=== PATIENT | male | born 1940 | race African-American/Black ===

== ENCOUNTER 2017-04-02 05:33 | Emergency (ER) | payer MEDICARE, OTHER, MEDICAID ==
[2017-04-02 06:44] LABS: ALT (SGPT) Less than 7 U/L (8-55); AST (SGOT) 14 U/L (5-34); Alkaline Phosphatase 69 U/L (40-150); Anion Gap 10 mmol/L (10-20); BUN (Urea Nitrogen) 18 mg/dL (8.4-25.7); Calc. Creatinine Clearance 0 mL/min (70-130); Calcium 9.2 mg/dL (7.8-10.44); Carbon Dioxide 29 mmol/L (23-31); Chloride 105 mmol/L (98-107); Estimated GFR-MDRD 35; Globulin 3.1 g/dL (2.4-3.5)
[2017-04-02 06:46] LABS: Hematocrit 41.6 % (42.0-52.0); Hypersemented Neutrophil SLIGHT; Mean Platelet Volume 7.3 fL (7.4-10.4); Neutrophil 60 % (42-75); Red Blood Cell (RBC) Count 4.36 mill/uL (4.70-6.10); Target Cells SLIGHT = 2-5 cells (100X) (0-1/hpf); White Blood Cell (WBC) Count 5.3 thou/uL (4.8-10.8)
--- NOTE | 2017-04-02 08:24 | RAD ---
PORTABLE UPRIGHT FRONTAL CHEST RADIOGRAPH 04/02/2017 COMPARISON: 11/30/2016 HISTORY: Altered mental status. FINDINGS: Midline sternotomy wires and mediastinal clips are present. [place] metallic structure overlies the cardiac silhouette suggesting a loop recorder. No pneumothorax, pleural fluid, focal consolidation, or alveolar edema. IMPRESSION: No acute findings. POS: [facility]
[2017-04-02 08:51] LABS: Bilirubin Negative (Negative); Blood, Urine Small (Negative); Glucose, Urine (Dipstick) Negative (Negative); Ketone, Urine Negative (Negative); Nitrite Negative (Negative); Protein, Urine (Dipstick) 100 mg/dL (Neg-Trace)
[2017-04-02 09:07] LABS: Bacteria/HPF None Seen HPF (None Seen); Hyaline Casts/LPF 0-3 HYALINE CAST LPF (0-3 Hyaline); RBC/HPF 0-3 HPF (0-3); Squamous Epithelial 0-3 HPF (0-3); WBC/HPF 0-3 HPF (0-3)
== END 2017-04-02 08:46 | disposition home or self-care (01) ==
LOC: ERS 05:33
DX: E10.649 Type 1 diabetes mellitus with hypoglycemia without coma (principal); F03.90 Unspecified dementia, unspecified severity, without behavioral disturbance, psychotic disturbance, mood disturbance, and anxiety; I10 Essential (primary) hypertension; E78.00 Pure hypercholesterolemia, unspecified; F17.220 Nicotine dependence, chewing tobacco, uncomplicated; Z79.899 Other long term (current) drug therapy
CPT/HCPCS: 36415; 36416; 71010; 80053; 81003; 81015; 85025

== ENCOUNTER 2017-04-11 16:15 | Observation (INO) | payer MEDICARE, OTHER, MEDICAID ==
[2017-04-11 17:39] LABS: #Basophils 0.1 thou/uL (0.0-0.2); #Eosinphils 0.7 thou/uL (0.0-0.7); #Lymphocytes 1.6 thou/uL (1.20-3.40); #Monocytes 0.4 thou/uL (0.11-0.59); #Neutrophils 2.7 thou/uL (1.40-6.50); %Eosinophils 13.6 % (0.0-10.0); %Lymphocytes 29.3 % (21.0-51.0); %Monocytes 7.6 % (0.0-10.0); Hematocrit 40.8 % (42.0-52.0); Mean Platelet Volume 7.5 fL (7.4-10.4); Red Blood Cell (RBC) Count 4.27 mill/uL (4.70-6.10); White Blood Cell (WBC) Count 5.5 thou/uL (4.8-10.8)
[2017-04-11 17:50] LABS: Troponin I 0.023 ng/mL (< 0.028)
[2017-04-11 17:50] LABS: Bilirubin Negative (Negative); Blood, Urine Trace (Negative); Glucose, Urine (Dipstick) >=1000 mg/dL (Negative); Ketone, Urine Negative (Negative); Nitrite Negative (Negative); Protein, Urine (Dipstick) 100 mg/dL (Neg-Trace)
[2017-04-11 17:52] LABS: Bacteria/HPF None Seen HPF (None Seen); Hyaline Casts/LPF 0-3 HYALINE CAST LPF (0-3 Hyaline); RBC/HPF 0-3 HPF (0-3); Squamous Epithelial None Seen HPF (0-3); WBC/HPF None Seen HPF (0-3)
[2017-04-11 17:57] LABS: Anion Gap 11 mmol/L (10-20); BUN (Urea Nitrogen) 23 mg/dL (8.4-25.7); Calc. Creatinine Clearance 0 mL/min (70-130); Calcium 9.6 mg/dL (7.8-10.44); Carbon Dioxide 29 mmol/L (23-31); Chloride 96 mmol/L (98-107); Estimated GFR-MDRD 34; Lipase 35 U/L (8-78)
[2017-04-11] MEDS ORDERED: Bisacodyl 5 MG TAB PO PRN (22:18)
[2017-04-11] MEDS ORDERED: Acetaminophen 325 MG TAB PO PRN (22:18)
[2017-04-11] MEDS ORDERED: Dextrose 50% Abboject 50 ML SYRINGE SLOW IVP PRN (22:18)
[2017-04-11] MEDS ORDERED: Dextrose 5% in Water 1,000 ML IV PRN (22:18)
[2017-04-11] MEDS ORDERED: hydrALAZINE 20 MG/ML VIAL SLOW IVP PRN (22:18)
[2017-04-11] MEDS ORDERED: traMADol HCl 50 MG TAB PO PRN (22:18)
[2017-04-11] MEDS ORDERED: HumaLOG 300 UNITS/3 ML VIAL SC PRN (22:18)
[2017-04-11] MEDS ORDERED: Zolpidem Tartrate 5 MG TAB PO PRN (22:18)
[2017-04-11] MEDS ORDERED: HYDROcodone/Acetaminophen 5/325 mg Tablet PO PRN (22:18)
[2017-04-11] MEDS ORDERED: Metoprolol Tartrate 25 MG TAB PO SCH (22:45)
[2017-04-11] MEDS ORDERED: Insulin NPH/Reg Insulin Hm 300 UNITS/3 ML VIAL SC SCH (22:45)
[2017-04-11] MEDS: Sodium Chloride 0.9% 1,000 ML IV SCH (23:00)
--- NOTE | 2017-04-12 04:15 | HP ---
CHIEF COMPLAINT: Uncontrolled glucose, hyperglycemia. BRIEF HOSPITAL COURSE: This is a 76-year-old pleasant -[place] gentleman who was apparently in his usual state of health, came into the hospital because of high glucose. The patient was sent by his primary care physician. The patient is a very poor historian and most of the history is obt ained right now from the chart. In the ER, the history was provided by the patient's spouse. She s aid that the patient came to the emergency room after receiving a call from the PCP after having giovanna vated blood sugar greater than 400. The patient was experienced some nausea and vomiting the past d ay. He was sent to the hospital a few days ago for low blood sugar in the 30s. At that time, his i nsulin regimen was changed from 20 units b.i.d. to 16 units b.i.d. Right now, he presents with hype rglycemia. The patient at the time of my examination does not have any abdominal pain, nausea, vomi ting, or chest pain. PAST MEDICAL HISTORY: Significant for history of dementia, history of CVA in the past, diabetes typ e 1, hypertension, high cholesterol, chronic back pain. PAST SURGICAL HISTORY: Significant for CABG. PSYCH HISTORY: None. SOCIAL HISTORY: Chews tobacco. Denies alcohol or recreational drug use. FAMILY HISTORY: Negative for diabetes and hypertension. MEDICATIONS: Include amlodipine, lisinopril, Protonix, atorvastatin, Humalog 70/30, he takes 16 uni ts b.i.d. REVIEW OF SYSTEMS: Significant for high blood sugar and some nausea, vomiting, otherwise no fever, no chills, no headache, no appetite, no hearing loss, no latencies. No cough, no chest pain, no dys uria, diarrhea, polyuria. No memory or mood changes. No neck pain. PHYSICAL EXAMINATION: VITAL SIGNS: Blood pressure is 176/86, respirations 18, temperature 98.2. GENERAL: The patient is lying in bed right now and is a very pleasant, in no apparent distress. HEENT: Atraumatic, normocephalic. Pupils equally round, react to light. Extraocular movements int act. Mucous membranes moist. NECK: Supple. No JVD. CHEST: Breath sounds heard. No rales or rhonchi. HEART: S1, S2, no murmurs or gallops. ABDOMEN: Soft, obese. EXTREMITIES: No cyanosis, clubbing, edema. Distal pulses present. NEUROLOGICAL: The patient has no sensorimotor deficits. No cranial nerve deficits noted. SKIN: Normal. LABORATORY DATA: EKG is normal sinus rhythm at 60. WBC count is 4.5, hemoglobin is 13 and potassiu m was 3.8, creatinine is 2.27, BUN is 23, glucose is 341. ASSESSMENT AND PLAN: 1. Hyperglycemia. The patient's glucose will be adjusted this hospital stay. He has got a very br ittle diabetes and just minor decrease in the glucose, long-acting insulin put him in hyperglycemia. We will let the daytime doctor adjust the dose of the insulin. We will put him on 7 units for now because he did not eat much this evening, 7 units of 70/30, we will also put him on insulin sliding scale to cover for any high glucose. 2. Acute renal failure on chronic renal failure probably secondary to uncontrolled diabetes. We wi ll gently hydrate him. 3. Hypertension, uncontrolled. We will continue home medications and p.r.n. medications, history o f diabetes, history of CVA in the past, history of nonsustained ventricular tachycardias in the past . The patient is demented, has some chronic back pain. Hopefully, the patient will have diabetic e ducation and we will be able to optimize glucose control with this hospital stay. Sequential compre ssion devices for deep venous thrombosis prophylaxis. We will monitor the labs and do the need for.
[2017-04-12 05:43] LABS: Hematocrit 39.9 % (42.0-52.0); Mean Platelet Volume 8.1 fL (7.4-10.4); Red Blood Cell (RBC) Count 4.15 mill/uL (4.70-6.10); White Blood Cell (WBC) Count 5.7 thou/uL (4.8-10.8)
[2017-04-12 05:46] LABS: Anion Gap 11 mmol/L (10-20); BUN (Urea Nitrogen) 19 mg/dL (8.4-25.7); Calc. Creatinine Clearance 40 mL/min (70-130); Calcium 8.9 mg/dL (7.8-10.44); Carbon Dioxide 26 mmol/L (23-31); Chloride 105 mmol/L (98-107); Estimated GFR-MDRD 46
[2017-04-12 06:20] LABS: Neutrophil 40 % (42-75)
[2017-04-12] MEDS ORDERED: Insulin NPH/Reg Insulin Hm 300 UNITS/3 ML VIAL SC SCH ×3 (09:00→21:00)
[2017-04-12] MEDS ORDERED: FLU VACC TS2017-18 (>65YR) 0.5 ML SYRINGE IM ONE (09:00)
[2017-04-12] MEDS: Amlodipine 10 MG TAB PO SCH (10:17)
[2017-04-12] MEDS: Aspirin 325 mg Enteric Coated Tablet PO SCH (10:18)
[2017-04-12] MEDS: Famotidine 20 MG TAB PO SCH (10:18)
[2017-04-12] MEDS: Lisinopril 5 MG TAB PO SCH (10:19)
[2017-04-12] MEDS: Metoprolol Tartrate 25 MG TAB PO SCH ×2 (10:20→20:49)
[2017-04-12] MEDS: Sodium Chloride 0.9% 1,000 ML IV SCH (12:33)
--- NOTE | 2017-04-12 17:58 | PDOC.PN ---
- Subjective Encounter Start Date: 04/12/17 Encounter Start Time: 11:20 Pt seen for followup re: hyperglycemia. Denies chest pain, shortness of breath , fevers or chills. - Objective MAR Reviewed: Yes Vital Signs & Weight: Vital Signs (12 hours) Temp Pulse Resp BP BP Pulse Ox 04/12/17 15:05 96.9 F L 74 17 139/77 96 04/12/17 12:00 98.2 F 75 16 165/83 H 98 04/12/17 11:15 98.3 F 75 16 165/83 H 98 04/12/17 10:19 61 157/80 H 04/12/17 10:17 61 157/80 H 04/12/17 08:45 98.3 F 75 16 98 04/12/17 07:14 98.5 F 61 16 157/80 H 98 Weight Weight 178 lb 6.4 oz I&O: 04/11/17 04/12/17 04/13/17 06:59 06:59 06:59 Intake Total 853 Output Total 150 Balance 703 Result Diagrams: 04/12/17 05:12 04/12/17 05:12 Additional Labs: Accuchecks 04/12/17 04/12/17 04/12/17 17:06 10:28 05:33 POC Glucose 79 230 H 138 H 04/12/17 04/11/17 02:04 21:41 POC Glucose 345 H 337 H Phys Exam - Physical Examination Constitutional: NAD HEENT: PERRLA, moist MMs, sclera anicteric, oral pharynx no lesions Neck: no nodes, no JVD, supple, full ROM Respiratory: no wheezing, no rales, no rhonchi, clear to auscultation bilateral Cardiovascular: RRR, no rub Gastrointestinal: soft, non-tender, no distention, positive bowel sounds Musculoskeletal: pulses present Neurological: moves all 4 limbs Lymphatic: no nodes Psychiatric: normal affect Deviation from normal: Oriented to person and place, not to time Skin: no rash, normal turgor, cap refill <2 seconds Dx/Plan (1) Hyperglycemia Code(s): R73.9 - HYPERGLYCEMIA, UNSPECIFIED Status: Acute (2) Dyslipidemia Code(s): E78.5 - HYPERLIPIDEMIA, UNSPECIFIED Status: Acute (3) CAD (coronary artery disease) Code(s): I25.10 - ATHSCL HEART DISEASE OF [place] CORONARY ARTERY W/O ANG PCTRS Status: Chronic Qualifiers: Coronary Disease-Associated Artery/Lesion type: [place] artery [place] vs. transplanted heart: [place] heart Associated angina: without angina Qualified Code(s): I25.10 - Atherosclerotic heart disease of [place] coronary artery without angina pectoris (4) Hypertension Code(s): I10 - ESSENTIAL (PRIMARY) HYPERTENSION Status: Chronic Qualifiers: Hypertension type: essential hypertension Qualified Code(s): I10 - Essential (primary) hypertension - Plan DVT proph w/SCDs * . Monitor accuchecks, pt's 70/30 insulin started at 18 units BID. Continue insulin sliding scale. Check A1c level. CAD stable. Continue statin. Monitor vital signs, titrate antihypertensives as needed. Review of Systems - Review of Systems Constitutional: negative: Fever, Chills, Sweats, Weakness, Malaise Respiratory: negative: Cough, Dry, Shortness of Breath, Hemoptysis, SOB with Excertion, Pleuritic Pain, Sputum, Wheezing Cardiovascular: negative: Chest Pain, Palpitations, Orthopnea, Paroxysmal Noc. Dyspnea, Edema, Light Headedness Gastrointestinal: negative: Nausea, Vomiting, Abdominal Pain, Diarrhea, Constipation, Melena, Hematochezia Genitourinary: negative: Dysuria, Frequency, Incontinence, Hematuria, Retention - Medications/Allergies Allergies/Adverse Reactions: Allergies Allergy/AdvReac Type Severity Reaction Status Date / Time No Known Allergies Allergy Verified 04/11/17 22:02 Medications: Current Medications Acetaminophen (Tylenol) 650 mg PO Q4H PRN PRN Reason: Headache/Fever or Pain Hydrocodone Bitart/Acetaminophen (Cornelius 5/325) 1 tab PO Q4H PRN PRN Reason: Moderate Pain (4-6) Amlodipine Besylate (Norvasc) 10 mg PO DAILY [facility] Last Admin: 04/12/17 10:17 Dose: 10 mg Aspirin (Ecotrin) 325 mg PO DAILY [facility] Last Admin: 04/12/17 10:18 Dose: 325 mg Bisacodyl (Dulcolax) 5 mg PO DAILYPRN PRN PRN Reason: CONSTIPATION Cholecalciferol (Vitamin D3) 1,000 units PO DAILY [facility] Last Admin: 04/12/17 10:18 Dose: 1,000 units Dextrose/Water (Dextrose 50%) 25 gm SLOW IVP PRN PRN PRN Reason: Hypoglycemia Famotidine (Pepcid) 20 mg PO DAILY [facility] Last Admin: 04/12/17 10:18 Dose: 20 mg Glucagon (Glucagon) 1 mg IM PRN PRN PRN Reason: Hypoglycemia Hydralazine HCl (Apresoline) 10 mg SLOW IVP Q4H PRN PRN Reason: Systolic BP > 180 Dextrose/Water (D5w) 1,000 mls @ 0 mls/hr IV .Q0M PRN; As Directed PRN Reason: Hypoglycemia Sodium Chloride (Normal Saline 0.9%) 1,000 mls @ 75 mls/hr IV .[id number] [facility] Stop: 04/13/17 22:31 Last Admin: 04/12/17 12:33 Dose: 1,000 mls Insulin Human Isoph/Insulin Regular (Humulin 70/30) 18 units SC Q12H [facility] Last Admin: 04/12/17 10:24 Dose: 18 unit Insulin Human Lispro (Humalog) 0 units SC .MODERATE SLIDING SC PRN PRN Reason: Moderate Correctional Scale Last Admin: 04/12/17 12:29 Dose: 4 unit Lisinopril (Zestril) 5 mg PO DAILY [facility] Last Admin: 04/12/17 10:19 Dose: 5 mg Metoprolol Tartrate (Lopressor) 50 mg PO BID [facility] Last Admin: 04/12/17 10:20 Dose: 50 mg Pantoprazole Sodium (Protonix) 40 mg PO Q24HR [facility] Last Admin: 04/11/17 23:01 Dose: 40 mg Sodium Chloride (Flush - Normal Saline) 10 ml IVF PRN PRN PRN Reason: Saline Flush Tramadol HCl (Ultram) 50 mg PO Q8H PRN PRN Reason: Moderate Pain (4-6) Zolpidem Tartrate (Ambien) 5 mg PO HSPRN PRN PRN Reason: Insomnia
[2017-04-12 18:46] LABS: Hemoglobin A1c 8.9 % (4.0-6.0)
[2017-04-12] MEDS: Insulin NPH/Reg Insulin Hm 300 UNITS/3 ML VIAL SC SCH (20:54)
[2017-04-12] MEDS ORDERED: Atorvastatin Calcium 40 MG TAB PO SCH (21:00)
[2017-04-13] MEDS: Sodium Chloride 0.9% 1,000 ML IV SCH (02:04)
[2017-04-13 05:58] LABS: Anion Gap 11 mmol/L (10-20); BUN (Urea Nitrogen) 16 mg/dL (8.4-25.7); Calc. Creatinine Clearance 42 mL/min (70-130); Calcium 8.5 mg/dL (7.8-10.44); Carbon Dioxide 26 mmol/L (23-31); Chloride 105 mmol/L (98-107); Estimated GFR-MDRD 47
[2017-04-13 07:54] VITALS: BP 167/90
[2017-04-13] MEDS ORDERED: Potassium Chloride 20 MEQ TAB PO SCH (09:30)
[2017-04-13] MEDS: Famotidine 20 MG TAB PO SCH (09:39)
[2017-04-13] MEDS: Aspirin 325 mg Enteric Coated Tablet PO SCH (09:39)
[2017-04-13] MEDS: Metoprolol Tartrate 25 MG TAB PO SCH (09:39)
[2017-04-13] MEDS: Lisinopril 5 MG TAB PO SCH (09:40)
[2017-04-13] MEDS: Insulin NPH/Reg Insulin Hm 300 UNITS/3 ML VIAL SC SCH (09:42)
[2017-04-13] MEDS: Amlodipine 10 MG TAB PO SCH (09:51)
[2017-04-13 12:12] VITALS: TEMP 99.6
--- NOTE | 2017-04-13 17:12 | DIS ---
DATE OF ADMISSION: 04/11/2017 DATE OF DISCHARGE: 04/13/2017 PRIMARY CARE PHYSICIAN: Dr Len Mccurdy DISCHARGE DIAGNOSES: 1. Hyperglycemia. 2. Brittle diabetes mellitus. CONDITION OF PATIENT AT THE TIME OF DISCHARGE: Stable. I assessed Mr. Castillo on the day of discharge. He denies any chest pain or shortness of breath. He denies any lightheadedness or diaphoresis. He denies any weakness. Vital signs are stable. S1 and S2 are heard, regular. Lungs are clear to auscultation bilaterally. DISCHARGE MEDICATIONS: Aspirin 325 mg daily, Lipitor 40 mg at bedtime, Dulcolax 5 mg daily as needed, vitamin D3 1000 units daily, Humulin 70/30 insulin 16 units 2 times a day, lisinopril 5 mg daily, metoprolol 50 mg 2 times a day, Protonix 40 mg daily, amlodipine 10 mg daily, and tramadol 50 mg 3 times a day as needed. HOSPITAL COURSE: Mr. Castillo is a pleasant 76-year-old gentleman who was admitted to [facility] for hyperglycemia on 04/11/2017. He was recently hospitalized at this facility for hypoglycemia. His home medications included Humulin 70/30 16 units 2 times a day. This dose was increased to 18 units 2 times a day. However, he had hypoglycemic episodes , blood sugars 79 at 1706 hours on 04/12 and blood sugar 66 at 0501 hours on . His insulin dose was changed back to his home medication dose of 16 units 2 times a day. He needs Endocrinology evaluation as outpatient. He has been advised to follow up with his primary care physician and request the same. He has also been advised to maintain record of his Accu-Cheks and shows the readings to his primary care provider as well as to shingle packer. During this hospitalization, he had a hemoglobin A1c level of 8.9. On the day of discharge, he has a sodium of 139, potassium 3.3, which is being replaced, creatinine 1.70, and blood urea nitrogen of 16. On 04/12, he had a white count of 5700, hemoglobin 12.7 and platelet count 146,000. Many thanks for allowing me to participate in your patient's care. Please feel free to contact me with any questions or concerns. DISCHARGE DESTINATION: Home. [facility]
--- NOTE | 2017-05-25 15:41 | EKG ---
Test Reason : Blood Pressure : / mmHG Vent. Rate : 060 BPM Atrial Rate : 060 BPM P-R Int : 180 ms QRS Dur : 100 ms QT Int : 412 ms P-R-T Axes : 048 -07 009 degrees QTc Int : 412 ms Normal sinus rhythm Inferior infarct , age undetermined Abnormal ECG Confirmed by HYACINTH MÁRQUEZ, TERRY ([id number]), assignment desk editor EMEBR PAZ ([id number]) on 05/25/2017 3:41:39 PM Referred By: Confirmed By:TERRY CLAROS MD
== END 2017-04-13 13:16 | disposition home or self-care (01) ==
LOC: ERS 16:15 → 2SW 19:25
PROVIDERS: ADMIT Internal Medicine; ATTEND Internal Medicine
DX: E10.65 Type 1 diabetes mellitus with hyperglycemia (principal); F03.90 Unspecified dementia, unspecified severity, without behavioral disturbance, psychotic disturbance, mood disturbance, and anxiety; E78.00 Pure hypercholesterolemia, unspecified; M54.9 Dorsalgia, unspecified; G89.29 Other chronic pain; F17.220 Nicotine dependence, chewing tobacco, uncomplicated; N17.9 Acute kidney failure, unspecified; E10.22 Type 1 diabetes mellitus with diabetic chronic kidney disease; I12.9 Hypertensive chronic kidney disease with stage 1 through stage 4 chronic kidney disease, or unspecified chronic kidney disease; N18.9 Chronic kidney disease, unspecified; Z79.82 Long term (current) use of aspirin; Z79.899 Other long term (current) drug therapy; Z95.1 Presence of aortocoronary bypass graft; Z86.73 Personal history of transient ischemic attack (TIA), and cerebral infarction without residual deficits
CPT/HCPCS: 80048 ×3; 82010; 82553; 82962 ×3; 83036; 83690; 83930; 84484; 85025 ×2; 87086; 93005; 96360; 96361 ×4; 99285; G0008; G0378; Q2036; 36415; 36416; 81003; 81015; 90471; 90682

== ENCOUNTER 2017-07-18 14:04 | Emergency (ER) | payer MEDICARE, OTHER, MEDICAID ==
[2017-07-18 15:06] LABS: ALT (SGPT) Less than 7 U/L (8-55); AST (SGOT) 12 U/L (5-34); Albumin 3.7 g/dL (3.4-4.8); Alkaline Phosphatase 77 U/L (40-150); Anion Gap 15 mmol/L (10-20); BUN (Urea Nitrogen) 22 mg/dL (8.4-25.7); Bilirubin, Total 1.1 mg/dL (0.2-1.2); Calc. Creatinine Clearance 0 mL/min (70-130); Calcium 8.7 mg/dL (7.8-10.44); Carbon Dioxide 25 mmol/L (23-31); Chloride 95 mmol/L (98-107); Estimated GFR-MDRD 33; Globulin 2.8 g/dL (2.4-3.5); Glucose 434 mg/dL (83-110); Potassium 3.7 mmol/L (3.5-5.1); Protein, Total 6.5 g/dL (5.8-8.1); Sodium 131 mmol/L (136-145)
--- NOTE | 2017-07-18 15:20 | RAD ---
PA AND LATERAL VIEWS CHEST: HISTORY: Cough. FINDINGS: Comparison is made with the exam of 04/02/17. Changes of median sternotomy are again seen. The heart size is borderline. The aorta is tortuous. The lungs are expanded without focal areas of consolidation, pneumothorax, or pleural effusions. The re are degenerative changes in the spine. Postop changes are seen in the right shoulder. IMPRESSION: No acute process. POS: [facility]
[2017-07-18] MEDS ORDERED: HumaLOG 300 UNITS/3 ML VIAL ONE (15:49)
[2017-07-18] MEDS ORDERED: Insulin Regular 300 UNITS/3 ML VIAL ONE (15:51)
== END 2017-07-18 16:09 | disposition home or self-care (01) ==
LOC: ERS 14:04
DX: E10.65 Type 1 diabetes mellitus with hyperglycemia (principal); R05 Cough; Z91.11 Patient's noncompliance with dietary regimen; F03.90 Unspecified dementia, unspecified severity, without behavioral disturbance, psychotic disturbance, mood disturbance, and anxiety; I10 Essential (primary) hypertension; F17.220 Nicotine dependence, chewing tobacco, uncomplicated; Z79.4 Long term (current) use of insulin; Z79.899 Other long term (current) drug therapy
CPT/HCPCS: 71046; 80053; J1815

== ENCOUNTER 2017-10-20 10:25 | Inpatient (IN) | payer MEDICARE, OTHER ==
[2017-10-20 11:41] LABS: #Basophils 0.1 thou/uL (0.0-0.2); #Eosinphils 0.6 thou/uL (0.0-0.7); #Lymphocytes 1.2 thou/uL (1.20-3.40); #Monocytes 0.4 thou/uL (0.11-0.59); #Neutrophils 3.2 thou/uL (1.40-6.50); %Basophils 1.1 % (0.0-1.0); %Eosinophils 11.3 % (0.0-10.0); %Lymphocytes 21.2 % (21.0-51.0); %Monocytes 6.6 % (0.0-10.0); %Neutrophils 59.8 % (42.0-75.0); Hemoglobin 7.1 g/dL (14.0-18.0); Mean Corpuscular HGB CONC 32.2 g/dL (32.0-36.0); Mean Corpuscular Hemoglobin 32.8 pg (27.0-31.0); Mean Platelet Volume 7.7 fL (7.4-10.4); Platelet Count 169 thou/uL (130-400); RBC Distribution Width 16.5 % (11.5-14.5); Red Blood Cell (RBC) Count 2.15 mill/uL (4.70-6.10); White Blood Cell (WBC) Count 5.4 thou/uL (4.8-10.8)
[2017-10-20 12:02] LABS: ALT (SGPT) Less than 7 U/L (8-55); AST (SGOT) 22 U/L (5-34); Albumin 3.6 g/dL (3.4-4.8); Alkaline Phosphatase 59 U/L (40-150); Anion Gap 9 mmol/L (10-20); BUN (Urea Nitrogen) 47 mg/dL (8.4-25.7); Bilirubin, Total 1.4 mg/dL (0.2-1.2); Calc. Creatinine Clearance 0 mL/min (70-130); Calcium 8.5 mg/dL (7.8-10.44); Carbon Dioxide 28 mmol/L (23-31); Chloride 108 mmol/L (98-107); Estimated GFR-MDRD 28; Globulin 2.2 g/dL (2.4-3.5); Glucose 275 mg/dL (83-110); Potassium 3.6 mmol/L (3.5-5.1); Protein, Total 5.8 g/dL (5.8-8.1)
[2017-10-20 12:08] LABS: Sodium 141 mmol/L (136-145)
[2017-10-20 12:23] LABS: CKMB 1.7 ng/mL (0-6.6); Troponin I 0.072 ng/mL (< 0.028)
[2017-10-20 12:30] LABS: Bilirubin Small (Negative); Blood, Urine Moderate (Negative); Clarity CLOUDY (Clear); Glucose, Urine (Dipstick) Negative (Negative); Leukocyte Negative (Negative); Nitrite Negative (Negative); Protein, Urine (Dipstick) Trace mg/dL (Neg-Trace); Specific Gravity, Urine 1.019 (1.002-1.036)
[2017-10-20 12:33] LABS: Bacteria/HPF None Seen HPF (None Seen); Pathc Cast-AUWi Flag 1.01 (0-2.49); Squamous Epithelial 0-3 HPF (0-3); WBC/HPF 0-3 HPF (0-3)
[2017-10-20 12:45] LABS: Hyaline Casts/LPF 4-6 HYALINE CAST LPF (0-3 Hyaline); Renal Epithelial 0-3 HPF (0-3); Transitional Epithelial 0-3 HPF (0-3)
--- NOTE | 2017-10-20 13:34 | RAD ---
PORTABLE CHEST: Date: 10/20/17 HISTORY: Hypertension. Hypoglycemia. Weakness. FINDINGS: Heart size is within normal limits for portable technique. There are postop sternotomy changes. Lungs are clear of infiltrates. No signs of failure. Postoperative changes of the right shoulder are prese nt. IMPRESSION: No active intrathoracic disease. POS: [facility]
--- NOTE | 2017-10-20 13:48 | CT ---
CT OF BRAIN PERFORMED WITHOUT CONTRAST ENHANCEMENT: Date: 10/20/17 HISTORY: Altered mental status. Weakness. COMPARISON: 11/30/16. FINDINGS: There is generalized ventricular and sulcal prominence with some decreased attenuation of the periven tricular white matter. There are no signs of intracerebral hemorrhage or extra-axial fluid collection s. Mastoid air cells are clear. There is mucosal disease within the ethmoid and maxillary sinuses. IMPRESSION: No acute intracranial abnormalities. POS: [facility]
[2017-10-20 15:54] LABS: Lactic Acid 1.5 mmol/L (0.5-2.2)
[2017-10-20] MEDS ORDERED: Ondansetron HCl/PF 4 MG/2 ML Vial IVP PRN (16:30)
[2017-10-20] MEDS ORDERED: Sodium Chloride 0.9% 1,000 ML IV SCH (16:30)
[2017-10-20] MEDS ORDERED: Ondansetron ODT 4 MG TAB PO PRN (16:31)
[2017-10-20] MEDS ORDERED: Dextrose 50% Abboject 50 ML SYRINGE SLOW IVP PRN (16:37)
[2017-10-20] MEDS ORDERED: Dextrose 5% in Water 1,000 ML IV PRN (16:37)
[2017-10-20] MEDS ORDERED: Acetaminophen 325 MG TAB PO PRN (16:37)
[2017-10-20 16:40] VITALS: BMI 25.2
[2017-10-20] MEDS ORDERED: Prevnar 13-Val Conj/PF 0.5 ML SYRINGE IM ONE (17:00)
[2017-10-20] MEDS: Sodium Chloride 0.9% 1,000 ML IV SCH (17:05)
[2017-10-20 17:41] LABS: Iron 69 ug/dL (65-175); Iron Binding Capacity, Total 199 mcg/dL (261-462); Transferrin, Serum 159 mg/dL (163-344)
[2017-10-20 17:45] LABS: CKMB 1.8 ng/mL (0-6.6); Troponin I 0.055 ng/mL (< 0.028)
[2017-10-20] MEDS: HumaLOG 300 UNITS/3 ML VIAL SC PRN (17:54)
[2017-10-20] MEDS: Pantoprazole 40 MG VIAL IVP SCH (20:05)
--- NOTE | 2017-10-20 22:59 | CON ---
DATE OF CONSULTATION: 10/20/2017 GI INPATIENT CONSULTATION NOTE REQUESTING PHYSICIAN: Dr. Chiang. REASON FOR CONSULTATION: Anemia and heme positive stool. HISTORY OF PRESENT ILLNESS: Nikhil Castillo is a 76-year-old man with dementia and history of coronary artery disease. He was previously seen by my GI colleague, Dr. George Sanchez back in April 2017. At that time, he had an EGD which demonstrated a benign gastric polyp as well as short segment Plan[place] tt esophagus. The patient has been on a daily proton pump inhibitor. He was admitted to the [facility] earlier today after presenting with report of progressive weakness over the past couple of weeks an d also declining appetite over the past few days. Due to the patient's dementia and no family member s being in the room, my ability to get a good history is limited. It is taken primarily from medical records. The patient himself denies any problems with abdominal pain, nausea, or vomiting. He patel es seeing any blood in the stool either melena or hematochezia. He denies any overt bleeding from an ywhere. He does tell me that he tends toward constipation, but he cannot really give me any further details than that. Upon presentation, it was noted that he has a significant new anemia, back in Apr of last year, hemoglobin was 12.7 with MCV 96, but now hemoglobin has dropped to 7.1 and MCV is increased to 102. Other labs are notable for acute on chronic renal failure with BUN 47, creatinine 2.69. Iron studies are mixed, but I do not see a ferritin, transferrin is low at 159, but TIBC is a lso low at 199. CK is elevated 491 and BNP elevated to 129.9. FOBT was performed and is positive. He has a low level troponin elevation as well, but this is down trending. He denies any chest pain o r shortness of breath. We are consulted due to the finding of new anemia. The patient does not reca ll having an upper endoscopy last year. He does not have a recall in going a colonoscopy. I am not sure whether he has had one or not. There is no record of that in our system or in the [facility] system. REVIEW OF SYSTEMS: Full review of systems including constitutional, head, eyes, ears, nose, throat, GI, , cardiovascular, respiratory, musculoskeletal, and neurologic systems is negative except as no man in the HPI. PAST MEDICAL HISTORY: Dementia, hypertension, hyperlipidemia, diabetes, coronary artery disease, cor onary artery bypass graft surgery, chronic back pain, benign gastric polyp on EGD 04/2017, short segm ent Ross's esophagus on EGD 04/2017. ALLERGIES: No known drug allergies. OUTPATIENT MEDICATIONS: Amlodipine, atorvastatin, lisinopril, Protonix 40 mg daily, insulin. SOCIAL HISTORY: The patient chews tobacco. No alcohol or drug use. FAMILY HISTORY: Patient is not aware of family history of GI malignancy. PHYSICAL EXAMINATION: VITAL SIGNS: Temperature 98.4, pulse 72, blood pressure 123/64, 96% oxygen saturation on room air. GENERAL: Elderly 76-year-old -[place] gentleman lying in bed comfortably, appearing nontoxic and in no acute distress. SKIN: No jaundice, no rashes visible or palpable. EYES: No scleral icterus. Extraocular movements intact. ENT: Mucous membranes moist, no oral lesions. LYMPH: No submandibular, supraclavicular lymphadenopathy. THYROID: Nontender to palpation. HEART: Regular rate and rhythm. LUNGS: Clear to auscultation bilaterally. ABDOMEN: Bowel sounds present, soft and nontender to palpation throughout. No masses or organomegal y appreciated. EXTREMITIES: No peripheral edema. VESSELS: Radial pulses 2+ bilaterally. NEUROLOGIC: No focal deficits. LABORATORY STUDIES: Hemoglobin 7.1, MCV elevated to 102. WBC 5.4, platelets 169. Sodium 141, potas sium 3.6, BUN 47, creatinine 2.69, troponin initially 0.072, now down to 0.05. Lactic acid 1.5, mena sferrin low at 159. Iron 69, TIBC low at 199, 35% iron saturation. CK elevated to 491. BNP elevate d to 129.9, total bilirubin 1.4, alkaline phosphatase 59, AST 22, ALT 7, albumin 3.6. Urinalysis romeo ws 11-20 rbc's. FOBT is positive. IMAGING STUDIES: Chest x-ray shows no acute processes. Head CT shows no acute processes. ASSESSMENT AND PLAN: 1. Anemia, macrocytic, new since 04/2017. 2. Heme positive stool. 3. History of Ross esophagus. 4. Dehydration, acute on chronic renal failure. Note the anemia is macrocytic, and iron studies back so far are mixed with a low TIBC and low transfe rrin. Awaiting ferritin level. I will also order vitamin B12 and folate levels to be drawn tomorrow . We will await results of labs and also follow his acute on chronic renal failure tomorrow. We francesco l not perform any bowel preparation for colonoscopy tonight or plan for any endoscopic investigation tomorrow. Rather, we will have him on clear liquid diet. We will plan to reassess tomorrow, and dep ending on lab workup and patient and family wishes at that time, could potentially administer bowel p reparation tomorrow evening for colonoscopy the following day. Thank you for the consultation. Please call back anytime with questions or concerns.
[2017-10-20 23:35] LABS: CKMB 2.2 ng/mL (0-6.6); Troponin I 0.044 ng/mL (< 0.028)
[2017-10-21] MEDS: Sodium Chloride 0.9% 1,000 ML IV SCH ×4 (03:44→21:03)
[2017-10-21 06:04] LABS: Hemoglobin A1c 9.5 % (4.0-6.0)
[2017-10-21 06:09] LABS: ALT (SGPT) 7 U/L (8-55); AST (SGOT) 19 U/L (5-34); Albumin 3.4 g/dL (3.4-4.8); Alkaline Phosphatase 58 U/L (40-150); Anion Gap 6 mmol/L (10-20); BUN (Urea Nitrogen) 37 mg/dL (8.4-25.7); Bilirubin, Total 1.4 mg/dL (0.2-1.2); Calc. Creatinine Clearance 33 mL/min (70-130); Carbon Dioxide 30 mmol/L (23-31); Chloride 109 mmol/L (98-107); Estimated GFR-MDRD 37; Glucose 189 mg/dL (83-110); Potassium 3.5 mmol/L (3.5-5.1); Protein, Total 5.4 g/dL (5.8-8.1); Sodium 141 mmol/L (136-145)
[2017-10-21 06:25] LABS: Eosinophils 11 % (0-10); Hemoglobin 6.4 g/dL (14.0-18.0); Lymphocytes 21 % (21-51); MDiff Complete? YES; Mean Corpuscular HGB CONC 32.9 g/dL (32.0-36.0); Mean Corpuscular Hemoglobin 33.9 pg (27.0-31.0); Mean Platelet Volume 7.9 fL (7.4-10.4); Monocytes 8 % (0-10); Neutrophil 60 % (42-75); PLT Morphology Comment Appears Adequate; Platelet Count 166 thou/uL (130-400); RBC Distribution Width 16.3 % (11.5-14.5); White Blood Cell (WBC) Count 5.7 thou/uL (4.8-10.8)
[2017-10-21 06:40] LABS: Vitamin B12 Less than 109 pg/mL (211-911)
[2017-10-21] MEDS: Pantoprazole 40 MG VIAL IVP SCH ×2 (09:29→21:03)
[2017-10-21] MEDS: HumaLOG 300 UNITS/3 ML VIAL SC PRN ×2 (12:42→21:04)
--- NOTE | 2017-10-21 15:11 | HP ---
DATE OF ADMISSION: 10/20/2017 PRIMARY CARE PHYSICIAN: Jeanne Lombardo. TIME OF SERVICE: 1550. CHIEF COMPLAINT: Weakness. HISTORY OF PRESENT ILLNESS: Mr. Castillo is a 76-year-old -[place] male with history of diab etes, hypertension, hyperlipidemia, reflux, Ross esophagus, tobacco abuse, dementia and coronary d isease. The patient was in normal state of health until about a month ago, started having increasing weakness . Really worse over the last 2 weeks. During the last one week, he has had decreased activity and r eally unable to get out of bed. His relates a history of 2 weeks he is really not having good i ntake and absolutely nothing over the last 24 hours. Today, he was incontinent of stool and really h ad not been walking for the last couple of days. He denies any melena, hematochezia. No fevers or c hills. No nausea or vomiting. The patient was brought to the emergency department for evaluation. He was found to have a creatinin e of 2.69, which is up from his baseline 1.0 on 04/2017. His hemoglobin was 7.1 last at 12.7 about 3 or 4 months ago. We were subsequently called for admission. PAST MEDICAL HISTORY: 1. Diabetes mellitus type 2. 2. Hypertension. 3. Hyperlipidemia. 4. Gastroesophageal reflux disease. 5. Ross esophagus. 6. Dementia. 7. Coronary artery disease. 8. Tobacco abuse with snuff. PAST SURGICAL HISTORY: Coronary artery bypass grafting x4 vessels back in, I believe 2006. HOME MEDICATIONS: 1. Lipitor 40 mg p.o. at bedtime. 2. Aspirin 325 mg daily. 3. Lisinopril 5 mg daily. 4. Metoprolol tartrate 50 mg p.o. b.i.d. 5. Protonix 40 mg p.o. daily. 6. Tramadol 50 mg p.o. t.i.d. p.r.n. pain. 7. Vitamin D3 of 1000 units daily. 8. Amlodipine 10 mg daily. 9. Insulin 70/30, 16 units subcu b.i.d. ALLERGIES: NKDA. FAMILY HISTORY: Negative for clotting or bleeding disorder. No immune dysfunction. SOCIAL HISTORY: , monogamous. He does use snuff about 4 cans per day his says, negative for alcohol or IV drug. We did discussed code status: She does wish for him to be a FULL CODE once every intervention done. PHYSICAL EXAMINATION: On my arrival; GENERAL: The patient is awake and alert. He is pleasantly demented. He appears to be in no distres s. HEENT: Normocephalic, atraumatic. His pupils equal, reactive bilaterally. Mucous membranes are [address] st. There was no visible lesion or thrush. He does have a snuff present in his mouth. NECK: Supple, without lymphadenopathy, JVD or thyromegaly. LUNGS: Clear. Good air movement. Symmetrical chest excursion. No wheeze, no rales or rhonchi. No prolonged expiratory phase. CARDIOVASCULAR: Normocardic and regular. Normal S1, S2. A faint 2/6 systolic ejection murmur in th e right upper sternal border. ABDOMEN: Soft, it is nontender, nondistended, no mass or organomegaly. No rebound, rigidity or guar ding. EXTREMITIES: No cyanosis, clubbing with trace pedal edema. SKIN: Warm and well perfused. He has no rashes or lesions. MUSCULOSKELETAL: Normal to inspection. Large joints appear uninflamed. Adequate range of motion. NEUROLOGIC: Cranial nerves II-XII grossly intact. He has no focal deficits. He has had 5/5 strengt h. LABORATORY EVALUATION: Sodium was 141, potassium 3.6, chloride 108, bicarbonate 28, BUN 47, creatini ne 2.69 and from 2.32 recently and 1.70 back in April. Glucose is 275. Liver function completely within normal limits. Total bilirubin slightly elevated at 1.4. CBC showed a white count of 5.4 with a platelet count of 1 86. Hemoglobin is 7.1 down from 12.7 back in April, and a hematocrit of 22.0. He is microcytic a nd hypochromic. RADIOGRAPHIC STUDIES: None. ASSESSMENT AND PLAN: 1. Symptomatic anemia. We will transfuse him up to 8. I have ordered a type and cross 1 unit to be transfused. His signed the consent form in the emergency department. 2. Chronic gastrointestinal blood loss. He has got no gross blood seen, but does have a positive oc cult fecal blood. I will ask GI to evaluate. We will keep on a clear liquid diet, keep n.p.o. after midnight. He does have a history of Ross esophagus. We will follow up on their recommendations. Dr. Burton's electroneurodiagnostic technician. 3. Diabetes mellitus type 2, will be n.p.o. except for clear liquid diet. We will use sliding scale insulin for correction q.i.d. a.c. and at bedtime Accu-Cheks. 4. Hypertension, essential. We will hold his medicines right now, as he is n.p.o., will restart the m if he is going to be able to eat. 5. Hyperlipidemia. Statin on hold. 6. Gastroesophageal reflux disease. IV Protonix 40 mg q.12 hours. We will follow up on GI recommen dations. 7. Dementia. 8. Coronary artery disease. Patient did have a slightly elevated troponin at 0.072. Likely demand ischemia from his hemoglobin. We will transfuse him to keep the hemoglobin the above 8. 9. Tobacco abuse. We will get serial H&Hs with a.m. labs. Follow up with GI recommendations. The patient does expect to be here more than [address] him in the inpatient status.
--- NOTE | 2017-10-21 16:02 | PDOC.PN ---
- Subjective Encounter Start Date: 10/21/17 Encounter Start Time: 11:00 No acute events. Blood not given as didnt initial secondpage, wasnt reachable until This AM. I got verbal consent myself, okayed nursing to start blood earlier. Pt resting comfortable, denies any pain, no n/V, no CP, no SOB. all systems reviewed and neg x as above - Objective MAR Reviewed: Yes Vital Signs & Weight: Vital Signs (12 hours) Temp Pulse Pulse Resp BP BP Pulse Ox 10/21/17 14:18 98.2 F 79 14 149/69 H 97 10/21/17 14:00 99.1 F 75 14 150/70 H 100 10/21/17 12:45 98.5 F 73 14 148/66 H 95 10/21/17 09:31 98.0 F 83 16 124/56 L 10/21/17 09:20 98.0 F 83 83 16 124/56 L 124/56 L 95 10/21/17 09:10 98.0 F 83 16 124/56 L 95 10/21/17 08:44 98.3 F 74 74 16 129/64 129/64 94 L 10/21/17 08:00 98.3 F 86 16 94 L 10/21/17 07:24 98.2 F 74 18 149/71 H 95 10/21/17 04:58 98.3 F 86 16 148/70 H 95 Weight Admit Weight 176 lb 3.2 oz Weight 176 lb 3.2 oz I&O: 10/20/17 10/21/17 10/22/17 06:59 06:59 06:59 Intake Total 1120 350 Balance 1120 350 Result Diagrams: 10/21/17 05:24 10/21/17 05:24 Additional Labs: Accuchecks 10/21/17 10/21/17 10/20/17 11:48 05:52 20:25 POC Glucose 219 H 198 H 279 H 10/20/17 17:17 POC Glucose 216 H Phys Exam - Physical Examination Constitutional: NAD HEENT: PERRLA, moist MMs, sclera anicteric, oral pharynx no lesions Neck: no nodes, no JVD, supple, full ROM Respiratory: no wheezing, no rales, no rhonchi, clear to auscultation bilateral Cardiovascular: RRR, no significant murmur, no rub Gastrointestinal: soft, non-tender, no distention, positive bowel sounds Musculoskeletal: no edema, pulses present Neurological: non-focal, normal sensation, moves all 4 limbs Lymphatic: no nodes Psychiatric: normal affect Deviation from normal: alert, oriented to person only Skin: no rash, normal turgor, cap refill <2 seconds Dx/Plan (1) Symptomatic anemia Code(s): D64.9 - ANEMIA, UNSPECIFIED Status: Acute (2) Chronic GI bleeding Code(s): K92.2 - GASTROINTESTINAL HEMORRHAGE, UNSPECIFIED Status: Chronic (3) History of Ross's esophagus Code(s): Z87.19 - PERSONAL HISTORY OF OTHER DISEASES OF THE DIGESTIVE SYSTEM Status: Chronic (4) Dementia Code(s): F03.90 - UNSPECIFIED DEMENTIA WITHOUT BEHAVIORAL DISTURBANCE Status: Chronic Qualifiers: Dementia type: unspecified type Dementia behavioral disturbance: without behavioral disturbance Qualified Code(s): F03.90 - Unspecified dementia without behavioral disturbance (5) Tobacco abuse Code(s): Z72.0 - TOBACCO USE Status: Chronic (6) Dyslipidemia Code(s): E78.5 - HYPERLIPIDEMIA, UNSPECIFIED Status: Chronic (7) CAD (coronary artery disease) Code(s): I25.10 - ATHSCL HEART DISEASE OF [place] CORONARY ARTERY W/O ANG PCTRS Status: Chronic Qualifiers: Coronary Disease-Associated Artery/Lesion type: [place] artery [place] vs. 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 tranfuse 2 units, AM labs, no acute loss of blood. follow u on GI recs. possible endoscopy tomorrow.
--- NOTE | 2017-10-21 22:27 | PRG ---
DATE OF SERVICE: 10/21/2017 SUBJECTIVE: Mr. Castillo has no acute complaints today. OBJECTIVE: VITAL SIGNS: Temperature 99.1, pulse 72, blood pressure 162/73. GENERAL: He is oriented to his name and location, but not the year. LUNGS: Clear to auscultation bilaterally. HEART: Regular rate and rhythm. ABDOMEN: Soft, nontender, nondistended. Bowel sounds are present. EXTREMITIES: No lower extremity edema. LABORATORY DATA: White blood cell count 5.7, hemoglobin 6.4, platelets 166. Creatinine 2.1. Ferrit in 430, iron 69, TIBC 199. Folate 14.8. Vitamin B12 less than 109, bilirubin 1.4. IMPRESSION: 1. Vitamin B12 deficiency with macrocytic anemia. He has had significant drop in his hemoglobin ove r the last several months from April to now and it is unclear if B12 deficiency would cause this s evere of anemia. 2. Hemoccult positive stool. Previous EGD did show gastritis with intestinal metaplasia. Follow up EGD is indicated to rule out peptic ulcer or malignancy. Also to further evaluate the B12 deficienc y. RECOMMENDATIONS: 1. EGD tomorrow. 2. Gastrin level. 3. Intrinsic factor antibody. 4. Vitamin B12 supplementation.
[2017-10-22 05:06] LABS: #Basophils 0.1 thou/uL (0.0-0.2); #Eosinphils 0.6 thou/uL (0.0-0.7); #Lymphocytes 1.5 thou/uL (1.20-3.40); #Monocytes 0.3 thou/uL (0.11-0.59); #Neutrophils 5.5 thou/uL (1.40-6.50); %Basophils 0.7 % (0.0-1.0); %Eosinophils 8.1 % (0.0-10.0); %Lymphocytes 18.3 % (21.0-51.0); %Monocytes 3.4 % (0.0-10.0); %Neutrophils 69.4 % (42.0-75.0); Hemoglobin 9.1 g/dL (14.0-18.0); Mean Corpuscular HGB CONC 33.8 g/dL (32.0-36.0); Mean Corpuscular Hemoglobin 32.5 pg (27.0-31.0); Mean Corpuscular Volume 96.2 fl (80.0-94.0); Mean Platelet Volume 7.6 fL (7.4-10.4); Platelet Count 166 thou/uL (130-400); RBC Distribution Width 17.4 % (11.5-14.5); Red Blood Cell (RBC) Count 2.78 mill/uL (4.70-6.10); White Blood Cell (WBC) Count 7.9 thou/uL (4.8-10.8)
[2017-10-22 05:08] LABS: Anion Gap 11 mmol/L (10-20); BUN (Urea Nitrogen) 23 mg/dL (8.4-25.7); Calc. Creatinine Clearance 37 mL/min (70-130); Calcium 8.2 mg/dL (7.8-10.44); Carbon Dioxide 27 mmol/L (23-31); Chloride 111 mmol/L (98-107); Estimated GFR-MDRD 42; Glucose 142 mg/dL (83-110); Magnesium 1.8 mg/dL (1.6-2.6); Potassium 3.2 mmol/L (3.5-5.1); Sodium 146 mmol/L (136-145)
[2017-10-22] MEDS ORDERED: Lidocaine 1% PF 5 ML VIAL ONE (07:35)
[2017-10-22] MEDS ORDERED: PROPOFOL 200 MG/20 ML VIAL ONE (07:35)
[2017-10-22] MEDS: Pantoprazole 40 MG VIAL IVP SCH ×2 (07:52→21:01)
--- NOTE | 2017-10-22 12:10 | PDOC.PN ---
- Subjective Encounter Start Date: 10/22/17 Encounter Start Time: 09:30 PT pleasantly demented, awake and alert, O to person and place. No gross GI bleeding. transfused 2 units, H/H 9.1 today. No F/C, no N/V, no abd pain, no CP or SOB, no cough to go for EGD later this AM. All systems reviewed adn neg x as per HPI - Objective MAR Reviewed: Yes Vital Signs & Weight: Vital Signs (12 hours) Temp Pulse Resp BP Pulse Ox 10/22/17 08:00 98.7 F 75 18 94 L 10/22/17 07:58 98.7 F 75 18 174/79 H 94 L 10/22/17 00:45 95 Weight Admit Weight 176 lb 3.2 oz Weight 176 lb 3.2 oz I&O: 10/21/17 10/22/17 10/23/17 06:59 06:59 06:59 Intake Total 1120 3670 Output Total 450 Balance 1120 3220 Result Diagrams: 10/22/17 04:30 10/22/17 04:30 Additional Labs: Accuchecks 10/22/17 10/21/17 10/21/17 04:50 20:42 16:37 POC Glucose 134 H 299 H 155 H Phys Exam - Physical Examination Constitutional: NAD covered in his snuff HEENT: PERRLA, moist MMs, sclera anicteric, oral pharynx no lesions Neck: no nodes, no JVD, supple, full ROM Respiratory: no wheezing, no rales, no rhonchi, clear to auscultation bilateral Cardiovascular: RRR, no significant murmur, no rub Gastrointestinal: soft, non-tender, no distention, positive bowel sounds Musculoskeletal: pulses present, edema present Neurological: non-focal, normal sensation, moves all 4 limbs Lymphatic: no nodes Psychiatric: normal affect Skin: no rash, normal turgor, cap refill <2 seconds Dx/Plan (1) Symptomatic anemia Code(s): D64.9 - ANEMIA, UNSPECIFIED Status: Acute Comment: symptomatic, weak. B12 low. EGD today. if neg, may prep for a colonoscopy. unsure how well he will tolerate. (2) Chronic GI bleeding Code(s): K92.2 - GASTROINTESTINAL HEMORRHAGE, UNSPECIFIED Status: Chronic Comment: 4 month drop, low B12. (3) History of Ross's esophagus Code(s): Z87.19 - PERSONAL HISTORY OF OTHER DISEASES OF THE DIGESTIVE SYSTEM Status: Chronic (4) Dementia Code(s): F03.90 - UNSPECIFIED DEMENTIA WITHOUT BEHAVIORAL DISTURBANCE Status: Chronic Qualifiers: Dementia type: unspecified type Dementia behavioral disturbance: without behavioral disturbance Qualified Code(s): F03.90 - Unspecified dementia without behavioral disturbance (5) Tobacco abuse Code(s): Z72.0 - TOBACCO USE Status: Chronic (6) Dyslipidemia Code(s): E78.5 - HYPERLIPIDEMIA, UNSPECIFIED Status: Chronic (7) CAD (coronary artery disease) Code(s): I25.10 - ATHSCL HEART DISEASE OF [place] CORONARY ARTERY W/O ANG PCTRS Status: Chronic Qualifiers: Coronary Disease-Associated Artery/Lesion type: [place] artery [place] vs. transplanted heart: [place] heart Associated angina: without angina Qualified Code(s): I25.10 - Atherosclerotic heart disease of [place] coronary artery without angina pectoris (8) CKD (chronic kidney disease) stage 3, GFR 30-59 ml/min Status: Chronic Comment: at basline (9) DM type 2 (diabetes mellitus, type 2) Status: Chronic Qualifiers: Diabetes mellitus senior living insulin use: with intermediate project manager use Diabetes mellitus complication status: with kidney complications Chronic kidney disease stage: stage 3 (moderate) (10) Hypertension Code(s): I10 - ESSENTIAL (PRIMARY) HYPERTENSION Status: Chronic Qualifiers: Hypertension type: essential hypertension Qualified Code(s): I10 - Essential (primary) hypertension Comment: restart home meds when taking po. PRN hydralazine - Plan * .
[2017-10-22] MEDS ORDERED: hydrALAZINE 20 MG/ML VIAL SLOW IVP PRN (12:12)
--- NOTE | 2017-10-22 15:05 | OP ---
DATE OF PROCEDURE: 10/22/2017 PROCEDURE: Esophagogastroduodenoscopy with biopsy. INDICATION FOR PROCEDURE: Anemia. DESCRIPTION OF PROCEDURE: After the risks and benefits of the procedure were explained to the patien t and the patient's surrogate including risks of bleeding, infection, perforation, reactions to anest hesia and/or pain, informed consent was obtained. The patient was then taken to the endoscopy suite where deep sedation was administered via propofol and anesthesia support. After adequate anesthesia was achieved, the standard gastroscope was then introduced into the mouth with intubation of the esop hagus, stomach and the small intestine with findings listed below. The patient tolerated the procedu re well with no immediate perioperative complications. FINDINGS: ESOPHAGUS: Normal appearing mucosa was seen in the proximal and mid esophagus; however, at the GE ju nction, a large 2 cm linear ulceration was seen distal to the GE junction and extending into the isac yoanna cardia. This ulceration was clean based with no high risk stigmata of active/recent bleeding nor was there any blood seen during this examination. A 3-4 mm linear ulceration was also seen just dis jian to the GE junction extending into the gastric cardia as well. The diaphragmatic pinch was seen a t approximately 42 cm past the incisors with the GE junction well seen at 39 cm past the incisors den oting a 3 cm hiatal hernia. STOMACH: Normal appearing mucosa was seen in the gastric cardia and incisura. Multiple scattered er ythematous polyps were seen in the gastric fundus and body, measuring approximately 3-4 mm in size. Targeted biopsies were taken from a community health representative sample of these polyps and placed in a specimen ja r for evaluation. There was no associated erosions, ulcerations or active/recent bleeding associated with these polyps. However, 1 polyp did have a small adherent clot overlying it that when irrigated did not show any other underlying pathology. The gastric antrum did have a mild increased pallor to it as well, as well as a slightly mottled appearance concerning for atrophic gastritis. Multiple bi opsies were taken within the antrum and distal body for possible pernicious anemia. DUODENUM: Normal appearing mucosa was seen in both the duodenal bulb and second portion of the duode num. There was no evidence of erosions, ulcerations or active/recent bleeding. IMPRESSION: 1. A 2 cm and 3-4 mm linear ulceration was seen in the distal esophagus in light of a hiatal hernia consistent with Ranulfo's ulcerations without high risk stigmata of bleeding (the patient's most like ly source of iron deficiency anemia). 2. A 3 cm hiatal hernia. 3. Multiple scattered erythematous polyps seen in the gastric body and fundus, status post biopsies. 4. Increased mucosal pallor and mild mottled appearance of the gastric antrum concerning for atrophi c gastritis (which could contribute to B12 deficiency). RECOMMENDATIONS: 1. We will follow up on biopsy results. 2. We would continue PPI b.i.d. given the presence of the large Ranulfo's ulceration. 3. We would confer with the patient and patient's surrogate about surgical correction of the hiatal hernia and thereby treatment for large Ranulfo's ulceration. 4. We would continue to trend hemoglobin and hematocrit and transfuse as necessary to maintain an he moglobin and hematocrit of 7/21. 5. Continue to monitor clinically for signs of active gastrointestinal bleeding. We will continue to follow. Please call with any questions.
[2017-10-22] MEDS: Sodium Chloride 0.9% 1,000 ML IV SCH ×2 (19:23→21:01)
[2017-10-22] MEDS: HumaLOG 300 UNITS/3 ML VIAL SC PRN (21:37)
[2017-10-23 04:52] LABS: #Eosinphils 0.8 thou/uL (0.0-0.7); #Lymphocytes 1.3 thou/uL (1.20-3.40); #Monocytes 0.3 thou/uL (0.11-0.59); #Neutrophils 5.5 thou/uL (1.40-6.50); %Basophils 0.3 % (0.0-1.0); %Eosinophils 10.2 % (0.0-10.0); %Monocytes 3.2 % (0.0-10.0); %Neutrophils 70.3 % (42.0-75.0); Hemoglobin 8.7 g/dL (14.0-18.0); Mean Corpuscular Hemoglobin 33.6 pg (27.0-31.0); Mean Corpuscular Volume 96.1 fl (80.0-94.0); Mean Platelet Volume 7.7 fL (7.4-10.4); Platelet Count 163 thou/uL (130-400); RBC Distribution Width 17.3 % (11.5-14.5); Red Blood Cell (RBC) Count 2.59 mill/uL (4.70-6.10); White Blood Cell (WBC) Count 7.8 thou/uL (4.8-10.8)
[2017-10-23 05:06] LABS: Anion Gap 8 mmol/L (10-20); BUN (Urea Nitrogen) 16 mg/dL (8.4-25.7); Calc. Creatinine Clearance 41 mL/min (70-130); Calcium 7.8 mg/dL (7.8-10.44); Carbon Dioxide 27 mmol/L (23-31); Chloride 108 mmol/L (98-107); Estimated GFR-MDRD 48; Glucose 180 mg/dL (83-110); Magnesium 1.7 mg/dL (1.6-2.6); Sodium 140 mmol/L (136-145)
[2017-10-23] MEDS: HumaLOG 300 UNITS/3 ML VIAL SC PRN ×3 (05:43→21:12)
[2017-10-23] MEDS ORDERED: traMADol HCl 50 MG TAB PO PRN (08:06)
[2017-10-23] MEDS ORDERED: Bisacodyl 5 MG TAB PO PRN (08:06)
[2017-10-23] MEDS: Cyanocobalamin (Vitamin B-12) 1,000 MCG TAB PO SCH (08:49)
[2017-10-23] MEDS: Amlodipine 10 MG TAB PO SCH (08:49)
[2017-10-23] MEDS: Lisinopril 5 MG TAB PO SCH (08:50)
[2017-10-23] MEDS: Metoprolol Tartrate 50 MG TAB PO SCH ×2 (08:50→21:11)
[2017-10-23] MEDS: Potassium Chloride 20 MEQ TAB PO SCH ×3 (08:50→18:34)
[2017-10-23] MEDS ORDERED: Metoprolol Tartrate 25 MG TAB PO SCH (09:00)
--- NOTE | 2017-10-23 11:04 | PDOC.PN ---
- Subjective Encounter Start Date: 10/23/17 Encounter Start Time: 09:55 Pt without complaints, GI note reviewed. Meds adjusted. H/H 9.1 to 8.7 overnight, no signs of bleeding. No F/c, no N/V/D/C, no CP or SOB told case management pt is wheelchair bound and hadnt walked in 6 months, but pt able to walk from stretcher to room and bed to bathroom in last 24 hours. he was unsteady, but could walk PT/OT consulted, pt may benefit from inpatient rehab prior to going home. GI recs from today pending. All systems reviewed and neg x as above - Objective MAR Reviewed: Yes Vital Signs & Weight: Vital Signs (12 hours) Temp Pulse Resp BP BP Pulse Ox 10/23/17 08:50 70 161/80 H 10/23/17 08:49 70 161/80 H 10/23/17 08:15 98.7 F 70 20 161/80 H 97 10/23/17 08:00 98.7 F 75 20 97 10/23/17 05:19 98.7 F 82 16 165/74 H 99 10/23/17 01:11 99.6 F 86 16 172/80 H 100 Weight Admit Weight 176 lb 3.2 oz Weight 176 lb 3.2 oz I&O: 10/22/17 10/23/17 10/24/17 06:59 06:59 06:59 Intake Total 3670 2181 Output Total 450 1575 Balance 3220 606 Result Diagrams: 10/23/17 04:00 10/23/17 04:00 Additional Labs: Accuchecks 10/23/17 10/22/17 10/22/17 05:33 21:13 15:59 POC Glucose 195 H 271 H 147 H Phys Exam - Physical Examination Constitutional: NAD HEENT: PERRLA, moist MMs, sclera anicteric, oral pharynx no lesions Neck: no nodes, no JVD, supple, full ROM Respiratory: no wheezing, no rales, no rhonchi, clear to auscultation bilateral Cardiovascular: RRR, no significant murmur, no rub Gastrointestinal: soft, non-tender, no distention, positive bowel sounds Musculoskeletal: pulses present, edema present Neurological: non-focal, normal sensation, moves all 4 limbs Lymphatic: no nodes Psychiatric: normal affect Skin: no rash, normal turgor, cap refill <2 seconds Dx/Plan (1) Symptomatic anemia Code(s): D64.9 - ANEMIA, UNSPECIFIED Status: Acute Comment: symptomatic, weak. B12 low. EGD with linear ulcers, atrophic gastritis, gastric polyps and hiatal heernia. recommended BID PPI, changed from IV to PO. isaac reg diet. B12 started daily, and polyps removed and sent for path. H/H down a little overnight, monitor. Follow up on GI recs today (2) Chronic GI bleeding Code(s): K92.2 - GASTROINTESTINAL HEMORRHAGE, UNSPECIFIED Status: Chronic Comment: 4 month drop, low B12. transfused, B12 and PPI started (3) History of Ross's esophagus Code(s): Z87.19 - PERSONAL HISTORY OF OTHER DISEASES OF THE DIGESTIVE SYSTEM Status: Chronic (4) Dementia Code(s): F03.90 - UNSPECIFIED DEMENTIA WITHOUT BEHAVIORAL DISTURBANCE Status: Chronic Qualifiers: Dementia type: unspecified type Dementia behavioral disturbance: without behavioral disturbance Qualified Code(s): F03.90 - Unspecified dementia without behavioral disturbance (5) Tobacco abuse Code(s): Z72.0 - TOBACCO USE Status: Chronic (6) Dyslipidemia Code(s): E78.5 - HYPERLIPIDEMIA, UNSPECIFIED Status: Chronic (7) CAD (coronary artery disease) Code(s): I25.10 - ATHSCL HEART DISEASE OF [place] CORONARY ARTERY W/O ANG PCTRS Status: Chronic Qualifiers: Coronary Disease-Associated Artery/Lesion type: [place] artery [place] vs. 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
--- NOTE | 2017-10-23 15:44 | PRG ---
DATE OF SERVICE: 10/23/2017 SUBJECTIVE: Mr. Castillo is tolerating a solid diet. There is no overt bleeding. OBJECTIVE: VITAL SIGNS: Temperature 98.7, pulse 75, blood pressure 150/77. GENERAL: He is in no acute distress, awake and alert. LUNGS: Clear to auscultation bilaterally. HEART: Regular rate and rhythm. ABDOMEN: Soft, nontender, nondistended. Bowel sounds are present. EXTREMITIES: No lower extremity edema. IMPRESSION: 1. Anemia secondary to chronic gastrointestinal blood loss. Endoscopy shows Ranulfo's ulcers in the hiatal hernia, which is the likely source of the significant drop in hemoglobin from 11 to 7. 2. Vitamin B12 deficiency. 3. Peptic ulcer disease. RECOMMENDATIONS: 1. Proton pump inhibitor twice daily. 2. Await histopathology. 3. I will sign off. Please call if GI can be of assistance.
[2017-10-23] MEDS: Sodium Chloride 0.9% 1,000 ML IV SCH (16:13)
[2017-10-23] MEDS: Insulin NPH/Reg Insulin Hm 300 UNITS/3 ML VIAL SC SCH (18:34)
[2017-10-23] MEDS ORDERED: Atorvastatin Calcium 20 MG TAB PO SCH (21:00)
[2017-10-23] MEDS ORDERED: Atorvastatin Calcium 40 MG TAB PO SCH (21:00)
[2017-10-24] MEDS: Sodium Chloride 0.9% 1,000 ML IV SCH ×2 (00:06→09:33)
[2017-10-24 05:46] LABS: #Lymphocytes 1.3 thou/uL (1.20-3.40); #Monocytes 0.3 thou/uL (0.11-0.59); #Neutrophils 5.7 thou/uL (1.40-6.50); %Basophils 0.2 % (0.0-1.0); %Eosinophils 12.2 % (0.0-10.0); %Lymphocytes 15.8 % (21.0-51.0); %Monocytes 3.6 % (0.0-10.0); %Neutrophils 68.2 % (42.0-75.0); Hemoglobin 9.5 g/dL (14.0-18.0); Mean Corpuscular HGB CONC 33.5 g/dL (32.0-36.0); Mean Corpuscular Hemoglobin 32.6 pg (27.0-31.0); Mean Corpuscular Volume 97.4 fl (80.0-94.0); Mean Platelet Volume 7.9 fL (7.4-10.4); Platelet Count 177 thou/uL (130-400); RBC Distribution Width 17.2 % (11.5-14.5); Red Blood Cell (RBC) Count 2.91 mill/uL (4.70-6.10); White Blood Cell (WBC) Count 8.3 thou/uL (4.8-10.8)
[2017-10-24 06:08] LABS: Anion Gap 10 mmol/L (10-20); BUN (Urea Nitrogen) 11 mg/dL (8.4-25.7); Calc. Creatinine Clearance 47 mL/min (70-130); Calcium 8.1 mg/dL (7.8-10.44); Carbon Dioxide 26 mmol/L (23-31); Chloride 109 mmol/L (98-107); Estimated GFR-MDRD 56; Magnesium 1.6 mg/dL (1.6-2.6); Potassium 3.3 mmol/L (3.5-5.1); Sodium 142 mmol/L (136-145)
[2017-10-24 06:12] LABS: Glucose 50 mg/dL (83-110)
[2017-10-24] MEDS: Insulin NPH/Reg Insulin Hm 300 UNITS/3 ML VIAL SC SCH ×2 (09:19→17:08)
[2017-10-24] MEDS: Lisinopril 5 MG TAB PO SCH (09:20)
[2017-10-24] MEDS: Cyanocobalamin (Vitamin B-12) 1,000 MCG TAB PO SCH (09:20)
[2017-10-24] MEDS: Amlodipine 10 MG TAB PO SCH (09:20)
[2017-10-24] MEDS: Metoprolol Tartrate 50 MG TAB PO SCH (09:20)
[2017-10-24] MEDS ORDERED: Bisacodyl 10 MG SUPP PR SCH (11:00)
[2017-10-24] MEDS ORDERED: Metoprolol Tartrate 50 MG TAB PO SCH (12:45)
[2017-10-24] MEDS ORDERED: Amlodipine 10 MG TAB PO SCH (12:45)
[2017-10-24] MEDS ORDERED: Lisinopril 5 MG TAB PO SCH (12:45)
--- NOTE | 2017-10-24 14:40 | DIS ---
DATE OF ADMISSION: 10/20/2017 DATE OF DISCHARGE: 10/24/2017 PRIMARY CARE PHYSICIAN: Len Mccurdy M.D. DISCHARGE DIAGNOSES: 1. Chronic upper gastrointestinal bleed. 2. Hiatal hernia with ulcerations. 3. Symptomatic anemia. 4. Dementia. 5. Hypertension, essential. 6. Tobacco abuse. 7. Coronary artery disease, without angina. 8. Physical deconditioning. 9. Diabetes mellitus type 2. 10. Chronic kidney disease stage 3. CONSULTATIONS: Gastroenterology, Dr. Yasir Burton followed by Dr. Timothy Andino and then Dr. George stone. PROCEDURES: 1. EGD on 10/22/[address] Timothy Andino showed no active bleeding, did show some gastric polyps arlet t were biopsied, and also showed Ranulfo's ulcerations without high risk stigmata of bleeding. 2. Hiatal hernia 3 cm. 3. Atrophic gastritis. HISTORY AND PHYSICAL: Mr. Castillo is a 76-year-old -[place] male with the above history who presents to the emergency department on 10/20/2017 with complaints of weakness. He had a 1-week his tory of increasing symptoms, markedly increased over the last 2 weeks and then 24-hour history of an inability to get out of bed and fecal incontinence. He had some dark stools, but no red blood. He w as brought to the emergency department for evaluation. Creatinine was elevated at 2.69 from his base line of 1.0. His hemoglobin was 7.1 down from 12.73 four months ago. I was called for admission. HOSPITAL COURSE: The patient was seen and examined by me in the Emergency Department, he was typed a nd crossed and an order for transfusion was given. GI was consulted. Stool guaiac in the ER was pos itive. He was placed on inpatient service, continued on clear liquid diet and made n.p.o. after midn ight. He was also placed on IV Protonix. Overnight 10/20 to 10/21, the patient actually did not get the blood as ordered due to signature issu es from the . He was clear to get his blood early that morning and was transfused 2 units as his hemoglobin dropped down to 6.4. He was seen by GI, the night of 10/20/2017. They recommended clear liquid diet, monitoring overnight which was done. Follow up with Dr. Sanchez on 10/21 recommended upper endoscopy. The patient was con tinued on clear liquid diet, IV Protonix and plans were made to do EGD on 10/22. On 10/22, his counts were stable. He was awake and alert. He went for EGD with the above findings. He was continued on IV Protonix. On 10/23, he was improving. PT saw him, was able to get him up and he walked about 100 feet in the h allway, but certainly did look like he needed rehabilitation. He was transitioned to oral medication s including his antihypertensives as well as a regular diet. On 10/24, the patient was stable and ready for discharge. He was seen and evaluated by inpatient roberto ab and accepted. Midmorning, the patient did have an episode of vomiting about 800 mL of material. He has not had a bowel movement in several days. A Dulcolax suppository was ordered and he was able to have a bowel movement. Subsequent was retried with lunch and we have given his medicines which ke pt down and was stable for discharge. On morning 10/24, patient did get hypoglycemic overnight. He did not have a good dinner or bedtime snack. Sugar this morning was 50 and responded well to juice. As such, we decreased his evening dose of his Humalog mix. PHYSICAL EXAMINATION: Patient was seen and examined on the day of discharge. DISCHARGE PLAN AND DISPOSITION: Discussed with the patient and his face to face at the bedside. DISCHARGE MEDICATIONS: 1. Insulin 75/25 lispro and Humalog 16 units subQ q.a.m. and 10 units subQ q.p.m. 2. Amlodipine 10 mg daily. 3. Lipitor 40 mg p.o. at bedtime. 4. Bisacodyl 5 mg p.o. daily p.r.n. constipation with cholecalciferol 1000 units p.o. daily. 5. Lisinopril 20 mg p.o. daily. 6. Metoprolol tartrate 50 mg p.o. b.i.d. 7. Protonix 40 mg p.o. b.i.d. 8. Tramadol 50 mg p.o. t.i.d. p.r.n. pain. 9. Tylenol as needed. 10. Aspirin 325 mg daily. 11. Vitamin B12 of 1000 mcg daily. 12. Doxazosin 1 mg p.o. at bedtime. 13. Isosorbide mononitrate 30 mg daily. DISCHARGE DIET: Heart healthy diabetic diet recommended. DISCHARGE ACTIVITY: As tolerated. PT, OT will see him at rehab. FOLLOWUP APPOINTMENTS: 1. Primary care physician within a week. 2. Gastroenterology in 2 weeks. DISCHARGE CONDITION: Stable. DISPOSITION: Being transferred to [facility].
[2017-10-24 16:45] VITALS: BP 163/86; TEMP 98.5
== END 2017-10-24 18:15 | DRG 381 ==
LOC: ERS 10:25 → T4-B 16:30
PROVIDERS: ADMIT Internal Medicine Infectious Disease; ATTEND Internal Medicine Infectious Disease
PROC: 30233N1 Transfusion of Nonautologous Red Blood Cells into Peripheral Vein, Percutaneous Approach (ICD-10-PCS; principal; 2017-10-21)
PROC: 0DB68ZX Excision of Stomach, Via Natural or Artificial Opening Endoscopic, Diagnostic (ICD-10-PCS; 2017-10-22)
DX: K22.11 Ulcer of esophagus with bleeding (principal); N17.9 Acute kidney failure, unspecified; I24.8 Other forms of acute ischemic heart disease; K29.40 Chronic atrophic gastritis without bleeding; K44.9 Diaphragmatic hernia without obstruction or gangrene; K31.7 Polyp of stomach and duodenum; Z87.19 Personal history of other diseases of the digestive system; F03.90 Unspecified dementia, unspecified severity, without behavioral disturbance, psychotic disturbance, mood disturbance, and anxiety; E78.5 Hyperlipidemia, unspecified; I25.10 Atherosclerotic heart disease of native coronary artery without angina pectoris; Z72.0 Tobacco use; E86.0 Dehydration; D63.1 Anemia in chronic kidney disease; R62.7 Adult failure to thrive; G89.29 Other chronic pain; M54.9 Dorsalgia, unspecified; K21.9 Gastro-esophageal reflux disease without esophagitis; Z95.1 Presence of aortocoronary bypass graft; K27.9 Peptic ulcer, site unspecified, unspecified as acute or chronic, without hemorrhage or perforation; I12.9 Hypertensive chronic kidney disease with stage 1 through stage 4 chronic kidney disease, or unspecified chronic kidney disease; E11.22 Type 2 diabetes mellitus with diabetic chronic kidney disease; Z79.4 Long term (current) use of insulin; N18.3 Chronic kidney disease, stage 3 (moderate); Z99.3 Dependence on wheelchair; D50.9 Iron deficiency anemia, unspecified
CPT/HCPCS: 36415; 36416; 36430; 51701; 70450; 71045; 80048; 80053; 81003; 81015; 82274; 82550; 82553; 82607; 82728; 82746; 82941; 83036; 83540; 83550; 83605; 83735; 83880; 84466; 84484; 85025; 86340; 86850; 86900; 86901; 87086; 88305; 88312; 90471; 90670; 93005; 96360; A4216; C9113; G0009; G8978-GP-CJ; G8979-GP-CI; G8987-GO-CJ; G8988-GO-CI; J0360; J2001; J2704; P9016; Q0162

== ENCOUNTER 2018-10-07 09:22 | Emergency (ER) | payer MEDICARE, OTHER ==
--- NOTE | 2018-10-07 10:43 | RAD ---
Exam: Chest 2 views HISTORY:Cough Comparison: 07/18/2017 FINDINGS: Lungs: No masses or consolidation. Sternotomy wires overlie the chest. Cardiac silhouette: Normal size. Loop recorder overlies the cardiac silhouette. Pulmonary vessels: Normal Pleural Spaces: Clear Pneumothorax: None Osseous abnormalities: None of acuity. IMPRESSION: No focal consolidation.
== END 2018-10-07 11:20 | disposition home or self-care (01) ==
LOC: ERS 09:22
DX: J01.90 Acute sinusitis, unspecified (principal); I10 Essential (primary) hypertension; F03.90 Unspecified dementia, unspecified severity, without behavioral disturbance, psychotic disturbance, mood disturbance, and anxiety; E10.9 Type 1 diabetes mellitus without complications; E78.00 Pure hypercholesterolemia, unspecified; F17.220 Nicotine dependence, chewing tobacco, uncomplicated; Z79.899 Other long term (current) drug therapy
CPT/HCPCS: 71046

== ENCOUNTER 2019-01-27 07:32 | Inpatient (IN) | payer MEDICARE, MEDICAID ==
[2019-01-27 08:22] LABS: #Basophils 0.1 thou/uL (0.0-0.2); #Eosinphils 0.2 thou/uL (0.0-0.7); #Lymphocytes 1.6 thou/uL (1.20-3.40); #Monocytes 0.7 thou/uL (0.11-0.59); #Neutrophils 4.1 thou/uL (1.40-6.50); %Basophils 0.9 % (0.0-1.0); %Eosinophils 3.1 % (0.0-10.0); %Monocytes 10.2 % (0.0-10.0); %Neutrophils 61.8 % (42.0-75.0); Hemoglobin 13.1 g/dL (14.0-18.0); Mean Corpuscular HGB CONC 32.3 g/dL (32.0-36.0); Mean Corpuscular Volume 83.5 fL (78.0-98.0); Mean Platelet Volume 7.6 fL (7.4-10.4); Platelet Count 183 thou/uL (130-400); RBC Distribution Width 13.9 % (11.5-14.5); Red Blood Cell (RBC) Count 4.86 mill/uL (4.70-6.10); White Blood Cell (WBC) Count 6.6 thou/uL (4.8-10.8)
[2019-01-27 08:52] LABS: ALT (SGPT) Less than 7 U/L (8-55); AST (SGOT) 18 U/L (5-34); Albumin 3.9 g/dL (3.4-4.8); Alkaline Phosphatase 67 U/L (40-150); Anion Gap 15 mmol/L (10-20); BUN (Urea Nitrogen) 19 mg/dL (8.4-25.7); Bilirubin, Total 0.9 mg/dL (0.2-1.2); Calc. Creatinine Clearance 0 mL/min (70-130); Carbon Dioxide 28 mmol/L (23-31); Chloride 102 mmol/L (98-107); Estimated GFR-MDRD 27; Globulin 2.4 g/dL (2.4-3.5); Potassium 3.2 mmol/L (3.5-5.1); Protein, Total 6.3 g/dL (5.8-8.1); Sodium 142 mmol/L (136-145)
[2019-01-27 08:57] LABS: Glucose 48 mg/dL (83-110)
[2019-01-27] MEDS ORDERED: Dextrose 50% Abboject 50 ML SYRINGE ONE (08:58)
--- NOTE | 2019-01-27 09:01 | CT ---
CT BRAIN WITHOUT CONTRAST: Date: 01/27/19 HISTORY: Frequent falls. FINDINGS: Comparison made with exam of 10/20/17. Changes of cortical atrophy and chronic small vessel ischemic disease are again seen. The ventricular size is stable and the basilar cisterns are patent. 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 No evidence of acute infarct, hemorrhage, midline shift, or abnormal extra-axial fluid c ollections are seen. The bony calvarium is intact. There is mild mucosal disease in the paranasal sin uses. IMPRESSION: No CT evidence of acute intracranial process. POS: OFF
[2019-01-27 09:07] LABS: Bacteria/HPF None Seen HPF (None Seen); Bilirubin Negative (Negative); Blood, Urine 2+ (Negative); Clarity Clear (Clear); Glucose, Urine (Dipstick) Normal (Negative); Leukocyte Negative Leu/uL (Negative); Nitrite Negative (Negative); Protein, Urine (Dipstick) 200 mg/dL (Neg-Trace); RBC/HPF 0-3 HPF (0-3); Squamous Epithelial 0-3 HPF (0-3); Urobilinogen Normal mg/dL (Less than 2)
[2019-01-27 09:11] LABS: CKMB 5.5 ng/mL (0-6.6)
[2019-01-27] MEDS ORDERED: Aspirin Chewable 81 MG TAB ONE (09:20)
[2019-01-27] MEDS ORDERED: Potassium Chloride 20 MEQ TAB ONE (09:20)
--- NOTE | 2019-01-27 09:21 | PDOC.FPRHP ---
- History of Present Illness Chief Complaint: fell 5 times yesterday History of Present Illness: reported to ED nurse that he has fallen 4-5 times in the past few days. states that he stands up, appears unsteady or dizzy and falls. He has a h/ o dementia. A&O to person and place currently. He arrived reluctantly via EMS from home. He states that he fell after getting out of the bed. He denies dizziness, lightheadedness. Endorses difficulty with balance. Started using a wheelchair about 6 months ago. Patient is a poor historian, likely secondary to dementia, however it is unclear if he is at his baseline. His was not present at the time of the H& P. ED Course: Was hypoglycemic upon arrival (48). Received 25g (50mL) D50, 1L NS, 324 ASA, 40meq K-dur - Allergies/Adverse Reactions Allergies Allergy/AdvReac Type Severity Reaction Status Date / Time No Known Allergies Allergy Verified 01/27/19 15:55 - Home Medications Medication Instructions Recorded Confirmed Type amLODIPine Besylate [Amlodipine 10 mg PO DAILY 04/06/16 01/27/19 History Besylate] Lisinopril 20 mg PO DAILY 08/18/16 01/27/19 History Cholecalciferol [Vitamin D3] 1,000 units PO DAILY #30 tab 08/22/16 01/27/19 Rx Aspirin [Ecotrin Regular Strength] 325 mg PO DAILY tab 12/08/16 01/27/19 Rx Atorvastatin Calcium [Lipitor] 40 mg PO HS 04/11/17 01/27/19 History Metoprolol Tartrate [Lopressor] 50 mg PO BID 04/11/17 01/27/19 History Doxazosin Mesylate 1 mg PO HS 10/23/17 01/27/19 History Isosorbide Mononitrate [Isosorbide 30 mg PO DAILY 10/23/17 01/27/19 History Mononitrate ER] - History PMHx: CO after the pacer was placed in 2002 DM HLD HTN h/o CVA Dementia PSHx: CABG x4 w/ pacer 2002. FHx: Unable to recall Social: Current tobacco user, 1 cans of dip per day - Review of Systems General: reports: fever/chills (chills currently. denies fever.). 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 denies: nausea, diarrhea, GI bleeding Genitourinary: denies: incontinence, dysuria, polyuria Skin: denies: rashes, lesions, itching Musculoskeletal: denies: pain, tenderness, swelling Neurological: denies: numbness, syncope, seizure Psychological: denies: anxiety, depression - Vital signs BP: 165/88, Pulse: 65, Resp: 17, Temp: 98.2 (Oral), Pain: 0, O2 sat: 98 on Room Air - Physical Exam Constitutional: NAD, awake, alert and oriented, well developed HEENT: normocephalic and atraumatic, PERRLA, EOMI, conjunctiva clear -HEENT: pterygium left eye Neck: supple, FROM Chest: no-tender to palpation, no lesions Heart: RRR, normal S1/S2 (difficult to auscultate s1), no murmurs/rubs/gallops, pulses present, no edema Lungs: CTAB, no respiratory distress, no rales/rhonchi, no wheezing, no retractions -Lungs: difficult to auscultate inspiration, clear expiratory sounds Abdomen: soft, non-tender, bowel sounds present Musculoskeletal: normal structure, normal tone -Musculoskeletal: Right lateral arm: insulin lipohypertrophy Neurological: no focal deficit, CN II-XII intact, normal sensation Skin: no rash/lesions, good turgor, capillary refill <2 seconds Heme/Lymphatic: no unusual bruising or bleeding, no purpura Psychiatric: normal mood and affect, other (alert and oriented to person and place.) FMR H&P: Results - Labs Result Diagrams: 01/27/19 08:04 01/27/19 08:04 Lab results: WBC 6.6 thou/uL (4.8-10.8) 01/27/19 08:04 Hgb 13.1 g/dL (14.0-18.0) L 01/27/19 08:04 Hct 40.6 % (42.0-52.0) L 01/27/19 08:04 MCV 83.5 fL (78.0-98.0) 01/27/19 08:04 Plt Count 183 thou/uL (130-400) 01/27/19 08:04 Neutrophils % 61.8 % (42.0-75.0) 01/27/19 08:04 Sodium 142 mmol/L (136-145) 01/27/19 08:04 Potassium 3.2 mmol/L (3.5-5.1) L 01/27/19 08:04 Chloride 102 mmol/L (98-107) 01/27/19 08:04 Carbon Dioxide 28 mmol/L (23-31) 01/27/19 08:04 BUN 19 mg/dL (8.4-25.7) 01/27/19 08:04 Creatinine 2.79 mg/dL (0.7-1.3) H 01/27/19 08:04 Glucose 48 mg/dL (83-110) L* 01/27/19 08:04 Lactic Acid 2.1 mmol/L (0.5-2.2) 01/27/19 08:04 Calcium 9.0 mg/dL (7.8-10.44) 01/27/19 08:04 Total Bilirubin 0.9 mg/dL (0.2-1.2) 01/27/19 08:04 AST 18 U/L (5-34) 01/27/19 08:04 ALT Less than 7 U/L (8-55) L 01/27/19 08:04 Alkaline Phosphatase 67 U/L (40-150) 01/27/19 08:04 CK-MB (CK-2) 5.5 ng/mL (0-6.6) 01/27/19 08:04 Serum Total Protein 6.3 g/dL (5.8-8.1) 01/27/19 08:04 Albumin 3.9 g/dL (3.4-4.8) 01/27/19 08:04 Urine Ketones Negative mg/dL (Negative) 01/27/19 08:30 Urine Blood 2+ (Negative) A 01/27/19 08:30 Urine Nitrite Negative (Negative) 01/27/19 08:30 Ur Leukocyte Esterase Negative Gonzalo/uL (Negative) 01/27/19 08:30 Urine RBC 0-3 HPF (0-3) 01/27/19 08:30 Urine WBC 4-6 HPF (0-3) A 01/27/19 08:30 Ur Squamous Epith Cells 0-3 HPF (0-3) 01/27/19 08:30 Urine Bacteria None Seen HPF (None Seen) 01/27/19 08:30 - EKG Interpretation EKG: Normal sinus rhythm - Radiology Interpretation CT scan - head Status: report reviewed by me (No acute intracranial process. Old infarcts are noted in the left cerebellar hemisphere. Cortical atrophy.) FMR H&P: A/P - Problem List (1) Altered mental status Current Visit: Yes Status: Acute Code(s): R41.82 - ALTERED MENTAL STATUS, UNSPECIFIED (2) Metabolic encephalopathy Current Visit: Yes Status: Acute Code(s): G93.41 - METABOLIC ENCEPHALOPATHY (3) Hypoglycemia Current Visit: Yes Status: Acute Code(s): E16.2 - HYPOGLYCEMIA, UNSPECIFIED (4) DM type 2 (diabetes mellitus, type 2) Current Visit: No Status: Chronic Qualifiers: Diabetes mellitus jail insulin use: with jail use Diabetes mellitus complication status: with kidney complications Chronic kidney disease stage: stage 3 (moderate) (5) Dementia Current Visit: No Status: Chronic Code(s): F03.90 - UNSPECIFIED DEMENTIA WITHOUT BEHAVIORAL DISTURBANCE Qualifiers: Dementia type: unspecified type Dementia behavioral disturbance: without behavioral disturbance Qualified Code(s): F03.90 - Unspecified dementia without behavioral disturbance (6) Dyslipidemia Current Visit: No Status: Chronic Code(s): E78.5 - HYPERLIPIDEMIA, UNSPECIFIED (7) Hypertension Current Visit: No Status: Chronic Code(s): I10 - ESSENTIAL (PRIMARY) HYPERTENSION Qualifiers: Hypertension type: essential hypertension Qualified Code(s): I10 - Essential (primary) hypertension Comment: restart home meds when taking po. PRN hydralazine - Plan Metabolic encephalopathy 2/2 hypoglycemia vs dementia Will admit the patient to inpatient service. Hold insulin. Suspect possible medication error. Monitor with accuchecks ACHS. Hypoglycemia protocol in place. Will restart home medications for diabetes if patient becomes hyperglycemic. CT Head is negative. Will continue to monitor for signs of improvement. Will consult for baseline mental status. Diabetes Will hold home medications for now. HLD Atorvastatin 40mg qHS HTN Will med rec patient and restart home medications. GERD Protonix DISPO: inpatient, stable Code: Full VTE: SCDs FMR H&P: Upper Level - Pertinent history 78 year old male presents after fall when transferring from bed to wheelchair. Patient has reportedly had 4-5 falls within the last two days. Patient has had recurrent falls for several months now. Patient is wheelchair bound and has been for the past 6 months. Patient with history of cerebellar stroke. Patient very poor historian, and his was not available at bedside. Patient recently discharged from rehab. - Pertinent findings General: Alert and oriented to only person. No acute distress. HEENT: Edentulous. No pharyngeal erythema. Resp: No acute respiratory distress. Card: RRR. Abdomen: Soft, non-tender Ext: 2+ pitting edema Neuro: Strength 5/5 upper and lower extremities B/L. Right sided facial droop, No aphasia, Negative pronator drift. - Plan Date/Time: 01/27/19920 IMary, have evaluated this patient and agree with findings/plan as outlined by internet webmaster resident. Pertinent changes/additions are listed here. Metabolic encephalopathy 2/2 hypoglycemia vs. Dementia - BG 48 on admission, likely 2/2 insulin being administered incorrectly vs. poor PO intake - Patient A&O x1, to person; uncertain of baseline. Patient's not available to discuss further - Given amp of D50, recheck 99 - Will place patient on moderate SSI and follow. Uncertain of exactly what patient's insulin regimen is at home. - IVF; consider D5NS if BG not responding - CT brain with no acute findings; findings only of old cerebellar infarct - Replace electrolytes Hypoglycemia - Likely 2/2 improper administration of insulin vs. poor PO intake/nutrition - Given amp of D50, BG 48--> 99 - Uncertain of home insulin regimen, will place on SSI and monitor Hypokalemia - Replace as needed Hypertension - Continue home BP medications Recurrent falls - Likely 2/2 hx of cerebellar CVA in setting of hypoglycemia - Patient in need of placement; CM consulted - PT/OT consulted HLD - Continue home medication Hx CVA - Continue statin and full dose ASA DM type II - Uncertain of home insulin regimen - Came in with hypoglycemia - Moderate SSI for now, will switch to home regimen once available and when patient's BG stabilizes Dispo: Admit to medical. Anticipate LOS >48 hours. Will need placement on d/c.
[2019-01-27] MEDS ORDERED: Dextrose 5% in Water 1,000 ML IV PRN (11:34)
[2019-01-27] MEDS ORDERED: Dextrose 50% Abboject 50 ML SYRINGE SLOW IVP PRN (11:34)
[2019-01-27] MEDS ORDERED: HumaLOG 300 UNITS/3 ML VIAL SC PRN (11:34)
[2019-01-27] MEDS ORDERED: Ondansetron ODT 4 MG TAB PO PRN (11:34)
[2019-01-27] MEDS ORDERED: Senokot S 8.6-50 MG TAB PO PRN (11:34)
[2019-01-27] MEDS: Sodium Chloride 0.9% 1,000 ML IV SCH ×2 (12:18→16:52)
[2019-01-27 12:22] LABS: Lactic Acid 1.2 mmol/L (0.5-2.2)
[2019-01-27 12:31] LABS: Troponin I 0.046 ng/mL (< 0.028)
--- NOTE | 2019-01-27 12:37 | HP ---
I have examined Mr. Castillo. I have discussed his case with Dr. Radha Albrecht, and agree with her assessment and plan. HISTORY OF PRESENT ILLNESS: Mr. Castillo is an 78-year-old black male patient with a history of stroke. He has been having some falls at home. He has been admitted for workup, observation, and possible placement. PHYSICAL EXAMINATION: VITAL SIGNS: Stable. GENERAL: He is awake and alert. EAR, NOSE, AND THROAT: No erythema or exudate. NECK: Supple. CARDIAC: Heart rhythm, regular. No gallop or murmur is noted. LUNGS: Clear. No rales or wheezes. ABDOMEN: Flat, soft. No guarding, rebound, or rigidity. NEUROLOGIC: He may have a slight old right facial droop. Otherwise, he has no focal deficits. LABORATORY DATA: CBC; white count is 6600, hemoglobin is 13.1, hematocrit 40.6. Chemistries; sodium 142, potassium 3.2, chloride 102, bicarb 28, BUN 19, creatinine 2.79. Troponin is indeterminate at 0.036. A brain CT showed chronic cortical atrophy and chronic small-vessel disease. There are old infarctions noted in the left cerebellar hemisphere. There is no evidence of an acute infarct, hemorrhage, or midline shift. ASSESSMENT: Multiple falls and fall risk secondary to cerebrovascular disease. PLAN: Admit. Physical therapy. Consider placement. Job ID: [id number]
[2019-01-27 15:34] LABS: Troponin I 0.044 ng/mL (< 0.028)
--- NOTE | 2019-01-27 18:11 | PDOC.FPRHP ---
- History of Present Illness Chief Complaint: Weakness, Fall History of Present Illness: 78 year old male presents by EMS from home after fall. He was reportedly transferring from his bed to wheelchair when fall occurred. He does not recall hitting his head. Patient is poor historian, and was not available for discussion. ED staff reports that he was recently discharged from rehab. He has had several falls over the course of the last several months; however, he has had reportedly 4-5 just over the course of the last 2 days. He has difficulty caring for himself at home. Patient personally does not have any complaints today. ED Course: Patient given IV fluid bolus in ED along with KCl and amp of D50 - Allergies/Adverse Reactions Allergies Allergy/AdvReac Type Severity Reaction Status Date / Time No Known Allergies Allergy Verified 01/27/19 15:55 - Home Medications Medication Instructions Recorded Confirmed Type amLODIPine Besylate [Amlodipine 10 mg PO DAILY 04/06/16 01/27/19 History Besylate] Lisinopril 20 mg PO DAILY 08/18/16 01/27/19 History Cholecalciferol [Vitamin D3] 1,000 units PO DAILY #30 tab 08/22/16 01/27/19 Rx Aspirin [Ecotrin Regular Strength] 325 mg PO DAILY tab 12/08/16 01/27/19 Rx Atorvastatin Calcium [Lipitor] 40 mg PO HS 04/11/17 01/27/19 History Metoprolol Tartrate [Lopressor] 50 mg PO BID 04/11/17 01/27/19 History Doxazosin Mesylate 1 mg PO HS 10/23/17 01/27/19 History Isosorbide Mononitrate [Isosorbide 30 mg PO DAILY 10/23/17 01/27/19 History Mononitrate ER] Comments: Uncertain of insulin regimen. - History PMHx: DM type II, CKD stage IV, HTN, HLD, Hx CVA, Hx recurrent falls, GERD, Dementia, CAD s/p 4v CABG, Tobacco abuse PSHx: CABG 4V FHx: Insignificant Social: Hx of tobacco use, including snuff. Patient lives at home with his . - Review of Systems ROS unobtainable: other (Difficult to adequately assess due to mental status) General: denies: fever/chills, weight/appetite/sleep changes Eyes: denies: vision changes ENT: denies: nasal congestion Respiratory: denies: cough, congestion Cardiovascular: denies: chest pain Gastrointestinal: denies: nausea, vomiting, diarrhea, abdominal pain Genitourinary: denies: dysuria Musculoskeletal: denies: pain, tenderness Neurological: denies: numbness, weakness Psychological: denies: anxiety, depression - Vital signs BP: 162/86 HR: 78 RR: 14 Tmax: 98.3F Pox: 100% on RA Wt: 85 kg - Physical Exam Constitutional: NAD -Constitutional: Oriented to person HEENT: PERRLA, MMM -HEENT: pterygium left eye Heart: RRR Lungs: CTAB, no respiratory distress Abdomen: soft, non-tender, bowel sounds present -Musculoskeletal: right arm lipohypertrophy -Neurological: right facial droop, strength 5/5 in upper and lower extremities bilaterally, negative pronator drift, sensation intact Skin: capillary refill <2 seconds Heme/Lymphatic: no unusual bruising or bleeding FMR H&P: Results - Labs Result Diagrams: 01/27/19 08:04 01/27/19 08:04 Lab results: WBC 6.6 thou/uL (4.8-10.8) 01/27/19 08:04 Hgb 13.1 g/dL (14.0-18.0) L 01/27/19 08:04 Hct 40.6 % (42.0-52.0) L 01/27/19 08:04 MCV 83.5 fL (78.0-98.0) 01/27/19 08:04 Plt Count 183 thou/uL (130-400) 01/27/19 08:04 Neutrophils % 61.8 % (42.0-75.0) 01/27/19 08:04 Sodium 142 mmol/L (136-145) 01/27/19 08:04 Potassium 3.2 mmol/L (3.5-5.1) L 01/27/19 08:04 Chloride 102 mmol/L (98-107) 01/27/19 08:04 Carbon Dioxide 28 mmol/L (23-31) 01/27/19 08:04 BUN 19 mg/dL (8.4-25.7) 01/27/19 08:04 Creatinine 2.79 mg/dL (0.7-1.3) H 01/27/19 08:04 Glucose 48 mg/dL (83-110) L* 01/27/19 08:04 Lactic Acid 1.2 mmol/L (0.5-2.2) 01/27/19 11:49 Calcium 9.0 mg/dL (7.8-10.44) 01/27/19 08:04 Total Bilirubin 0.9 mg/dL (0.2-1.2) 01/27/19 08:04 AST 18 U/L (5-34) 01/27/19 08:04 ALT Less than 7 U/L (8-55) L 01/27/19 08:04 Alkaline Phosphatase 67 U/L (40-150) 01/27/19 08:04 CK-MB (CK-2) 5.5 ng/mL (0-6.6) 01/27/19 08:04 Serum Total Protein 6.3 g/dL (5.8-8.1) 01/27/19 08:04 Albumin 3.9 g/dL (3.4-4.8) 01/27/19 08:04 Urine Ketones Negative mg/dL (Negative) 01/27/19 08:30 Urine Blood 2+ (Negative) A 01/27/19 08:30 Urine Nitrite Negative (Negative) 01/27/19 08:30 Ur Leukocyte Esterase Negative Gonzalo/uL (Negative) 01/27/19 08:30 Urine RBC 0-3 HPF (0-3) 01/27/19 08:30 Urine WBC 4-6 HPF (0-3) A 01/27/19 08:30 Ur Squamous Epith Cells 0-3 HPF (0-3) 01/27/19 08:30 Urine Bacteria None Seen HPF (None Seen) 01/27/19 08:30 - EKG Interpretation EKG: NSR - Radiology Interpretation CT scan - head Status: image reviewed by me, report reviewed by me Additional comment: Old left cerebellar infarct, no acute findings FMR H&P: A/P - Problem List (1) Altered mental status Current Visit: Yes Status: Acute Code(s): R41.82 - ALTERED MENTAL STATUS, UNSPECIFIED (2) Metabolic encephalopathy Current Visit: Yes Status: Acute Code(s): G93.41 - METABOLIC ENCEPHALOPATHY (3) Hypoglycemia Current Visit: Yes Status: Acute Code(s): E16.2 - HYPOGLYCEMIA, UNSPECIFIED (4) DM type 2 (diabetes mellitus, type 2) Current Visit: No Status: Chronic Qualifiers: Diabetes mellitus alf insulin use: with alf use Diabetes mellitus complication status: with kidney complications Chronic kidney disease stage: stage 3 (moderate) (5) Dementia Current Visit: No Status: Chronic Code(s): F03.90 - UNSPECIFIED DEMENTIA WITHOUT BEHAVIORAL DISTURBANCE Qualifiers: Dementia type: unspecified type Dementia behavioral disturbance: without behavioral disturbance Qualified Code(s): F03.90 - Unspecified dementia without behavioral disturbance (6) Dyslipidemia Current Visit: No Status: Chronic Code(s): E78.5 - HYPERLIPIDEMIA, UNSPECIFIED (7) Hypertension Current Visit: No Status: Chronic Code(s): I10 - ESSENTIAL (PRIMARY) HYPERTENSION Qualifiers: Hypertension type: essential hypertension Qualified Code(s): I10 - Essential (primary) hypertension Comment: restart home meds when taking po. PRN hydralazine - Plan Metabolic encephalopathy 2/2 hyopglycemia vs. dementia - BG 48 on arrival - s/p 1 amp D50 - BG on recheck 99 - Uncertain of home insulin regimen and if receiving appropriately or if patient getting proper nutrition at home - Will place patient on SSI and monitor - Brain CT negative for acute findings - EKG NSR - A&O x1, to person; uncertain of baseline and not present during discussion Hypoglycemia - See plan as above Hypokalemia - Replace as needed HTN - Continue home BP medications Recurrent falls - Likely 2/2 old cerebellar infarct - Patient in need of placement; CM consulted - PT/OT consulted HLD - Continue home meds Hx CVA - Continue statin and ASA GERD - Continue home meds CKD stage IV - Monitor - Likely 2/2 longstanding diabetes and HTN DVT ppx: SCD's. Will hold lovenox as patient high fall risk Code Status: Full Dispo: Admit to telemetry. Anticipate LOS >48 ho hours. Will need placement on d /c. FMR H&P: Upper Level - Plan Date/Time: 01/27/191806 I, [], have evaluated this patient and agree with findings/plan as outlined by internet salesperson resident. Pertinent changes/additions are listed here.
[2019-01-27] MEDS: Doxazosin Mesylate 1 MG TAB PO SCH (21:23)
[2019-01-27] MEDS: Metoprolol Tartrate 50 MG TAB PO SCH (21:23)
[2019-01-27] MEDS: Atorvastatin Calcium 40 MG TAB PO SCH (21:23)
[2019-01-28] MEDS: Sodium Chloride 0.9% 1,000 ML IV SCH ×2 (02:57→14:23)
--- NOTE | 2019-01-28 05:21 | PDOC.FM ---
- Subjective Subjective: Mr. Castillo is feeling well this morning. He has no new complaints. He states that he slept well. - Objective MAR Reviewed: Yes Vital Signs & Weight: Vital Signs (12 hours) Temp Pulse Resp BP Pulse Ox 01/28/19 03:58 98.5 F 74 18 152/70 H 99 01/27/19 23:52 98.3 F 01/27/19 20:00 100.3 F H 86 16 145/70 H 97 01/27/19 18:05 100 Weight Weight 85.23 kg I&O: 01/26/19 01/27/19 01/28/19 06:59 06:59 06:59 Intake Total 480 Output Total 200 Balance 280 Result Diagrams: 01/28/19 04:35 01/28/19 04:35 Additional Labs: A1C 8.3% Phys Exam - Physical Examination Constitutional: NAD HEENT: moist MMs, sclera anicteric Neck: supple, full ROM Respiratory: no wheezing, no rales, no rhonchi, clear to auscultation bilateral Cardiovascular: RRR, no significant murmur, no rub Gastrointestinal: soft, non-tender, no distention, positive bowel sounds Musculoskeletal: no edema, pulses present Neurological: non-focal, moves all 4 limbs Psychiatric: normal affect Deviation from normal: A&O to person and place, not time. Skin: no rash, normal turgor Dx/Plan (1) Altered mental status Code(s): R41.82 - ALTERED MENTAL STATUS, UNSPECIFIED Status: Acute (2) Metabolic encephalopathy Code(s): G93.41 - METABOLIC ENCEPHALOPATHY Status: Acute (3) Hypoglycemia Code(s): E16.2 - HYPOGLYCEMIA, UNSPECIFIED Status: Acute (4) DM type 2 (diabetes mellitus, type 2) Status: Chronic Qualifiers: Diabetes mellitus intermediate insulin use: with intermediate use Diabetes mellitus complication status: with kidney complications Chronic kidney disease stage: stage 3 (moderate) (5) Dementia Code(s): F03.90 - UNSPECIFIED DEMENTIA WITHOUT BEHAVIORAL DISTURBANCE Status: Chronic Qualifiers: Dementia type: unspecified type Dementia behavioral disturbance: without behavioral disturbance Qualified Code(s): F03.90 - Unspecified dementia without behavioral disturbance (6) Dyslipidemia Code(s): E78.5 - HYPERLIPIDEMIA, UNSPECIFIED Status: Chronic (7) Hypertension Code(s): I10 - ESSENTIAL (PRIMARY) HYPERTENSION Status: Chronic Qualifiers: Hypertension type: essential hypertension Qualified Code(s): I10 - Essential (primary) hypertension - Plan Plan: Metabolic encephalopathy 2/2 hyopglycemia vs. dementia BG 48 on arrival, received 1 amp D50 > recheck 99. Up to 179 last night. Uncertain of home insulin regimen and if receiving appropriately or if patient getting proper nutrition at home Will place patient on SSI and monitor Brain CT negative for acute findings EKG NSR A&O x1, to person; uncertain of baseline and not present during discussion Hypoglycemia See plan as above Hypokalemia Replace as needed, received 40meq in ED. BMP this am. DMII On insulin at home, unclear regimen. Will hopefully clarify with today. Hold home meds, will use Mod SSI for management. A1c this am. HTN Continue home BP medications Recurrent falls Likely 2/2 old cerebellar infarct Patient in need of placement; CM consulted PT/OT consulted HLD Continue home meds Hx CVA Continue statin and ASA GERD Continue home meds CKD stage IV Monitor Likely 2/2 longstanding diabetes and HTN Dispo: Admit to telemetry. Anticipate LOS >48 ho hours. Will need placement on d /c. DVT ppx: SCD's. Will hold lovenox as patient high fall risk Code Status: Full
[2019-01-28 05:28] LABS: Anion Gap 11 mmol/L (10-20); BUN (Urea Nitrogen) 15 mg/dL (8.4-25.7); Calc. Creatinine Clearance 32 mL/min (70-130); Calcium 8.1 mg/dL (7.8-10.44); Carbon Dioxide 26 mmol/L (23-31); Chloride 109 mmol/L (98-107); Estimated GFR-MDRD 35; Glucose 108 mg/dL (83-110); Potassium 3.4 mmol/L (3.5-5.1); Sodium 143 mmol/L (136-145)
[2019-01-28 05:32] LABS: #Basophils 0.1 thou/uL (0.0-0.2); #Eosinphils 0.5 thou/uL (0.0-0.7); #Lymphocytes 1.9 thou/uL (1.20-3.40); #Monocytes 0.8 thou/uL (0.11-0.59); #Neutrophils 3.7 thou/uL (1.40-6.50); %Basophils 0.8 % (0.0-1.0); %Eosinophils 7.7 % (0.0-10.0); %Lymphocytes 27.4 % (21.0-51.0); %Monocytes 10.8 % (0.0-10.0); %Neutrophils 53.2 % (42.0-75.0); Hemoglobin 12.3 g/dL (14.0-18.0); Mean Corpuscular HGB CONC 32.1 g/dL (32.0-36.0); Mean Corpuscular Hemoglobin 26.6 pg (27.0-31.0); Mean Corpuscular Volume 83.1 fL (78.0-98.0); Mean Platelet Volume 8.1 fL (7.4-10.4); Platelet Count 165 thou/uL (130-400); RBC Distribution Width 13.8 % (11.5-14.5); Red Blood Cell (RBC) Count 4.61 mill/uL (4.70-6.10); White Blood Cell (WBC) Count 6.9 thou/uL (4.8-10.8)
[2019-01-28 06:21] LABS: Hemoglobin A1c 8.3 % (4.0-6.0)
[2019-01-28] MEDS ORDERED: Potassium Chloride 20 MEQ TAB PO SCH (09:15)
[2019-01-28] MEDS: Isosorbide Mononitrate (ER) 30 MG TAB PO SCH (09:37)
[2019-01-28] MEDS: Metoprolol Tartrate 50 MG TAB PO SCH ×2 (09:37→19:58)
[2019-01-28] MEDS: Aspirin 325 mg Enteric Coated Tablet PO SCH (09:37)
[2019-01-28] MEDS: Amlodipine 10 MG TAB PO SCH (09:38)
[2019-01-28] MEDS: Lisinopril 20 MG TAB PO SCH (09:38)
--- NOTE | 2019-01-28 12:31 | PRG ---
DATE OF SERVICE: 01/28/2019 Mr. Castillo is sitting quietly in bed, in no distress. His labs all looked good except for his chronic CKD with a creatinine of 2.2 and a GFR of 35. He has really a placement issue and we are consulting the management team to arrange placement in a long-term facility for Mr. Castillo. He will be prone to falls unfortunately for the rest of his life. Job ID: [id number]
--- NOTE | 2019-01-28 15:28 | PDOC.EVN ---
Event Note - Event Note Event Note: 01/28/2019 at 14:20 As a team, we disagree with the assessment that patient does not qualify for inpatient needs at this time. Patient admitted for metabolic encephalopathy. He was only A&O x1 on admission and was found to have significant hypoglycemia requiring IV dextrose. This requires further investigation and monitoring of BG to determine if this is nutritional, reactive 2/2 improper/unnecessary insulin use, or from another cause. Of note, hypoglycemia can be deadly. Additionally, patient has had recurrent falls which need further evaluation. This may be partially attributable to history of cerebellar stroke. However, given patient' s clear metabolic derangement, it was decided that evaluation was necessary at this time. Patient also does have electrolyte derangements that have required replacement. We will continue to monitor him closely during the course of this hospital stay and intervene as necessary.
[2019-01-28] MEDS ORDERED: Prevnar 13-Val Conj/PF 0.5 ML SYRINGE IM ONE (16:15)
[2019-01-28] MEDS: Doxazosin Mesylate 1 MG TAB PO SCH (19:58)
[2019-01-28] MEDS: Atorvastatin Calcium 40 MG TAB PO SCH (19:58)
[2019-01-29] MEDS: Sodium Chloride 0.9% 1,000 ML IV SCH ×3 (01:21→23:43)
--- NOTE | 2019-01-29 05:55 | PDOC.FM ---
- Subjective Subjective: Patient is doing well this morning, no complaints. - Objective MAR Reviewed: Yes Vital Signs & Weight: Vital Signs (12 hours) Temp Pulse Resp BP BP Pulse Ox 01/29/19 03:15 98.5 F 74 16 141/66 H 96 01/28/19 19:43 98.6 F 73 15 154/74 H 94 L Weight Admit Weight 86.046 kg Weight 86.046 kg I&O: 01/27/19 01/28/19 01/29/19 06:59 06:59 06:59 Intake Total 1920 960 Output Total 925 950 Balance 995 10 Result Diagrams: 01/28/19 04:35 01/29/19 06:30 Phys Exam - Physical Examination Constitutional: NAD HEENT: PERRLA, moist MMs Neck: no nodes, supple, full ROM Respiratory: no wheezing, no rales, no rhonchi, clear to auscultation bilateral Cardiovascular: RRR, no significant murmur, no rub Gastrointestinal: soft, non-tender, no distention, positive bowel sounds Musculoskeletal: no edema, pulses present Neurological: non-focal, moves all 4 limbs Psychiatric: normal affect Deviation from normal: A&O x 2 Skin: no rash, normal turgor, cap refill <2 seconds Dx/Plan (1) Altered mental status Code(s): R41.82 - ALTERED MENTAL STATUS, UNSPECIFIED Status: Acute (2) Metabolic encephalopathy Code(s): G93.41 - METABOLIC ENCEPHALOPATHY Status: Acute (3) Hypoglycemia Code(s): E16.2 - HYPOGLYCEMIA, UNSPECIFIED Status: Acute (4) DM type 2 (diabetes mellitus, type 2) Status: Chronic Qualifiers: Diabetes mellitus buttermaker continuous churn insulin use: with jail use Diabetes mellitus complication status: with kidney complications Chronic kidney disease stage: stage 3 (moderate) (5) Dementia Code(s): F03.90 - UNSPECIFIED DEMENTIA WITHOUT BEHAVIORAL DISTURBANCE Status: Chronic Qualifiers: Dementia type: unspecified type Dementia behavioral disturbance: without behavioral disturbance Qualified Code(s): F03.90 - Unspecified dementia without behavioral disturbance (6) Dyslipidemia Code(s): E78.5 - HYPERLIPIDEMIA, UNSPECIFIED Status: Chronic (7) Hypertension Code(s): I10 - ESSENTIAL (PRIMARY) HYPERTENSION Status: Chronic Qualifiers: Hypertension type: essential hypertension Qualified Code(s): I10 - Essential (primary) hypertension - Plan Plan: Metabolic encephalopathy 2/2 hyopglycemia vs. dementia Blood glucose has remained 120-170 without insulin. His insulin requirements may be significantly lower than he was receiving at home. Home meds: Humulin 25units BID. A&O x2, to person and place; uncertain of baseline and not present during discussion Pending SNF vs NH placement. Hypoglycemia See plan as above Hypokalemia Replace as needed, received 40meq in ED. 3.4 yesterday, gave 20meq po. BMP this am. DMII A1c 8.3%. Not requiring SSI in hospital. 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 Anticipate LOS >48 ho hours. Will need placement on d /c. DVT ppx: SCD's. Will hold lovenox as patient high fall risk Code Status: Full
[2019-01-29 07:01] LABS: Anion Gap 11 mmol/L (10-20); BUN (Urea Nitrogen) 13 mg/dL (8.4-25.7); Calc. Creatinine Clearance 38 mL/min (70-130); Calcium 8.1 mg/dL (7.8-10.44); Carbon Dioxide 23 mmol/L (23-31); Chloride 110 mmol/L (98-107); Estimated GFR-MDRD 41; Glucose 127 mg/dL (83-110); Potassium 3.5 mmol/L (3.5-5.1); Sodium 140 mmol/L (136-145)
[2019-01-29] MEDS: Amlodipine 10 MG TAB PO SCH (08:59)
[2019-01-29] MEDS: Metoprolol Tartrate 50 MG TAB PO SCH ×2 (08:59→21:09)
[2019-01-29] MEDS: Aspirin 325 mg Enteric Coated Tablet PO SCH (08:59)
[2019-01-29] MEDS: Lisinopril 20 MG TAB PO SCH (09:00)
[2019-01-29] MEDS: Isosorbide Mononitrate (ER) 30 MG TAB PO SCH (09:00)
--- NOTE | 2019-01-29 11:47 | PRG ---
DATE OF SERVICE: 01/29/2019 Mr. Castillo is pleasant demented self this morning. He is having no issues and we are still awaiting placement. He is definitely at a fall risk giving his reactive hypoglycemia and old cerebellar stroke. Job ID: [id number]
[2019-01-29] MEDS: Doxazosin Mesylate 1 MG TAB PO SCH (21:09)
[2019-01-29] MEDS: Atorvastatin Calcium 40 MG TAB PO SCH (21:09)
--- NOTE | 2019-01-30 05:55 | PDOC.FM ---
- Subjective Subjective: This morning Mr. Castillo was extremely short of breath and having difficulty breathing. He complains of productive cough, with clear sputum coming up. He denies chest pain, swelling, abdominal pain. - Objective MAR Reviewed: Yes Vital Signs & Weight: Vital Signs (12 hours) Temp Pulse Resp BP BP Pulse Ox 01/30/19 03:51 100.5 F H 94 20 164/77 H 97 01/29/19 23:46 91 16 01/29/19 20:00 99.1 F 82 17 159/74 H 96 Weight Admit Weight 86.046 kg Weight 89.448 kg I&O: 01/28/19 01/29/19 01/30/19 06:59 06:59 06:59 Intake Total 1920 2520 820 Output Total 925 2100 1000 Balance 995 420 -180 Result Diagrams: 01/28/19 04:35 01/29/19 06:30 Phys Exam - Physical Examination Acutely short of breath, tachypneic. HEENT: PERRLA, moist MMs Neck: supple, full ROM Respiratory: no rhonchi, wheezing present (tachypneic, wheezes heard diffusely, coarse breath sounds. ) Cardiovascular: RRR, no significant murmur, no rub Gastrointestinal: soft, non-tender, no distention, positive bowel sounds Musculoskeletal: no edema, pulses present Neurological: non-focal, moves all 4 limbs Psychiatric: normal affect Deviation from normal: A&O x2 Skin: no rash, normal turgor Dx/Plan (1) Altered mental status Code(s): R41.82 - ALTERED MENTAL STATUS, UNSPECIFIED Status: Acute (2) Metabolic encephalopathy Code(s): G93.41 - METABOLIC ENCEPHALOPATHY Status: Acute (3) Hypoglycemia Code(s): E16.2 - HYPOGLYCEMIA, UNSPECIFIED Status: Acute (4) DM type 2 (diabetes mellitus, type 2) Status: Chronic Qualifiers: Diabetes mellitus termination clerk insulin use: with termination clerk use Diabetes mellitus complication status: with kidney complications Chronic kidney disease stage: stage 3 (moderate) (5) Dementia Code(s): F03.90 - UNSPECIFIED DEMENTIA WITHOUT BEHAVIORAL DISTURBANCE Status: Chronic Qualifiers: Dementia type: unspecified type Dementia behavioral disturbance: without behavioral disturbance Qualified Code(s): F03.90 - Unspecified dementia without behavioral disturbance (6) Dyslipidemia Code(s): E78.5 - HYPERLIPIDEMIA, UNSPECIFIED Status: Chronic (7) Hypertension Code(s): I10 - ESSENTIAL (PRIMARY) HYPERTENSION Status: Chronic Qualifiers: Hypertension type: essential hypertension Qualified Code(s): I10 - Essential (primary) hypertension - Plan Plan: Metabolic encephalopathy 2/2 hyopglycemia vs. dementia Blood glucose has remained 120-170 without insulin. His insulin requirements may be significantly lower than he was receiving at home. Home meds: Humulin 25units BID. WILL DISCONTINUE ON DC A&O x2, to person and place; uncertain of baseline and not present during discussion Pending SNF vs NH placement. MOCA assessment pending with speech therapy. Tachypnea Acute onset overnight. Nurses gave one duoneb and it helped somewhat. When I checked on him at 6am he was very short of breath. Stat CXR shows possible bilateral pleural effusions. 20mg IV lasix given D/c IV fluids. Hypoglycemia, resolved See plan as above Hypokalemia, resolved DMII A1c 8.3%. Not requiring SSI in hospital. Will d/c home insulin on discharge. 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 Patient in need of placement; CM consulted PT/OT consulted HLD Continue home meds Hx CVA Continue statin and ASA GERD Continue home meds CKD stage IV, at baseline creatinine Likely 2/2 longstanding diabetes and HTN Dispo: Admit to telemetry. Anticipate LOS >48 ho hours. Will need placement on d /c. DVT ppx: SCD's. Will hold lovenox as patient high fall risk Code Status: Full
[2019-01-30] MEDS ORDERED: Furosemide 20 MG/2 ML VIAL SLOW IVP SCH ×2 (07:00→15:45)
--- NOTE | 2019-01-30 07:40 | RAD ---
Portable frontal chest radiograph: 01/30/2019 COMPARISON: 10/20/2017 HISTORY: Shortness of breath FINDINGS: Midline sternotomy wires and mediastinal clips are present. No pneumothorax, lobar consolid ation, or alveolar edema. Questionable small bilateral pleural effusions versus technical limitation on the basis of portable imaging. This could be better assessed with lateral imaging as cl inically warranted. Impression: No lobar consolidation or alveolar edema. Questionable small bilateral pleural effusions.
[2019-01-30] MEDS: Isosorbide Mononitrate (ER) 30 MG TAB PO SCH (09:17)
[2019-01-30] MEDS: Amlodipine 10 MG TAB PO SCH (09:17)
[2019-01-30] MEDS: Metoprolol Tartrate 50 MG TAB PO SCH ×2 (09:17→20:56)
[2019-01-30] MEDS: Aspirin 325 mg Enteric Coated Tablet PO SCH (09:17)
[2019-01-30] MEDS: Lisinopril 20 MG TAB PO SCH (09:18)
--- NOTE | 2019-01-30 10:19 | PRG ---
DATE OF SERVICE: 01/30/2019 Early this morning, Mr. Castillo had developed some respiratory distress that did not respond to DuoNebs. He was given Lasix and a chest x-ray shows possible mild fluid overload. Along with Lasix, we have stopped his IV fluids and already looks and feels much better. Job ID: [id number]
[2019-01-30] MEDS: Acetaminophen 325 MG TAB PO PRN (15:47)
[2019-01-30] MEDS: Doxazosin Mesylate 1 MG TAB PO SCH (20:56)
[2019-01-30] MEDS: Atorvastatin Calcium 40 MG TAB PO SCH (20:56)
[2019-01-31] MEDS ORDERED: hydrALAZINE 20 MG/ML VIAL SLOW IVP PRN (04:25)
--- NOTE | 2019-01-31 06:07 | PDOC.FM ---
- Subjective Subjective: Mr. Castillo respiratory status has failed to improve overnight. He still feels short of breath and winded. Otherwise he has no new complaints. - Objective MAR Reviewed: Yes Vital Signs & Weight: Vital Signs (12 hours) Temp Pulse Resp BP BP BP Pulse Ox 01/31/19 04:49 95 20 174/81 H 96 01/31/19 04:42 108 H 01/31/19 04:15 108 H 22 H 190/90 H 95 01/31/19 04:13 187/89 H 01/31/19 04:12 154/73 H 01/31/19 04:02 101 H 24 H 94 L 01/31/19 03:02 100.2 F H 91 20 161/74 H 93 L 01/31/19 00:28 154/73 H 01/31/19 00:00 169/77 H 01/30/19 20:00 99.9 F H 99 17 159/82 H 95 Weight Admit Weight 86.046 kg Weight 87.679 kg I&O: 01/29/19 01/30/19 01/31/19 06:59 06:59 06:59 Intake Total 2520 2140 1090 Output Total 2100 1900 3000 Balance 420 240 -1910 Result Diagrams: 01/28/19 04:35 01/31/19 08:06 Radiology Reviewed by me: Yes (Evidence of fluid overload.) Phys Exam - Physical Examination Constitutional: NAD uncomfortable appearing, working to breathe HEENT: PERRLA, moist MMs Neck: no nodes, supple, full ROM Diffuse wheezes throughout. Crackles at the bases of his lungs. Cardiovascular: RRR, no significant murmur, no rub Gastrointestinal: soft, non-tender, no distention, positive bowel sounds Musculoskeletal: no edema, pulses present Neurological: non-focal, normal sensation, moves all 4 limbs Psychiatric: normal affect Deviation from normal: A&O to person and place Skin: no rash, normal turgor, cap refill <2 seconds Dx/Plan (1) Altered mental status Code(s): R41.82 - ALTERED MENTAL STATUS, UNSPECIFIED Status: Acute (2) Metabolic encephalopathy Code(s): G93.41 - METABOLIC ENCEPHALOPATHY Status: Acute (3) Hypoglycemia Code(s): E16.2 - HYPOGLYCEMIA, UNSPECIFIED Status: Acute (4) DM type 2 (diabetes mellitus, type 2) Status: Chronic Qualifiers: Diabetes mellitus snf insulin use: with snf use Diabetes mellitus complication status: with kidney complications Chronic kidney disease stage: stage 3 (moderate) (5) Dementia Code(s): F03.90 - UNSPECIFIED DEMENTIA WITHOUT BEHAVIORAL DISTURBANCE Status: Chronic Qualifiers: Dementia type: unspecified type Dementia behavioral disturbance: without behavioral disturbance Qualified Code(s): F03.90 - Unspecified dementia without behavioral disturbance (6) Dyslipidemia Code(s): E78.5 - HYPERLIPIDEMIA, UNSPECIFIED Status: Chronic (7) Hypertension Code(s): I10 - ESSENTIAL (PRIMARY) HYPERTENSION Status: Chronic Qualifiers: Hypertension type: essential hypertension Qualified Code(s): I10 - Essential (primary) hypertension (8) CHF (congestive heart failure) Code(s): I50.9 - HEART FAILURE, UNSPECIFIED Status: Acute - Plan Plan: Metabolic encephalopathy 2/2 hyopglycemia resolved Blood glucose has remained 120-170 without insulin. His insulin requirements may be significantly lower than he was receiving at home. Home meds: Humulin 25units BID. WILL DISCONTINUE ON DC A&O x2, to person and place; patient is at baseline, per . Evaluated by speech therapy. Not a candidate for SNF. Patient and his family insist on the patient going home on discharge. Tachypnea, worsened. New onset of congestive heart failure suspected. CXR shows no evidence of pneuomnia. Patient was febrile, tachycardic, tachypneic, and satting 93% on room air this morning Ordered: Blood and urine cultures, UA, CXR Will treat suspected CHF with Lasix 40 today. He is down 2L from yesterday. We will monitor for signs of source of infection. We will consult cardiology and order an echo. Hypoglycemia, resolved See plan as above Hypokalemia, resolved DMII A1c 8.3%. Not requiring SSI in hospital. Will d/c home insulin on discharge. 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 Patient in need of placement; CM consulted PT/OT consulted Will send with home health consult for pt/ot HLD Continue home meds Hx CVA Continue statin and ASA GERD Continue home meds CKD stage IV, at baseline creatinine Likely 2/2 longstanding diabetes and HTN CAD, s/p cabg Dispo: Admit to telemetry. Anticipate LOS >48 ho hours. Will need placement on d /c. DVT ppx: SCD's. Will hold lovenox as patient high fall risk Code Status: Full
[2019-01-31 08:41] LABS: ALT (SGPT) Less than 7 U/L (8-55); AST (SGOT) 18 U/L (5-34); Albumin 3.2 g/dL (3.4-4.8); Alkaline Phosphatase 57 U/L (40-150); Anion Gap 16 mmol/L (10-20); BUN (Urea Nitrogen) 27 mg/dL (8.4-25.7); Calc. Creatinine Clearance 31 mL/min (70-130); Calcium 8.5 mg/dL (7.8-10.44); Carbon Dioxide 20 mmol/L (23-31); Chloride 106 mmol/L (98-107); Estimated GFR-MDRD 32; Globulin 2.7 g/dL (2.4-3.5); Glucose 170 mg/dL (83-110); Potassium 3.8 mmol/L (3.5-5.1); Protein, Total 5.9 g/dL (5.8-8.1); Sodium 138 mmol/L (136-145)
[2019-01-31] MEDS: Lisinopril 20 MG TAB PO SCH (08:42)
[2019-01-31] MEDS: Metoprolol Tartrate 50 MG TAB PO SCH ×2 (08:42→21:25)
[2019-01-31] MEDS: Aspirin 325 mg Enteric Coated Tablet PO SCH (08:42)
[2019-01-31] MEDS: Isosorbide Mononitrate (ER) 30 MG TAB PO SCH (08:44)
[2019-01-31] MEDS: Acetaminophen 325 MG TAB PO PRN (08:44)
[2019-01-31] MEDS: Amlodipine 10 MG TAB PO SCH (08:45)
--- NOTE | 2019-01-31 10:10 | RAD ---
FRONTAL AND LATERAL IMAGING CHEST: Date: 01/31/19 COMPARISON: 01/30/19. HISTORY: Fever, tachycardia, dyspnea, and hypoxia. FINDINGS: Midline sternotomy wires and mediastinal clips are present. There is no pneumothorax. There is mild pulmonary vascular congestion and perihilar/bibasilar interstitial prominence. Small bi lateral pleural effusions are suspected. IMPRESSION: Findings suggesting mild interstitial edema with small bilateral pleural effusions. Follow-up followi ng treatment to document resolution advised. POS: OFF
[2019-01-31] MEDS ORDERED: Furosemide 40 MG/4 ML VIAL SLOW IVP SCH (11:15)
[2019-01-31] MEDS: HumaLOG 300 UNITS/3 ML VIAL SC PRN (11:25)
--- NOTE | 2019-01-31 12:12 | PRG ---
DATE OF SERVICE: 01/31/2019 Mr. Castillo again developed respiratory distress this morning. His chest x-ray showed probable early pulmonary edema. We gave him Lasix and he is already looking and feeling much better. We will schedule an echocardiogram as his BNP is also elevated to 2200. We will also continue to treat his hypertension. By clinically with the Lasix, the patient did improve. Job ID: [id number]
[2019-01-31 15:06] LABS: Bilirubin Negative (Negative); Blood, Urine 1+ (Negative); Clarity Clear (Clear); Glucose, Urine (Dipstick) Normal (Negative); Leukocyte Negative Leu/uL (Negative); Nitrite Negative (Negative); Protein, Urine (Dipstick) 70 mg/dL (Neg-Trace); RBC/HPF 0-3 HPF (0-3); Squamous Epithelial None Seen HPF (0-3); Urobilinogen Normal mg/dL (Less than 2); WBC/HPF 0-3 HPF (0-3)
[2019-01-31 15:07] LABS: Bacteria/HPF 1+ HPF (None Seen)
[2019-01-31] MEDS: Atorvastatin Calcium 40 MG TAB PO SCH (21:24)
[2019-01-31] MEDS: Doxazosin Mesylate 1 MG TAB PO SCH (21:24)
[2019-02-01] MEDS: Acetaminophen 325 MG TAB PO PRN (04:40)
--- NOTE | 2019-02-01 06:11 | PDOC.FM ---
- Subjective Subjective: patient was resting comfortably this morning. denies any new complaints. - Objective MAR Reviewed: Yes Vital Signs & Weight: Vital Signs (12 hours) Temp Pulse Resp BP Pulse Ox 02/01/19 04:35 102.9 F H 92 20 144/65 H 91 L 01/31/19 20:00 100.2 F H 97 16 156/70 H 92 L Weight Admit Weight 86.046 kg Weight 85.729 kg I&O: 01/30/19 01/31/19 02/01/19 06:59 06:59 06:59 Intake Total 2140 1090 900 Output Total 1900 3000 1195 Balance 240 -1910 -295 Result Diagrams: 02/01/19 06:10 02/01/19 06:10 Phys Exam - Physical Examination Constitutional: NAD tachypneic, but comfortable appearing. HEENT: moist MMs, sclera anicteric Neck: supple, full ROM Respiratory: wheezing present Wheezing heard in the upper lung villarreal. Crackles in the bases. Cardiovascular: RRR, no significant murmur, no rub Gastrointestinal: soft, non-tender, no distention, positive bowel sounds Musculoskeletal: no edema, pulses present Neurological: non-focal, moves all 4 limbs Psychiatric: normal affect Deviation from normal: A&O to person and place. Not sure if aware of symptoms or minimizing them. Skin: no rash, normal turgor Dx/Plan (1) Altered mental status Code(s): R41.82 - ALTERED MENTAL STATUS, UNSPECIFIED Status: Acute (2) Metabolic encephalopathy Code(s): G93.41 - METABOLIC ENCEPHALOPATHY Status: Acute (3) Hypoglycemia Code(s): E16.2 - HYPOGLYCEMIA, UNSPECIFIED Status: Acute (4) DM type 2 (diabetes mellitus, type 2) Status: Chronic Qualifiers: Diabetes mellitus snf insulin use: with snf use Diabetes mellitus complication status: with kidney complications Chronic kidney disease stage: stage 3 (moderate) (5) Dementia Code(s): F03.90 - UNSPECIFIED DEMENTIA WITHOUT BEHAVIORAL DISTURBANCE Status: Chronic Qualifiers: Dementia type: unspecified type Dementia behavioral disturbance: without behavioral disturbance Qualified Code(s): F03.90 - Unspecified dementia without behavioral disturbance (6) Dyslipidemia Code(s): E78.5 - HYPERLIPIDEMIA, UNSPECIFIED Status: Chronic (7) Hypertension Code(s): I10 - ESSENTIAL (PRIMARY) HYPERTENSION Status: Chronic Qualifiers: Hypertension type: essential hypertension Qualified Code(s): I10 - Essential (primary) hypertension (8) CHF (congestive heart failure) Code(s): I50.9 - HEART FAILURE, UNSPECIFIED Status: Acute (9) Acute respiratory failure with hypoxia Code(s): J96.01 - ACUTE RESPIRATORY FAILURE WITH HYPOXIA Status: Acute - Plan Plan: Acute hypoxic respiratory failure Echo shows diastolic dysfunction, EF 45-50%. CXR shows no evidence of pneuomnia. Patient was febrile, tachycardic, tachypneic, and satting 91% on room air this morning UA clean. Blood cultures negative at 48 hours. Will treat suspected CHF with Lasix 40 today. He is down 2L from yesterday. We will monitor for signs of source of infection. WBC uptrending, but not elevated. HFpEF New diagnosis ECHO showed evidence of diastolic dysfunction. EF 45-50% Will consult cardiology Giving 40mg Lasix for fluid overload status. Fever without source UA clean, Blood cx no growth in 48hours, CXR negative for pneumonia. Will consider additional imaging today Tylenol for symptom control Hypoglycemia, resolved See plan as above Hypokalemia, resolved DMII A1c 8.3%. Has only received 4 units of insulin so far this stay. Will likely d/c home insulin on discharge. HTN Continue home BP medications Increase Lisinopril dose to 40mg. 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 Patient in need of placement; CM consulted PT/OT consulted Will send with home health consult for pt/ot HLD Continue home meds Hx CVA Continue statin and ASA GERD Continue home meds CKD stage IV, at baseline creatinine Likely 2/2 longstanding diabetes and HTN CAD, s/p cabg Dispo: Admit to telemetry. Anticipate LOS >48 ho hours. Will need placement on d /c. DVT ppx: SCD's. Will hold lovenox as patient high fall risk Code Status: Full
[2019-02-01 06:23] LABS: #Basophils 0.1 thou/uL (0.0-0.2); #Eosinphils 0.3 thou/uL (0.0-0.7); #Lymphocytes 1.4 thou/uL (1.20-3.40); #Monocytes 1.2 thou/uL (0.11-0.59); #Neutrophils 6.8 thou/uL (1.40-6.50); %Basophils 0.8 % (0.0-1.0); %Eosinophils 2.7 % (0.0-10.0); %Lymphocytes 14.6 % (21.0-51.0); %Monocytes 11.9 % (0.0-10.0); %Neutrophils 70.1 % (42.0-75.0); Hemoglobin 11.4 g/dL (14.0-18.0); Mean Corpuscular HGB CONC 32.6 g/dL (32.0-36.0); Mean Platelet Volume 8.8 fL (7.4-10.4); Platelet Count 156 thou/uL (130-400); RBC Distribution Width 13.7 % (11.5-14.5); Red Blood Cell (RBC) Count 4.23 mill/uL (4.70-6.10); White Blood Cell (WBC) Count 9.7 thou/uL (4.8-10.8)
[2019-02-01 06:37] LABS: ALT (SGPT) Less than 7 U/L (8-55); AST (SGOT) 21 U/L (5-34); Albumin 3.3 g/dL (3.4-4.8); Alkaline Phosphatase 55 U/L (40-150); Anion Gap 16 mmol/L (10-20); BUN (Urea Nitrogen) 34 mg/dL (8.4-25.7); Calc. Creatinine Clearance 28 mL/min (70-130); Calcium 8.9 mg/dL (7.8-10.44); Carbon Dioxide 24 mmol/L (23-31); Chloride 103 mmol/L (98-107); Estimated GFR-MDRD 29; Globulin 2.7 g/dL (2.4-3.5); Glucose 133 mg/dL (83-110); Potassium 3.9 mmol/L (3.5-5.1); Sodium 139 mmol/L (136-145)
[2019-02-01] MEDS ORDERED: Furosemide 40 MG/4 ML VIAL SLOW IVP SCH (07:30)
[2019-02-01] MEDS: Amlodipine 10 MG TAB PO SCH (08:36)
[2019-02-01] MEDS: Aspirin 325 mg Enteric Coated Tablet PO SCH (08:36)
[2019-02-01] MEDS: Metoprolol Tartrate 50 MG TAB PO SCH (08:36)
[2019-02-01] MEDS: Lisinopril 20 MG TAB PO SCH (08:36)
[2019-02-01] MEDS: Isosorbide Mononitrate (ER) 30 MG TAB PO SCH (08:37)
[2019-02-01] MEDS ORDERED: Polyethylene Glycol 3350 17 GM Packet PO SCH ×2 (09:45→12:30)
--- NOTE | 2019-02-01 10:51 | PRG ---
DATE OF SERVICE: 02/01/2019 Mr. Castillo looks and feels fine, but again had an episode of respiratory distress and fever last night. I am concerned that there maybe a mixed picture here with pulmonary edema and possibly an atypical pneumonia. We will go ahead and add doxycycline to cover for atypical pathogens while continuing treatment for his heart failure. Echocardiogram was consistent with a slightly reduced ejection fraction consistent with borderline heart failure. He is already on ACEs, diuretics, and beta-blockers as per protocol for his heart failure. This will continue to be watched and monitored. I really doubt there is any need for a cardiac catheterization given his advanced age in general frailty. We will, however, of course continue to maximize treatment for his heart failure. Job ID: [id number]
--- NOTE | 2019-02-01 12:16 | RAD ---
EXAM: Abdomen one view: HISTORY: Abdominal firmness and tenderness. COMPARISON: None FINDINGS: Solid fecal material within the colon including a dilated rectum evidence for obstipation. No evidence for large or small bowel obstruction. No free intraperitoneal air . No overt calculus. IMPRESSION: No acute process. Solid fecal material within a dilated rectum evidence for obstipation.
[2019-02-01] MEDS: HumaLOG 300 UNITS/3 ML VIAL SC PRN (17:29)
[2019-02-01] MEDS: Doxazosin Mesylate 1 MG TAB PO SCH (20:34)
[2019-02-01] MEDS: Atorvastatin Calcium 40 MG TAB PO SCH (20:34)
[2019-02-01] MEDS ORDERED: Doxycycline 100 MG CAP PO SCH ×2 (21:00)
[2019-02-02] MEDS: Metoprolol Tartrate 50 MG TAB PO SCH ×2 (09:19→21:07)
[2019-02-02] MEDS: cefTRIAXone\\ROCEPHIN 1 GM in Sodium Chloride 0.9% 100 ML IVPB SCH (09:19)
[2019-02-02 09:20] LABS: ALT (SGPT) 14 U/L (8-55); AST (SGOT) 38 U/L (5-34); Albumin 3.1 g/dL (3.4-4.8); Alkaline Phosphatase 55 U/L (40-150); Anion Gap 11 mmol/L (10-20); BUN (Urea Nitrogen) 36 mg/dL (8.4-25.7); Bilirubin, Direct 0.8 mg/dL (0.1-0.3); Bilirubin, Total 1.3 mg/dL (0.2-1.2); Calc. Creatinine Clearance 25 mL/min (70-130); Calcium 8.7 mg/dL (7.8-10.44); Carbon Dioxide 29 mmol/L (23-31); Chloride 101 mmol/L (98-107); Estimated GFR-MDRD 26; Globulin 2.7 g/dL (2.4-3.5); Glucose 224 mg/dL (83-110); Potassium 3.3 mmol/L (3.5-5.1); Protein, Total 5.8 g/dL (5.8-8.1); Sodium 138 mmol/L (136-145)
[2019-02-02] MEDS: Amlodipine 10 MG TAB PO SCH (09:25)
[2019-02-02] MEDS: Isosorbide Mononitrate (ER) 30 MG TAB PO SCH (09:25)
[2019-02-02] MEDS: Lisinopril 20 MG TAB PO SCH (09:25)
[2019-02-02] MEDS: Aspirin 325 mg Enteric Coated Tablet PO SCH (09:26)
[2019-02-02] MEDS ORDERED: Potassium Chloride 20 MEQ TAB PO SCH (09:45)
--- NOTE | 2019-02-02 12:36 | PDOC.FM ---
- Subjective Subjective: Patient was resting comfortably this morning. States that his breathing is better. Does not report bowel movement. - Objective MAR Reviewed: Yes Vital Signs & Weight: Vital Signs (12 hours) Temp Pulse Resp BP BP BP Pulse Ox 02/02/19 09:25 83 187/89 H 02/02/19 07:30 97.8 F 83 18 150/67 H 93 L 02/02/19 03:15 100.5 F H 84 18 152/67 H 92 L Weight Admit Weight 86.046 kg Weight 84.822 kg I&O: 02/01/19 02/02/19 02/03/19 06:59 06:59 06:59 Intake Total 900 1044 Output Total 1195 2450 Balance -295 -1406 Result Diagrams: 02/01/19 06:10 02/02/19 08:53 Phys Exam - Physical Examination Constitutional: NAD HEENT: moist MMs, sclera anicteric Neck: supple, full ROM Respiratory: no wheezing, no rales, no rhonchi, clear to auscultation bilateral Cardiovascular: RRR, no significant murmur, no rub Gastrointestinal: non-tender, positive bowel sounds firm Musculoskeletal: no edema, pulses present Neurological: non-focal, moves all 4 limbs Psychiatric: normal affect Deviation from normal: A&O x 2 person/place. Skin: no rash, normal turgor Dx/Plan (1) Altered mental status Code(s): R41.82 - ALTERED MENTAL STATUS, UNSPECIFIED Status: Acute (2) Metabolic encephalopathy Code(s): G93.41 - METABOLIC ENCEPHALOPATHY Status: Acute (3) Hypoglycemia Code(s): E16.2 - HYPOGLYCEMIA, UNSPECIFIED Status: Acute (4) DM type 2 (diabetes mellitus, type 2) Status: Chronic Qualifiers: Diabetes mellitus manager intermediate insulin use: with nursing home use Diabetes mellitus complication status: with kidney complications Chronic kidney disease stage: stage 3 (moderate) (5) Dementia Code(s): F03.90 - UNSPECIFIED DEMENTIA WITHOUT BEHAVIORAL DISTURBANCE Status: Chronic Qualifiers: Dementia type: unspecified type Dementia behavioral disturbance: without behavioral disturbance Qualified Code(s): F03.90 - Unspecified dementia without behavioral disturbance (6) Dyslipidemia Code(s): E78.5 - HYPERLIPIDEMIA, UNSPECIFIED Status: Chronic (7) Hypertension Code(s): I10 - ESSENTIAL (PRIMARY) HYPERTENSION Status: Chronic Qualifiers: Hypertension type: essential hypertension Qualified Code(s): I10 - Essential (primary) hypertension (8) CHF (congestive heart failure) Code(s): I50.9 - HEART FAILURE, UNSPECIFIED Status: Acute (9) Acute respiratory failure with hypoxia Code(s): J96.01 - ACUTE RESPIRATORY FAILURE WITH HYPOXIA Status: Acute - Plan Plan: Acute hypoxic respiratory failure Echo shows diastolic dysfunction, EF 45-50%. CXR shows no evidence of pneuomnia. Patient was febrile, tachycardic, tachypneic, and satting 93% on 2L this morning Seems euvolemic today. We will monitor for signs of source of infection. WBC uptrending, but not elevated. Consulted case management for placement. HFpEF New diagnosis ECHO showed evidence of diastolic dysfunction. EF 45-50% Will consult cardiology Fever without source, likely UTI Blood cx no growth in 48hours, CXR negative for pneumonia. Tylenol for symptom control Urine culture grew klebsiella. Covering with ceftriaxone. Hypoglycemia, resolved See plan as above Hypokalemia, resolved DMII A1c 8.3%. Has only received 4 units of insulin so far this stay. Will likely d/c home insulin on discharge. HTN Continue home BP medications Increase Lisinopril dose to 40mg. 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 Patient in need of placement; CM consulted PT/OT consulted Will send with home health consult for pt/ot HLD Continue home meds Hx CVA Continue statin and ASA GERD Continue home meds CKD stage IV, at baseline creatinine Likely 2/2 longstanding diabetes and HTN CAD, s/p cabg Dispo: Admit to telemetry. Anticipate LOS >48 ho hours. Will need placement on d /c. DVT ppx: SCD's. Will hold lovenox as patient high fall risk Code Status: Full Addendum - Attending - Attending Attestation Date/Time: 02/02/19 4945 I personally evaluated the patient and discussed the management with Dr. Albrecht. I agree with the History, Examination, Assessment and Plan documented above with any addition or exceptions noted below. The patient's breathing is improved following diuresis but now verónica has worsened. Will work to wean o2. Hold lasix, repeat labs in am. Hyperbilirubinemia has improved. Replace potassium.
--- NOTE | 2019-02-02 14:29 | CON ---
DATE OF CONSULTATION: 02/02/2019 REASON FOR CONSULTATION: CHF. HISTORY OF PRESENT ILLNESS: Mr. Castillo is a pleasant 78-year-old gentleman, who comes to the hospital for an altered mentation and metabolic encephalopathy. He was admitted and thought this altered mentation was related to either hypoglycemia versus worsening of his dementia. His blood glucose was 48 and went up to 99 after he received D50. He has been in the hospital for the last few days, and in the last couple of days, he has developed worsening shortness of breath, so he was started on IV Lasix for possible CHF, and an echocardiogram was done that showed an EF of 45% to 50% with grade 1 diastolic dysfunction. Because of this, Cardiology has been consulted. In the last few days, his in's and out's have been in average of 1.5 to 2 L a day. His creatinine also has increased, and his BNP was about 2000 initially, 1600 now. On my evaluation, Mr. Castillo denies any chest pain, tightness, or pressure. His breathing is at baseline according to him, however, he is a little bit confused and unable to give me any good history. He also developed a fever recently, 100.5 earlier today, and he has been 100.2 and 102.2, that is the highest one, this was yesterday. PAST MEDICAL HISTORY: 1. Type 2 diabetes. 2. CKD stage 4. 3. Hypertension. 4. Hyperlipidemia. 5. History of CVA. 6. Recurrent falls. 7. GERD. 8. Dementia. 9. CAD, status post 4-vessel CABG. 10. Tobacco abuse. PAST SURGICAL HISTORY: CABG x4. SOCIAL HISTORY: Tobacco use in the past including snuff. No drug use. No alcohol use. FAMILY HISTORY: Noncontributory. REVIEW OF SYSTEMS: Unobtainable as he is somewhat confused. ALLERGIES: NO KNOWN DRUG ALLERGIES. OUTPATIENT MEDICATIONS: 1. Amlodipine 10 mg a day. 2. Lisinopril 20 mg a day. 3. Vitamin D3. 4. Aspirin 325 mg a day. 5. Lipitor 40 mg at bedtime. 6. Metoprolol tartrate 50 mg b.i.d. 7. Doxazosin. 8. Isosorbide mononitrate 30 mg a day. 9. Insulin. PHYSICAL EXAMINATION: VITAL SIGNS: Temperature 102.2 with the max, blood pressure 187/89, respiratory rate 18, sat 93% on 2 L nasal cannula. GENERAL: Awake, alert, oriented to person only, in no distress. HEENT: Normocephalic and atraumatic. NECK: Supple. LUNGS: Mild crackles at the bases. CARDIOVASCULAR: S1 and S2. No S3 or S4. ABDOMEN: Soft. Positive bowel sounds. EXTREMITIES: Lower extremities, no edema. SKIN: Warm and dry. LABORATORY DATA: Laboratory work was reviewed. Sodium 138, potassium has come down to 3.3, BUN 36. Creatinine was 2.81, this is up from 1.91 just 3 days ago. Total bilirubin 1.3, direct is 0.8. AST is 38. Normal AST and ALT. Albumin of 3.1. UA with 70 proteins, 1+ blood. Urine culture has gram-negative yanick x2, one is Klebsiella pneumoniae, the other one is still pending. Blood cultures have been negative x2. ASSESSMENT: 1. Acute on chronic systolic and diastolic heart failure. 2. Hypertension. 3. Possible urinary tract infection. 4. Fevers, likely from urinary tract infection. PLAN: 1. I would hold off on any further diuresis for now. He seems to be close to euvolemic right now. His creatinine is rising. We will try to control his blood pressure a little bit better. 2. He is already on antibiotics for his infection. We would defer to primary team as far as antibiotics for gram-negative rods in his urine possibly. I see he has been given ceftriaxone, this should cover this very well. 3. We will increase his Imdur to 60 to try to control his blood pressure a little bit better and decrease preload. Thank you for letting me to participate in the care of your patient, we will follow. Job ID: [id number]
[2019-02-02] MEDS ORDERED: Fleet Enema 133 ML BOT FS SCH (20:45)
[2019-02-02] MEDS: Atorvastatin Calcium 40 MG TAB PO SCH (21:07)
[2019-02-02] MEDS: Doxazosin Mesylate 1 MG TAB PO SCH (21:07)
[2019-02-03 05:33] LABS: ALT (SGPT) 21 U/L (8-55); AST (SGOT) 63 U/L (5-34); Albumin 3.1 g/dL (3.4-4.8); Alkaline Phosphatase 61 U/L (40-150); Anion Gap 12 mmol/L (10-20); BUN (Urea Nitrogen) 34 mg/dL (8.4-25.7); Bilirubin, Total 0.9 mg/dL (0.2-1.2); Calc. Creatinine Clearance 26 mL/min (70-130); Calcium 8.5 mg/dL (7.8-10.44); Carbon Dioxide 27 mmol/L (23-31); Chloride 102 mmol/L (98-107); Estimated GFR-MDRD 28; Globulin 2.7 g/dL (2.4-3.5); Glucose 178 mg/dL (83-110); Potassium 3.4 mmol/L (3.5-5.1); Protein, Total 5.8 g/dL (5.8-8.1); Sodium 138 mmol/L (136-145)
--- NOTE | 2019-02-03 06:31 | PDOC.FM ---
- Subjective Subjective: Patient resting comfortably this morning. States that he is not short of breath , does not have chest pain, and did have a couple of bowel movements. - Objective MAR Reviewed: Yes Vital Signs & Weight: Vital Signs (12 hours) Temp Pulse Resp BP BP Pulse Ox 02/03/19 04:08 92 L 02/03/19 03:03 99.7 F H 74 20 147/67 H 92 L 02/02/19 20:00 98.6 F 81 16 145/67 H 94 L Weight Admit Weight 86.046 kg Weight 83.603 kg I&O: 02/01/19 02/02/19 02/03/19 06:59 06:59 06:59 Intake Total 900 1044 1040 Output Total 1195 0400 1640 Balance -295 -1406 -600 Result Diagrams: 02/01/19 06:10 02/03/19 04:18 Phys Exam - Physical Examination Constitutional: NAD HEENT: moist MMs, sclera anicteric Neck: supple, full ROM Respiratory: no wheezing, no rhonchi, clear to auscultation bilateral mild crackles in bases of lungs bilaterally. Cardiovascular: RRR, no significant murmur, no rub Gastrointestinal: soft, non-tender, positive bowel sounds Musculoskeletal: no edema, pulses present Neurological: non-focal, moves all 4 limbs Psychiatric: normal affect Deviation from normal: A&O x2 Skin: no rash, normal turgor Dx/Plan (1) Altered mental status Code(s): R41.82 - ALTERED MENTAL STATUS, UNSPECIFIED Status: Acute (2) Metabolic encephalopathy Code(s): G93.41 - METABOLIC ENCEPHALOPATHY Status: Acute (3) Hypoglycemia Code(s): E16.2 - HYPOGLYCEMIA, UNSPECIFIED Status: Acute (4) DM type 2 (diabetes mellitus, type 2) Status: Chronic Qualifiers: Diabetes mellitus residential insulin use: with residential use Diabetes mellitus complication status: with kidney complications Chronic kidney disease stage: stage 3 (moderate) (5) Dementia Code(s): F03.90 - UNSPECIFIED DEMENTIA WITHOUT BEHAVIORAL DISTURBANCE Status: Chronic Qualifiers: Dementia type: unspecified type Dementia behavioral disturbance: without behavioral disturbance Qualified Code(s): F03.90 - Unspecified dementia without behavioral disturbance (6) Dyslipidemia Code(s): E78.5 - HYPERLIPIDEMIA, UNSPECIFIED Status: Chronic (7) Hypertension Code(s): I10 - ESSENTIAL (PRIMARY) HYPERTENSION Status: Chronic Qualifiers: Hypertension type: essential hypertension Qualified Code(s): I10 - Essential (primary) hypertension (8) CHF (congestive heart failure) Code(s): I50.9 - HEART FAILURE, UNSPECIFIED Status: Acute (9) Acute respiratory failure with hypoxia Code(s): J96.01 - ACUTE RESPIRATORY FAILURE WITH HYPOXIA Status: Acute - Plan Plan: Acute hypoxic respiratory failure Echo shows diastolic dysfunction, EF 45-50%. Class 1 Diastolic Dysfxn. Seems euvolemic today. Per Cardiology consult, they increased is Imdur to 60mg daily to better control his BP and reduce preload. Consulted case management for placement, could potentially go home today. HFpEF New diagnosis ECHO showed evidence of diastolic dysfunction. EF 45-50% Will consult cardiology Fever without source, likely UTI Blood cx no growth in 48hours, CXR negative for pneumonia. Tylenol for symptom control Urine culture grew klebsiella. Covering with ceftriaxone. Hypoglycemia, resolved Hypokalemia, resolved DMII A1c 8.3%. Will likely d/c home insulin on discharge. HTN Continue home BP medications Increase Lisinopril dose to 40mg. 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 Patient in need of placement; CM consulted PT/OT consulted Will send with home health consult for pt/ot HLD Continue home meds Hx CVA Continue statin and ASA GERD Continue home meds CKD stage IV, at baseline creatinine Likely 2/2 longstanding diabetes and HTN CAD, s/p cabg Dispo: Admit to telemetry. Anticipate LOS >48 ho hours. Will need placement on d /c. DVT ppx: SCD's. Will hold lovenox as patient high fall risk Code Status: Full Addendum - Attending - Attending Attestation Date/Time: 02/03/19 [id number] I personally evaluated the patient and discussed the management with Dr. Albrecht. I agree with the History, Examination, Assessment and Plan documented above with any addition or exceptions noted below. The patient is stable. Creatinine improved slightly since lasix was stopped. Pt appears euvolemic. Working on placement/dc planning with case mgmt.
[2019-02-03] MEDS: Lisinopril 20 MG TAB PO SCH (09:44)
[2019-02-03] MEDS: cefTRIAXone\\ROCEPHIN 1 GM in Sodium Chloride 0.9% 100 ML IVPB SCH (09:45)
[2019-02-03] MEDS: Polyethylene Glycol 3350 17 GM Packet PO SCH (09:45)
[2019-02-03] MEDS: Amlodipine 10 MG TAB PO SCH (09:45)
[2019-02-03] MEDS: Aspirin 325 mg Enteric Coated Tablet PO SCH (09:45)
[2019-02-03] MEDS: Metoprolol Tartrate 50 MG TAB PO SCH ×2 (09:46→20:53)
[2019-02-03 14:05] VITALS: BMI 26.4
--- NOTE | 2019-02-03 18:16 | PDOC.CPN ---
- Subjective Date: 02/03/19 Time: 12:15 - Review of Systems General: denies: fever/chills, weight/appetite/sleep changes, night sweats, fatigue Respiratory: denies: cough, congestion, shortness of breath, exercise intolerance Cardiovascular: denies: chest pain, palpitation, edema, paroxysmal nocturnal dyspnea, orthopnea Gastrointestinal: denies: nausea, vomiting, diarrhea, constipation, abd pain, GI bleeding Musculoskeletal: denies: pain, tenderness, stiffness, swelling, arthritis/ arthralgias Neurological: denies: numbness, syncope, seizure, weakness - Objective Allergies/Adverse Reactions: Allergies Allergy/AdvReac Type Severity Reaction Status Date / Time No Known Allergies Allergy Verified 01/27/19 15:55 Visit Medications: Current Medications Acetaminophen (Tylenol) 650 mg PO Q4H PRN PRN Reason: Headache/Fever/Mild Pain (1-3) Last Admin: 02/01/19 04:40 Dose: 650 mg Albuterol/Ipratropium (Duoneb) 3 ml NEB [id number] PRN PRN Reason: SOB &/or Wheezing Last Admin: 01/31/19 07:33 Dose: 3 ml Amlodipine Besylate (Norvasc) 10 mg PO DAILY [facility] Last Admin: 02/03/19 09:45 Dose: 10 mg Aspirin (Ecotrin) 325 mg PO DAILY [facility] Last Admin: 02/03/19 09:45 Dose: 325 mg Atorvastatin Calcium (Lipitor) 40 mg PO HS [facility] Last Admin: 02/02/19 21:07 Dose: 40 mg Cholecalciferol (Vitamin D3) 1,000 units PO DAILY [facility] Last Admin: 02/03/19 09:45 Dose: 1,000 units Dextrose/Water (Dextrose 50%) 25 gm SLOW IVP PRN PRN PRN Reason: Hypoglycemia Doxazosin Mesylate (Cardura) 1 mg PO HS [facility] Last Admin: 02/02/19 21:07 Dose: 1 mg Glucagon (Glucagon) 1 mg IM PRN PRN PRN Reason: Hypoglycemia Hydralazine HCl (Apresoline) 10 mg SLOW IVP Q4H PRN PRN Reason: SBP Greater Than 180 Last Admin: 01/31/19 04:42 Dose: 10 mg Dextrose/Water (D5w) 1,000 mls @ 0 mls/hr IV .Q0M PRN PRN Reason: Hypoglycemia Ceftriaxone Sodium 1 gm/ (Sodium Chloride) 100 mls @ 200 mls/hr IVPB Q24HR [facility] Last Admin: 02/03/19 09:45 Dose: 100 mls Insulin Human Lispro (Humalog) 0 units SC .MODERATE SLIDING SC PRN PRN Reason: Moderate Correctional Scale Last Admin: 02/01/19 17:29 Dose: 2 unit Insulin Human Lispro (Humalog) 0 units SC .BEDTIME SLIDING SC PRN PRN Reason: Bedtime Correctional Scale Isosorbide Mononitrate (Imdur) 60 mg PO DAILY [facility] Last Admin: 02/03/19 09:45 Dose: 60 mg Lisinopril (Zestril) 40 mg PO DAILY [facility] Last Admin: 02/03/19 09:44 Dose: 40 mg Metoprolol Tartrate (Lopressor) 50 mg PO BID [facility] Last Admin: 02/03/19 09:46 Dose: 50 mg Ondansetron HCl (Zofran Odt) 4 mg PO Q6H PRN PRN Reason: Nausea/Vomiting Polyethylene Glycol (Miralax) 17 gm PO DAILY [facility] Last Admin: 02/03/19 09:45 Dose: 17 gm Senna/Docusate Sodium (Senokot S) 2 tab PO BID PRN PRN Reason: Constipation Last Admin: 02/02/19 09:25 Dose: 2 tab Sodium Chloride (Flush - Normal Saline) 10 ml IVF Q12HR [facility] Last Admin: 02/03/19 09:46 Dose: 10 ml Sodium Chloride (Flush - Normal Saline) 10 ml IVF PRN PRN PRN Reason: Saline Flush Vital Signs & Weight: Vital Signs Temp Pulse Resp BP BP Pulse Ox 02/03/19 16:10 98.8 F 69 18 144/68 H 94 L 02/03/19 12:10 97.8 F 69 18 165/72 H 95 02/03/19 09:45 60 02/03/19 09:44 187/89 H 02/03/19 07:40 94 L 02/03/19 07:21 97.5 F L 60 18 159/68 H 98 Admit Weight 189 lb 11.2 oz Weight 184 lb 5 oz - Physical Exam General: no apparent distress HEENT: mucus membranes moist Neck: supple neck Cardiac: regular rate and rhythm, no murmur Lungs: clear to auscultation Neuro: coordination normal Abdomen: active bowel sounds, soft, non-tender Skin: clear Musculoskeletal: normal range of motion - Labs Result Diagrams: 02/01/19 06:10 02/03/19 04:18 Troponin/CKMB CK-MB (CK-2) 5.5 ng/mL (0-6.6) 01/27/19 08:04 Troponin I 0.044 ng/mL (< 0.028) H 01/27/19 15:00 - Telemetry Sinus rhythms and dysrhythmias: sinus rhythm - Assessment/Plan Assessment/Plan: 1. Acute on chronic systolic and diastolic CHF 2. HTN 3. Fevers, possible UTI PLAN: - He is much better today on both mentation and fluid balance. - Continue to hold on any more diuresis.
[2019-02-03] MEDS: Doxazosin Mesylate 1 MG TAB PO SCH (20:53)
[2019-02-03] MEDS: Atorvastatin Calcium 40 MG TAB PO SCH (20:53)
[2019-02-04 06:15] LABS: ALT (SGPT) 24 U/L (8-55); AST (SGOT) 56 U/L (5-34); Albumin 2.9 g/dL (3.4-4.8); Alkaline Phosphatase 59 U/L (40-150); Anion Gap 13 mmol/L (10-20); BUN (Urea Nitrogen) 30 mg/dL (8.4-25.7); Bilirubin, Total 0.7 mg/dL (0.2-1.2); Calc. Creatinine Clearance 28 mL/min (70-130); Calcium 8.5 mg/dL (7.8-10.44); Carbon Dioxide 26 mmol/L (23-31); Chloride 104 mmol/L (98-107); Estimated GFR-MDRD 30; Globulin 2.7 g/dL (2.4-3.5); Glucose 147 mg/dL (83-110); Potassium 3.5 mmol/L (3.5-5.1); Protein, Total 5.6 g/dL (5.8-8.1); Sodium 139 mmol/L (136-145)
--- NOTE | 2019-02-04 06:19 | PDOC.FM ---
- Subjective Subjective: Resting well this morning. c/o slight cough - Objective MAR Reviewed: Yes Vital Signs & Weight: Vital Signs (12 hours) Temp Pulse Resp BP Pulse Ox 02/04/19 03:36 98.1 F 67 16 145/67 H 92 L 02/03/19 23:21 129/62 02/03/19 20:00 99 02/03/19 19:55 98.5 F 75 20 162/78 H 99 Weight Admit Weight 86.046 kg Weight 83.688 kg I&O: 02/02/19 02/03/19 02/04/19 06:59 06:59 06:59 Intake Total 1044 1040 920 Output Total 5790 6780 0130 Balance -1406 -600 -510 Result Diagrams: 02/01/19 06:10 02/04/19 05:15 Phys Exam - Physical Examination Constitutional: NAD HEENT: moist MMs, sclera anicteric Neck: no nodes, supple, full ROM Respiratory: no wheezing, no rhonchi, clear to auscultation bilateral slight crackles on expiration bilaterally Cardiovascular: RRR, no significant murmur, no rub Gastrointestinal: soft, non-tender, no distention, positive bowel sounds Musculoskeletal: no edema, pulses present Neurological: non-focal, moves all 4 limbs Psychiatric: normal affect Deviation from normal: A&Ox2 Skin: no rash, normal turgor Dx/Plan (1) Altered mental status Code(s): R41.82 - ALTERED MENTAL STATUS, UNSPECIFIED Status: Acute (2) Metabolic encephalopathy Code(s): G93.41 - METABOLIC ENCEPHALOPATHY Status: Acute (3) Hypoglycemia Code(s): E16.2 - HYPOGLYCEMIA, UNSPECIFIED Status: Acute (4) DM type 2 (diabetes mellitus, type 2) Status: Chronic Qualifiers: Diabetes mellitus rodent exterminator insulin use: with rodent exterminator use Diabetes mellitus complication status: with kidney complications Chronic kidney disease stage: stage 3 (moderate) (5) Dementia Code(s): F03.90 - UNSPECIFIED DEMENTIA WITHOUT BEHAVIORAL DISTURBANCE Status: Chronic Qualifiers: Dementia type: unspecified type Dementia behavioral disturbance: without behavioral disturbance Qualified Code(s): F03.90 - Unspecified dementia without behavioral disturbance (6) Dyslipidemia Code(s): E78.5 - HYPERLIPIDEMIA, UNSPECIFIED Status: Chronic (7) Hypertension Code(s): I10 - ESSENTIAL (PRIMARY) HYPERTENSION Status: Chronic Qualifiers: Hypertension type: essential hypertension Qualified Code(s): I10 - Essential (primary) hypertension (8) CHF (congestive heart failure) Code(s): I50.9 - HEART FAILURE, UNSPECIFIED Status: Acute (9) Acute respiratory failure with hypoxia Code(s): J96.01 - ACUTE RESPIRATORY FAILURE WITH HYPOXIA Status: Acute - Plan Plan: Acute hypoxic respiratory failure, improved Echo shows diastolic dysfunction, EF 45-50%. Class 1 Diastolic Dysfxn. Per Cardiology consult, they increased is Imdur to 60mg daily to better control his BP and reduce preload. Consulted case management for placement, could potentially go home today. HFpEF New diagnosis ECHO showed evidence of diastolic dysfunction. EF 45-50% Cardiology consulted, appreciate recommendations. Crackles today. Will gently diurese with 20mg lasix this am. Fever without source, likely UTI Blood cx no growth in 48hours, CXR negative for pneumonia. Tylenol for symptom control Urine culture grew klebsiella. Covering with ceftriaxone. Will transition to PO antibiotics today. Hypoglycemia, resolved Hypokalemia, resolved DMII A1c 8.3%. Will likely d/c home insulin on discharge. HTN Continue home BP medications Increase Lisinopril dose to 40mg. 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 Patient in need of placement; CM consulted PT/OT consulted Will send with home health consult for pt/ot HLD Continue home meds Hx CVA Continue statin and ASA GERD Continue home meds CKD stage IV, at baseline creatinine Likely 2/2 longstanding diabetes and HTN CAD, s/p cabg Dispo: Admit to telemetry. Anticipate LOS >48 ho hours. Will need placement on d /c. DVT ppx: SCD's. Will hold lovenox as patient high fall risk Code Status: Full Addendum - Attending - Attending Attestation Date/Time: 02/04/19 [id number] I personally evaluated the patient and discussed the management with Dr. Albrecht. I agree with the History, Examination, Assessment and Plan documented above with any addition or exceptions noted below. Pt had crackles in lung bases this morning. Giving low dose lasix. Wean o2 as tolerated. Working on snf placement.
[2019-02-04] MEDS ORDERED: Furosemide 20 MG/2 ML VIAL SLOW IVP SCH (09:15)
[2019-02-04] MEDS: Amlodipine 10 MG TAB PO SCH (09:37)
[2019-02-04] MEDS: Aspirin 325 mg Enteric Coated Tablet PO SCH (09:37)
[2019-02-04] MEDS: Lisinopril 20 MG TAB PO SCH (09:37)
[2019-02-04] MEDS: Metoprolol Tartrate 50 MG TAB PO SCH ×2 (09:37→20:33)
[2019-02-04] MEDS: Sulfameth/Trimethoprim DS 800-160mg TAB PO SCH ×2 (09:37→20:34)
[2019-02-04] MEDS: Polyethylene Glycol 3350 17 GM Packet PO SCH (09:38)
[2019-02-04] MEDS: HumaLOG 300 UNITS/3 ML VIAL SC PRN ×2 (11:41→17:32)
--- NOTE | 2019-02-04 17:05 | PDOC.CPN ---
- Subjective Date: 02/04/19 Time: 12:15 - Review of Systems General: denies: fever/chills, weight/appetite/sleep changes, night sweats, fatigue Respiratory: denies: cough, congestion, shortness of breath, exercise intolerance Cardiovascular: denies: chest pain, palpitation, edema, paroxysmal nocturnal dyspnea, orthopnea Gastrointestinal: denies: nausea, vomiting, diarrhea, constipation, abd pain, GI bleeding Musculoskeletal: denies: pain, tenderness, stiffness, swelling, arthritis/ arthralgias Neurological: denies: numbness, syncope, seizure, weakness - Objective Allergies/Adverse Reactions: Allergies Allergy/AdvReac Type Severity Reaction Status Date / Time No Known Allergies Allergy Verified 01/27/19 15:55 Visit Medications: Current Medications Acetaminophen (Tylenol) 650 mg PO Q4H PRN PRN Reason: Headache/Fever/Mild Pain (1-3) Last Admin: 02/01/19 04:40 Dose: 650 mg Albuterol/Ipratropium (Duoneb) 3 ml NEB [id number] PRN PRN Reason: SOB &/or Wheezing Last Admin: 01/31/19 07:33 Dose: 3 ml Amlodipine Besylate (Norvasc) 10 mg PO DAILY [facility] Last Admin: 02/04/19 09:37 Dose: 10 mg Aspirin (Ecotrin) 325 mg PO DAILY [facility] Last Admin: 02/04/19 09:37 Dose: 325 mg Atorvastatin Calcium (Lipitor) 40 mg PO HS [facility] Last Admin: 02/03/19 20:53 Dose: 40 mg Cholecalciferol (Vitamin D3) 1,000 units PO DAILY [facility] Last Admin: 02/04/19 09:37 Dose: 1,000 units Dextrose/Water (Dextrose 50%) 25 gm SLOW IVP PRN PRN PRN Reason: Hypoglycemia Doxazosin Mesylate (Cardura) 1 mg PO HS [facility] Last Admin: 02/03/19 20:53 Dose: 1 mg Glucagon (Glucagon) 1 mg IM PRN PRN PRN Reason: Hypoglycemia Hydralazine HCl (Apresoline) 10 mg SLOW IVP Q4H PRN PRN Reason: SBP Greater Than 180 Last Admin: 01/31/19 04:42 Dose: 10 mg Dextrose/Water (D5w) 1,000 mls @ 0 mls/hr IV .Q0M PRN PRN Reason: Hypoglycemia Insulin Human Lispro (Humalog) 0 units SC .MODERATE SLIDING SC PRN PRN Reason: Moderate Correctional Scale Last Admin: 02/04/19 11:41 Dose: 2 unit Insulin Human Lispro (Humalog) 0 units SC .BEDTIME SLIDING SC PRN PRN Reason: Bedtime Correctional Scale Last Admin: 02/03/19 20:54 Dose: 2 unit Isosorbide Mononitrate (Imdur) 60 mg PO DAILY [facility] Last Admin: 02/04/19 09:37 Dose: 60 mg Lisinopril (Zestril) 40 mg PO DAILY [facility] Last Admin: 02/04/19 09:37 Dose: 40 mg Metoprolol Tartrate (Lopressor) 50 mg PO BID [facility] Last Admin: 02/04/19 09:37 Dose: 50 mg Ondansetron HCl (Zofran Odt) 4 mg PO Q6H PRN PRN Reason: Nausea/Vomiting Polyethylene Glycol (Miralax) 17 gm PO DAILY [facility] Last Admin: 02/04/19 09:38 Dose: 17 gm Senna/Docusate Sodium (Senokot S) 2 tab PO BID PRN PRN Reason: Constipation Last Admin: 02/02/19 09:25 Dose: 2 tab Sodium Chloride (Flush - Normal Saline) 10 ml IVF Q12HR [facility] Last Admin: 02/04/19 09:38 Dose: 10 ml Sodium Chloride (Flush - Normal Saline) 10 ml IVF PRN PRN PRN Reason: Saline Flush Trimethoprim/Sulfamethoxazole (Bactrim Ds) 1 tab PO BID [facility] Last Admin: 02/04/19 09:37 Dose: 1 tab Vital Signs & Weight: Vital Signs Temp Pulse Pulse Pulse Resp BP BP 02/04/19 16:38 97.6 F 67 17 02/04/19 12:04 97.4 F L 70 16 02/04/19 11:21 72 70 143/67 H 02/04/19 09:37 69 154/71 H 02/04/19 08:51 02/04/19 07:50 99.2 F 69 15 BP BP BP BP Pulse Ox 02/04/19 16:38 142/66 H 97 02/04/19 12:04 140/67 97 02/04/19 11:21 146/70 H 02/04/19 09:37 02/04/19 08:51 95 02/04/19 07:50 154/71 H 95 Admit Weight 189 lb 11.2 oz Weight 184 lb 8 oz - Physical Exam General: alert & oriented x3, no apparent distress HEENT: mucus membranes moist Neck: supple neck Cardiac: regular rate and rhythm, no murmur Lungs: clear to auscultation Neuro: grossly intact Abdomen: active bowel sounds, soft, non-tender Skin: clear Musculoskeletal: normal range of motion - Labs Result Diagrams: 02/01/19 06:10 02/04/19 05:15 Troponin/CKMB CK-MB (CK-2) 5.5 ng/mL (0-6.6) 01/27/19 08:04 Troponin I 0.044 ng/mL (< 0.028) H 01/27/19 15:00 - Telemetry Sinus rhythms and dysrhythmias: sinus rhythm - Assessment/Plan Assessment/Plan: 1. Acute on chronic systolic and diastolic CHF 2. HTN 3. Fevers, possible UTI PLAN: - Big improvement today as far as mentation. He is asking when he can go home. He feels close to baseline. - Continue current meds. - Follow up in the office in 1 month. - Will sign off. Please call with any questions.
[2019-02-04] MEDS: Doxazosin Mesylate 1 MG TAB PO SCH (20:34)
[2019-02-04] MEDS: Atorvastatin Calcium 40 MG TAB PO SCH (20:34)
[2019-02-05 05:30] LABS: ALT (SGPT) 24 U/L (8-55); AST (SGOT) 46 U/L (5-34); Alkaline Phosphatase 60 U/L (40-150); Anion Gap 12 mmol/L (10-20); BUN (Urea Nitrogen) 26 mg/dL (8.4-25.7); Bilirubin, Total 0.6 mg/dL (0.2-1.2); Calc. Creatinine Clearance 27 mL/min (70-130); Calcium 8.4 mg/dL (7.8-10.44); Carbon Dioxide 26 mmol/L (23-31); Chloride 101 mmol/L (98-107); Estimated GFR-MDRD 29; Globulin 2.6 g/dL (2.4-3.5); Glucose 183 mg/dL (83-110); Potassium 3.6 mmol/L (3.5-5.1); Protein, Total 5.6 g/dL (5.8-8.1); Sodium 135 mmol/L (136-145)
--- NOTE | 2019-02-05 05:52 | PDOC.FM ---
- Subjective Subjective: Patient is doing well this morning. Eager to be out of the hospital, aware that he is going to rehab for a short time before going home. No new complaints. - Objective MAR Reviewed: Yes Vital Signs & Weight: Vital Signs (12 hours) Temp Pulse Resp BP Pulse Ox 02/05/19 00:00 18 02/04/19 20:00 98.6 F 74 20 121/61 92 L Weight Admit Weight 86.046 kg Weight 84.141 kg I&O: 02/03/19 02/04/19 02/05/19 06:59 06:59 06:59 Intake Total 1040 920 590 Output Total 0503 1430 900 Balance -600 -510 -310 Result Diagrams: 02/01/19 06:10 02/05/19 04:29 Phys Exam - Physical Examination Constitutional: NAD HEENT: moist MMs, sclera anicteric Neck: supple, full ROM Respiratory: no wheezing, no rales, no rhonchi Cardiovascular: RRR, no significant murmur, no rub Gastrointestinal: soft, non-tender, no distention, positive bowel sounds Musculoskeletal: no edema, pulses present Neurological: non-focal, moves all 4 limbs Psychiatric: normal affect Deviation from normal: A&O x 2 Skin: no rash, normal turgor Dx/Plan (1) Altered mental status Code(s): R41.82 - ALTERED MENTAL STATUS, UNSPECIFIED Status: Acute (2) Metabolic encephalopathy Code(s): G93.41 - METABOLIC ENCEPHALOPATHY Status: Acute (3) Hypoglycemia Code(s): E16.2 - HYPOGLYCEMIA, UNSPECIFIED Status: Acute (4) DM type 2 (diabetes mellitus, type 2) Status: Chronic Qualifiers: Diabetes mellitus buttermaker helper insulin use: with buttermaker helper use Diabetes mellitus complication status: with kidney complications Chronic kidney disease stage: stage 3 (moderate) (5) Dementia Code(s): F03.90 - UNSPECIFIED DEMENTIA WITHOUT BEHAVIORAL DISTURBANCE Status: Chronic Qualifiers: Dementia type: unspecified type Dementia behavioral disturbance: without behavioral disturbance Qualified Code(s): F03.90 - Unspecified dementia without behavioral disturbance (6) Dyslipidemia Code(s): E78.5 - HYPERLIPIDEMIA, UNSPECIFIED Status: Chronic (7) Hypertension Code(s): I10 - ESSENTIAL (PRIMARY) HYPERTENSION Status: Chronic Qualifiers: Hypertension type: essential hypertension Qualified Code(s): I10 - Essential (primary) hypertension (8) CHF (congestive heart failure) Code(s): I50.9 - HEART FAILURE, UNSPECIFIED Status: Acute (9) Acute respiratory failure with hypoxia Code(s): J96.01 - ACUTE RESPIRATORY FAILURE WITH HYPOXIA Status: Acute - Plan Plan: Acute hypoxic respiratory failure, improved Echo shows diastolic dysfunction, EF 45-50%. Per Cardiology consult, they increased is Imdur to 60mg daily to better control his BP and reduce preload. Plan is to d/c to the [facility] today. HFpEF New diagnosis ECHO showed EF 45-50% Euvolemic today. Cardiology consulted and have signed off. Will f/u with patient in 1 month. Fever without source, likely UTI Urine culture grew klebsiella. On Bactrim DS BID. Hypoglycemia, resolved Hypokalemia, resolved DMII A1c 8.3%. Will likely d/c home insulin on discharge. HTN Continue home BP medications Increase Lisinopril dose to 40mg. Increased Imdur dose to 60mg. Recurrent falls PT/OT in SNF on d/c HLD Continue home meds Hx CVA Continue statin and ASA GERD Continue home meds CKD stage IV, at baseline creatinine Likely 2/2 longstanding diabetes and HTN CAD, s/p cabg Addendum - Attending - Attending Attestation Date/Time: 02/05/19 7129 I personally evaluated the patient and discussed the management with Dr. Albrecht. I agree with the History, Examination, Assessment and Plan documented above with any addition or exceptions noted below. The patient is feeling better. He will be transitioning to the [facility] for snf. Will give final rocephin today.
[2019-02-05] MEDS: Amlodipine 10 MG TAB PO SCH (09:42)
[2019-02-05] MEDS: Aspirin 325 mg Enteric Coated Tablet PO SCH (09:42)
[2019-02-05] MEDS: Metoprolol Tartrate 50 MG TAB PO SCH (09:42)
[2019-02-05] MEDS: Lisinopril 20 MG TAB PO SCH (09:42)
[2019-02-05] MEDS: Polyethylene Glycol 3350 17 GM Packet PO SCH (09:43)
[2019-02-05] MEDS: cefTRIAXone\\ROCEPHIN 1 GM in Sodium Chloride 0.9% 100 ML IVPB SCH ×2 (09:43→10:44)
[2019-02-05] MEDS: HumaLOG 300 UNITS/3 ML VIAL SC PRN (12:16)
[2019-02-05 15:14] VITALS: BP 137/64; TEMP 98.4
--- NOTE | 2019-02-06 14:37 | DIS ---
DATE OF ADMISSION: 01/27/2019 DATE OF DISCHARGE: 02/05/2019 ADMITTING ATTENDING: Dr. Nguyen. DISCHARGE ATTENDING: Dr. Kirk. RESIDENT: Radha Albrecht MD CONSULTS: Cardiology, Dr. Wilson. PROCEDURES: Echocardiogram. DISCHARGE MEDICATIONS: 1. Amlodipine 10 mg. 2. Atorvastatin 40 mg. 3. Doxazosin 1 mg. 4. Metoprolol 50 mg b.i.d. 5. Aspirin 81 mg daily. 6. Vitamin D3. 7. Isosorbide mononitrate 60 mg daily. 8. Lisinopril 40 mg daily. 9. MiraLAX daily. Discontinued medications: None. HISTORY OF PRESENT ILLNESS AND HOSPITAL COURSE: Mr. Castillo is a pleasant 78-year-old gentleman, who presented by EMS with his family after a fall at home. He was reportedly getting out from bed in the middle of the night to go to the bathroom that is when the fall occurred. He does not usually get up and ambulate unassisted at home, however, his did not wake up when he got out of the bed. He is a poor historian with a history of dementia and was not present during the majority of our interactions with the patient. The emergency department staff reported that he was recently discharged from rehab and has had several falls over the last several months. He states that he has no complaints. On arrival, his glucose was measured and was 48, which resolved to 99 with 1 amp of d50. He had indeterminate troponins of 0.036 to 0.046 to 0.044. Throughout his stay, he required potassium supplementation several times. On admission, his creatinine was elevated from his baseline and he was given IV fluids. At some point during his hospital stay, he developed fluid overload. His BNP was measured to be 1632 which prompted the order of the echo which showed ejection fraction estimated at 45% to 50% with diastolic dysfunction. He was newly diagnosed with heart failure and Cardiology was consulted. Dr. Wilson recommended gentle diuresis with Lasix and increase of his home Imdur from 30 mg to 60 mg and to follow up with Cardiology after discharge. Mr. Castillo had fever several times throughout his stay prompting us to obtain blood and urine cultures. Urine cultures grew out Klebsiella pneumoniae, pansensitive. He was treated adequately with ceftriaxone IV. Due to his deconditioning, history of stroke and history of multiple falls, we recommended that he go to rehab upon discharge which the agreed for a short amount of time. He was discharged to the [facility]. DISPOSITION: Stable. DISCHARGE INSTRUCTIONS: 1. Location: [facility]. 2. Diet: Diabetic. 3. Activity: Ad terrence with PT and OT. 4. Followup: Follow up with Cardiology within 1 month, with PCP within 1 month. Job ID: [id number] MTDD
--- NOTE | 2019-02-07 23:16 | EKG ---
Test Reason : Blood Pressure : / mmHG Vent. Rate : 062 BPM Atrial Rate : 062 BPM P-R Int : 188 ms QRS Dur : 116 ms QT Int : 444 ms P-R-T Axes : 048 -07 033 degrees QTc Int : 450 ms Normal sinus rhythm Anterior infarct , age undetermined Abnormal ECG Confirmed by KATLYN WALKER ([id number]), rewrite editor EMBER PAZ ([id number]) on 02/07/2019 11:16:23 PM Referred By: Confirmed By:KATLYN WALKER
== END 2019-02-05 15:20 | DRG 637 ==
LOC: ERS 07:32 → ERHOLD 09:20 → OBSVTOIN 11:32 → 2NO 15:23
PROVIDERS: ADMIT Family Medicine; ATTEND Family Medicine
DX: E11.649 Type 2 diabetes mellitus with hypoglycemia without coma (principal); G93.41 Metabolic encephalopathy; J96.01 Acute respiratory failure with hypoxia; I50.43 Acute on chronic combined systolic (congestive) and diastolic (congestive) heart failure; I13.0 Hypertensive heart and chronic kidney disease with heart failure and stage 1 through stage 4 chronic kidney disease, or unspecified chronic kidney disease; N39.0 Urinary tract infection, site not specified; F03.90 Unspecified dementia, unspecified severity, without behavioral disturbance, psychotic disturbance, mood disturbance, and anxiety; E78.5 Hyperlipidemia, unspecified; R29.6 Repeated falls; K21.9 Gastro-esophageal reflux disease without esophagitis; N18.4 Chronic kidney disease, stage 4 (severe); E11.22 Type 2 diabetes mellitus with diabetic chronic kidney disease; E87.6 Hypokalemia; I25.10 Atherosclerotic heart disease of native coronary artery without angina pectoris; N17.9 Acute kidney failure, unspecified; B96.1 Klebsiella pneumoniae [K. pneumoniae] as the cause of diseases classified elsewhere; Z95.5 Presence of coronary angioplasty implant and graft; Z86.73 Personal history of transient ischemic attack (TIA), and cerebral infarction without residual deficits
CPT/HCPCS: 36415; 36416; 70450; 71045; 71046; 74018; 80048; 80053; 81001; 81003; 81015; 82248; 82553; 83036; 83605; 83735; 83880; 84443; 84484; 85025; 85060; 87040; 87077; 87086; 87186; 93005; 93306; 93798; 94640; 96361; 96374; J0360; J0696; J1940; J3490; J7620

== ENCOUNTER 2019-04-10 16:46 | Emergency (ER) | payer MEDICARE, MEDICAID ==
[2019-04-10 17:20] LABS: #Basophils 0.1 thou/uL (0.0-0.2); #Eosinphils 0.5 thou/uL (0.0-0.7); #Lymphocytes 1.6 thou/uL (1.20-3.40); #Monocytes 0.5 thou/uL (0.11-0.59); %Eosinophils 8.2 % (0.0-10.0); %Lymphocytes 29.1 % (21.0-51.0); %Monocytes 9.6 % (0.0-10.0); %Neutrophils 52.2 % (42.0-75.0); Hemoglobin 14.1 g/dL (14.0-18.0); Mean Corpuscular Hemoglobin 26.4 pg (27.0-31.0); Mean Corpuscular Volume 82.3 fL (78.0-98.0); Mean Platelet Volume 8.8 fL (7.4-10.4); Platelet Count 169 thou/uL (130-400); RBC Distribution Width 13.3 % (11.5-14.5); Red Blood Cell (RBC) Count 5.35 mill/uL (4.70-6.10); White Blood Cell (WBC) Count 5.7 thou/uL (4.8-10.8)
--- NOTE | 2019-04-10 17:37 | CT ---
CT HEAD WITHOUT IV CONTRAST COMPARISON: 01/27/2019 HISTORY: Seizure like activity. History of Alzheimer's. TECHNIQUE: Axial CT imaging at 5 mm intervals from vertex through skull base without contrast FINDINGS: Again noted is cerebral and cerebellar volume loss. Scattered areas of diminished attenuation are see n in the periventricular white matter likely reflective of chronic small vessel ischemic changes overall similar to the prior exam. Again noted are several small remote infarctions in the left cereb ellar hemisphere. A tiny focus of diminished attenuation is seen in the right aspect of the jasmyne likely due to tiny remote lacunar infarction. There is no evidence of an acute cortical infarction, h emorrhage, mass effect, or midline shift. The ventricular system is normal in size, shape, and position. Mucosal thickening is seen in the bilateral ethmoidal air cells with trace amount of mucosal thickeni ng in each maxillary antrum. The mastoid air cells are clear. Osseous structures appear intact. IMPRESSION: 1. No acute intracranial abnormality demonstrated. 2. Overall stable chronic changes as described above.
[2019-04-10 17:42] LABS: ALT (SGPT) Less than 7 U/L (8-55); AST (SGOT) 13 U/L (5-34); Albumin 3.9 g/dL (3.4-4.8); Alkaline Phosphatase 90 U/L (40-110); Anion Gap 14 mmol/L (10-20); BUN (Urea Nitrogen) 21 mg/dL (8.4-25.7); Bilirubin, Total 1.2 mg/dL (0.2-1.2); Calc. Creatinine Clearance 0 mL/min (70-130); Calcium 9.3 mg/dL (7.8-10.44); Carbon Dioxide 26 mmol/L (23-31); Chloride 99 mmol/L (98-107); Estimated GFR-MDRD 29; Glucose 393 mg/dL (83-110); Potassium 4.1 mmol/L (3.5-5.1); Protein, Total 6.9 g/dL (5.8-8.1); Sodium 135 mmol/L (136-145)
[2019-04-10 18:21] LABS: Bacteria/HPF None Seen HPF (None Seen); Bilirubin Negative (Negative); Blood, Urine 1+ (Negative); Clarity Clear (Clear); Glucose, Urine (Dipstick) Greater than 1000 mg/dL (Negative); Leukocyte Negative Leu/uL (Negative); Nitrite Negative (Negative); Protein, Urine (Dipstick) 200 mg/dL (Neg-Trace); Squamous Epithelial 0-3 HPF (0-3); Urobilinogen Normal mg/dL (Less than 2); WBC/HPF 0-3 HPF (0-3)
== END 2019-04-10 22:41 | disposition home or self-care (01) ==
LOC: ERS 16:46
DX: E10.65 Type 1 diabetes mellitus with hyperglycemia (principal); I10 Essential (primary) hypertension; F03.90 Unspecified dementia, unspecified severity, without behavioral disturbance, psychotic disturbance, mood disturbance, and anxiety; F17.220 Nicotine dependence, chewing tobacco, uncomplicated; E78.5 Hyperlipidemia, unspecified; Z79.899 Other long term (current) drug therapy
CPT/HCPCS: 36416; 70450; 80053; 81003; 81015; 85025; 93005

== ENCOUNTER 2019-04-25 12:02 | Inpatient (IN) | payer MEDICARE, MEDICAID ==
[2019-04-25 12:55] LABS: Bacteria/HPF None Seen HPF (None Seen); Bilirubin Negative (Negative); Blood, Urine 1+ (Negative); Clarity Clear (Clear); Glucose, Urine (Dipstick) Greater than 1000 mg/dL (Negative); Leukocyte Negative Leu/uL (Negative); Nitrite Negative (Negative); Protein, Urine (Dipstick) 100 mg/dL (Neg-Trace); RBC/HPF 0-3 HPF (0-3); Squamous Epithelial None Seen HPF (0-3); Urobilinogen Normal mg/dL (Less than 2); WBC/HPF 0-3 HPF (0-3)
[2019-04-25 13:14] LABS: #Eosinphils 0.4 thou/uL (0.0-0.7); #Lymphocytes 1.6 thou/uL (1.20-3.40); #Monocytes 0.7 thou/uL (0.11-0.59); #Neutrophils 3.4 thou/uL (1.40-6.50); %Basophils 0.4 % (0.0-1.0); %Eosinophils 7.3 % (0.0-10.0); %Lymphocytes 25.5 % (21.0-51.0); %Monocytes 11.6 % (0.0-10.0); %Neutrophils 55.2 % (42.0-75.0); Hemoglobin 12.3 g/dL (14.0-18.0); Mean Corpuscular HGB CONC 31.5 g/dL (32.0-36.0); Mean Corpuscular Hemoglobin 26.4 pg (27.0-31.0); Mean Corpuscular Volume 83.7 fL (78.0-98.0); Mean Platelet Volume 9.4 fL (7.4-10.4); Platelet Count 158 thou/uL (130-400); RBC Distribution Width 13.4 % (11.5-14.5); Red Blood Cell (RBC) Count 4.68 mill/uL (4.70-6.10); White Blood Cell (WBC) Count 6.1 thou/uL (4.8-10.8)
[2019-04-25 13:36] LABS: ALT (SGPT) Less than 7 U/L (8-55); AST (SGOT) 11 U/L (5-34); Albumin 3.4 g/dL (3.4-4.8); Alkaline Phosphatase 73 U/L (40-110); Anion Gap 15 mmol/L (10-20); BUN (Urea Nitrogen) 21 mg/dL (8.4-25.7); Bilirubin, Total 1.1 mg/dL (0.2-1.2); Calc. Creatinine Clearance 0 mL/min (70-130); Carbon Dioxide 22 mmol/L (23-31); Chloride 98 mmol/L (98-107); Estimated GFR-MDRD 26; Globulin 2.2 g/dL (2.4-3.5); Potassium 3.9 mmol/L (3.5-5.1); Protein, Total 5.6 g/dL (5.8-8.1); Sodium 131 mmol/L (136-145)
[2019-04-25 13:41] LABS: Glucose 732 mg/dL (83-110)
--- NOTE | 2019-04-25 13:42 | RAD ---
PORTABLE CHEST: 04/25/2019 PROVIDED CLINICAL HISTORY: None. COMPARISON: 01/30/2019 FINDINGS: Cardiac and mediastinal silhouette is unchanged in appearance. Median sternotomy changes are again se en. No focal consolidation, pleural fluid or pneumothorax apparent. IMPRESSION: No evidence for an acute cardiopulmonary process. POS: BEE
[2019-04-25 13:58] LABS: CKMB 2.1 ng/mL (0-6.6)
[2019-04-25 17:58] LABS: Troponin I 0.062 ng/mL (< 0.028)
[2019-04-25] MEDS ORDERED: Insulin Regular 300 UNITS/3 ML VIAL ONE (18:22)
[2019-04-25] MEDS ORDERED: Aspirin Chewable 81 MG TAB ONE ×2 (19:18→19:19)
[2019-04-25] MEDS ORDERED: Nitroglycerin 2% Ointment 1 INCH/1 GM Packet ONE ×2 (19:19)
[2019-04-25 20:25] LABS: Troponin I 0.072 ng/mL (< 0.028)
[2019-04-25] MEDS ORDERED: Dextrose 5% in Water 1,000 ML IV PRN (21:51)
[2019-04-25] MEDS ORDERED: HYDROcodone/Acetaminophen 5/325 mg Tablet PO PRN (21:51)
[2019-04-25] MEDS ORDERED: Morphine 2 MG/ML SYRINGE SLOW IVP PRN (21:51)
[2019-04-25] MEDS ORDERED: Dextrose 50% Abboject 50 ML SYRINGE SLOW IVP PRN (21:51)
[2019-04-25] MEDS ORDERED: Acetaminophen 325 MG TAB PO PRN (21:51)
[2019-04-25] MEDS ORDERED: Ondansetron PF 4 MG/2 ML Vial IVP PRN (21:51)
[2019-04-25] MEDS ORDERED: Bisacodyl 5 MG TAB PO PRN (21:51)
[2019-04-25 23:16] LABS: Troponin I 0.076 ng/mL (< 0.028)
[2019-04-25] MEDS: Sodium Chloride 0.9% 1,000 ML IV SCH (23:19)
[2019-04-25] MEDS: Nitroglycerin 2% Ointment 1 INCH/1 GM Packet TOP SCH (23:19)
[2019-04-25 23:34] VITALS: BMI 25.2
[2019-04-26] MEDS: Doxazosin Mesylate 1 MG TAB PO SCH (00:01)
[2019-04-26 04:37] LABS: #Basophils 0.1 thou/uL (0.0-0.2); #Eosinphils 0.5 thou/uL (0.0-0.7); #Lymphocytes 2.2 thou/uL (1.20-3.40); #Monocytes 0.8 thou/uL (0.11-0.59); #Neutrophils 3.1 thou/uL (1.40-6.50); %Basophils 0.9 % (0.0-1.0); %Eosinophils 7.9 % (0.0-10.0); %Lymphocytes 33.1 % (21.0-51.0); %Monocytes 11.2 % (0.0-10.0); %Neutrophils 46.9 % (42.0-75.0); Hemoglobin 11.9 g/dL (14.0-18.0); Mean Corpuscular HGB CONC 33.2 g/dL (32.0-36.0); Mean Corpuscular Hemoglobin 27.1 pg (27.0-31.0); Mean Corpuscular Volume 81.7 fL (78.0-98.0); Mean Platelet Volume 8.9 fL (7.4-10.4); Platelet Count 163 thou/uL (130-400); RBC Distribution Width 13.3 % (11.5-14.5); Red Blood Cell (RBC) Count 4.37 mill/uL (4.70-6.10); White Blood Cell (WBC) Count 6.7 thou/uL (4.8-10.8)
[2019-04-26 04:52] LABS: Anion Gap 10 mmol/L (10-20); BUN (Urea Nitrogen) 17 mg/dL (8.4-25.7); Calc. Creatinine Clearance 30 mL/min (70-130); Calcium 8.4 mg/dL (7.8-10.44); Carbon Dioxide 28 mmol/L (23-31); Cardiac Risk 2.3 (Less than 4.5); Chloride 104 mmol/L (98-107); Cholesterol 89 mg/dl (< 200 Desired); Estimated GFR-MDRD 34; Glucose 253 mg/dL (83-110); HDL Cholesterol 39 mg/dL (>60 Neg Risk); LDL Cholesterol, Calculated 37 mg/dL; Potassium 3.1 mmol/L (3.5-5.1); Sodium 139 mmol/L (136-145); Triglycerides 67 mg/dL (Less than 150)
[2019-04-26] MEDS: Nitroglycerin 2% Ointment 1 INCH/1 GM Packet TOP SCH ×3 (05:12→22:06)
[2019-04-26] MEDS: Metoprolol Tartrate 50 MG TAB PO SCH ×2 (08:33→20:51)
[2019-04-26] MEDS: Insulin Glargine 15 UNITS in Pre-Filled Syringe 1 EACH SC SCH ×2 (08:33→20:52)
[2019-04-26] MEDS: Amlodipine 10 MG TAB PO SCH (08:33)
[2019-04-26] MEDS: Heparin 5,000 UNITS/ML VIAL SC SCH ×3 (08:33→20:51)
[2019-04-26] MEDS ORDERED: Aspirin 325 mg Enteric Coated Tablet PO SCH ×2 (09:00)
[2019-04-26] MEDS ORDERED: FLU VACC TS2019-20(65YR UP)/PF 180 MCG/0.5 ML SYRINGE IM ONE (09:00)
[2019-04-26] MEDS ORDERED: Prevnar 13-Val Conj/PF 0.5 ML SYRINGE IM ONE (09:00)
[2019-04-26] MEDS: HumaLOG 300 UNITS/3 ML VIAL SC PRN (11:10)
[2019-04-26] MEDS: hydrALAZINE 20 MG/ML VIAL SLOW IVP PRN (11:14)
[2019-04-26] MEDS: Sodium Chloride 0.9% 1,000 ML IV SCH (13:50)
[2019-04-26] MEDS ORDERED: Potassium Chloride 20 MEQ TAB PO SCH (17:15)
--- NOTE | 2019-04-26 17:21 | PDOC.HOSPP ---
- Subjective Encounter Date: 04/26/19 Subjective: patient comfortable and chest pain free. - Objective Vital Signs & Weight: Vital Signs (12 hours) Temp Pulse Resp BP Pulse Ox 04/26/19 15:17 98.1 F 62 16 138/66 97 04/26/19 12:20 84 148/70 H 04/26/19 11:15 97.6 F 69 18 171/82 H 97 04/26/19 07:50 97.6 F 74 18 175/84 H 97 Weight Weight 175 lb 8 oz I&O: 04/25/19 04/26/19 04/27/19 06:59 06:59 06:59 Intake Total 250 Balance 250 Result Diagrams: 04/26/19 03:51 04/26/19 03:51 Additional Labs: Accuchecks 04/26/19 04/26/19 04/26/19 16:30 10:48 05:56 POC Glucose 105 346 H 181 H 04/25/19 17:55 POC Glucose 475 H Hospitalist ROS - Review of Systems Other: no c/o chest pain - Medication Medications: Active Medications Generic Name Dose Route Start Last Admin Trade Name Freq PRN Reason Stop Dose Admin Amlodipine Besylate 10 mg 04/26/19 09:00 04/26/19 08:33 Norvasc PO 10 mg DAILY JOE Administration Doxazosin Mesylate 1 mg 04/26/19 21:00 04/26/19 00:01 Cardura PO 1 mg HS JOE Administration Heparin Sodium (Porcine) 5,000 units 04/26/19 09:00 04/26/19 14:22 Heparin SC 5,000 units TID JOE Administration Hydralazine HCl 10 mg 04/25/19 21:51 04/26/19 11:14 Apresoline SLOW IVP 10 mg Q4H PRN Administration SBP GREATER THAN 160 Insulin Glargine 15 units/ 0.15 mls @ 0 mls/hr 04/26/19 09:00 04/26/19 08:33 Miscellaneous Medication SC 0.15 mls BID JOE Administration Sodium Chloride 1,000 mls @ 75 mls/hr 04/25/19 22:00 04/26/19 13:50 Normal Saline 0.9% IV 1,000 mls .[id number] JOE Administration Insulin Human Lispro 0 units 04/25/19 21:51 04/26/19 11:10 Humalog SC 11 unit .AGGRESSIVE SLIDING PRN Administration Aggressive Correctional Scale Metoprolol Tartrate 50 mg 04/26/19 09:00 04/26/19 08:33 Lopressor PO 50 mg BID JOE Administration Nitroglycerin 0.5 inch 04/25/19 22:00 04/26/19 13:49 Nitro-Bid 2% Ointment TOP 0.5 inch Q8HR JOE Administration - Exam Eye: PERRL, anicteric sclera ENT: normocephalic atraumatic, no oropharyngeal lesions, moist mucosa Neck: supple, symmetric, no JVD, no thyromegaly, no lymphadenopathy, no carotid bruit Heart: RRR, no murmur, no gallops, no rubs, normal peripheral pulses Respiratory: CTAB, no wheezes, no rales, no ronchi, normal chest expansion, no tachypnea, normal percussion Gastrointestinal: soft, non-tender, non-distended, normal bowel sounds, no palpable masses, no hepatomegaly, no splenomegaly, no bruit Extremities: no clubbing Skin: no lesions Neurological: no focal deficits, no new deficit Psychiatric: normal behavior Hosp A/P (1) Altered mental status Code(s): R41.82 - ALTERED MENTAL STATUS, UNSPECIFIED Status: Acute Plan: patient is very alert and awake.Likely confusion due to dementia (2) CKD (chronic kidney disease) stage 3, GFR 30-59 ml/min Status: Chronic (3) Dementia Code(s): F03.90 - UNSPECIFIED DEMENTIA WITHOUT BEHAVIORAL DISTURBANCE Status: Chronic Qualifiers: Dementia type: unspecified type Dementia behavioral disturbance: without behavioral disturbance Qualified Code(s): F03.90 - Unspecified dementia without behavioral disturbance (4) Dyslipidemia Code(s): E78.5 - HYPERLIPIDEMIA, UNSPECIFIED Status: Chronic (5) Hypertension Code(s): I10 - ESSENTIAL (PRIMARY) HYPERTENSION Status: Chronic Qualifiers: Hypertension type: essential hypertension Qualified Code(s): I10 - Essential (primary) hypertension - Plan old records reviewed/req, PT/OT, out of bed/ambulate 1.Will follow serial troponins,likley due to strain 2.Will discharge possible in am.
[2019-04-26 17:57] LABS: CKMB 1.7 ng/mL (0-6.6)
[2019-04-26] MEDS: Atorvastatin Calcium 40 MG TAB PO SCH (20:51)
[2019-04-27] MEDS: Sodium Chloride 0.9% 1,000 ML IV SCH ×2 (03:55→16:54)
[2019-04-27] MEDS: Nitroglycerin 2% Ointment 1 INCH/1 GM Packet TOP SCH ×3 (05:56→22:38)
--- NOTE | 2019-04-27 07:45 | HP ---
PRESENTING COMPLAINT: Hyperglycemia and polyuria. HISTORY OF PRESENT ILLNESS: Mr. Nikhil Castillo, 78-year-old male with history of dementia, hypertension, diabetes mellitus, and hyperlipidemia, who was brought in by the this evening because of hyperglycemia. As per report, the patient has been having weakness, increased urination and increased thirst in the last couple of days. The patient on arrival in the ED was noted with glucose of above 700. He has received 6 units of insulin. His glucose improved to 495. At the time of interview, the patient's is not available to discuss with. The patient denies any symptoms. He states he is not sure why he came in, but he states his glucose has been running high at home. He states he was taken off his diabetic medication by his primary physician since the last one month. He states he has history of coronary artery disease in the past, but denies any chest pain or shortness of breath. He denies any dysuria or urine frequency or nocturia to me now. PAST MEDICAL HISTORY: Significant for hypertension, diabetes mellitus, hyperlipidemia, dementia, history of CVA in the past, history of GERD, history of previous tobacco use. PAST SURGICAL HISTORY: Significant for CABG in 2006. HOME MEDICATIONS: Reviewed. Include; Norvasc, metoprolol, lisinopril, Imdur, doxazosin, aspirin, Lipitor, cholecalciferol, . Medications are not verified yet. The patient is unable to verify medications to me today. ALLERGIES: NO KNOWN DRUG ALLERGIES. FAMILY HISTORY: Noncontributory in this elderly male. REVIEW OF SYSTEMS: Poor given the patient's dementia, but the patient denies any symptoms x10. PHYSICAL EXAMINATION: VITAL SIGNS: Current vitals; blood pressure of 177/81, pulse 86, respiratory rate of 16, O2 saturation 95% on room air. GENERAL: Elderly male, lying in bed, not in any distress. HEENT: Head is atraumatic, normocephalic. Pupils equal, and reactive to light. NECK: No JVD. No carotid bruit. RESPIRATORY: Good air entry. No crepitation. CARDIOVASCULAR: S1, S2. Rate and rhythm regular. Sternotomy scar in situ. ABDOMEN: Full, soft. No suprapubic fullness. Bowel sounds positive in all four quadrants. No CVA tenderness. EXTREMITIES: No calf tenderness. No pedal edema. NEUROLOGIC: The patient is conversant, oriented to person and place only. Moving extremities with no neurological focal motor deficit. LABORATORY DATA: WBC 6.1, hemoglobin 12, platelet 158. No bands. Sodium 131, potassium 3.9, bicarb 22, creatinine 2.85. EGFR of 26. Baseline creatinine ranged from 1.9 to 2.6 since the last 6 months. Glucose initially was 732, improved to 475 now. AST, alkaline phosphatase and ALT normal. CK normal. Troponin 0.03 with repeat of 0.06 and next of 0.07. Urinalysis was unremarkable except for greater than 1000 glucose. Beta hydroxybutyrate 0.09 IMAGING DATA: Chest x-ray shows no acute cardiopulmonary process. IMPRESSION: 1. Hyperglycemia due to medication changes. 2. Acute renal failure likely due to prerenal, baseline chronic kidney disease stage 4. 3. Hypertension. 4. History of dementia. 5. Hyperlipidemia, stable. PLAN: We will admit the patient to observation. We will manage the patient for the following; 1. Marked hyperglycemia due to uncontrolled DM. We will start the patient on Levemir insulin 10 units b.i.d. We will also introduce patient SLC inhibitors with empagliflozin given the patient's CKD. We did need to discuss with regarding dosing of insulin at home. If unable to give insulin, may be better to add glipizide or Amaryl to the patient's regimen. Insulin sliding scale with Accu-Cheks for now. 2. Acute on chronic renal failure. We will start gentle IV fluid hydration. Monitor creatinine. Expect creatinine to improve to baseline of around 2.3 range. 3. Hypertension. We will resume home medication and follow IV hydralazine as needed. 4. DVT prophylaxis. Subcutaneous Lovenox. 5. Advance directive, unable to actually discuss with the patient given the patient's history of dementia. Will address with . Previous admission reviewed. 6. Elevated troponin may be due to hyperglycemia-induced demand ischemia. Continue to monitor troponin trend. We will do aspirin and nitroglycerin patch paste for now. Total time spent in evaluation of the patient, review of medication and discussion greater than 60 minutes. Job ID: [id number]
[2019-04-27] MEDS: Heparin 5,000 UNITS/ML VIAL SC SCH ×3 (08:32→20:34)
[2019-04-27] MEDS: Aspirin 81 mg Enteric Coated Tablet PO SCH (08:32)
[2019-04-27] MEDS: Lisinopril 20 MG TAB PO SCH (08:32)
[2019-04-27] MEDS: Isosorbide Mononitrate (ER) 30 MG TAB PO SCH (08:32)
[2019-04-27] MEDS: Amlodipine 10 MG TAB PO SCH (08:32)
[2019-04-27] MEDS: Metoprolol Tartrate 50 MG TAB PO SCH ×2 (08:32→20:29)
[2019-04-27] MEDS: Insulin Glargine 15 UNITS in Pre-Filled Syringe 1 EACH SC SCH ×2 (08:35→20:29)
[2019-04-27] MEDS: HumaLOG 300 UNITS/3 ML VIAL SC PRN (12:08)
--- NOTE | 2019-04-27 15:15 | CON ---
DATE OF CONSULTATION: PRIMARY CLIENT CARE SPECIALIST: Dr. Jordan Wilson. REASON FOR CONSULTATION: Increased troponin level. HISTORY OF PRESENT ILLNESS: Mr. Castillo is a delightful 78-year-old gentleman. He was found to have increased troponin level, which appears to be a chronic problem. The patient was admitted to the hospital on 04/25/2019 with hyperglycemia and polyuria. He was found to have a blood sugar of 700. He does not have chest pain or pressure. Does have some increased troponin levels, which will be outlined below. PAST MEDICAL HISTORY: 1. Previous hypertension. 2. History of bypass surgery in 2006. ALLERGIES: NONE KNOWN. FAMILY HISTORY: Noncontributory. REVIEW OF SYSTEMS: The gentleman has quite significant dementia. He is very pleasant and he is alert. He knows that he is in the hospital, does not know which hospital, does not know what year it is. PHYSICAL EXAMINATION: GENERAL: This is a pleasant elderly gentleman, in no distress. VITAL SIGNS: Blood pressure 157/75 and pulse 80, it is regular. HEENT: Eyes, sclerae nonicteric. Mouth, mucous membranes moist. NECK: Supple. No lymphadenopathy. LUNGS: Clear anteriorly and laterally. CARDIAC: Normal S1, normal S2. There is no murmur, rub, or gallop. ABDOMEN: Soft and nontender. EXTREMITIES: Warm and dry. No clubbing or cyanosis. There is no Edema. SKIN: Warm and dry as mentioned. MENTAL STATUS: Outlined above. DIAGNOSTIC DATA: EKG does show some T-wave inversion laterally. LABORATORY DATA: Troponin levels are peak of 0.076, but looking at the records, they are almost always elevated. ASSESSMENT: 1. Dementia, unfortunately severe. 2. Diabetes. 3. Renal insufficiency/renal failure, creatinine has gone from 2.8 to 2.2, probably got volume depleted because of the polyuria and glycosuria. PLAN: 1. Agree with treating the diabetes. 2. He is on statin and aspirin. 3. Continue amlodipine. 4. He is also receiving fluid. 5. Dr. Wilson to see the patient tomorrow, probably not much else to do from a cardiac standpoint. The patient has had an echocardiogram done in January. Ejection fraction is 45% to 50%. Medical therapy appears appropriate based on this gentleman's dementia. Job ID: [id number]
--- NOTE | 2019-04-27 15:51 | PDOC.HOSPP ---
- Subjective Encounter Date: 04/27/19 Subjective: no c/o chest pain - Objective Vital Signs & Weight: Vital Signs (12 hours) Temp Pulse Resp BP BP Pulse Ox 04/27/19 11:23 99.0 F 80 18 157/75 H 98 04/27/19 08:32 91 04/27/19 08:12 99.8 F H 91 18 198/95 H 99 04/27/19 05:54 99.4 F 77 16 166/80 H 95 04/27/19 05:50 94 L Weight Weight 175 lb 8 oz I&O: 04/26/19 04/27/19 04/28/19 06:59 06:59 06:59 Intake Total 250 3355 Output Total 2225 325 Balance 250 1130 -325 Result Diagrams: 04/26/19 03:51 04/26/19 03:51 Additional Labs: Accuchecks 04/27/19 04/27/19 04/26/19 10:55 05:15 20:27 POC Glucose 215 H 197 H 145 H 04/26/19 04/25/19 16:30 12:19 POC Glucose 105 Greater than 550 H* Hospitalist ROS - Review of Systems Other: resting well without c/o chest pain - Medication Medications: Active Medications Generic Name Dose Route Start Last Admin Trade Name Freq PRN Reason Stop Dose Admin Acetaminophen 650 mg 04/25/19 21:51 04/27/19 00:14 Tylenol PO 650 mg Q4H PRN Administration Headache/Fever/Mild Pain (1-3) Amlodipine Besylate 10 mg 04/26/19 09:00 04/27/19 08:32 Norvasc PO 10 mg DAILY JOE Administration Aspirin 81 mg 04/27/19 09:00 04/27/19 08:32 Ecotrin PO 81 mg DAILY JOE Administration Atorvastatin Calcium 40 mg 04/26/19 21:00 04/26/19 20:51 Lipitor PO 40 mg HS JOE Administration Doxazosin Mesylate 1 mg 04/26/19 21:00 04/26/19 00:01 Cardura PO 1 mg HS JOE Administration Heparin Sodium (Porcine) 5,000 units 04/26/19 09:00 04/27/19 14:57 Heparin SC 5,000 units TID JOE Administration Hydralazine HCl 10 mg 04/25/19 21:51 04/26/19 11:14 Apresoline SLOW IVP 10 mg Q4H PRN Administration SBP GREATER THAN 160 Insulin Glargine 15 units/ 0.15 mls @ 0 mls/hr 04/26/19 09:00 04/27/19 08:35 Miscellaneous Medication SC 0.15 mls BID JOE Administration Sodium Chloride 1,000 mls @ 75 mls/hr 04/25/19 22:00 04/27/19 03:55 Normal Saline 0.9% IV 1,000 mls .[id number] JOE Administration Insulin Human Lispro 0 units 04/25/19 21:51 04/27/19 12:08 Humalog SC 6 unit .AGGRESSIVE SLIDING PRN Administration Aggressive Correctional Scale Isosorbide Mononitrate 30 mg 04/27/19 09:00 04/27/19 08:32 Imdur Er PO 30 mg DAILY JOE Administration Lisinopril 20 mg 04/27/19 09:00 04/27/19 08:32 Zestril PO 20 mg DAILY JOE Administration Metoprolol Tartrate 50 mg 04/26/19 09:00 04/27/19 08:32 Lopressor PO 50 mg BID JOE Administration Nitroglycerin 0.5 inch 04/25/19 22:00 04/27/19 14:57 Nitro-Bid 2% Ointment TOP 0.5 inch Q8HR JOE Administration - Exam General Appearance: awake alert Eye: PERRL, anicteric sclera ENT: normocephalic atraumatic, no oropharyngeal lesions, moist mucosa Neck: supple, symmetric, no JVD, no thyromegaly, no lymphadenopathy, no carotid bruit Heart: RRR, no murmur, no gallops, no rubs, normal peripheral pulses Gastrointestinal: soft, non-tender, non-distended, normal bowel sounds, no palpable masses, no hepatomegaly, no splenomegaly, no bruit Extremities: no cyanosis, no clubbing, no edema Skin: normal turgor, no lesions, no rashes Neurological: cranial nerve grossly intact, normal sensation to touch, no weakness, no focal deficits, no new deficit Musculoskeletal: normal tone, normal strength, no muscle wasting Psychiatric: normal affect, normal behavior, A&O x 3 Hosp A/P (1) Altered mental status Code(s): R41.82 - ALTERED MENTAL STATUS, UNSPECIFIED Status: Resolved (2) CKD (chronic kidney disease) stage 3, GFR 30-59 ml/min Status: Chronic (3) Dementia Code(s): F03.90 - UNSPECIFIED DEMENTIA WITHOUT BEHAVIORAL DISTURBANCE Status: Chronic Qualifiers: Dementia type: unspecified type Dementia behavioral disturbance: without behavioral disturbance Qualified Code(s): F03.90 - Unspecified dementia without behavioral disturbance (4) Dyslipidemia Code(s): E78.5 - HYPERLIPIDEMIA, UNSPECIFIED Status: Chronic (5) Hypertension Code(s): I10 - ESSENTIAL (PRIMARY) HYPERTENSION Status: Chronic Qualifiers: Hypertension type: essential hypertension Qualified Code(s): I10 - Essential (primary) hypertension (6) CAD (coronary artery disease) Code(s): I25.10 - ATHSCL HEART DISEASE OF [place] CORONARY ARTERY W/O ANG PCTRS Status: Chronic Qualifiers: Coronary Disease-Associated Artery/Lesion type: [place] artery [place] vs. transplanted heart: [place] heart Associated angina: without angina Qualified Code(s): I25.10 - Atherosclerotic heart disease of [place] coronary artery without angina pectoris Plan: With elevated troponins and adviced medical management. - Plan old records reviewed/req 1.Will follow serial troponins,mathew due to strain 2.Cardiology evaluation appreciated and adviced for medical management.
[2019-04-27] MEDS: Doxazosin Mesylate 1 MG TAB PO SCH (20:28)
[2019-04-27] MEDS: Atorvastatin Calcium 40 MG TAB PO SCH (20:28)
[2019-04-27] MEDS: hydrALAZINE 20 MG/ML VIAL SLOW IVP PRN (22:38)
[2019-04-28] MEDS: Sodium Chloride 0.9% 1,000 ML IV SCH (05:30)
[2019-04-28] MEDS: Nitroglycerin 2% Ointment 1 INCH/1 GM Packet TOP SCH ×2 (05:33→14:37)
[2019-04-28] MEDS: hydrALAZINE 20 MG/ML VIAL SLOW IVP PRN (05:37)
[2019-04-28] MEDS: Amlodipine 10 MG TAB PO SCH (08:37)
[2019-04-28] MEDS: Aspirin 81 mg Enteric Coated Tablet PO SCH (08:37)
[2019-04-28] MEDS: Lisinopril 20 MG TAB PO SCH (08:38)
[2019-04-28] MEDS: Heparin 5,000 UNITS/ML VIAL SC SCH ×2 (08:38→14:38)
[2019-04-28] MEDS: Metoprolol Tartrate 50 MG TAB PO SCH (08:38)
[2019-04-28] MEDS: Isosorbide Mononitrate (ER) 30 MG TAB PO SCH (08:38)
[2019-04-28] MEDS: Insulin Glargine 15 UNITS in Pre-Filled Syringe 1 EACH SC SCH (08:38)
[2019-04-28 15:29] VITALS: TEMP 98.4
[2019-04-28 15:31] VITALS: BP 160/77
--- NOTE | 2019-04-29 03:34 | DIS ---
DATE OF ADMISSION: 04/25/2019 DATE OF DISCHARGE: 04/28/2019 DISCHARGING PHYSICIAN: Dr. Tucker Wiley. CONSULTATIONS ON THE CASE: Dr. Dill, Cardiology. DISCHARGING DIAGNOSES: 1. Elevated troponins, nonspecific in nature. At this point of time, the patient has been advised for conservative medical management secondary to significant severe dementia. 2. Chronic kidney disease. 3. Benign essential hypertension. 4. Diabetes mellitus type 2. HOSPITAL COURSE: This is an 78-year-old gentleman, who has been admitted to the hospitalist services initially with elevated troponin levels associated with confusion. The patient was further referred to Cardiology evaluation and during this course, NSTEMI was ruled out. The patient did not have any complaints of chest pain. The patient does have significant dementia and after further evaluation by Cardiology Services, it was determined that the patient would benefit from medical management than anything else. I reviewed with Dr. Wislon today and advised about discharge planning back to the residential with conservative medical management. The patient was hemodynamically optimized on discharge. DISPOSITION: Discharged to the residential. PHYSICAL EXAMINATION: CVS: S1, S2. CHEST: Bilateral air entry present. ABDOMEN: Soft. EXTREMITIES: No cyanosis. ALLERGIES: NO KNOWN DRUG ALLERGIES. ACTIVITY: As tolerated to fall precautions. DISCHARGE MEDICATIONS: No changes in medications have been made at this point of time. He has been discharged at this point of time with, 1. Aspirin 81 mg daily. 2. Atorvastatin 40 mg at bedtime. 3. Doxazosin 1 mg at bedtime. 4. Isosorbide mononitrate 30 mg q.24 hours. 5. . 6. Metoprolol tartrate b.i.d. DISCHARGE PLAN: The patient's Binder Layer and Case Management have been advised about discharge planning. Advised about discharge to residential. Eventual followup with Dr. Wilson as an outpatient. The whole discharge process including discharge coordination took me more than 35 minutes. Job ID: [id number]
--- NOTE | 2019-04-29 06:25 | PQF ---
[employer] Reports [employer] AGATHA Alexandra CHERIE GUAMAN [id number] [facility]-269 [id number] CLINICAL DOCUMENTATION CLARIFICATION FORM: POST DISCHARGE Addendum to original discharge summary date: ____ Late entry note date: __ DATE: 04/29/2019 ATTN: CHERIE GUAMAN Please exercise your independent, professional judgment in responding to the clarification form. Clinical indicators are provided on the bottom of this form for your review Please check appropriate box(s): Kindly provided Which Condition patient has been admitted [ ] Dementia [ ] Hyperglycemia [ ] Other diagnosis [ ] Unable to determine In addition, please specify: Present on Admission (POA): [ ] Yes [ ] No [ ] Unable to determine For continuity of documentation, please document condition throughout progress notes and discharge summary. Thank You. CLINICAL INDICATORS - SIGNS / SYMPTOMS / LABS patient admitted with elevated troponin level associated with Confusion - Documented in DS on 04/28 by CHERIE GUAMAN Patient has been advised for conservative management 2/2 significant severe dementia - Documented in DS on 04/28 by CHERIE GUAMAN patient does have significant dementia and after further evaluation by cardiology Services - Documented in DS on 04/28 by CHERIE GUAMAN Hyperglycemia and polyuria- Documented in H&P on 04/25 by Carlos Hollins MD Glucose level greater than 550 on 04/25 - Documented in Laboratory Hyperglycemia due to medication changes - Documented in H&P on 04/25 by Carlos Hollins MD RISK FACTORS CKD HTN DM RACHEL TREATMENTS: Cardiology consult Will start Levemir Insulin 10 units - Documented in H&P on 04/25 by Carlos Hollins MD (This form is maintained as a part of the permanent medical record) 2014 [employer]. All Rights Reserved [email or web address] [not provided] MTDD
== END 2019-04-28 17:50 | disposition home or self-care (01) | DRG 884 ==
LOC: ERS 12:02 → 2NO 21:15
PROVIDERS: ADMIT Internal Medicine; ATTEND Internal Medicine
DX: F03.90 Unspecified dementia, unspecified severity, without behavioral disturbance, psychotic disturbance, mood disturbance, and anxiety (principal); N17.9 Acute kidney failure, unspecified; E11.65 Type 2 diabetes mellitus with hyperglycemia; I25.10 Atherosclerotic heart disease of native coronary artery without angina pectoris; I10 Essential (primary) hypertension; E78.5 Hyperlipidemia, unspecified; Z86.73 Personal history of transient ischemic attack (TIA), and cerebral infarction without residual deficits; K21.9 Gastro-esophageal reflux disease without esophagitis; Z95.1 Presence of aortocoronary bypass graft; Z79.82 Long term (current) use of aspirin; I12.9 Hypertensive chronic kidney disease with stage 1 through stage 4 chronic kidney disease, or unspecified chronic kidney disease; E11.22 Type 2 diabetes mellitus with diabetic chronic kidney disease; N18.3 Chronic kidney disease, stage 3 (moderate)
CPT/HCPCS: 36415; 36416; 71045; 80048; 80053; 80061; 81003; 81015; 82010; 82553; 84484; 85025; 90471; 90662; 90670; 93005; 94760; 96360; 96361; G0008; G0009; J0360; J1644; J1815

== ENCOUNTER 2019-06-26 14:41 | Observation (INO) | payer MEDICARE, MEDICAID ==
[2019-06-26 16:32] LABS: Bacteria/HPF None Seen HPF (None Seen); Bilirubin Negative (Negative); Blood, Urine 2+ (Negative); Clarity Clear (Clear); Glucose, Urine (Dipstick) Normal (Negative); Leukocyte Negative Leu/uL (Negative); Nitrite Negative (Negative); Protein, Urine (Dipstick) 600 mg/dL (Neg-Trace); Squamous Epithelial 0-3 HPF (0-3); Urobilinogen Normal mg/dL (Less than 2); WBC/HPF None Seen HPF (0-3)
[2019-06-26 16:35] LABS: #Basophils 0.1 thou/uL (0.0-0.2); #Eosinphils 0.3 thou/uL (0.0-0.7); #Lymphocytes 1.2 thou/uL (1.20-3.40); #Monocytes 0.7 thou/uL (0.11-0.59); #Neutrophils 5.2 thou/uL (1.40-6.50); %Basophils 1.3 % (0.0-1.0); %Eosinophils 3.7 % (0.0-10.0); %Monocytes 9.7 % (0.0-10.0); %Neutrophils 69.3 % (42.0-75.0); Hemoglobin 12.8 g/dL (14.0-18.0); Mean Corpuscular HGB CONC 31.7 g/dL (32.0-36.0); Mean Corpuscular Hemoglobin 26.1 pg (27.0-31.0); Mean Corpuscular Volume 82.5 fL (78.0-98.0); RBC Distribution Width 14.1 % (11.5-14.5); Red Blood Cell (RBC) Count 4.88 mill/uL (4.70-6.10); White Blood Cell (WBC) Count 7.4 thou/uL (4.8-10.8)
[2019-06-26 16:49] LABS: ALT (SGPT) 7 U/L (8-55); AST (SGOT) 22 U/L (5-34); Albumin 3.7 g/dL (3.4-4.8); Alkaline Phosphatase 79 U/L (40-110); Anion Gap 13 mmol/L (10-20); BUN (Urea Nitrogen) 21 mg/dL (8.4-25.7); Bilirubin, Total 0.8 mg/dL (0.2-1.2); Calc. Creatinine Clearance 0 mL/min (70-130); Calcium 8.8 mg/dL (7.8-10.44); Carbon Dioxide 25 mmol/L (23-31); Chloride 103 mmol/L (98-107); Estimated GFR-MDRD 26; Glucose 143 mg/dL (83-110); Lipase 21 U/L (8-78); Potassium 3.9 mmol/L (3.5-5.1); Protein, Total 6.7 g/dL (5.8-8.1); Sodium 137 mmol/L (136-145)
[2019-06-26 16:55] LABS: Hypochromia SLIGHT = 6-15 cells (100X) (0-5/hpf); MDiff Complete? YES; Mean Platelet Volume 9.4 fL (7.4-10.4); Platelet Count 182 thou/uL (130-400); Platelet Morphology Comment Appears Adequate; Polychromasia SLIGHT = 2-3 cells (100X) (0-2/hpf)
[2019-06-26 17:12] LABS: CKMB 3.3 ng/mL (0-6.6)
[2019-06-26] MEDS ORDERED: Aspirin Chewable 81 MG TAB ONE ×2 (17:17)
--- NOTE | 2019-06-26 18:28 | CT ---
CT ABDOMEN AND PELVIS WITHOUT CONTRAST: 06/26/19 COMPARISON: None. HISTORY: Hypoglycemia. Fall to the floor. Right flank pain. TECHNIQUE: Multiple contiguous axial images were obtained in a CT of the abdomen and pelvis without contrast. S agittal and coronal reformats were performed. FINDINGS: The patient is status post cholecystectomy. The kidneys are small in size. No focal liver lesions are seen. The adrenal glands, spleen, and pancreas are unremarkable, although evaluation is limited with out IV contrast. No free air, free fluid, or stranding changes are seen in the abdomen or pelvis. The large and small bowel are unremarkable. The appendix is unremarkable. No abdominal or pelvic lymphadenopathy are seen . Atherosclerotic calcifications are seen in the aorta. There are small high density bilateral pleural effusions. Degenerative changes are seen in the spine . The patient is status post sternotomy. The abdominal wall soft tissues are unremarkable. IMPRESSION: 1. No evidence of acute intra-abdominal/pelvic abnormality. 2. Small bilateral pleural effusions. POS: [facility]
--- NOTE | 2019-06-26 18:54 | RAD ---
SINGLE VIEW OF THE CHEST: 06/26/19 COMPARISON: 04/25/19 HISTORY: Hypoglycemia and fall. FINDINGS: Single view of the chest shows a normal sized cardiomediastinal silhouette. The patient is status po st CABG. A cardiac monitoring device projects over the left chest wall. There is no evidence of conso lidation, mass or pleural effusion. IMPRESSION: No evidence of acute cardiopulmonary disease. POS: [facility]
[2019-06-26 19:46] LABS: Troponin I 0.053 ng/mL (< 0.028)
[2019-06-26 21:31] VITALS: BMI 26.6
[2019-06-26 22:32] LABS: Troponin I 0.048 ng/mL (< 0.028)
[2019-06-27] MEDS ORDERED: Dextrose 5% in Water 1,000 ML IV PRN (09:36)
[2019-06-27] MEDS ORDERED: Dextrose 50% Abboject 50 ML SYRINGE SLOW IVP PRN (09:36)
[2019-06-27] MEDS ORDERED: Metoprolol Tartrate 50 MG TAB PO SCH (11:00)
[2019-06-27] MEDS ORDERED: Aspirin 81 mg Enteric Coated Tablet PO SCH (11:00)
[2019-06-27] MEDS: HumaLOG 300 UNITS/3 ML VIAL SC PRN ×2 (11:54→17:59)
--- NOTE | 2019-06-27 17:15 | RAD ---
PORTABLE AP CHEST X-RAY: 06/27/19 HISTORY: Reported wheezing. COMPARISON: 06/26/19 FINDINGS: postsurgical changes related to CABG are again noted. Loop recording device again overlies the medial left chest. Postsurgical change related to CABG are again noted. The cardiac silhouette is magnified by projection. Pulmonary vasculature is within normal limits. The lungs are clear . There has been no interval change from prior exam. IMPRESSION: Stable chest. POS: [facility]
[2019-06-27] MEDS: Metoprolol Tartrate 50 MG TAB PO SCH (20:19)
[2019-06-27] MEDS ORDERED: Furosemide 40 MG/4 ML VIAL SLOW IVP SCH (21:00)
[2019-06-27] MEDS ORDERED: FLU VACC TS2019-20(65YR UP)/PF 180 MCG/0.5 ML SYRINGE IM ONE (21:00)
[2019-06-27] MEDS ORDERED: Prevnar 13-Val Conj/PF 0.5 ML SYRINGE IM ONE (21:00)
--- NOTE | 2019-06-27 22:43 | HP ---
CHIEF COMPLAINT: Hypoglycemia. HISTORY OF PRESENT ILLNESS: This patient is an 78-year-old male, with a history of dementia and a history of issues managing his diabetes. The patient has a history of chronic kidney disease. He was most recently admitted to this facility in April, at which time, he was suffering from severe hyperglycemia. He had some medication adjustments made and was subsequently discharged. He was also seen for some elevated troponins, which appeared to be more chronic in nature related to his age and renal disease. Cardiology saw the patient, felt that only medical management only given his underlying dementia. The patient has presented to the Emergency Department on this particular occasion. The patient's indicated that he was not responding appropriately and seemed to be more confused and this was consistent with his prior episodes of hypoglycemia. It is reported in the emergency room that the patient had fallen. The patient was apparently improved at the time he arrived in the emergency department, it is unclear that he had any actual documentation of hypoglycemia on the scene and had no documented hypoglycemia while in the hospital. He did have slight elevation of his troponins and was subsequently admitted for observation. REVIEW OF SYSTEMS: Unobtainable given the patient's underlying dementia. PAST MEDICAL HISTORY: Primarily obtained from the patient's record that reveals history of hypertension, diabetes mellitus, dementia, history of CVA, history of GERD, and ongoing smokeless tobacco abuse. PAST SURGICAL HISTORY: Coronary artery bypass in 2006. FAMILY HISTORY: Unknown. SOCIAL HISTORY: It is known that the patient continues to use significant amount of smokeless tobacco daily. ALLERGIES: NONE. CURRENT MEDICATIONS: 1. Doxazosin 4 mg at bedtime. 2. Vitamin D 1000 units daily. 3. Amlodipine 10 mg daily. 4. Lopressor 50 mg b.i.d. 5. Lisinopril 2.5 mg daily. 6. Aspirin 81 mg daily. 7. Isosorbide 30 mg daily. 8. Lipitor 40 mg at bedtime. 9. Lantus 15 units subcu b.i.d. PHYSICAL EXAMINATION: VITAL SIGNS: Initial vitals; temperature 99.2, pulse 80, respirations 16, O2 saturation 96% on room air, BP 177/85. GENERAL APPEARANCE: He is awake, alert, pleasant, cooperative. He is confused , not able to give a lot of information. HEENT: PERRL. He has no OP lesions. Continues to have smokeless spit tobacco in his mouth. NECK: Supple and symmetric. HEART: Regular without a significant murmur. LUNGS: Clear with no wheezes or rales. ABDOMEN: Soft, nontender, and nondistended. Positive bowel sounds. EXTREMITIES: No cyanosis, clubbing, or edema. PSYCH: Normal affect. Very pleasant. NEURO: Again, the patient is confused, not oriented and appears to move all extremities spontaneously. Cranial nerves appear to be intact. LABORATORY DATA: White count 7.4, hemoglobin 12.8, platelets 182. Sodium 137, potassium 4.9, chloride 103, CO2 is 25, BUN 21, creatinine 2.86 with a GFR of 26 , glucose 123, calcium 8.8. LFTs normal. Lipase 21. Troponin 0.048, subsequent 0.053 and 0.048. Chest x-ray is negative. CT abdomen and pelvis, no evidence of any acute processes. Small bilateral pleural effusions. IMPRESSION AND PLAN: 1. Fall with apparent encephalopathy, likely related to hypoglycemia, although all of this occurred prior to arrival and documentation of such is difficult. The patient appears to be back to his baseline. Holding off on any long-acting insulin. We will continue sliding scale and continue to monitor him today on his normal intake and see how his blood sugars do. If they remain okay, can likely discharge later today on slight decreased insulin regimen. 2. History of coronary artery disease, stable. 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 Medical management appears to be the best approach. 3. Elevated troponins. This is chronic. It is at his normal baseline and likely related to his age and chronic kidney disease. 4. Chronic kidney disease stage 3 to 4. Does not appear to be too far off his current baseline. 5. Chronic dementia, stable. 6. Hypertension. Continue with isosorbide, metoprolol, and holding lisinopril for the moment and monitor throughout the day. Job ID: [id number] [facility]
[2019-06-28] MEDS: Metoprolol Tartrate 50 MG TAB PO SCH (08:02)
[2019-06-28 08:22] VITALS: TEMP 99
[2019-06-28] MEDS ORDERED: Aspirin 81 mg Enteric Coated Tablet PO SCH (09:00)
[2019-06-28] MEDS ORDERED: Lisinopril 2.5 MG TAB PO SCH (09:00)
[2019-06-28] MEDS ORDERED: Amlodipine 10 MG TAB PO SCH (09:00)
[2019-06-28] MEDS ORDERED: Isosorbide Mononitrate (ER) 30 MG TAB PO SCH (09:00)
[2019-06-28 09:31] VITALS: BP 162/72
== END 2019-06-28 10:14 | disposition home or self-care (01) ==
LOC: ERS 14:41 → 2SW 20:45
PROVIDERS: ADMIT Internal Medicine; ATTEND Internal Medicine
DX: E11.649 Type 2 diabetes mellitus with hypoglycemia without coma (principal); G93.40 Encephalopathy, unspecified; R79.89 Other specified abnormal findings of blood chemistry; I12.9 Hypertensive chronic kidney disease with stage 1 through stage 4 chronic kidney disease, or unspecified chronic kidney disease; E11.22 Type 2 diabetes mellitus with diabetic chronic kidney disease; N18.4 Chronic kidney disease, stage 4 (severe); F03.90 Unspecified dementia, unspecified severity, without behavioral disturbance, psychotic disturbance, mood disturbance, and anxiety; K21.9 Gastro-esophageal reflux disease without esophagitis; I25.10 Atherosclerotic heart disease of native coronary artery without angina pectoris; F17.220 Nicotine dependence, chewing tobacco, uncomplicated; Z86.73 Personal history of transient ischemic attack (TIA), and cerebral infarction without residual deficits; Z79.4 Long term (current) use of insulin; Z79.899 Other long term (current) drug therapy; Z95.0 Presence of cardiac pacemaker; Z95.1 Presence of aortocoronary bypass graft; W19.XXXA Unspecified fall, initial encounter
CPT/HCPCS: 36415; 36416; 71045; 74176; 80053; 81003; 81015; 82553; 83690; 83880; 84484; 85025; 93005; 94640; 96374; G0378; J1940; J7620

== ENCOUNTER 2019-07-28 00:48 | Emergency (ER) | payer MEDICARE, MEDICAID ==
[2019-07-28 01:30] LABS: Hemoglobin 12.1 g/dL (14.0-18.0); Mean Corpuscular HGB CONC 32.7 g/dL (32.0-36.0); Mean Corpuscular Hemoglobin 27.2 pg (27.0-31.0); Mean Platelet Volume 8.2 fL (7.4-10.4); Platelet Count 160 thou/uL (130-400); Red Blood Cell (RBC) Count 4.47 mill/uL (4.70-6.10); White Blood Cell (WBC) Count 6.3 thou/uL (4.8-10.8)
[2019-07-28 01:51] LABS: ALT (SGPT) Less than 7 U/L (8-55); AST (SGOT) 18 U/L (5-34); Albumin 3.8 g/dL (3.4-4.8); Alkaline Phosphatase 77 U/L (40-110); Anion Gap 12 mmol/L (10-20); BUN (Urea Nitrogen) 26 mg/dL (8.4-25.7); Bilirubin, Total 1.1 mg/dL (0.2-1.2); Calc. Creatinine Clearance 0 mL/min (70-130); Calcium 8.9 mg/dL (7.8-10.44); Carbon Dioxide 28 mmol/L (23-31); Chloride 104 mmol/L (98-107); Estimated GFR-MDRD 22; Globulin 2.9 g/dL (2.4-3.5); Glucose 148 mg/dL (83-110); Lipase 13 U/L (8-78); Potassium 3.5 mmol/L (3.5-5.1); Protein, Total 6.7 g/dL (5.8-8.1); Sodium 140 mmol/L (136-145)
[2019-07-28 02:06] LABS: Bacteria/HPF None Seen HPF (None Seen); Bilirubin Negative (Negative); Blood, Urine 2+ (Negative); Clarity Clear (Clear); Glucose, Urine (Dipstick) 70 mg/dL (Negative); Leukocyte Negative Leu/uL (Negative); Nitrite Negative (Negative); Protein, Urine (Dipstick) 600 mg/dL (Neg-Trace); Squamous Epithelial 0-3 HPF (0-3); WBC/HPF 0-3 HPF (0-3)
[2019-07-28 02:13] LABS: Eosinophils 6 % (0-10); Hypochromia SLIGHT = 6-15 cells (100X) (0-5/hpf); Lymphocytes 12 % (21-51); MDiff Complete? YES; Monocytes 18 % (0-10); Neutrophil 64 % (42-75); Platelet Morphology Comment Appears Adequate
--- NOTE | 2019-07-28 08:14 | RAD ---
TWO VIEWS CHEST: HISTORY: Cough and fever. COMPARISON: 06/26/2019. FINDINGS: Cardiac silhouette and pulmonary vasculature within normal limits. Postsurgical changes related to C ABG are again noted. Loop recording device again overlies the medial left chest. Small bilateral pl eural effusions are seen as represented by blunting of the costophrenic angles bilaterally. The lung s are otherwise clear. Vascular calcifications of the thoracic aorta. Postsurgical changes of the r ight shoulder are seen with 3 anchor screws present as well as a curvilinear metallic density present which was also seen on the prior study on 07/18/2017. There has been no other interval change. IMPRESSION: Small bilateral pleural effusions. POS: [facility]
--- NOTE | 2019-07-28 08:30 | CT ---
PRELIMINARY REPORT/[facility]/EMERGENCY AFTER HOURS PROCEDURE EXAM: CT Abdomen and Pelvis Without Intravenous Contrast CLINICAL HISTORY: ER 7... 78yo M with pmh of CAD presents for 2 week Hx of cough with abdominal pain. Tonight he went to ED because LLQ abd pain TECHNIQUE: Axial computed tomography images of the abdomen and pelvis without intravenous contrast. CONTRAST: None. COMPARISON: None provided. FINDINGS: LUNG BASES: Small bilateral pleural effusions. Spiculated pulmonary nodule left lower lobe measuring 1.3 cm. Pulmonary nodule left lower lobe image #9 measuring 5 mm. Pulmonary nodule right lower lobe i mage #4 measuring 6 mm. Basilar atelectasis. Mild cardiomegaly. LIVER: Unremarkable. GALLBLADDER AND BILE DUCTS: Gallbladder is absent. PANCREAS: Unremarkable. SPLEEN: Unremarkable. ADRENAL GLANDS: Unremarkable. KIDNEYS, URETERS, AND BLADDER: Unremarkable. No hydronephrosis or nephrolithiasis. No ureteral or karen dder calculi. STOMACH AND BOWEL: There is a large amount of stool throughout the colon. There is no intestinal obst ruction or inflammation of bowel. APPENDIX: Appendix is normal. PERITONEUM: No free fluid. No free air. LYMPH NODES: No lymphadenopathy. REPRODUCTIVE: Prostate measures 4.9 x 5.6 cm. VASCULATURE: No aortic aneurysm. ABDOMINAL WALL AND SOFT TISSUES: Fat-containing periumbilical hernia. BONES: Degenerative changes lumbar spine. IMPRESSION: Large amount of stool throughout the colon. Recommend correlation with symptoms of constipation. Small bilateral pleural effusions. Cardiomegaly. Pulmonary nodules the largest measuring 1.3 cm. Recommend correlation with prior CT chest. If there i s none, followup CT chest on nonemergent basis is advised. Enlarged prostate. ELECTRONICALLY SIGNED BY: Eloisa Chapman MD Jul 28, 2019 2:12:59 AM PRODUCT INSPECTION SUPERVISOR This report is intended for review by the ordering physician only, in accordance of law. If you recei ve this report in error, please call [facility] at [phone]. FINAL REPORT CT ABDOMEN AND PELVIS WITHOUT IV CONTRAST: Pulmonary nodule in the left lung base is noted as described on preliminary report. There is a small to moderate fixed sliding diaphragmatic hernia. Prostatic hypertrophy. No evidence of acute intraabdominal process. I am in agreement with the preliminary report. POS: [facility]
== END 2019-07-28 02:34 | disposition home or self-care (01) ==
LOC: ERS 00:48
DX: J06.9 Acute upper respiratory infection, unspecified (principal); K59.00 Constipation, unspecified; E10.9 Type 1 diabetes mellitus without complications; E78.5 Hyperlipidemia, unspecified; E78.00 Pure hypercholesterolemia, unspecified; F03.90 Unspecified dementia, unspecified severity, without behavioral disturbance, psychotic disturbance, mood disturbance, and anxiety; I10 Essential (primary) hypertension; F17.220 Nicotine dependence, chewing tobacco, uncomplicated; Z79.899 Other long term (current) drug therapy; Z79.82 Long term (current) use of aspirin; Z71.6 Tobacco abuse counseling
CPT/HCPCS: 36415; 71046; 74176; 80053; 81003; 81015; 83690; 85025

== ENCOUNTER 2019-07-28 16:16 | Inpatient (IN) | payer MEDICARE, MEDICAID ==
[2019-07-28] MEDS ORDERED: Acetaminophen 500 MG TAB ONE (17:25)
[2019-07-28] MEDS ORDERED: predniSONE 20 MG TAB ONE (17:25)
[2019-07-28 17:48] LABS: Hemoglobin 11.9 g/dL (14.0-18.0); Mean Corpuscular HGB CONC 32.1 g/dL (32.0-36.0); Mean Corpuscular Hemoglobin 26.8 pg (27.0-31.0); Mean Corpuscular Volume 83.3 fL (78.0-98.0); Mean Platelet Volume 8.8 fL (7.4-10.4); Platelet Count 148 thou/uL (130-400); Red Blood Cell (RBC) Count 4.45 mill/uL (4.70-6.10); White Blood Cell (WBC) Count 6.1 thou/uL (4.8-10.8)
[2019-07-28 18:01] LABS: Band 4 % (5-11); Eosinophils 2 % (0-10); Hypochromia SLIGHT = 6-15 cells (100X) (0-5/hpf); Lymphocytes 15 % (21-51); MDiff Complete? YES; Metamyelocyte 1 % (0-0); Monocytes 13 % (0-10); Neutrophil 64 % (42-75); Platelet Morphology Comment Appears Adequate; Polychromasia SLIGHT = 2-3 cells (100X) (0-2/hpf); Reactive Lymphocytes 1 % (0-10)
[2019-07-28 18:09] LABS: ALT (SGPT) Less than 7 U/L (8-55); AST (SGOT) 31 U/L (5-34); Albumin 3.7 g/dL (3.4-4.8); Alkaline Phosphatase 75 U/L (40-110); Anion Gap 14 mmol/L (10-20); BUN (Urea Nitrogen) 28 mg/dL (8.4-25.7); Bilirubin, Total 1.3 mg/dL (0.2-1.2); Calc. Creatinine Clearance 0 mL/min (70-130); Calcium 8.8 mg/dL (7.8-10.44); Carbon Dioxide 24 mmol/L (23-31); Chloride 104 mmol/L (98-107); Estimated GFR-MDRD 20; Globulin 2.8 g/dL (2.4-3.5); Glucose 269 mg/dL (83-110); Potassium 3.4 mmol/L (3.5-5.1); Protein, Total 6.5 g/dL (5.8-8.1); Sodium 139 mmol/L (136-145)
[2019-07-28 18:33] LABS: CKMB 2.7 ng/mL (0-6.6)
[2019-07-28] MEDS ORDERED: Nitroglycerin 2% Ointment 1 INCH/1 GM Packet ONE (18:35)
[2019-07-28] MEDS ORDERED: Furosemide 20 MG/2 ML VIAL ONE (18:35)
[2019-07-28] MEDS ORDERED: HumaLOG 300 UNITS/3 ML VIAL SC PRN (19:57)
[2019-07-28] MEDS ORDERED: Dextrose 50% Abboject 50 ML SYRINGE SLOW IVP PRN (19:57)
[2019-07-28] MEDS ORDERED: Dextrose 5% in Water 1,000 ML IV PRN (19:57)
[2019-07-28] MEDS ORDERED: Guaifenesin DM 100-10/5 ML UDCUP PO PRN (19:58)
[2019-07-28] MEDS ORDERED: Acetaminophen 650 MG Suppository PR PRN (19:58)
[2019-07-28] MEDS ORDERED: Senokot S 8.6-50 MG TAB PO PRN (19:58)
[2019-07-28] MEDS ORDERED: Acetaminophen 325 MG TAB PO PRN (19:58)
--- NOTE | 2019-07-28 20:09 | PDOC.HHP ---
Hospitalist HPI - History of Present Illness SOB x 1 day History of Present Illness: PCP: Dr. Marquez De Leon The patient is a poor historian, no family at bedside. The information gathered for the H&P came from ER notes and nursing. The patient is a 78/M with PMH significant for CAD, CABG x 5, HTN, HLD, DMI, dementia who presents to the ER for the above complaint. Apparently the patient was having difficulty breathing at home, so his called EMS. EMS found the patient in respiratory distress, Spo2 90%, wheezing throughout. Temp 100.3F and tachypneic. Administered oxygen, nebulizers x 2 and tylenol 1 gram and brought him to the ER. 01/31 echo 45-50% with diastolic dysfunction BNP 2200 Seen yesterday 07/27/19 in ER for abdominal pain, discharged home with DX constipation. ED Course: BP: 167/82, Pulse: 88, Resp: 18, Temp: 99.7 (Oral), Pain: 0, O2 sat: 98 on ( Room Air), EKG NSR, 90 bpm, no ST elevations BNP 2183.7 Trop 0.193 Given 1gm tylenol 1L NS Prednisone 60mg po x 1 dose Lasix 20mg IVP Hospitalist ROS - Review of Systems ROS unobtainable: due to mental status Hospitalist History - Past Medical History Source: old records Cardiac: reports: CAD, CHF, HTN, Hyperlipidemia Psych: reports: Other (Dementia) Endocrine: reports: Diabetes - Past Surgical History Past Surgical History: reports: CABG (2003), Other (Pacemaker) - Social History Smoking Status: Never smoker Tobacco Type: chewing tobacco Alcohol: reports: None Drugs: reports: none Living Situation: With Family 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, 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 [place] Activity level: uses cane/walker - Exam General Appearance: NAD, awake alert Eye: PERRL ENT: normocephalic atraumatic Neck: supple, no JVD, no thyromegaly, no lymphadenopathy Heart: RRR, no murmur, no gallops, no rubs, normal peripheral pulses Respiratory - other findings: diminished, rales to Bilateral Lower lobes Gastrointestinal: non-tender, no guarding, no rigidity Extremities: no cyanosis, 1+ LE edema Neurological: cranial nerve grossly intact, no focal deficits Psychiatric: normal affect (A&O to person, place) Hospitalist Results - Labs Result Diagrams: 07/28/19 17:36 07/28/19 17:36 Lab results: WBC 6.1 thou/uL (4.8-10.8) 07/28/19 17:36 Hgb 11.9 g/dL (14.0-18.0) L 07/28/19 17:36 Hct 37.1 % (42.0-52.0) L 07/28/19 17:36 MCV 83.3 fL (78.0-98.0) 07/28/19 17:36 Plt Count 148 thou/uL (130-400) 07/28/19 17:36 Band Neuts % (Manual) 4 % (5-11) L 07/28/19 17:36 Sodium 139 mmol/L (136-145) 07/28/19 17:36 Potassium 3.4 mmol/L (3.5-5.1) L 07/28/19 17:36 Chloride 104 mmol/L (98-107) 07/28/19 17:36 Carbon Dioxide 24 mmol/L (23-31) 07/28/19 17:36 BUN 28 mg/dL (8.4-25.7) H 07/28/19 17:36 Creatinine 3.58 mg/dL (0.7-1.3) H 07/28/19 17:36 Glucose 269 mg/dL (83-110) H 07/28/19 17:36 Calcium 8.8 mg/dL (7.8-10.44) 07/28/19 17:36 Total Bilirubin 1.3 mg/dL (0.2-1.2) H 07/28/19 17:36 AST 31 U/L (5-34) 07/28/19 17:36 ALT Less than 7 U/L (8-55) L 07/28/19 17:36 Alkaline Phosphatase 75 U/L (40-110) 07/28/19 17:36 CK-MB (CK-2) 2.7 ng/mL (0-6.6) 07/28/19 17:36 Troponin I 0.193 ng/mL (< 0.028) H 07/28/19 17:36 B-Natriuretic Peptide 2183.7 pg/mL (0-100) H 07/28/19 17:36 Serum Total Protein 6.5 g/dL (5.8-8.1) 07/28/19 17:36 Albumin 3.7 g/dL (3.4-4.8) 07/28/19 17:36 Laboratory Tests 07/28/19 07/28/19 17:36 17:36 Troponin I 0.193 H B-Natriuretic Peptide 2183.7 H - EKG Interpretation EKG: NSR 90 bpm Hospitalist H&P A/P - Plan Plan: Impression: Acute CHF exacerbation RACHEL Elevated troponin CKD IV Hypokalemia, mild DMI, chronic HTN, chronic HLD, chronic Dementia, chronic, stable h/o CABG w/ 4 vessel disease Tobacco abuse, chewing tobacco Plan: child monitor Trend troponins Continue lasix Consult Cardiology Consult Cardiac rehab Fluid Restriction Consult nephrology Hold nephrotoxic medications, TOMMIE-I Order CXR, LA, blood cultures, TSH, Mg Replace potasium AC/HS and sliding scale Restart home medications when reconciled CMP and CBC in AM Full Code DPOA, spouse, ,
[2019-07-28] MEDS ORDERED: Furosemide 20 MG/2 ML VIAL SLOW IVP SCH (21:00)
[2019-07-28] MEDS ORDERED: Potassium Chloride 20 MEQ TAB PO SCH (21:00)
[2019-07-28] MEDS ORDERED: Metoprolol Tartrate 50 MG TAB PO SCH (21:00)
[2019-07-28 21:34] LABS: Troponin I 0.185 ng/mL (< 0.028)
--- NOTE | 2019-07-28 21:56 | RAD ---
Portable frontal chest radiograph: 07/28/2019 COMPARISON: 07/28/2019 HISTORY: Difficulty breathing FINDINGS: Stable mild perihilar interstitial prominence. Stable midline sternotomy wires and mediasti nal clips. Loop recorder again noted. No pneumothorax, pleural fluid, lobar consolidation, or alveolar edema. Small bilateral pleural effusions are noted. IMPRESSION: Stable appearance of the chest as detailed above.
[2019-07-29 01:51] LABS: Troponin I 0.182 ng/mL (< 0.028)
[2019-07-29 04:38] LABS: #Lymphocytes 0.7 thou/uL (1.20-3.40); #Monocytes 0.2 thou/uL (0.11-0.59); #Neutrophils 3.5 thou/uL (1.40-6.50); %Eosinophils 0.2 % (0.0-10.0); %Lymphocytes 15.1 % (21.0-51.0); %Monocytes 4.6 % (0.0-10.0); %Neutrophils 80.1 % (42.0-75.0); Hemoglobin 12.2 g/dL (14.0-18.0); Mean Corpuscular HGB CONC 32.4 g/dL (32.0-36.0); Mean Corpuscular Hemoglobin 26.8 pg (27.0-31.0); Mean Corpuscular Volume 82.7 fL (78.0-98.0); Mean Platelet Volume 8.6 fL (7.4-10.4); Platelet Count 155 thou/uL (130-400); RBC Distribution Width 13.9 % (11.5-14.5); Red Blood Cell (RBC) Count 4.54 mill/uL (4.70-6.10); White Blood Cell (WBC) Count 4.4 thou/uL (4.8-10.8)
[2019-07-29 04:53] LABS: Lactic Acid 1.2 mmol/L (0.5-2.2)
[2019-07-29 05:01] LABS: ALT (SGPT) Less than 7 U/L (8-55); AST (SGOT) 33 U/L (5-34); Albumin 3.4 g/dL (3.4-4.8); Alkaline Phosphatase 74 U/L (40-110); Anion Gap 15 mmol/L (10-20); BUN (Urea Nitrogen) 31 mg/dL (8.4-25.7); Bilirubin, Total 1.1 mg/dL (0.2-1.2); Calc. Creatinine Clearance 20 mL/min (70-130); Calcium 8.5 mg/dL (7.8-10.44); Carbon Dioxide 24 mmol/L (23-31); Cardiac Risk 2.4 (Less than 4.5); Chloride 104 mmol/L (98-107); Cholesterol 100 mg/dl (< 200 Desired); Estimated GFR-MDRD 20; Globulin 2.7 g/dL (2.4-3.5); Glucose 281 mg/dL (83-110); HDL Cholesterol 42 mg/dL (>60 Neg Risk); LDL Cholesterol, Calculated 48 mg/dL; Potassium 4.5 mmol/L (3.5-5.1); Protein, Total 6.1 g/dL (5.8-8.1); Sodium 138 mmol/L (136-145); Triglycerides 49 mg/dL (Less than 150)
[2019-07-29] MEDS: HumaLOG 300 UNITS/3 ML VIAL SC PRN ×2 (06:13→11:26)
[2019-07-29] MEDS: Furosemide 20 MG/2 ML VIAL SLOW IVP SCH ×2 (06:13→15:01)
[2019-07-29] MEDS ORDERED: Albumin 25% 25 GM/100 ML BOT IVPB ONE (08:57)
[2019-07-29] MEDS ORDERED: Aspirin Chewable 81 MG TAB PO SCH (09:00)
[2019-07-29] MEDS ORDERED: Metoprolol Tartrate 25 MG TAB PO SCH (09:00)
[2019-07-29] MEDS ORDERED: Lisinopril 20 MG TAB PO SCH (09:00)
[2019-07-29] MEDS ORDERED: Lisinopril 2.5 MG TAB PO SCH (09:00)
[2019-07-29] MEDS ORDERED: Isosorbide Mononitrate (ER) 30 MG TAB PO SCH (09:00)
[2019-07-29] MEDS: Amlodipine 10 MG TAB PO SCH (09:33)
[2019-07-29] MEDS: hydrALAZINE 10 MG TAB PO SCH ×2 (09:34→15:01)
[2019-07-29] MEDS: Polyethylene Glycol 3350 17 GM Packet PO SCH (09:34)
[2019-07-29] MEDS: Aspirin 81 mg Enteric Coated Tablet PO SCH (09:34)
[2019-07-29] MEDS: Albumin 25% 25 GM/100 ML BOT IVPB SCH ×3 (09:35→21:49)
[2019-07-29] MEDS: Insulin Glargine 12 UNITS in Pre-Filled Syringe 1 EACH SC SCH ×2 (09:35→21:49)
--- NOTE | 2019-07-29 09:46 | CON ---
DATE OF CONSULTATION: HISTORY OF PRESENT ILLNESS: Mr. Castillo is an 78-year-old black male, who was admitted for some ? of shortness of breath. Initial chest x-ray did not show any evidence of infiltrates or CHF. Possibility of a COPD ? COPD exacerbation remains. He was empirically given Lasix. We are now being consulted for his acute kidney injury on top of his chronic renal failure. REVIEW OF SYSTEMS: Currently, denies any shortness of breath at the present time. No chest pain. No syncopal episode. Decreased memory. Appetite and energy level are fair. No gross hematuria. No dysuria. No urinary frequency. No productive cough. No fever or chills. Occasional joint pains. No new skin rash. No sore throat. No hematochezia. No melena. MEDICATIONS: Currently on: 1. Aspirin 81 mg daily. 2. Amlodipine 10 mg tablet once a day. 3. Atorvastatin 40 mg at bedtime. 4. Vitamin D3 of 1000 international units daily. 5. Furosemide 20 mg IV daily. 6. Doxazosin 4 mg at bedtime. 7. Humalog sliding scale. 8. Hydralazine 10 mg p.o. t.i.d. 9. Lantus 12 units subcu b.i.d. 10. DuoNeb neb treatment. 11. Lisinopril 2.5 mg daily. 12. Metoprolol tartrate 50 mg p.o. b.i.d. 13. MiraLAX 17 g daily. PAST MEDICAL HISTORY: 1. Hypertension. 2. Chronic renal failure from presumed diabetic nephropathy. 3. Type 2 diabetes mellitus. 4. History of dementia status post metabolic encephalopathy. 5. Hyperlipidemia. 6. Status post CVA. PAST SURGICAL HISTORY: Status post cardiac cath and status post CABG. FAMILY HISTORY: No family history of ESRD. SOCIAL HISTORY: He did use smokeless tobacco. The patient currently is in a [facility]. He is . He has 8 children. 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 Education, sixth grade. He used to live in [place]. No IV drug abuse. ALLERGIES: NO KNOWN DRUG ALLERGIES. TRAUMA: None. IMMUNIZATION: Up-to-date. HOSPITALIZATIONS: Please see past medical history. PHYSICAL EXAMINATION: VITAL SIGNS: Blood pressure is 184/87, heart rate 81, respiratory rate 14, temperature 98.2, and pulse ox 93%. GENERAL: Noted to be awake, alert, comfortable, not in overt distress. SKIN: Adequate turgor. HEENT: He has a pinkish conjunctivae. Anicteric sclerae. NECK: No neck mass. No carotid bruits. No JVD. CHEST: No deformities. LUNGS: Clear breath sounds. No wheezing. No crackles. HEART: Normal sinus rhythm. No murmurs. No gallops. No rubs. ABDOMEN: Globular, soft, and nontender. No masses. EXTREMITIES: No edema. No deformities. NEUROLOGIC: The patient is awake, decreased memory. No tremors. No asterixis. LABORATORY DATA: Laboratories of July 29, 2019, white count 4.4 and hemoglobin 12.2. Sodium 138, potassium 4.5, chloride 104, carbon dioxide 24, BUN 31, creatinine 3.53, glucose 281, calcium 8.5, AST 33, and ALT less than 7. Further review of serum creatinine shows the following; July 28, 2019, creatinine was 3.58. July 28, 2019, creatinine 3.34. April 26, 2019, creatinine 2.24. Urinalysis of July 28, 2019; protein is 600, rbc's 7 to 10, wbc's 0 to 3, and granular casts of 4 to 6. ASSESSMENT AND PLAN: Acute kidney injury - consider superimposed acute renal failure secondary to a superimposed acute tubular necrosis. He does have proteinuria. With his longstanding history of diabetes mellitus, he may have underlying chronic renal failure from diabetic nephropathy. Management of the acute renal failure, if it is a from acute tubular necrosis supportive. I will probably try to optimize his hemodynamics. We will give albumin 25 g IV q.6 for 4 doses. In addition, we will discontinue lisinopril. Imaging of the abdomen and pelvis showed that the kidneys are structurally within normal. No evidence of obstruction or abscess. Overall, agree with current management. Job ID: [id number]
--- NOTE | 2019-07-29 13:12 | PDOC.HOSPP ---
- Subjective Encounter Date: 07/29/19 Encounter Time: 09:30 - Objective Vital Signs & Weight: Vital Signs (12 hours) Temp Pulse Resp BP BP Pulse Ox 07/29/19 11:30 77 16 163/84 H 95 07/29/19 09:34 81 184/87 H 07/29/19 09:33 81 184/87 H 07/29/19 08:28 98.2 F 81 14 184/87 H 93 L 07/29/19 04:28 82 18 178/93 H 95 Weight Weight 187 lb 1.6 oz I&O: 07/28/19 07/29/19 07/30/19 06:59 06:59 06:59 Intake Total 480 Output Total 750 350 Balance -270 -350 Result Diagrams: 07/29/19 04:25 07/29/19 04:25 Additional Labs: Accuchecks 07/29/19 07/29/19 07/28/19 10:50 06:16 21:13 POC Glucose 286 H 271 H 267 H Radiology Reviewed by me: Yes EKG Reviewed by me: Yes Hospitalist ROS - Review of Systems Respiratory: denies: cough, dry, shortness of breath, hemoptysis, SOB with excertion, pleuritic pain, sputum, wheezing, other Cardiovascular: denies: chest pain, palpitations, orthopnea, paroxysmal noc. dyspnea, edema, light headedness, other Gastrointestinal: denies: nausea, vomiting, abdominal pain, diarrhea, constipation, melena, hematochezia, other Genitourinary: denies: dysuria, frequency, incontinence, hematuria, retention, other Musculoskeletal: denies: neck pain, shoulder pain, arm pain, back pain, hand pain, leg pain, foot pain, other - Medication Medications: Active Medications Generic Name Dose Route Start Last Admin Trade Name Freq PRN Reason Stop Dose Admin Albumin Human 25 gm 07/29/19 10:00 07/29/19 09:35 Albumin 25% IVPB 07/30/19 04:01 25 gm Q6H JOE Administration Amlodipine Besylate 10 mg 07/29/19 09:00 07/29/19 09:33 Norvasc PO 10 mg DAILY JOE Administration Aspirin 81 mg 07/29/19 09:00 07/29/19 09:34 Ecotrin PO 81 mg DAILY JOE Administration Cholecalciferol 1,000 units 07/29/19 09:00 07/29/19 09:34 Vitamin D3 PO 1,000 units DAILY JOE Administration Furosemide 20 mg 07/29/19 06:00 07/29/19 06:13 Lasix SLOW IVP 20 mg 0600,1400 JOE Administration Hydralazine HCl 10 mg 07/29/19 09:00 07/29/19 09:34 Apresoline PO 10 mg TID JOE Administration Insulin Glargine 12 units/ 0.12 mls @ 0 mls/hr 07/29/19 09:00 07/29/19 09:35 Miscellaneous Medication SC 0.12 mls BID JOE Administration Insulin Human Lispro 0 units 07/28/19 19:57 07/29/19 11:26 Humalog SC 4 unit .MILD SLIDING SCALE PRN Administration Mild Correctional Scale Insulin Human Lispro 0 units 07/28/19 19:57 07/28/19 21:49 Humalog SC 3 unit .BEDTIME SLIDING SC PRN Administration Bedtime Correctional Scale Isosorbide Mononitrate 30 mg 07/29/19 09:00 07/29/19 09:34 Imdur Er PO 30 mg DAILY JOE Administration Metoprolol Tartrate 50 mg 07/29/19 09:00 07/29/19 09:34 Lopressor PO 50 mg BID JOE Administration Polyethylene Glycol 17 gm 07/29/19 09:00 07/29/19 09:34 Miralax PO 17 gm DAILY JOE Administration - Exam General Appearance: NAD, awake alert Eye: PERRL, anicteric sclera ENT: normocephalic atraumatic, no oropharyngeal lesions Neck: supple, symmetric, no JVD, no thyromegaly Heart: RRR, no murmur, no gallops, no rubs Respiratory: CTAB, no wheezes, no rales, no ronchi Gastrointestinal: soft, non-tender, non-distended Extremities: no cyanosis, no clubbing, no edema Skin: normal turgor, no lesions Neurological: no focal deficits Musculoskeletal: normal tone, normal strength Psychiatric: normal affect, normal behavior Hosp A/P (1) Acute worsening of stage 3 chronic kidney disease Code(s): N18.3 - CHRONIC KIDNEY DISEASE, STAGE 3 (MODERATE) Status: Acute (2) Constipation Code(s): K59.00 - CONSTIPATION, UNSPECIFIED Status: Acute (3) Lung nodule, solitary Code(s): R91.1 - SOLITARY PULMONARY NODULE Status: Acute (4) CHF (congestive heart failure) Code(s): I50.9 - HEART FAILURE, UNSPECIFIED Status: Chronic Qualifiers: Heart failure type: systolic (5) CAD (coronary artery disease) Code(s): I25.10 - ATHSCL HEART DISEASE OF [place] CORONARY ARTERY W/O ANG PCTRS Status: Chronic Qualifiers: Coronary Disease-Associated Artery/Lesion type: [place] artery [place] vs. transplanted heart: [place] heart Associated angina: without angina Qualified Code(s): I25.10 - Atherosclerotic heart disease of [place] coronary artery without angina pectoris (6) DM type 2 (diabetes mellitus, type 2) Status: Chronic Qualifiers: Diabetes mellitus termite exterminator helper insulin use: with termite exterminator helper use Diabetes mellitus complication status: with kidney complications Chronic kidney disease stage: stage 3 (moderate) (7) Dementia Code(s): F03.90 - UNSPECIFIED DEMENTIA WITHOUT BEHAVIORAL DISTURBANCE Status: Chronic Qualifiers: Dementia type: unspecified type Dementia behavioral disturbance: without behavioral disturbance Qualified Code(s): F03.90 - Unspecified dementia without behavioral disturbance (8) Dyslipidemia Code(s): E78.5 - HYPERLIPIDEMIA, UNSPECIFIED Status: Chronic (9) History of Ross's esophagus Code(s): Z87.19 - PERSONAL HISTORY OF OTHER DISEASES OF THE DIGESTIVE SYSTEM Status: Chronic (10) Hypertension Code(s): I10 - ESSENTIAL (PRIMARY) HYPERTENSION Status: Chronic Qualifiers: Hypertension type: essential hypertension Qualified Code(s): I10 - Essential (primary) hypertension (11) Tobacco abuse Code(s): Z72.0 - TOBACCO USE Status: Chronic - Plan old records reviewed/req nephrology following, continue albumin miralax for constipation will need outpt imaging for pulmonary nodule
--- NOTE | 2019-07-29 16:55 | CON ---
DATE OF CONSULTATION: HISTORY OF PRESENT ILLNESS: This is an 78-year-old gentleman with a history of coronary artery disease, who was admitted with increasing dyspnea. The patient has a previous history of coronary artery bypass graft surgery. He has a known mild decrease in left ventricular systolic function with a history of diastolic heart failure. The patient also suffers from dementia. The patient was apparently admitted with increasing dyspnea and worsening renal insufficiency. The patient is unable to give a coherent history. He denies being short of breath. The patient denies having any chest discomfort. PAST MEDICAL HISTORY: 1. Coronary artery disease. 2. Hypertension. 3. Diabetes mellitus. 4. Dyslipidemia. 5. Dementia. 6. History of CVA. PAST SURGICAL HISTORY: Coronary artery bypass graft surgery. SOCIAL HISTORY: Nonsmoker. MEDICATIONS: See nursing list. ALLERGIES: NO KNOWN DRUG ALLERGIES. PHYSICAL EXAMINATION: GENERAL: This is a well-developed gentleman, in no acute distress. VITAL SIGNS: Blood pressure of 163/84. NECK: Showed no jugular venous distention. LUNGS: Have diffuse wheezes bilaterally. HEART: Regular rate and rhythm. Normal S1 and S2. ABDOMEN: Nondistended. EXTREMITIES: Showed no edema. VASCULAR: Radial pulses are 2+. LABORATORY RESULTS: Sodium 138, potassium 4.5, chloride 104, bicarb 24, BUN 31, creatinine 3.53, glucose is 281. Troponin was 0.182. BNP is 2183. White blood cell count is 4.4, hemoglobin 12.2, hematocrit 37.5, and platelets are 155. EKG normal sinus rhythm, left atrial enlargement, and voltage criteria for left ventricular hypertrophy. IMPRESSION: 1. Acute on chronic renal failure. 2. History of coronary artery bypass surgery. 3. History of mild decrease in left ventricular systolic function. 4. History of CVA. 5. Diabetes mellitus. 6. Dyslipidemia. 7. Dementia. This gentleman presents with worsening renal insufficiency. The patient appears to be euvolemic. He is being treated with albumin and Lasix. From a cardiac standpoint, we would recommend that we increase the dose of his medications to lower his blood pressure. The patient may have COPD. We would decrease the doses of metoprolol. We will follow this patient with you through his hospitalization. Job ID: [id number] [facility]
[2019-07-29] MEDS: hydrALAZINE 25 MG TAB PO SCH (21:43)
[2019-07-29] MEDS: Metoprolol Tartrate 25 MG TAB PO SCH (21:45)
[2019-07-29] MEDS: Atorvastatin Calcium 40 MG TAB PO SCH (21:45)
[2019-07-29] MEDS: Doxazosin Mesylate 4 MG TAB PO SCH (21:48)
[2019-07-30] MEDS: Albumin 25% 25 GM/100 ML BOT IVPB SCH (03:36)
[2019-07-30 04:47] LABS: #Lymphocytes 1.6 thou/uL (1.20-3.40); #Monocytes 1.2 thou/uL (0.11-0.59); #Neutrophils 6.8 thou/uL (1.40-6.50); %Eosinophils 0.3 % (0.0-10.0); %Lymphocytes 16.5 % (21.0-51.0); %Monocytes 12.1 % (0.0-10.0); %Neutrophils 71.1 % (42.0-75.0); Hemoglobin 10.9 g/dL (14.0-18.0); Mean Corpuscular HGB CONC 32.6 g/dL (32.0-36.0); Mean Corpuscular Hemoglobin 26.9 pg (27.0-31.0); Mean Corpuscular Volume 82.5 fL (78.0-98.0); Mean Platelet Volume 9.6 fL (7.4-10.4); Platelet Count 150 thou/uL (130-400); RBC Distribution Width 13.9 % (11.5-14.5); Red Blood Cell (RBC) Count 4.07 mill/uL (4.70-6.10); White Blood Cell (WBC) Count 9.6 thou/uL (4.8-10.8)
[2019-07-30 05:11] LABS: Anion Gap 15 mmol/L (10-20); BUN (Urea Nitrogen) 36 mg/dL (8.4-25.7); Calc. Creatinine Clearance 21 mL/min (70-130); Calcium 8.7 mg/dL (7.8-10.44); Carbon Dioxide 27 mmol/L (23-31); Chloride 104 mmol/L (98-107); Estimated GFR-MDRD 22; Glucose 99 mg/dL (83-110); Potassium 3.5 mmol/L (3.5-5.1); Sodium 142 mmol/L (136-145)
[2019-07-30] MEDS: Furosemide 20 MG/2 ML VIAL SLOW IVP SCH (05:43)
[2019-07-30] MEDS: Isosorbide Mononitrate (ER) 30 MG TAB PO SCH (08:11)
[2019-07-30] MEDS: hydrALAZINE 25 MG TAB PO SCH ×3 (08:11→20:50)
[2019-07-30] MEDS: Metoprolol Tartrate 25 MG TAB PO SCH ×2 (08:12→20:51)
[2019-07-30] MEDS: Aspirin 81 mg Enteric Coated Tablet PO SCH (08:12)
[2019-07-30] MEDS: Insulin Glargine 12 UNITS in Pre-Filled Syringe 1 EACH SC SCH ×2 (08:12→20:51)
[2019-07-30] MEDS: Amlodipine 10 MG TAB PO SCH (08:12)
[2019-07-30] MEDS: Polyethylene Glycol 3350 17 GM Packet PO SCH (08:12)
--- NOTE | 2019-07-30 09:00 | PRG ---
DATE OF SERVICE: 07/30/2019 SUBJECTIVE: Mr. Castillo is an 78-year-old black male, who was seen by the Renal Service for his acute kidney injury on top of his chronic renal failure. I felt that he may have had a superimposed prerenal azotemia. Initially, his urine sediment did shows some granular casts suggesting a superimposed acute tubular necrosis. We did give him albumin infusion. The plan is simply to continue to observe him. I have decided to hold off the diuretics temporarily on this patient. No new complaints today. Denies any chest pain or shortness of breath. OBJECTIVE: VITAL SIGNS: Blood pressure is 155/74, heart rate 84, respiratory rate 18, temperature 98, pulse ox 100%. GENERAL: Noted to be awake, alert, comfortable, not in distress, somewhat confused. SKIN: Adequate turgor. HEENT: He does have pinkish conjunctivae. Anicteric sclerae. NECK: No neck mass. No carotid bruits. No JVD. CHEST: No deformities. LUNGS: Positive for diffuse wheezing. HEART: Normal sinus rhythm. No murmurs, gallops, or rubs. ABDOMEN: Globular, soft, nontender. No masses. EXTREMITIES: No edema, no deformities. MEDICATIONS: July 30, 2019, was reviewed. LABORATORY DATA: July 30, 2019, white count 9.6, hemoglobin 10.9. Sodium 142, potassium 3.5, chloride 104, carbon dioxide 27, BUN 36, creatinine 3.29, glucose 99, calcium 8.7. ASSESSMENT AND PLAN: 1. Acute kidney injury-initially felt to be a hemodynamically-mediated renal dysfunction. However, with findings of granular cast, this could be reflection of acute tubular necrosis and/or chronic renal failure per se. My bias is to empirically treat him with gentle volume repletion. He received albumin infusion. I will hold off the Lasix temporarily. There is no indication for any dialytic intervention with this patient. He is clinically improving from a renal point of view. 2. Chronic renal failure. He does have proteinuria. The possibility of underlying hypertensive nephropathy remains with this patient. Please note that the initial chest x-ray did show some increased lung markings. 3. Overall, agree with current management. Job ID: [id number]
--- NOTE | 2019-07-30 15:03 | PDOC.HOSPP ---
- Subjective Encounter Date: 07/30/19 Encounter Time: 11:00 Subjective: Patient seen and examined. No new complaints. No overnight events - Objective Vital Signs & Weight: Vital Signs (12 hours) Temp Pulse Resp BP BP BP Pulse Ox 07/30/19 12:00 99.3 F 75 16 135/80 100 07/30/19 08:12 84 155/74 H 07/30/19 08:11 84 155/74 H 07/30/19 08:08 98.0 F 84 18 155/74 H 97 07/30/19 03:56 98.2 F 81 15 143/72 H 95 Weight Weight 182 lb 3.2 oz I&O: 07/29/19 07/30/19 07/31/19 06:59 06:59 06:59 Intake Total 480 1600 Output Total 750 2500 Balance -270 -900 Result Diagrams: 07/30/19 04:01 07/30/19 04:01 Additional Labs: Accuchecks 07/30/19 07/30/19 07/29/19 10:53 06:16 20:33 POC Glucose 180 H 93 158 H 07/29/19 16:50 POC Glucose 137 H Radiology Reviewed by me: Yes EKG Reviewed by me: Yes Hospitalist ROS - Review of Systems ENT: denies: ear pain, ear discharge, nose pain, nose discharge, nose congestion , mouth pain, mouth swelling, throat pain, throat swelling, other Respiratory: denies: cough, dry, shortness of breath, hemoptysis, SOB with excertion, pleuritic pain, sputum, wheezing, other Cardiovascular: denies: chest pain, palpitations, orthopnea, paroxysmal noc. dyspnea, edema, light headedness, other Gastrointestinal: denies: nausea, vomiting, abdominal pain, diarrhea, constipation, melena, hematochezia, other Genitourinary: denies: dysuria, frequency, incontinence, hematuria, retention, other Musculoskeletal: denies: neck pain, shoulder pain, arm pain, back pain, hand pain, leg pain, foot pain, other - Medication Medications: Active Medications Generic Name Dose Route Start Last Admin Trade Name Freq PRN Reason Stop Dose Admin Amlodipine Besylate 10 mg 07/29/19 09:00 07/30/19 08:12 Norvasc PO 10 mg DAILY JOE Administration Aspirin 81 mg 07/29/19 09:00 07/30/19 08:12 Ecotrin PO 81 mg DAILY JOE Administration Atorvastatin Calcium 40 mg 07/29/19 21:00 07/29/19 21:45 Lipitor PO 40 mg HS JOE Administration Cholecalciferol 1,000 units 07/29/19 09:00 07/30/19 08:11 Vitamin D3 PO 1,000 units DAILY JOE Administration Doxazosin Mesylate 4 mg 07/29/19 21:00 07/29/19 21:48 Cardura PO 4 mg HS JOE Administration Hydralazine HCl 25 mg 07/29/19 21:00 07/30/19 08:11 Apresoline PO 25 mg TID JOE Administration Insulin Glargine 12 units/ 0.12 mls @ 0 mls/hr 07/29/19 09:00 07/30/19 08:12 Miscellaneous Medication SC 0.12 mls BID JOE Administration Insulin Human Lispro 0 units 07/28/19 19:57 07/29/19 11:26 Humalog SC 4 unit .MILD SLIDING SCALE PRN Administration Mild Correctional Scale Insulin Human Lispro 0 units 07/28/19 19:57 07/28/19 21:49 Humalog SC 3 unit .BEDTIME SLIDING SC PRN Administration Bedtime Correctional Scale Isosorbide Mononitrate 60 mg 07/30/19 09:00 07/30/19 08:11 Imdur Er PO 60 mg DAILY JOE Administration Metoprolol Tartrate 25 mg 07/29/19 21:00 07/30/19 08:12 Lopressor PO 25 mg BID JOE Administration Polyethylene Glycol 17 gm 07/29/19 09:00 07/30/19 08:12 Miralax PO 17 gm DAILY JOE Administration Sodium Chloride 10 ml 07/28/19 19:58 07/29/19 21:55 Flush - Normal Saline IVF 10 ml Q12HR PRN Administration Saline Flush - Exam General Appearance: NAD, awake alert Eye: PERRL, anicteric sclera ENT: normocephalic atraumatic, no oropharyngeal lesions Neck: supple, symmetric, no JVD, no thyromegaly Heart: RRR, no murmur, no gallops Respiratory: rales Gastrointestinal: soft, non-tender, non-distended Extremities: no cyanosis, 1+ LE edema Skin: normal turgor Neurological: no focal deficits Musculoskeletal: normal tone, normal strength Psychiatric: normal affect, normal behavior Hosp A/P (1) Acute on chronic systolic ACC/AHA stage C congestive heart failure Code(s): I50.23 - ACUTE ON CHRONIC SYSTOLIC (CONGESTIVE) HEART FAILURE Status : Acute (2) Cardiorenal syndrome Code(s): I13.10 - HYP HRT & CHR KDNY DIS W/O HRT FAIL, W STG 1-4/UNSP CHR KDNY Status: Acute (3) Acute worsening of stage 3 chronic kidney disease Code(s): N18.3 - CHRONIC KIDNEY DISEASE, STAGE 3 (MODERATE) Status: Acute (4) Constipation Code(s): K59.00 - CONSTIPATION, UNSPECIFIED Status: Acute (5) Lung nodule, solitary Code(s): R91.1 - SOLITARY PULMONARY NODULE Status: Acute (6) CHF (congestive heart failure) Code(s): I50.9 - HEART FAILURE, UNSPECIFIED Status: Chronic Qualifiers: Heart failure type: systolic Heart failure chronicity: acute on chronic Qualified Code(s): I50.23 - Acute on chronic systolic (congestive) heart failure (7) CAD (coronary artery disease) Code(s): I25.10 - ATHSCL HEART DISEASE OF [place] CORONARY ARTERY W/O ANG PCTRS Status: Chronic Qualifiers: Coronary Disease-Associated Artery/Lesion type: [place] artery [place] vs. transplanted heart: [place] heart Associated angina: without angina Qualified Code(s): I25.10 - Atherosclerotic heart disease of [place] coronary artery without angina pectoris (8) DM type 2 (diabetes mellitus, type 2) Status: Chronic Qualifiers: Diabetes mellitus continuous churn buttermaker insulin use: with continuous churn buttermaker use Diabetes mellitus complication status: with kidney complications Chronic kidney disease stage: stage 3 (moderate) (9) Dementia Code(s): F03.90 - UNSPECIFIED DEMENTIA WITHOUT BEHAVIORAL DISTURBANCE Status: Chronic Qualifiers: Dementia type: unspecified type Dementia behavioral disturbance: without behavioral disturbance Qualified Code(s): F03.90 - Unspecified dementia without behavioral disturbance (10) Dyslipidemia Code(s): E78.5 - HYPERLIPIDEMIA, UNSPECIFIED Status: Chronic (11) History of Ross's esophagus Code(s): Z87.19 - PERSONAL HISTORY OF OTHER DISEASES OF THE DIGESTIVE SYSTEM Status: Chronic (12) Hypertension Code(s): I10 - ESSENTIAL (PRIMARY) HYPERTENSION Status: Chronic Qualifiers: Hypertension type: essential hypertension Qualified Code(s): I10 - Essential (primary) hypertension (13) Tobacco abuse Code(s): Z72.0 - TOBACCO USE Status: Chronic - Plan old records reviewed/req nephrology following, continue albumin miralax for constipation will need outpt imaging for pulmonary nodule 07/30/19 continue lasix albumin given monitor renal function medication reviewed and continue to provide symptomatic treatment
--- NOTE | 2019-07-30 18:50 | PDOC.CPN ---
- Subjective Date: 07/30/19 Time: 18:49 Interval history: No new issues. No angina. SOB at baseline. - Review of Systems General: denies: fever/chills, weight/appetite/sleep changes, night sweats, fatigue Respiratory: reports: shortness of breath. denies: cough, congestion, exercise intolerance Cardiovascular: denies: chest pain, palpitation, edema, paroxysmal nocturnal dyspnea, orthopnea Gastrointestinal: denies: nausea, vomiting, diarrhea, constipation, abd pain, GI bleeding Musculoskeletal: denies: pain, tenderness, stiffness, swelling, arthritis/ arthralgias Neurological: denies: numbness, syncope, seizure, weakness - Objective Allergies/Adverse Reactions: Allergies Allergy/AdvReac Type Severity Reaction Status Date / Time No Known Allergies Allergy Verified 07/28/19 23:13 Visit Medications: Current Medications Acetaminophen (Tylenol) 650 mg PO Q4H PRN PRN Reason: Headache/Fever/Mild Pain (1-3) Acetaminophen (Tylenol) 650 mg RI Q4H PRN PRN Reason: Headache/Fever/Mild Pain (1-3) Albuterol/Ipratropium (Duoneb) 3 ml NEB [id number] PRN PRN Reason: SOB &/or Wheezing Amlodipine Besylate (Norvasc) 10 mg PO DAILY [facility] Last Admin: 07/30/19 08:12 Dose: 10 mg Aspirin (Ecotrin) 81 mg PO DAILY [facility] Last Admin: 07/30/19 08:12 Dose: 81 mg Atorvastatin Calcium (Lipitor) 40 mg PO HS [facility] Last Admin: 07/29/19 21:45 Dose: 40 mg Cholecalciferol (Vitamin D3) 1,000 units PO DAILY [facility] Last Admin: 07/30/19 08:11 Dose: 1,000 units Dextrose/Water (Dextrose 50%) 25 gm SLOW IVP PRN PRN PRN Reason: Hypoglycemia Doxazosin Mesylate (Cardura) 4 mg PO HS [facility] Last Admin: 07/29/19 21:48 Dose: 4 mg Furosemide (Lasix) 20 mg SLOW IVP 0600,1400 [facility] Glucagon (Glucagon) 1 mg IM PRN PRN PRN Reason: Hypoglycemia Guaifenesin/Dextromethorphan (Robitussin Dm) 15 ml PO Q4H PRN PRN Reason: Cough Hydralazine HCl (Apresoline) 25 mg PO TID [facility] Last Admin: 07/30/19 15:59 Dose: 25 mg Dextrose/Water (D5w) 1,000 mls @ 0 mls/hr IV .Q0M PRN PRN Reason: Hypoglycemia Insulin Glargine 12 units/ (Miscellaneous Medication) 0.12 mls @ 0 mls/hr SC BID [facility] Last Admin: 07/30/19 08:12 Dose: 0.12 mls Insulin Human Lispro (Humalog) 0 units SC .MILD SLIDING SCALE PRN PRN Reason: Mild Correctional Scale Last Admin: 07/29/19 11:26 Dose: 4 unit Insulin Human Lispro (Humalog) 0 units SC .BEDTIME SLIDING SC PRN PRN Reason: Bedtime Correctional Scale Last Admin: 07/28/19 21:49 Dose: 3 unit Isosorbide Mononitrate (Imdur Er) 60 mg PO DAILY [facility] Last Admin: 07/30/19 08:11 Dose: 60 mg Metoprolol Tartrate (Lopressor) 25 mg PO BID [facility] Last Admin: 07/30/19 08:12 Dose: 25 mg Polyethylene Glycol (Miralax) 17 gm PO DAILY [facility] Last Admin: 07/30/19 08:12 Dose: 17 gm Senna/Docusate Sodium (Senokot S) 2 tab PO BID PRN PRN Reason: Constipation Sodium Chloride (Flush - Normal Saline) 10 ml IVF Q12HR PRN PRN Reason: Saline Flush Last Admin: 07/29/19 21:55 Dose: 10 ml Sodium Chloride (Flush - Normal Saline) 10 ml IVF PRN PRN PRN Reason: Saline Flush Vital Signs & Weight: Vital Signs Temp Pulse Resp BP BP Pulse Ox 07/30/19 16:00 99 F 77 16 155/73 H 100 07/30/19 15:59 75 07/30/19 12:00 99.3 F 75 16 135/80 100 07/30/19 08:12 84 155/74 H 07/30/19 08:11 84 155/74 H 07/30/19 08:08 98.0 F 84 18 155/74 H 97 Weight 182 lb 3.2 oz - Physical Exam General: appears well HEENT: mucus membranes moist Neck: supple neck Cardiac: regular rate and rhythm Lungs: normal breath sounds Neuro: grossly intact Abdomen: active bowel sounds Extremities: no edema Skin: clear Musculoskeletal: no pain - Labs Result Diagrams: 07/30/19 04:01 07/30/19 04:01 Troponin/CKMB CK-MB (CK-2) 2.7 ng/mL (0-6.6) 07/28/19 17:36 Troponin I 0.182 ng/mL (< 0.028) H 07/29/19 00:59 - Telemetry Sinus rhythms and dysrhythmias: sinus rhythm - Assessment/Plan Assessment/Plan: 1. RACHEL on CKD 2. Hx of CAD, stable no ACS. 3. Ischemic CM EF at 45-50% last echo 4. S/P CABG PLAN: - CV stable. - Nephrology following for renal impairment. - Will repeat echo.
[2019-07-30] MEDS: Atorvastatin Calcium 40 MG TAB PO SCH (20:50)
[2019-07-30] MEDS: Doxazosin Mesylate 4 MG TAB PO SCH (20:50)
[2019-07-31 04:46] LABS: #Eosinphils 0.2 thou/uL (0.0-0.7); #Lymphocytes 1.4 thou/uL (1.20-3.40); #Neutrophils 4.4 thou/uL (1.40-6.50); %Basophils 0.2 % (0.0-1.0); %Eosinophils 3.5 % (0.0-10.0); %Lymphocytes 19.5 % (21.0-51.0); %Monocytes 14.7 % (0.0-10.0); %Neutrophils 62.2 % (42.0-75.0); Hemoglobin 12.3 g/dL (14.0-18.0); Mean Corpuscular HGB CONC 32.3 g/dL (32.0-36.0); Mean Corpuscular Hemoglobin 26.8 pg (27.0-31.0); Mean Corpuscular Volume 82.8 fL (78.0-98.0); Platelet Count 170 thou/uL (130-400); RBC Distribution Width 13.9 % (11.5-14.5); Red Blood Cell (RBC) Count 4.59 mill/uL (4.70-6.10); White Blood Cell (WBC) Count 7.1 thou/uL (4.8-10.8)
[2019-07-31 05:00] LABS: Anion Gap 15 mmol/L (10-20); BUN (Urea Nitrogen) 37 mg/dL (8.4-25.7); Calc. Creatinine Clearance 19 mL/min (70-130); Calcium 8.7 mg/dL (7.8-10.44); Carbon Dioxide 27 mmol/L (23-31); Chloride 102 mmol/L (98-107); Estimated GFR-MDRD 20; Potassium 3.3 mmol/L (3.5-5.1); Sodium 141 mmol/L (136-145)
[2019-07-31 05:27] LABS: Glucose 55 mg/dL (83-110)
[2019-07-31] MEDS: Furosemide 20 MG/2 ML VIAL SLOW IVP SCH ×2 (05:39→14:06)
[2019-07-31] MEDS ORDERED: Benzonatate 100 MG CAP PO PRN (07:58)
[2019-07-31] MEDS ORDERED: Diabetic Tussin 200 MG/10 ML UDCUP PO PRN (07:58)
[2019-07-31] MEDS ORDERED: Ondansetron PF 4 MG/2 ML Vial IVP PRN (07:58)
[2019-07-31] MEDS ORDERED: Ondansetron ODT 4 MG TAB PO PRN (07:58)
[2019-07-31] MEDS ORDERED: hydrALAZINE 20 MG/ML VIAL SLOW IVP PRN (07:58)
[2019-07-31] MEDS ORDERED: Loratadine 10 MG TAB PO PRN (07:58)
[2019-07-31] MEDS ORDERED: Loperamide HCl 2 MG CAP PO PRN (07:58)
[2019-07-31] MEDS ORDERED: Cepastat Lozenges 1 LOZ PO PRN (07:58)
[2019-07-31] MEDS ORDERED: Sodium Chloride 0.65% Nasal 44 ML BOT EA NARE PRN (07:58)
[2019-07-31] MEDS: Aspirin 81 mg Enteric Coated Tablet PO SCH (09:43)
[2019-07-31] MEDS: Amlodipine 10 MG TAB PO SCH (09:43)
[2019-07-31] MEDS: Isosorbide Mononitrate (ER) 30 MG TAB PO SCH (09:43)
[2019-07-31] MEDS: Metoprolol Tartrate 25 MG TAB PO SCH ×2 (09:43→20:27)
[2019-07-31] MEDS: hydrALAZINE 25 MG TAB PO SCH ×3 (09:44→20:27)
[2019-07-31] MEDS: Polyethylene Glycol 3350 17 GM Packet PO SCH (09:44)
--- NOTE | 2019-07-31 09:50 | PRG ---
DATE OF SERVICE: 07/31/2019 SUBJECTIVE: Mr. Castillo is an 78-year-old black male, who was seen by the Renal Service for his acute kidney injury on top of his chronic renal failure. Review of his urine sediment suggests he has superimposed acute tubular necrosis suggested by the findings of granular casts on the urine sediment. This morning, he denies any complaints. He does have intermittent confusion. I did discuss the diagnosis with the patient's . No other complaints today. No chest pain or shortness of breath. OBJECTIVE: VITAL SIGNS: Blood pressure is noted at 162/89, heart rate 83, respiratory rate 18, temperature 98.8, O2 saturation 92%. GENERAL: Awake, alert, supine, comfortable, not in distress. SKIN: Adequate turgor. HEENT: Pinkish conjunctivae. Anicteric sclerae. No neck mass. No carotid bruits. No JVD. CHEST: No deformities. LUNGS: Decreased breath sounds. HEART: Normal sinus rhythm. No murmur. No gallops. No rubs. ABDOMEN: Globular, soft, nontender. No masses. EXTREMITIES: No edema. No deformities. MEDICATIONS: Medications of July 31, 2019, were reviewed. LABORATORY DATA: Laboratories of July 31, 2019; white count 7.1, hemoglobin 12.3. Sodium 141, potassium 3.3, chloride 102, carbon dioxide 27, BUN 37, creatinine 3.53, glucose 55, calcium 8.7. ASSESSMENT AND PLAN: 1. Acute kidney injury on top of his chronic renal failure. He has a superimposed acute tubular necrosis. Management is supportive. Continue current management. There is no indication for any dialytic intervention. Should the renal function further worsen, we may need to consider holding off his diuretics temporarily. 2. Shortness of breath. This is baseline for the patient. I do not find any evidence of overt CHF. The plan is to repeat the cardiac echo within. Last echo showed a decreased EF 45% to 50%. Recheck basic metabolic in a.m. Job ID: [id number]
--- NOTE | 2019-07-31 13:29 | PDOC.HOSPP ---
- Subjective Encounter Date: 07/31/19 Encounter Time: 08:00 Subjective: Patient seen and examined. No new complaints. No overnight events - Objective Vital Signs & Weight: Vital Signs (12 hours) Temp Pulse Resp BP BP Pulse Ox 07/31/19 11:25 99.3 F 80 17 141/75 H 96 07/31/19 09:44 83 07/31/19 09:43 83 07/31/19 07:45 98.8 F 83 18 162/89 H 92 L 07/31/19 04:00 99.9 F H 88 15 163/78 H 95 Weight Weight 179 lb 8 oz I&O: 07/30/19 07/31/19 08/01/19 06:59 06:59 06:59 Intake Total 1600 360 Output Total 2500 325 Balance -900 35 Result Diagrams: 07/31/19 04:06 07/31/19 04:06 Additional Labs: Accuchecks 07/31/19 07/31/19 07/30/19 11:02 06:21 20:55 POC Glucose 128 H 90 129 H 07/30/19 17:07 POC Glucose 79 Radiology Reviewed by me: Yes EKG Reviewed by me: Yes Hospitalist ROS - Review of Systems ENT: denies: ear pain, ear discharge, nose pain, nose discharge, nose congestion , mouth pain, mouth swelling, throat pain, throat swelling, other Respiratory: denies: cough, dry, shortness of breath, hemoptysis, SOB with excertion, pleuritic pain, sputum, wheezing, other Cardiovascular: denies: chest pain, palpitations, orthopnea, paroxysmal noc. dyspnea, edema, light headedness, other Gastrointestinal: denies: nausea, vomiting, abdominal pain, diarrhea, constipation, melena, hematochezia, other Genitourinary: denies: dysuria, frequency, incontinence, hematuria, retention, other Musculoskeletal: denies: neck pain, shoulder pain, arm pain, back pain, hand pain, leg pain, foot pain, other - Medication Medications: Active Medications Generic Name Dose Route Start Last Admin Trade Name Freq PRN Reason Stop Dose Admin Amlodipine Besylate 10 mg 07/29/19 09:00 07/31/19 09:43 Norvasc PO 10 mg DAILY JOE Administration Aspirin 81 mg 07/29/19 09:00 07/31/19 09:43 Ecotrin PO 81 mg DAILY JOE Administration Atorvastatin Calcium 40 mg 07/29/19 21:00 07/30/19 20:50 Lipitor PO 40 mg HS JOE Administration Cholecalciferol 1,000 units 07/29/19 09:00 07/31/19 09:43 Vitamin D3 PO 1,000 units DAILY JOE Administration Doxazosin Mesylate 4 mg 07/29/19 21:00 07/30/19 20:50 Cardura PO 4 mg HS JOE Administration Furosemide 20 mg 07/31/19 06:00 07/31/19 05:39 Lasix SLOW IVP 20 mg 0600,1400 JOE Administration Hydralazine HCl 25 mg 07/29/19 21:00 07/31/19 09:44 Apresoline PO 25 mg TID JOE Administration Insulin Human Lispro 0 units 07/28/19 19:57 07/29/19 11:26 Humalog SC 4 unit .MILD SLIDING SCALE PRN Administration Mild Correctional Scale Insulin Human Lispro 0 units 07/28/19 19:57 07/28/19 21:49 Humalog SC 3 unit .BEDTIME SLIDING SC PRN Administration Bedtime Correctional Scale Isosorbide Mononitrate 60 mg 07/30/19 09:00 07/31/19 09:43 Imdur Er PO 60 mg DAILY [facility] Administration Metoprolol Tartrate 25 mg 07/29/19 21:00 07/31/19 09:43 Lopressor PO 25 mg BID JOE Administration Polyethylene Glycol 17 gm 07/29/19 09:00 07/31/19 09:44 Miralax PO 17 gm DAILY JOE Administration Sodium Chloride 10 ml 07/28/19 19:58 07/31/19 05:41 Flush - Normal Saline IVF 10 ml Q12HR PRN Administration Saline Flush - Exam General Appearance: NAD, awake alert Eye: PERRL, anicteric sclera ENT: normocephalic atraumatic, no oropharyngeal lesions Neck: supple, symmetric, no JVD Heart: RRR, no murmur, no gallops, no rubs Respiratory: CTAB, no wheezes, no rales, no ronchi Gastrointestinal: soft, non-tender, non-distended Extremities: no cyanosis, no clubbing Skin: normal turgor, no lesions Neurological: no focal deficits Musculoskeletal: normal tone, normal strength Psychiatric: normal affect, normal behavior Hosp A/P (1) Acute on chronic systolic ACC/AHA stage C congestive heart failure Code(s): I50.23 - ACUTE ON CHRONIC SYSTOLIC (CONGESTIVE) HEART FAILURE Status : Acute (2) Cardiorenal syndrome Code(s): I13.10 - HYP HRT & CHR KDNY DIS W/O HRT FAIL, W STG 1-4/UNSP CHR KDNY Status: Acute (3) Acute worsening of stage 3 chronic kidney disease Code(s): N18.3 - CHRONIC KIDNEY DISEASE, STAGE 3 (MODERATE) Status: Acute (4) Constipation Code(s): K59.00 - CONSTIPATION, UNSPECIFIED Status: Resolved (5) Lung nodule, solitary Code(s): R91.1 - SOLITARY PULMONARY NODULE Status: Acute (6) CHF (congestive heart failure) Code(s): I50.9 - HEART FAILURE, UNSPECIFIED Status: Chronic Qualifiers: Heart failure type: systolic Heart failure chronicity: acute on chronic Qualified Code(s): I50.23 - Acute on chronic systolic (congestive) heart failure (7) CAD (coronary artery disease) Code(s): I25.10 - ATHSCL HEART DISEASE OF [place] CORONARY ARTERY W/O ANG PCTRS Status: Chronic Qualifiers: Coronary Disease-Associated Artery/Lesion type: [place] artery [place] vs. transplanted heart: [place] heart Associated angina: without angina Qualified Code(s): I25.10 - Atherosclerotic heart disease of [place] coronary artery without angina pectoris (8) DM type 2 (diabetes mellitus, type 2) Status: Chronic Qualifiers: Diabetes mellitus intermediate accountant insulin use: with intermediate accountant use Diabetes mellitus complication status: with kidney complications Chronic kidney disease stage: stage 3 (moderate) (9) Dementia Code(s): F03.90 - UNSPECIFIED DEMENTIA WITHOUT BEHAVIORAL DISTURBANCE Status: Chronic Qualifiers: Dementia type: unspecified type Dementia behavioral disturbance: without behavioral disturbance Qualified Code(s): F03.90 - Unspecified dementia without behavioral disturbance (10) Dyslipidemia Code(s): E78.5 - HYPERLIPIDEMIA, UNSPECIFIED Status: Chronic (11) History of Ross's esophagus Code(s): Z87.19 - PERSONAL HISTORY OF OTHER DISEASES OF THE DIGESTIVE SYSTEM Status: Chronic (12) Hypertension Code(s): I10 - ESSENTIAL (PRIMARY) HYPERTENSION Status: Chronic Qualifiers: Hypertension type: essential hypertension Qualified Code(s): I10 - Essential (primary) hypertension (13) Tobacco abuse Code(s): Z72.0 - TOBACCO USE Status: Chronic (14) Hypoglycemia associated with type 2 diabetes mellitus Code(s): E11.649 - TYPE 2 DIABETES MELLITUS WITH HYPOGLYCEMIA WITHOUT COMA Status: Acute - Plan old records reviewed/req, PT/OT nephrology following, continue albumin miralax for constipation will need outpt imaging for pulmonary nodule 07/30/19 continue lasix albumin given monitor renal function medication reviewed and continue to provide symptomatic treatment 07/31/19 pt has overall improvement with diuresis monitor labs echo pending cardiology on case expecting discharge in 24 hours
--- NOTE | 2019-07-31 14:27 | PDOC.CPN ---
- Subjective Date: 07/31/19 Time: 14:26 - Review of Systems General: denies: fever/chills, weight/appetite/sleep changes, night sweats, fatigue Respiratory: denies: cough, congestion, shortness of breath, exercise intolerance Cardiovascular: denies: chest pain, palpitation, edema, paroxysmal nocturnal dyspnea, orthopnea Gastrointestinal: denies: nausea, vomiting, diarrhea, constipation, abd pain, GI bleeding Musculoskeletal: denies: pain, tenderness, stiffness, swelling, arthritis/ arthralgias Neurological: denies: numbness, syncope, seizure, weakness - Objective Allergies/Adverse Reactions: Allergies Allergy/AdvReac Type Severity Reaction Status Date / Time No Known Allergies Allergy Verified 07/28/19 23:13 Visit Medications: Current Medications Acetaminophen (Tylenol) 650 mg PO Q4H PRN PRN Reason: Headache/Fever/Mild Pain (1-3) Albuterol/Ipratropium (Duoneb) 3 ml NEB [id number] PRN PRN Reason: SOB &/or Wheezing Amlodipine Besylate (Norvasc) 10 mg PO DAILY [facility] Last Admin: 07/31/19 09:43 Dose: 10 mg Aspirin (Ecotrin) 81 mg PO DAILY [facility] Last Admin: 07/31/19 09:43 Dose: 81 mg Atorvastatin Calcium (Lipitor) 40 mg PO HS [facility] Last Admin: 07/30/19 20:50 Dose: 40 mg Benzonatate (Tessalon) 100 mg PO Q6H PRN PRN Reason: Cough Cholecalciferol (Vitamin D3) 1,000 units PO DAILY [facility] Last Admin: 07/31/19 09:43 Dose: 1,000 units Dextrose/Water (Dextrose 50%) 25 gm SLOW IVP PRN PRN PRN Reason: Hypoglycemia Doxazosin Mesylate (Cardura) 4 mg PO HS [facility] Last Admin: 07/30/19 20:50 Dose: 4 mg Furosemide (Lasix) 20 mg SLOW IVP 0600,1400 [facility] Last Admin: 07/31/19 14:06 Dose: 20 mg Glucagon (Glucagon) 1 mg IM PRN PRN PRN Reason: Hypoglycemia Guaifenesin (Robitussin Sf) 200 mg PO Q4H PRN PRN Reason: Cough Guaifenesin/Dextromethorphan (Robitussin Dm) 15 ml PO Q4H PRN PRN Reason: Cough Hydralazine HCl (Apresoline) 25 mg PO TID [facility] Last Admin: 07/31/19 14:03 Dose: 25 mg Hydralazine HCl (Apresoline) 10 mg SLOW IVP Q4H PRN PRN Reason: SBP > 180 and HR < 70 Dextrose/Water (D5w) 1,000 mls @ 0 mls/hr IV .Q0M PRN PRN Reason: Hypoglycemia Insulin Human Lispro (Humalog) 0 units SC .MILD SLIDING SCALE PRN PRN Reason: Mild Correctional Scale Last Admin: 07/29/19 11:26 Dose: 4 unit Insulin Human Lispro (Humalog) 0 units SC .BEDTIME SLIDING SC PRN PRN Reason: Bedtime Correctional Scale Last Admin: 07/28/19 21:49 Dose: 3 unit Isosorbide Mononitrate (Imdur Er) 60 mg PO DAILY [facility] Last Admin: 07/31/19 09:43 Dose: 60 mg Loperamide HCl (Imodium) 2 mg PO PRN PRN PRN Reason: Diarrhea/Loose Stools Loratadine (Claritin) 10 mg PO DAILYPRN PRN PRN Reason: Sinus Symptoms Metoprolol Tartrate (Lopressor) 25 mg PO BID [facility] Last Admin: 07/31/19 09:43 Dose: 25 mg Ondansetron HCl (Zofran Odt) 4 mg PO Q6H PRN PRN Reason: Nausea/Vomiting Ondansetron HCl (Zofran) 4 mg IVP Q6H PRN PRN Reason: Nausea/Vomiting Polyethylene Glycol (Miralax) 17 gm PO DAILY [facility] Last Admin: 07/31/19 09:44 Dose: 17 gm Senna/Docusate Sodium (Senokot S) 2 tab PO BID PRN PRN Reason: Constipation Sodium Chloride (Flush - Normal Saline) 10 ml IVF Q12HR PRN PRN Reason: Saline Flush Last Admin: 07/31/19 05:41 Dose: 10 ml Sodium Chloride (Flush - Normal Saline) 10 ml IVF PRN PRN PRN Reason: Saline Flush Sodium Chloride ([place] Nasal [place] 0.65%) 0 ml EA NARE QIDPRN PRN PRN Reason: Nasal Congestion Throat Lozenges (Cepastat Lozenges) 1 fernie PO Q2H PRN PRN Reason: Sore Throat Vital Signs & Weight: Vital Signs Temp Pulse Resp BP BP BP Pulse Ox 07/31/19 14:03 77 139/73 07/31/19 11:25 99.3 F 80 17 141/75 H 96 07/31/19 09:44 83 07/31/19 09:43 83 07/31/19 07:45 98.8 F 83 18 162/89 H 92 L 07/31/19 04:00 99.9 F H 88 15 163/78 H 95 Weight 179 lb 8 oz - Physical Exam General: alert & oriented x3 HEENT: mucus membranes moist Neck: supple neck Cardiac: regular rate and rhythm Lungs: clear to auscultation Neuro: grossly intact Abdomen: active bowel sounds Extremities: no edema Skin: clear Musculoskeletal: no pain - Labs Result Diagrams: 07/31/19 04:06 07/31/19 04:06 Troponin/CKMB CK-MB (CK-2) 2.7 ng/mL (0-6.6) 07/28/19 17:36 Troponin I 0.182 ng/mL (< 0.028) H 07/29/19 00:59 - Telemetry Sinus rhythms and dysrhythmias: sinus rhythm - Assessment/Plan Assessment/Plan: 1. RACHEL on CKD 2. Hx of CAD, stable no ACS. 3. Ischemic CM EF at 45-50% last echo 4. S/P CABG 5. Hypokalemia PLAN: - CV stable. - Nephrology following for renal impairment. - Echo pending.
[2019-07-31] MEDS: Doxazosin Mesylate 4 MG TAB PO SCH (20:27)
[2019-07-31] MEDS: Atorvastatin Calcium 40 MG TAB PO SCH (20:27)
[2019-08-01 04:57] LABS: Anion Gap 14 mmol/L (10-20); BUN (Urea Nitrogen) 40 mg/dL (8.4-25.7); Calc. Creatinine Clearance 19 mL/min (70-130); Calcium 8.5 mg/dL (7.8-10.44); Carbon Dioxide 28 mmol/L (23-31); Chloride 98 mmol/L (98-107); Estimated GFR-MDRD 20; Glucose 126 mg/dL (83-110); Potassium 3.3 mmol/L (3.5-5.1); Sodium 137 mmol/L (136-145)
[2019-08-01] MEDS: Furosemide 20 MG/2 ML VIAL SLOW IVP SCH ×2 (05:08→14:31)
[2019-08-01] MEDS: Amlodipine 10 MG TAB PO SCH (08:16)
[2019-08-01] MEDS: Polyethylene Glycol 3350 17 GM Packet PO SCH ×2 (08:16→22:19)
[2019-08-01] MEDS: Aspirin 81 mg Enteric Coated Tablet PO SCH (08:16)
[2019-08-01] MEDS: Isosorbide Mononitrate (ER) 30 MG TAB PO SCH (08:16)
[2019-08-01] MEDS: hydrALAZINE 25 MG TAB PO SCH ×3 (08:16→22:20)
[2019-08-01] MEDS: Metoprolol Tartrate 25 MG TAB PO SCH ×2 (08:16→22:19)
[2019-08-01] MEDS: HumaLOG 300 UNITS/3 ML VIAL SC PRN (12:22)
--- NOTE | 2019-08-01 12:29 | PRG ---
DATE OF SERVICE: 08/01/2019 SUBJECTIVE: Mr. Castillo is an 78-year-old black male, who was seen for an acute kidney injury on top of his chronic renal failure. He has a superimposed acute tubular necrosis. He is doing well. He denies any chest pain or shortness of breath. Please note, he is noted to be nonoliguric and diuresing well. No new complaints today. No chest pain or shortness of breath. OBJECTIVE: VITAL SIGNS: Blood pressure 138/75, heart rate 82, respiratory rate 18, temperature 99.1, and pulse ox 93%. GENERAL: The patient is awake, alert, and comfortable, not in distress. SKIN: Adequate turgor. HEENT: He has pinkish conjunctivae. Anicteric sclerae. No neck mass. No carotid bruits. No JVD. CHEST: No deformities. LUNGS: Clear breath sounds. No wheezing. No crackles. HEART: Normal sinus rhythm. No murmurs, gallops, or rubs. ABDOMEN: Globular, soft, and nontender. No masses. EXTREMITIES: No edema. No deformities. MEDICATION: August 01, 2019, was reviewed. LABORATORY DATA: August 01, 2019; sodium 137, potassium 3.3, chloride 98, carbon dioxide 28, BUN 40, creatinine 3.52, glucose 126, and calcium 8.5. July 31, 2019; hemoglobin 12.3. ASSESSMENT AND PLAN: Acute kidney injury on top of his chronic renal failure, superimposed acute tubular necrosis. Continue supportive measurement. Diuresing with Lasix. No indication for any dialytic intervention. The patient noted to be euvolemic and is normokalemic. RECOMMENDATION: To recheck again basic metabolic profile and CBC in a.m. Job ID: [id number]
[2019-08-01] MEDS ORDERED: Polyethylene Glycol 3350 17 GM Packet PO PRN (15:26)
--- NOTE | 2019-08-01 16:04 | PDOC.HOSPP ---
- Subjective Encounter Date: 08/01/19 Encounter Time: 15:30 Subjective: Patient seen and examined for CHF. SOB improving. No CP. No new complaints. No overnight events - Objective Vital Signs & Weight: Vital Signs (12 hours) Temp Pulse Resp BP BP BP Pulse Ox 08/01/19 15:01 99 F 80 18 141/79 H 94 L 08/01/19 14:31 77 138/75 08/01/19 11:40 99.1 F 82 18 138/75 93 L 08/01/19 08:10 98.1 F 94 18 154/79 H 93 L Weight Weight 181 lb I&O: 07/31/19 08/01/19 08/02/19 06:59 06:59 06:59 Intake Total 360 372 Output Total 325 550 Balance 35 -178 Result Diagrams: 07/31/19 04:06 08/01/19 04:06 Additional Labs: Accuchecks 08/01/19 08/01/19 07/31/19 10:49 05:31 20:43 POC Glucose 234 H 118 H 103 07/31/19 17:00 POC Glucose 76 EKG Reviewed by me: Yes (Tele SR) Hospitalist ROS - Review of Systems Gastrointestinal: reports: constipation. denies: nausea, vomiting, abdominal pain, diarrhea, melena, hematochezia, other Genitourinary: denies: dysuria, frequency, incontinence, hematuria, retention, other - Medication Medications: Active Medications Generic Name Dose Route Start Last Admin Trade Name Freq PRN Reason Stop Dose Admin Amlodipine Besylate 10 mg 07/29/19 09:00 08/01/19 08:16 Norvasc PO 10 mg DAILY JOE Administration Aspirin 81 mg 07/29/19 09:00 08/01/19 08:16 Ecotrin PO 81 mg DAILY JOE Administration Atorvastatin Calcium 40 mg 07/29/19 21:00 07/31/19 20:27 Lipitor PO 40 mg HS JOE Administration Cholecalciferol 1,000 units 07/29/19 09:00 08/01/19 08:16 Vitamin D3 PO 1,000 units DAILY JOE Administration Doxazosin Mesylate 4 mg 07/29/19 21:00 07/31/19 20:27 Cardura PO 4 mg HS JOE Administration Furosemide 20 mg 07/31/19 06:00 08/01/19 14:31 Lasix SLOW IVP 20 mg 0600,1400 JOE Administration Hydralazine HCl 25 mg 07/29/19 21:00 08/01/19 14:31 Apresoline PO 25 mg TID JOE Administration Insulin Human Lispro 0 units 07/28/19 19:57 08/01/19 12:22 Humalog SC 3 unit .MILD SLIDING SCALE PRN Administration Mild Correctional Scale Insulin Human Lispro 0 units 07/28/19 19:57 07/28/19 21:49 Humalog SC 3 unit .BEDTIME SLIDING SC PRN Administration Bedtime Correctional Scale Isosorbide Mononitrate 60 mg 07/30/19 09:00 08/01/19 08:16 Imdur Er PO 60 mg DAILY JOE Administration Metoprolol Tartrate 25 mg 07/29/19 21:00 08/01/19 08:16 Lopressor PO 25 mg BID JOE Administration Sodium Chloride 10 ml 07/28/19 19:58 07/31/19 05:41 Flush - Normal Saline IVF 10 ml Q12HR PRN Administration Saline Flush - Exam General Appearance: NAD Heart: RRR, no gallops Respiratory: no wheezes, no ronchi Gastrointestinal: non-tender, non-distended, normal bowel sounds Extremities: no edema Hosp A/P - Plan DVT proph w/lovenox, DVT proph w/SCDs Acute on chronic systolic exacerbation RACHEL on CKD 4 Hypokalemia DM 2 HTN HLDc Dementia, chronic, stable CAD s/p CABG Tobacco dep Plan: Continue IV Lasix with fluid Restriction ACEI/ARB/Alactone on hold due to RACHEL Cont sliding scale AM labs Treat constipation BMP in AM
[2019-08-01] MEDS: Doxazosin Mesylate 4 MG TAB PO SCH (22:19)
[2019-08-01] MEDS: Senokot S 8.6-50 MG TAB PO SCH (22:19)
[2019-08-01] MEDS: Atorvastatin Calcium 40 MG TAB PO SCH (22:20)
[2019-08-02 04:56] LABS: Anion Gap 13 mmol/L (10-20); BUN (Urea Nitrogen) 43 mg/dL (8.4-25.7); Calc. Creatinine Clearance 18 mL/min (70-130); Calcium 8.5 mg/dL (7.8-10.44); Carbon Dioxide 28 mmol/L (23-31); Chloride 97 mmol/L (98-107); Estimated GFR-MDRD 19; Glucose 190 mg/dL (83-110); Potassium 3.3 mmol/L (3.5-5.1); Sodium 135 mmol/L (136-145)
[2019-08-02 05:26] LABS: Band 1 % (5-11); Eosinophils 10 % (0-10); Hemoglobin 11.9 g/dL (14.0-18.0); Lymphocytes 27 % (21-51); MDiff Complete? YES; Mean Corpuscular HGB CONC 32.2 g/dL (32.0-36.0); Mean Corpuscular Hemoglobin 26.3 pg (27.0-31.0); Mean Corpuscular Volume 81.7 fL (78.0-98.0); Mean Platelet Volume 8.6 fL (7.4-10.4); Metamyelocyte 1 % (0-0); Monocytes 10 % (0-10); Neutrophil 47 % (42-75); Platelet Count 167 thou/uL (130-400); Platelet Morphology Comment Appears Adequate; RBC Distribution Width 13.4 % (11.5-14.5); RBC Morphology Normal; Reactive Lymphocytes 4 % (0-10); Red Blood Cell (RBC) Count 4.52 mill/uL (4.70-6.10); White Blood Cell (WBC) Count 5.6 thou/uL (4.8-10.8)
[2019-08-02] MEDS: Furosemide 20 MG/2 ML VIAL SLOW IVP SCH (06:41)
[2019-08-02] MEDS: Senokot S 8.6-50 MG TAB PO SCH ×2 (08:42→20:12)
[2019-08-02] MEDS: Polyethylene Glycol 3350 17 GM Packet PO SCH ×2 (08:42→20:11)
[2019-08-02] MEDS: hydrALAZINE 25 MG TAB PO SCH ×3 (08:42→20:12)
[2019-08-02] MEDS: Amlodipine 10 MG TAB PO SCH (08:43)
[2019-08-02] MEDS: Aspirin 81 mg Enteric Coated Tablet PO SCH (08:43)
[2019-08-02] MEDS: Metoprolol Tartrate 25 MG TAB PO SCH ×2 (08:43→20:12)
[2019-08-02] MEDS: Isosorbide Mononitrate (ER) 30 MG TAB PO SCH (08:43)
--- NOTE | 2019-08-02 11:25 | PRG ---
DATE OF SERVICE: 08/02/2019 SUBJECTIVE: Mr. Castillo is an 78-year-old black male, seen by the Renal Service for his acute kidney injury. The acute kidney injury is on top of his chronic renal failure-I feel that he has superimposed acute tubular necrosis. Creatinine has been fluctuating. Most recently, creatinine now is 3.73 from 3.52, yesterday. No new complaints. No chest pain or shortness of breath. OBJECTIVE: VITAL SIGNS: Blood pressure is 149/76, heart rate 79, respiratory rate 16, temperature 98.6, and pulse ox 95%. GENERAL: Noted to be awake, alert, and comfortable, not in overt distress. SKIN: Adequate turgor. HEENT: He has pinkish conjunctivae. Anicteric sclerae. No neck mass. No carotid bruits. No JVD. CHEST: No deformities. LUNGS: Clear breath sounds. HEART: Normal sinus rhythm. No murmurs, gallops, or rubs. ABDOMEN: Globular, soft, and nontender. No masses. EXTREMITIES: No edema. No deformities. MEDICATIONS: Medications of August 02, 2019, reviewed. LABORATORY DATA: August 02, 2019; white count 5.6 and hemoglobin 11.9. August 02, 2019; sodium 135, potassium 3.3, chloride 97, carbon dioxide 28, BUN 43, creatinine 3.73, glucose 190, and calcium 8.5. ASSESSMENT AND PLAN: 1. Acute kidney injury on top of his chronic renal failure-superimposed acute tubular necrosis. I did note that the creatinine has worsened to 3.7 from 3.5. We will discontinue furosemide temporarily. No indication for any dialytic intervention. 2. Mild hypokalemia-potassium noted at 3.3. We will discontinue furosemide. 3. Agree with current management. 4. Recheck CBC and basic metabolic profile in a.m. Job ID: [id number]
[2019-08-02] MEDS: HumaLOG 300 UNITS/3 ML VIAL SC PRN (11:52)
--- NOTE | 2019-08-02 14:09 | PDOC.HOSPP ---
- Subjective Encounter Date: 08/02/19 Encounter Time: 10:00 Subjective: Patient seen and examined for CHF. No CP/SOB. No new complaints. No overnight events - Objective Vital Signs & Weight: Vital Signs (12 hours) Temp Pulse Resp BP Pulse Ox 08/02/19 11:20 98.8 F 76 14 127/74 96 08/02/19 08:40 98.6 F 79 16 149/76 H 95 08/02/19 03:43 97.6 F 87 23 H 122/73 96 Weight Weight 181 lb 9.6 oz I&O: 08/01/19 08/02/19 08/03/19 06:59 06:59 06:59 Intake Total 372 720 Output Total 550 1000 Balance -178 -280 Result Diagrams: 08/02/19 03:50 08/02/19 03:50 Additional Labs: Accuchecks 08/02/19 08/02/19 08/01/19 10:52 06:17 21:23 POC Glucose 232 H 166 H 308 H 08/01/19 16:59 POC Glucose 150 H EKG Reviewed by me: Yes (Tele SR) Hospitalist ROS - Review of Systems Respiratory: denies: cough, dry, shortness of breath, hemoptysis, SOB with excertion, pleuritic pain, sputum, wheezing, other Cardiovascular: denies: chest pain, palpitations, orthopnea, paroxysmal noc. dyspnea, edema, light headedness, other Gastrointestinal: denies: nausea, vomiting, abdominal pain, diarrhea, constipation, melena, hematochezia, other - Medication Medications: Active Medications Generic Name Dose Route Start Last Admin Trade Name [id number] PRN Reason Stop Dose Admin Amlodipine Besylate 10 mg 07/29/19 09:00 08/02/19 08:43 Norvasc PO 10 mg DAILY JOE Administration Aspirin 81 mg 07/29/19 09:00 08/02/19 08:43 Ecotrin PO 81 mg DAILY JOE Administration Atorvastatin Calcium 40 mg 07/29/19 21:00 08/01/19 22:20 Lipitor PO 40 mg HS JOE Administration Cholecalciferol 1,000 units 07/29/19 09:00 08/02/19 08:43 Vitamin D3 PO 1,000 units DAILY JOE Administration Doxazosin Mesylate 4 mg 07/29/19 21:00 08/01/19 22:19 Cardura PO 4 mg HS JOE Administration Hydralazine HCl 25 mg 07/29/19 21:00 08/02/19 08:42 Apresoline PO 25 mg TID JOE Administration Insulin Human Lispro 0 units 07/28/19 19:57 08/02/19 11:52 Humalog SC 3 unit .MILD SLIDING SCALE PRN Administration Mild Correctional Scale Insulin Human Lispro 0 units 07/28/19 19:57 07/28/19 21:49 Humalog SC 3 unit .BEDTIME SLIDING SC PRN Administration Bedtime Correctional Scale Isosorbide Mononitrate 60 mg 07/30/19 09:00 08/02/19 08:43 Imdur Er PO 60 mg DAILY JOE Administration Metoprolol Tartrate 25 mg 07/29/19 21:00 08/02/19 08:43 Lopressor PO 25 mg BID JOE Administration Polyethylene Glycol 17 gm 08/01/19 21:00 08/02/19 08:42 Miralax PO 17 gm BID JOE Administration Senna/Docusate Sodium 2 tab 08/01/19 21:00 08/02/19 08:42 Senokot S PO 2 tab BID JOE Administration Sodium Chloride 10 ml 07/28/19 19:58 07/31/19 05:41 Flush - Normal Saline IVF 10 ml Q12HR PRN Administration Saline Flush - Exam General Appearance: NAD Heart: RRR, no gallops Respiratory: no wheezes, no rales, no ronchi Gastrointestinal: non-tender, non-distended, normal bowel sounds Extremities: no cyanosis Neurological: no new deficit Hosp A/P - Plan DVT proph w/SCDs Acute on chronic systolic exacerbation RACHEL on CKD 4 Hypokalemia DM 2 HTN HLDc Dementia, chronic, stable CAD s/p CABG Tobacco dep Plan: IV Lasix on hold due to worsening renal function ACEI/ARB/Alactone on hold due to RACHEL Cont ASA/BB/Hydralazine/Nitrates Cont sliding scale and other meds as above AM labs
[2019-08-02] MEDS: Atorvastatin Calcium 40 MG TAB PO SCH (20:12)
[2019-08-02] MEDS: Doxazosin Mesylate 4 MG TAB PO SCH (20:12)
[2019-08-03 04:34] LABS: Anion Gap 12 mmol/L (10-20); BUN (Urea Nitrogen) 46 mg/dL (8.4-25.7); Calc. Creatinine Clearance 18 mL/min (70-130); Calcium 8.5 mg/dL (7.8-10.44); Carbon Dioxide 30 mmol/L (23-31); Chloride 99 mmol/L (98-107); Estimated GFR-MDRD 18; Glucose 161 mg/dL (83-110); Potassium 3.3 mmol/L (3.5-5.1); Sodium 138 mmol/L (136-145)
[2019-08-03 05:55] LABS: Eosinophils 16 % (0-10); Hemoglobin 11.7 g/dL (14.0-18.0); Lymphocytes 34 % (21-51); MDiff Complete? YES; Mean Corpuscular HGB CONC 32.8 g/dL (32.0-36.0); Mean Corpuscular Hemoglobin 26.8 pg (27.0-31.0); Mean Corpuscular Volume 81.5 fL (78.0-98.0); Mean Platelet Volume 8.9 fL (7.4-10.4); Monocytes 4 % (0-10); Neutrophil 46 % (42-75); Platelet Count 182 thou/uL (130-400); RBC Distribution Width 13.4 % (11.5-14.5); Red Blood Cell (RBC) Count 4.36 mill/uL (4.70-6.10); White Blood Cell (WBC) Count 5.8 thou/uL (4.8-10.8)
--- NOTE | 2019-08-03 09:10 | PRG ---
DATE OF SERVICE: 08/03/2019 SUBJECTIVE: Mr. Castillo is an 78-year-old black male, who was seen by the Renal Service for his acute kidney injury secondary to presumed ATN. Renal function has been worsening in the last few days. He was on diuretics a few days ago. Our plan is to empirically give him some gentle volume repletion to see if we could have some stabilization with the renal dysfunction. He voices no new complaints. No chest pain or shortness of breath. OBJECTIVE: VITAL SIGNS: Blood pressure 145/77, heart rate 85, respiratory rate 16, temperature 99.1, and pulse ox 94%. GENERAL: The patient is awake, alert, comfortable, not in distress. SKIN: Adequate turgor. HEENT: He has pinkish conjunctivae. Anicteric sclerae. NECK: No neck mass. No carotid bruits. No JVD. CHEST: No deformities. LUNGS: Clear breath sounds. HEART: Normal sinus rhythm. No murmurs. No gallops. No rubs. ABDOMEN: Globular, soft, and nontender. No masses. EXTREMITIES: No edema. No deformities. MEDICATIONS: MEDICATIONS of August 03, 2019, were reviewed. LABORATORY DATA: Laboratories of August 03, 2019; sodium 138, potassium 3.3, chloride 99, carbon dioxide 30, BUN 46, creatinine 3.86, glucose 161, and calcium 8.5. Hemoglobin 11.7. ASSESSMENT AND PLAN: Acute kidney injury/chronic renal failure, superimposed acute tubular necrosis. However, of note, the patient's renal function is slightly worsening. Now, Lasix has been discontinued. My plan is to start him on lactated Ringer's with 20 KCl to run at 75 mL/hour to see if I could have some stabilization if no improvement with the renal function. There is no indication for any emergent dialysis with this patient. We will recheck basic metabolic panel and CBC in a.m. Job ID: [id number]
[2019-08-03] MEDS: Aspirin 81 mg Enteric Coated Tablet PO SCH (09:11)
[2019-08-03] MEDS: Amlodipine 10 MG TAB PO SCH (09:11)
[2019-08-03] MEDS: Isosorbide Mononitrate (ER) 30 MG TAB PO SCH (09:12)
[2019-08-03] MEDS: Metoprolol Tartrate 25 MG TAB PO SCH ×2 (09:12→21:23)
[2019-08-03] MEDS: Senokot S 8.6-50 MG TAB PO SCH ×2 (09:12→21:22)
[2019-08-03] MEDS: hydrALAZINE 25 MG TAB PO SCH ×3 (09:12→21:22)
[2019-08-03] MEDS: Polyethylene Glycol 3350 17 GM Packet PO SCH ×2 (09:13→21:23)
[2019-08-03] MEDS: Potassium Chloride 20 MEQ in Lactated Ringer's 1,000 ML IV SCH (10:14)
[2019-08-03] MEDS: HumaLOG 300 UNITS/3 ML VIAL SC PRN ×2 (11:42→17:45)
--- NOTE | 2019-08-03 16:38 | PDOC.CPN ---
- Subjective Date: 08/03/19 Time: 16:37 Interval history: No new issues. No chest pain. - Review of Systems General: denies: fever/chills, weight/appetite/sleep changes, night sweats, fatigue Respiratory: denies: cough, congestion, shortness of breath, exercise intolerance Cardiovascular: denies: chest pain, palpitation, edema, paroxysmal nocturnal dyspnea, orthopnea Gastrointestinal: denies: nausea, vomiting, diarrhea, constipation, abd pain, GI bleeding Musculoskeletal: denies: pain, tenderness, stiffness, swelling, arthritis/ arthralgias Neurological: denies: numbness, syncope, seizure, weakness - Objective Allergies/Adverse Reactions: Allergies Allergy/AdvReac Type Severity Reaction Status Date / Time No Known Allergies Allergy Verified 07/28/19 23:13 Visit Medications: Current Medications Acetaminophen (Tylenol) 650 mg PO Q4H PRN PRN Reason: Headache/Fever/Mild Pain (1-3) Albuterol/Ipratropium (Duoneb) 3 ml NEB [id number] PRN PRN Reason: SOB &/or Wheezing Amlodipine Besylate (Norvasc) 10 mg PO DAILY [facility] Last Admin: 08/03/19 09:11 Dose: 10 mg Aspirin (Ecotrin) 81 mg PO DAILY [facility] Last Admin: 08/03/19 09:11 Dose: 81 mg Atorvastatin Calcium (Lipitor) 40 mg PO [facility] Last Admin: 08/02/19 20:12 Dose: 40 mg Benzonatate (Tessalon) 100 mg PO Q6H PRN PRN Reason: Cough Cholecalciferol (Vitamin D3) 1,000 units PO DAILY [facility] Last Admin: 08/03/19 09:12 Dose: 1,000 units Dextrose/Water (Dextrose 50%) 25 gm SLOW IVP PRN PRN PRN Reason: Hypoglycemia Doxazosin Mesylate (Cardura) 4 mg PO HS [facility] Last Admin: 08/02/19 20:12 Dose: 4 mg Glucagon (Glucagon) 1 mg IM PRN PRN PRN Reason: Hypoglycemia Guaifenesin (Robitussin Sf) 200 mg PO Q4H PRN PRN Reason: Cough Guaifenesin/Dextromethorphan (Robitussin Dm) 15 ml PO Q4H PRN PRN Reason: Cough Hydralazine HCl (Apresoline) 25 mg PO TID [facility] Last Admin: 08/03/19 16:13 Dose: 25 mg Hydralazine HCl (Apresoline) 10 mg SLOW IVP Q4H PRN PRN Reason: SBP > 180 and HR < 70 Dextrose/Water (D5w) 1,000 mls @ 0 mls/hr IV .Q0M PRN PRN Reason: Hypoglycemia Potassium Chloride 20 meq/ (Lactated Ringer's) 1,010 mls @ 75 mls/hr IV .[id number] [facility] Last Admin: 08/03/19 10:14 Dose: 1,010 mls Insulin Human Lispro (Humalog) 0 units SC .MILD SLIDING SCALE PRN PRN Reason: Mild Correctional Scale Last Admin: 08/03/19 11:42 Dose: 3 unit Insulin Human Lispro (Humalog) 0 units SC .BEDTIME SLIDING SC PRN PRN Reason: Bedtime Correctional Scale Last Admin: 07/28/19 21:49 Dose: 3 unit Isosorbide Mononitrate (Imdur Er) 60 mg PO DAILY [facility] Last Admin: 08/03/19 09:12 Dose: 60 mg Loperamide HCl (Imodium) 2 mg PO PRN PRN PRN Reason: Diarrhea/Loose Stools Loratadine (Claritin) 10 mg PO DAILYPRN PRN PRN Reason: Sinus Symptoms Metoprolol Tartrate (Lopressor) 25 mg PO BID [facility] Last Admin: 08/03/19 09:12 Dose: 25 mg Ondansetron HCl (Zofran Odt) 4 mg PO Q6H PRN PRN Reason: Nausea/Vomiting Ondansetron HCl (Zofran) 4 mg IVP Q6H PRN PRN Reason: Nausea/Vomiting Polyethylene Glycol (Miralax) 17 gm PO BID [facility] Last Admin: 08/03/19 09:13 Dose: 17 gm Senna/Docusate Sodium (Senokot S) 2 tab PO BID PRN PRN Reason: Constipation Senna/Docusate Sodium (Senokot S) 2 tab PO BID [facility] Last Admin: 08/03/19 09:12 Dose: 2 tab Sodium Chloride (Flush - Normal Saline) 10 ml IVF Q12HR PRN PRN Reason: Saline Flush Last Admin: 07/31/19 05:41 Dose: 10 ml Sodium Chloride (Flush - Normal Saline) 10 ml IVF PRN PRN PRN Reason: Saline Flush Sodium Chloride ([place] Nasal [place] 0.65%) 0 ml EA NARE QIDPRN PRN PRN Reason: Nasal Congestion Throat Lozenges (Cepastat Lozenges) 1 fernie PO Q2H PRN PRN Reason: Sore Throat Vital Signs & Weight: Vital Signs Temp Pulse Pulse Pulse Resp BP BP 08/03/19 16:13 73 08/03/19 14:47 78 79 122/68 08/03/19 11:45 98.6 F 73 16 08/03/19 09:12 85 145/77 H 08/03/19 09:11 85 08/03/19 07:54 99.1 F 85 16 BP BP Pulse Ox Pulse Ox Pulse Ox 08/03/19 16:13 08/03/19 14:47 126/59 L 94 L 96 08/03/19 11:45 124/63 95 08/03/19 09:12 08/03/19 09:11 08/03/19 07:54 145/77 H 94 L Weight 181 lb 6.4 oz - Physical Exam General: alert & oriented x3 HEENT: mucus membranes moist Neck: supple neck Cardiac: regular rate and rhythm Lungs: normal breath sounds Neuro: grossly intact Abdomen: active bowel sounds Extremities: no edema Skin: clear Musculoskeletal: no pain - Labs Result Diagrams: 08/03/19 03:43 08/03/19 03:43 Troponin/CKMB CK-MB (CK-2) 2.7 ng/mL (0-6.6) 07/28/19 17:36 Troponin I 0.182 ng/mL (< 0.028) H 07/29/19 00:59 - Telemetry Sinus rhythms and dysrhythmias: sinus rhythm - Assessment/Plan Assessment/Plan: 1. RACHEL on CKD 2. Hx of CAD, stable no ACS. 3. Ischemic CM EF at 45-50% last echo 4. S/P CABG 5. Hypokalemia PLAN: - CV stable. - Nephrology following for renal impairment. - Echo unchanged from 6 months ago. - Will sign off. Please call with any questions.
[2019-08-03] MEDS: Atorvastatin Calcium 40 MG TAB PO SCH (21:22)
[2019-08-03] MEDS: Doxazosin Mesylate 4 MG TAB PO SCH (21:23)
--- NOTE | 2019-08-03 22:55 | PDOC.HOSPP ---
- Subjective Encounter Date: 08/03/19 Encounter Time: 10:30 Subjective: Patient seen and examined for CHF/RACHEL. No new CP/SOB. No new complaints. No overnight events - Objective Vital Signs & Weight: Vital Signs (12 hours) Temp Pulse Pulse Pulse Resp BP BP 08/03/19 21:22 77 127/66 08/03/19 16:13 73 08/03/19 16:00 98.4 F 75 16 08/03/19 14:47 78 79 122/68 08/03/19 11:45 98.6 F 73 16 BP BP BP Pulse Ox Pulse Ox Pulse Ox 08/03/19 21:22 08/03/19 16:13 08/03/19 16:00 126/69 95 08/03/19 14:47 126/59 L 94 L 96 08/03/19 11:45 124/63 95 Weight Weight 181 lb 6.4 oz I&O: 08/02/19 08/03/19 08/04/19 06:59 06:59 06:59 Intake Total 414 495 1942 Output Total 1000 1000 600 Balance -280 -160 1270 Result Diagrams: 08/03/19 03:43 08/03/19 03:43 Additional Labs: Accuchecks 08/03/19 08/03/19 08/03/19 20:28 16:37 10:36 POC Glucose 177 H 191 H 240 H 08/03/19 06:10 POC Glucose 162 H EKG Reviewed by me: Yes (Tele SR) Hospitalist ROS - Review of Systems Respiratory: denies: cough, dry, shortness of breath, hemoptysis, SOB with excertion, pleuritic pain, sputum, wheezing, other Cardiovascular: denies: chest pain, palpitations, orthopnea, paroxysmal noc. dyspnea, edema, light headedness, other - Medication Medications: Active Medications Generic Name Dose Route Start Last Admin Trade Name Freq PRN Reason Stop Dose Admin Amlodipine Besylate 10 mg 07/29/19 09:00 08/03/19 09:11 Norvasc PO 10 mg DAILY JOE Administration Aspirin 81 mg 07/29/19 09:00 08/03/19 09:11 Ecotrin PO 81 mg DAILY JOE Administration Atorvastatin Calcium 40 mg 07/29/19 21:00 08/03/19 21:22 Lipitor PO 40 mg HS JOE Administration Cholecalciferol 1,000 units 07/29/19 09:00 08/03/19 09:12 Vitamin D3 PO 1,000 units DAILY JOE Administration Doxazosin Mesylate 4 mg 07/29/19 21:00 08/03/19 21:23 Cardura PO 4 mg HS JOE Administration Hydralazine HCl 25 mg 07/29/19 21:00 08/03/19 21:22 Apresoline PO 25 mg TID JOE Administration Potassium Chloride 20 meq/ 1,010 mls @ 75 mls/hr 08/03/19 09:00 08/03/19 10: 14 Lactated Ringer's IV 1,010 mls .[id number] JOE Administration Insulin Human Lispro 0 units 07/28/19 19:57 08/03/19 17:45 Humalog SC 2 unit .MILD SLIDING SCALE PRN Administration Mild Correctional Scale Insulin Human Lispro 0 units 07/28/19 19:57 07/28/19 21:49 Humalog SC 3 unit .BEDTIME SLIDING SC PRN Administration Bedtime Correctional Scale Isosorbide Mononitrate 60 mg 07/30/19 09:00 08/03/19 09:12 Imdur Er PO 60 mg DAILY JOE Administration Metoprolol Tartrate 25 mg 07/29/19 21:00 08/03/19 21:23 Lopressor PO 25 mg BID JOE Administration Polyethylene Glycol 17 gm 08/01/19 21:00 08/03/19 21:23 Miralax PO 17 gm BID JOE Administration Senna/Docusate Sodium 2 tab 08/01/19 21:00 08/03/19 21:22 Senokot S PO 2 tab BID JOE Administration Sodium Chloride 10 ml 07/28/19 19:58 07/31/19 05:41 Flush - Normal Saline IVF 10 ml Q12HR PRN Administration Saline Flush - Exam General Appearance: NAD Neck: supple, no JVD Heart: no gallops, no rubs Respiratory: no wheezes, no rales, no ronchi Gastrointestinal: non-tender, non-distended Extremities: no cyanosis Hosp A/P - Plan DVT proph w/SCDs Acute on chronic systolic exacerbation RACHEL on CKD 4 Hypokalemia DM 2 HTN HLDc Dementia, chronic, stable CAD s/p CABG Tobacco dep Plan: Lasix/ACEI/ARB/Alactone on hold due to RACHEL Cont ASA/BB/Hydralazine/Nitrates Avoid Nephrotoxic meds Cont sliding scale Cont other meds as above AM labs Nephro/Cardio following
[2019-08-04] MEDS: Potassium Chloride 20 MEQ in Lactated Ringer's 1,000 ML IV SCH ×2 (00:27→13:06)
[2019-08-04 05:10] LABS: #Eosinphils 0.7 thou/uL (0.0-0.7); #Lymphocytes 1.9 thou/uL (1.20-3.40); #Neutrophils 3.2 thou/uL (1.40-6.50); %Basophils 0.2 % (0.0-1.0); %Eosinophils 9.9 % (0.0-10.0); %Lymphocytes 27.6 % (21.0-51.0); %Monocytes 14.5 % (0.0-10.0); %Neutrophils 47.8 % (42.0-75.0); Hemoglobin 11.3 g/dL (14.0-18.0); Mean Corpuscular HGB CONC 32.7 g/dL (32.0-36.0); Mean Corpuscular Hemoglobin 26.7 pg (27.0-31.0); Mean Corpuscular Volume 81.6 fL (78.0-98.0); Mean Platelet Volume 8.6 fL (7.4-10.4); Platelet Count 193 thou/uL (130-400); RBC Distribution Width 13.4 % (11.5-14.5); Red Blood Cell (RBC) Count 4.25 mill/uL (4.70-6.10); White Blood Cell (WBC) Count 6.8 thou/uL (4.8-10.8)
[2019-08-04 05:46] LABS: Anion Gap 13 mmol/L (10-20); BUN (Urea Nitrogen) 44 mg/dL (8.4-25.7); Calc. Creatinine Clearance 19 mL/min (70-130); Calcium 8.4 mg/dL (7.8-10.44); Carbon Dioxide 28 mmol/L (23-31); Chloride 100 mmol/L (98-107); Estimated GFR-MDRD 20; Glucose 124 mg/dL (83-110); Potassium 3.3 mmol/L (3.5-5.1); Sodium 138 mmol/L (136-145)
[2019-08-04] MEDS: hydrALAZINE 25 MG TAB PO SCH ×3 (09:21→20:52)
[2019-08-04] MEDS: Isosorbide Mononitrate (ER) 30 MG TAB PO SCH (09:21)
[2019-08-04] MEDS: Senokot S 8.6-50 MG TAB PO SCH ×2 (09:21→20:51)
[2019-08-04] MEDS: Aspirin 81 mg Enteric Coated Tablet PO SCH (09:21)
[2019-08-04] MEDS: Amlodipine 10 MG TAB PO SCH (09:22)
[2019-08-04] MEDS: Metoprolol Tartrate 25 MG TAB PO SCH ×2 (09:22→20:52)
[2019-08-04] MEDS: Polyethylene Glycol 3350 17 GM Packet PO SCH ×2 (09:22→20:53)
--- NOTE | 2019-08-04 09:28 | PRG ---
DATE OF SERVICE: 08/04/2019 SUBJECTIVE: Mr. Castillo is an 78-year-old black male, who was seen by the Renal Service for his acute kidney injury. He has an acute tubular necrosis. He was also started on diuretics and renal function worsened for the last few days. For that reason, we have discontinued the diuretics, started him on normal saline at 75 mL/h. No complaints of chest pain or shortness of breath. OBJECTIVE: VITAL SIGNS: Blood pressure 129/60, heart rate 75, respiratory rate 16, temperature 98.4, and pulse ox 98% on room air. GENERAL: Awake, alert, supine, comfortable, not in distress. SKIN: Adequate turgor. HEENT: Pinkish conjunctivae. Anicteric sclerae. NECK: No neck mass. No carotid bruits. No JVD. CHEST: No deformities. LUNGS: Clear breath sounds. HEART: Normal sinus rhythm. No murmurs. No gallops. No rubs. ABDOMEN: Globular, soft, and nontender. No masses. EXTREMITIES: No edema. No deformities. MEDICATIONS: Medications of August 04, 2019, reviewed. LABORATORY DATA: August 04, 2019; white count 6.8, hemoglobin 11.3, sodium 138, potassium 3.3, chloride 100, carbon dioxide 28, BUN 44, creatinine 3.59, GFR 20 mL/min, and calcium 8.4. ASSESSMENT/PLAN: 1. Acute kidney injury/chronic renal failure - initially a superimposed acute tubular necrosis. However, I felt that he may have been over diuresed, and for that reason, we discontinued the furosemide. We have maintained him on IV fluid. Initially, normal saline was considered, but we have changed to lactated Ringer plus potassium with it. Tolerating current IV hydration. No indication for any dialytic intervention. Agree with current management. 2. Recheck base met and CBC in a.m. Job ID: [id number]
[2019-08-04] MEDS: HumaLOG 300 UNITS/3 ML VIAL SC PRN (13:06)
--- NOTE | 2019-08-04 20:41 | PDOC.HOSPP ---
- Subjective Encounter Date: 08/04/19 Encounter Time: 12:30 Subjective: Patient seen and examined for CHF/RACHEL. No CP/SOB/N/V. No new complaints. No overnight events - Objective Vital Signs & Weight: Vital Signs (12 hours) Temp Pulse Pulse Pulse Resp BP BP 08/04/19 16:00 98.3 F 68 16 08/04/19 15:07 71 136/67 08/04/19 12:00 71 08/04/19 11:31 74 08/04/19 09:22 74 157/75 H 08/04/19 09:21 74 157/75 H 08/04/19 09:11 73 80 143/76 H BP BP Pulse Ox 08/04/19 16:00 133/68 95 08/04/19 15:07 08/04/19 12:00 136/67 08/04/19 11:31 153/77 H 08/04/19 09:22 08/04/19 09:21 08/04/19 09:11 155/84 H Weight Weight 178 lb 1.6 oz I&O: 08/03/19 08/04/19 08/05/19 06:59 06:59 06:59 Intake Total 840 3070 Output Total 1000 1200 Balance -160 1870 Result Diagrams: 08/04/19 04:29 08/04/19 04:29 Additional Labs: Accuchecks 08/04/19 08/04/19 08/04/19 17:02 10:56 05:31 POC Glucose 125 H 212 H 132 H 08/03/19 20:28 POC Glucose 177 H EKG Reviewed by me: Yes (Tele SR) Hospitalist ROS - Review of Systems Respiratory: denies: cough, dry, shortness of breath, hemoptysis, SOB with excertion, pleuritic pain, sputum, wheezing, other Cardiovascular: denies: chest pain, palpitations, orthopnea, paroxysmal noc. dyspnea, edema, light headedness, other Gastrointestinal: denies: nausea, vomiting, abdominal pain, diarrhea, constipation, melena, hematochezia, other - Medication Medications: Active Medications Generic Name Dose Route Start Last Admin Trade Name Freq PRN Reason Stop Dose Admin Amlodipine Besylate 10 mg 07/29/19 09:00 08/04/19 09:22 Norvasc PO 10 mg DAILY JOE Administration Aspirin 81 mg 07/29/19 09:00 08/04/19 09:21 Ecotrin PO 81 mg DAILY JOE Administration Atorvastatin Calcium 40 mg 07/29/19 21:00 08/03/19 21:22 Lipitor PO 40 mg HS JOE Administration Cholecalciferol 1,000 units 07/29/19 09:00 08/04/19 09:22 Vitamin D3 PO 1,000 units DAILY JOE Administration Doxazosin Mesylate 4 mg 07/29/19 21:00 08/03/19 21:23 Cardura PO 4 mg HS JOE Administration Hydralazine HCl 25 mg 07/29/19 21:00 08/04/19 15:07 Apresoline PO 25 mg TID JOE Administration Potassium Chloride 20 meq/ 1,010 mls @ 75 mls/hr 08/03/19 09:00 08/04/19 13: 06 Lactated Ringer's IV 1,010 mls .[id number] JOE Administration Insulin Human Lispro 0 units 07/28/19 19:57 08/04/19 13:06 Humalog SC 3 unit .MILD SLIDING SCALE PRN Administration Mild Correctional Scale Insulin Human Lispro 0 units 07/28/19 19:57 07/28/19 21:49 Humalog SC 3 unit .BEDTIME SLIDING SC PRN Administration Bedtime Correctional Scale Isosorbide Mononitrate 60 mg 07/30/19 09:00 08/04/19 09:21 Imdur Er PO 60 mg DAILY JOE Administration Metoprolol Tartrate 25 mg 07/29/19 21:00 08/04/19 09:22 Lopressor PO 25 mg BID JOE Administration Polyethylene Glycol 17 gm 08/01/19 21:00 08/04/19 09:22 Miralax PO 17 gm BID JOE Administration Senna/Docusate Sodium 2 tab 08/01/19 21:00 08/04/19 09:21 Senokot S PO 2 tab BID JOE Administration Sodium Chloride 10 ml 07/28/19 19:58 07/31/19 05:41 Flush - Normal Saline IVF 10 ml Q12HR PRN Administration Saline Flush - Exam General Appearance: NAD Neck: supple, no JVD Heart: no gallops, no rubs Respiratory: no wheezes, no rales Gastrointestinal: soft, non-distended, normal bowel sounds Neurological: no new deficit Hosp A/P - Plan DVT proph w/SCDs Acute on chronic systolic exacerbation RACHEL on CKD 4 - prob due to diuresis Hypokalemia DM 2 HTN HLD Dementia CAD s/p CABG Tobacco dep Plan: Cont IVF per Nephrology Lasix/ACEI/ARB/Alactone on hold due to RACHEL Cont ASA/BB/Hydralazine/Nitrates Avoid Nephrotoxic meds Cont sliding scale and other meds as above BMP in AM
[2019-08-04] MEDS: Atorvastatin Calcium 40 MG TAB PO SCH (20:51)
[2019-08-04] MEDS: Doxazosin Mesylate 4 MG TAB PO SCH (20:52)
[2019-08-05] MEDS: Potassium Chloride 20 MEQ in Lactated Ringer's 1,000 ML IV SCH ×2 (02:52→17:10)
[2019-08-05 05:16] LABS: Hemoglobin 11.2 g/dL (14.0-18.0); Mean Corpuscular HGB CONC 32.1 g/dL (32.0-36.0); Mean Corpuscular Hemoglobin 26.3 pg (27.0-31.0); Mean Corpuscular Volume 82.1 fL (78.0-98.0); Mean Platelet Volume 8.1 fL (7.4-10.4); Platelet Count 210 thou/uL (130-400); RBC Distribution Width 13.3 % (11.5-14.5); Red Blood Cell (RBC) Count 4.25 mill/uL (4.70-6.10)
[2019-08-05 05:24] LABS: Anion Gap 13 mmol/L (10-20); BUN (Urea Nitrogen) 38 mg/dL (8.4-25.7); Calc. Creatinine Clearance 22 mL/min (70-130); Calcium 8.4 mg/dL (7.8-10.44); Carbon Dioxide 27 mmol/L (23-31); Chloride 103 mmol/L (98-107); Estimated GFR-MDRD 23; Glucose 118 mg/dL (83-110); Potassium 3.6 mmol/L (3.5-5.1); Sodium 139 mmol/L (136-145)
[2019-08-05 07:02] LABS: Eosinophils 8 % (0-10); Lymphocytes 26 % (21-51); MDiff Complete? YES; Monocytes 14 % (0-10); Neutrophil 52 % (42-75)
[2019-08-05] MEDS: Senokot S 8.6-50 MG TAB PO SCH ×2 (08:25→20:25)
[2019-08-05] MEDS: Polyethylene Glycol 3350 17 GM Packet PO SCH ×2 (08:25→20:24)
[2019-08-05] MEDS: Isosorbide Mononitrate (ER) 30 MG TAB PO SCH (08:26)
[2019-08-05] MEDS: Aspirin 81 mg Enteric Coated Tablet PO SCH (08:26)
[2019-08-05] MEDS: Metoprolol Tartrate 25 MG TAB PO SCH ×2 (08:26→20:24)
[2019-08-05] MEDS: hydrALAZINE 25 MG TAB PO SCH ×3 (08:26→20:24)
[2019-08-05] MEDS: Amlodipine 10 MG TAB PO SCH (08:26)
--- NOTE | 2019-08-05 09:06 | PRG ---
DATE OF SERVICE: 08/05/2019 SERVICE: Renal Medicine. SUBJECTIVE: Mr. Castillo is an 78-year-old black male, followed up by the Renal Service for his acute kidney injury on top of his chronic renal failure. He has a superimposed ATN. However, in the last few days, the renal function seems to have worsened. We decided to stop his diuretics, started him on lactated Ringer's. With IV volume repletion, the renal function is slowly improving. No other complaints. No chest pain or shortness of breath. OBJECTIVE: VITAL SIGNS: Blood pressure 157/72, heart rate 77, respiratory rate 18, temperature 99.2, and O2 saturation 94%. GENERAL: Awake, alert, comfortable, not in distress. SKIN: Adequate turgor. HEENT: Pinkish conjunctivae. Anicteric sclerae. NECK: No neck mass. No carotid bruits. No JVD. CHEST: No deformities. LUNGS: Clear breath sounds. HEART: Normal sinus rhythm. No murmur. No gallops. No rubs. ABDOMEN: Globular, soft, and nontender. No masses. EXTREMITIES: No edema. No deformities. MEDICATIONS: Medications of August 05, 2019, were reviewed. LABORATORY DATA: Laboratories of August 05, 2019; white count 7, hemoglobin 11.2. Sodium 139, potassium 3.6, chloride 103, carbon dioxide 27, BUN 38, creatinine 3.13, GFR 23 mL/minute, and calcium 8.4. ASSESSMENT AND PLAN: 1. Acute kidney injury - secondary to acute tubular necrosis. I feel there is also a superimposed volume depletion and for that reason, we have discontinued the Lasix. He is currently on lactated Ringer's plus 20 mEq of KCl. Renal function is slowly improving with a creatinine now noted at 3.13 with a concomitant GFR 23 mL/minute. We are trying to achieve target of baseline creatinine of about less than 3. 2. No indication for any dialytic intervention. Agree with current management. Recheck basic metabolic panel in a.m. Job ID: [id number]
[2019-08-05] MEDS: HumaLOG 300 UNITS/3 ML VIAL SC PRN (11:58)
--- NOTE | 2019-08-05 13:03 | PDOC.HOSPP ---
- Subjective Encounter Date: 08/05/19 Encounter Time: 09:30 Subjective: Patient seen and examined for RACHEL/CHF. No CP/SOB. No new complaints. No overnight events - Objective Vital Signs & Weight: Vital Signs (12 hours) Temp Pulse Resp BP BP Pulse Ox 08/05/19 11:56 98.2 F 71 18 164/81 H 98 08/05/19 08:06 94 L 08/05/19 07:30 99.2 F 77 18 157/72 H 94 L 08/05/19 04:00 98.3 F 78 16 150/71 H 97 Weight Weight 180 lb 1.6 oz I&O: 08/04/19 08/05/19 08/06/19 06:59 06:59 06:59 Intake Total 3070 300 Output Total 1200 1000 Balance 1870 -700 Result Diagrams: 08/05/19 04:29 08/05/19 04:29 Additional Labs: Accuchecks 08/05/19 08/05/19 08/04/19 10:38 05:11 20:43 POC Glucose 190 H 115 H 186 H 08/04/19 17:02 POC Glucose 125 H EKG Reviewed by me: Yes (Tele SR) Hospitalist ROS - Review of Systems Respiratory: denies: cough, dry, shortness of breath, hemoptysis, SOB with excertion, pleuritic pain, sputum, wheezing, other Cardiovascular: denies: chest pain, palpitations, orthopnea, paroxysmal noc. dyspnea, edema, light headedness, other - Medication Medications: Active Medications Generic Name Dose Route Start Last Admin Trade Name Freq PRN Reason Stop Dose Admin Amlodipine Besylate 10 mg 07/29/19 09:00 08/05/19 08:26 Norvasc PO 10 mg DAILY JOE Administration Aspirin 81 mg 07/29/19 09:00 08/05/19 08:26 Ecotrin PO 81 mg DAILY JOE Administration Atorvastatin Calcium 40 mg 07/29/19 21:00 08/04/19 20:51 Lipitor PO 40 mg HS JOE Administration Cholecalciferol 1,000 units 07/29/19 09:00 08/05/19 08:26 Vitamin D3 PO 1,000 units DAILY JOE Administration Doxazosin Mesylate 4 mg 07/29/19 21:00 08/04/19 20:52 Cardura PO 4 mg HS JOE Administration Hydralazine HCl 25 mg 07/29/19 21:00 08/05/19 08:26 Apresoline PO 25 mg TID JOE Administration Potassium Chloride 20 meq/ 1,010 mls @ 75 mls/hr 08/03/19 09:00 08/05/19 02: 52 Lactated Ringer's IV 1,010 mls .[id number] JOE Administration Insulin Human Lispro 0 units 07/28/19 19:57 08/05/19 11:58 Humalog SC 2 unit .MILD SLIDING SCALE PRN Administration Mild Correctional Scale Insulin Human Lispro 0 units 07/28/19 19:57 07/28/19 21:49 Humalog SC 3 unit .BEDTIME SLIDING SC PRN Administration Bedtime Correctional Scale Isosorbide Mononitrate 60 mg 07/30/19 09:00 08/05/19 08:26 Imdur Er PO 60 mg DAILY JOE Administration Metoprolol Tartrate 25 mg 07/29/19 21:00 08/05/19 08:26 Lopressor PO 25 mg BID JOE Administration Polyethylene Glycol 17 gm 08/01/19 21:00 08/05/19 08:25 Miralax PO 17 gm BID JOE Administration Senna/Docusate Sodium 2 tab 08/01/19 21:00 08/05/19 08:25 Senokot S PO 2 tab BID JOE Administration Sodium Chloride 10 ml 07/28/19 19:58 08/04/19 20:52 Flush - Normal Saline IVF 10 ml Q12HR PRN Administration Saline Flush - Exam General Appearance: NAD Neck: supple, no JVD Heart: RRR, no gallops Respiratory: no wheezes, no ronchi Gastrointestinal: soft, non-tender, normal bowel sounds Extremities: no cyanosis Neurological: no focal deficits Hosp A/P - Plan DVT proph w/SCDs Acute on chronic systolic exacerbation RACHEL on CKD 4 - prob due to ATN Hypokalemia DM 2 HTN HLD Dementia CAD s/p CABG Tobacco dep Plan: Cont IVF Lasix/ACEI/ARB/Alactone on hold due to RACHEL Cont ASA/BB Cont Hydralazine/Nitrates Cont other meds as above BMP in AM
[2019-08-05] MEDS: Atorvastatin Calcium 40 MG TAB PO SCH (20:25)
[2019-08-05] MEDS: Doxazosin Mesylate 4 MG TAB PO SCH (20:25)
[2019-08-06 05:13] LABS: Anion Gap 10 mmol/L (10-20); BUN (Urea Nitrogen) 30 mg/dL (8.4-25.7); Calc. Creatinine Clearance 25 mL/min (70-130); Calcium 8.5 mg/dL (7.8-10.44); Carbon Dioxide 28 mmol/L (23-31); Chloride 105 mmol/L (98-107); Estimated GFR-MDRD 27; Glucose 124 mg/dL (83-110); Potassium 3.9 mmol/L (3.5-5.1); Sodium 139 mmol/L (136-145)
[2019-08-06] MEDS: Potassium Chloride 20 MEQ in Lactated Ringer's 1,000 ML IV SCH ×2 (07:03→20:22)
[2019-08-06] MEDS: Amlodipine 10 MG TAB PO SCH (08:29)
[2019-08-06] MEDS: Metoprolol Tartrate 25 MG TAB PO SCH ×2 (08:29→20:22)
[2019-08-06] MEDS: Isosorbide Mononitrate (ER) 30 MG TAB PO SCH (08:30)
[2019-08-06] MEDS: Aspirin 81 mg Enteric Coated Tablet PO SCH (08:30)
[2019-08-06] MEDS: Senokot S 8.6-50 MG TAB PO SCH ×2 (08:31→20:22)
[2019-08-06] MEDS: hydrALAZINE 25 MG TAB PO SCH ×3 (08:31→20:22)
[2019-08-06] MEDS: Polyethylene Glycol 3350 17 GM Packet PO SCH ×2 (08:31→20:23)
--- NOTE | 2019-08-06 09:25 | PRG ---
DATE OF SERVICE: 08/06/2019 SUBJECTIVE: Mr. Castillo is an 78-year-old black male, who was seen for his acute kidney injury on top of his chronic renal failure. Initially, he was felt to have superimposed acute tubular necrosis. However, renal function over the last several days worsen and his diuretics were discontinued. Empiric volume repletion has been given and he has been improving with his renal function. He is tolerating said treatment. The patient denies any chest pain or shortness of breath. OBJECTIVE: VITAL SIGNS: Blood pressure 174/82, heart rate 73, respiratory rate 18, temperature 98.2, pulse ox 95%. GENERAL: The patient is awake, alert, comfortable, not in distress. SKIN: Adequate turgor. HEENT: He has pinkish conjunctivae. Anicteric sclerae. NECK: No neck mass. No carotid bruits. No JVD. LUNGS: Clear breath sounds. No wheezing. No crackles. HEART: Normal sinus rhythm. No murmur. No gallops. No rubs. ABDOMEN: Globular, soft, nontender. No masses. EXTREMITIES: No edema. No deformities. MEDICATIONS: Medications of August 06, 2019, was reviewed. LABORATORY DATA: Laboratories of August 05, 2019; white count 7, hemoglobin 11.2. On August 26, 2019; sodium is 139, potassium 3.9, chloride 105, carbon dioxide 28, BUN 30, creatinine 2.76, GFR 27 mL/minute, calcium 8.5. ASSESSMENT AND PLAN: 1. Acute kidney injury-superimposed acute tubular necrosis as well as component of prerenal azotemia. Renal function is now much improved. He is approaching baseline creatinine. My suggestion is we continued IV hydration for one more day and then discontinue in a.m. There is no indication for any dialytic intervention with this patient. 2. Congestive heart failure, clinically resolved and the patient is asymptomatic. 3. Recheck basic metabolic profile in a.m. Job ID: [id number]
[2019-08-06] MEDS: HumaLOG 300 UNITS/3 ML VIAL SC PRN (11:20)
[2019-08-06 14:32] VITALS: BMI 25.7
[2019-08-06] MEDS: Doxazosin Mesylate 4 MG TAB PO SCH (20:22)
[2019-08-06] MEDS: Atorvastatin Calcium 40 MG TAB PO SCH (20:22)
--- NOTE | 2019-08-06 23:32 | PDOC.HOSPP ---
- Subjective Encounter Date: 08/06/19 Encounter Time: 17:00 Subjective: Patient seen and examined for CHF with RACHEL. No SOB. No new complaints. No overnight events - Objective Vital Signs & Weight: Vital Signs (12 hours) Temp Pulse Resp BP Pulse Ox 08/06/19 19:15 94 L 08/06/19 19:10 97.7 F 64 16 173/87 H 96 08/06/19 15:26 97.5 F L 68 18 156/80 H 96 Weight Admit Weight 187 lb 1.6 oz Weight 178 lb 14.4 oz I&O: 08/05/19 08/06/19 08/07/19 06:59 06:59 06:59 Intake Total 300 1900 Output Total 1000 425 Balance -700 1475 Result Diagrams: 08/05/19 04:29 08/07/19 04:16 Additional Labs: Accuchecks 08/06/19 08/06/19 08/06/19 19:37 17:37 11:03 POC Glucose 180 H 139 H 192 H 08/06/19 06:00 POC Glucose 117 H EKG Reviewed by me: Yes (Tele SR) Hospitalist ROS - Review of Systems Respiratory: denies: cough, dry, shortness of breath, hemoptysis, SOB with excertion, pleuritic pain, sputum, wheezing, other Cardiovascular: denies: chest pain, palpitations, orthopnea, paroxysmal noc. dyspnea, edema, light headedness, other Gastrointestinal: denies: nausea, vomiting, abdominal pain, diarrhea, constipation, melena, hematochezia, other - Medication Medications: Active Medications Generic Name Dose Route Start Last Admin Trade Name Abdirizakq PRN Reason Stop Dose Admin Amlodipine Besylate 10 mg 07/29/19 09:00 08/06/19 08:29 Norvasc PO 10 mg DAILY JOE Administration Aspirin 81 mg 07/29/19 09:00 08/06/19 08:30 Ecotrin PO 81 mg DAILY JOE Administration Atorvastatin Calcium 40 mg 07/29/19 21:00 08/06/19 20:22 Lipitor PO 40 mg HS JOE Administration Cholecalciferol 1,000 units 07/29/19 09:00 08/06/19 08:31 Vitamin D3 PO 1,000 units DAILY JOE Administration Doxazosin Mesylate 4 mg 07/29/19 21:00 08/06/19 20:22 Cardura PO 4 mg HS JOE Administration Hydralazine HCl 25 mg 07/29/19 21:00 08/06/19 20:22 Apresoline PO 25 mg TID JOE Administration Potassium Chloride 20 meq/ 1,010 mls @ 75 mls/hr 08/03/19 09:00 08/06/19 20: 22 Lactated Ringer's IV 1,010 mls .[id number] JOE Administration Insulin Human Lispro 0 units 07/28/19 19:57 08/06/19 11:20 Humalog SC 2 unit .MILD SLIDING SCALE PRN Administration Mild Correctional Scale Insulin Human Lispro 0 units 07/28/19 19:57 07/28/19 21:49 Humalog SC 3 unit .BEDTIME SLIDING SC PRN Administration Bedtime Correctional Scale Isosorbide Mononitrate 60 mg 07/30/19 09:00 08/06/19 08:30 Imdur Er PO 60 mg DAILY JOE Administration Metoprolol Tartrate 25 mg 07/29/19 21:00 08/06/19 20:22 Lopressor PO 25 mg BID JOE Administration Polyethylene Glycol 17 gm 08/01/19 21:00 08/06/19 20:23 Miralax PO Not Given BID JOE Senna/Docusate Sodium 2 tab 08/01/19 21:00 08/06/19 20:22 Senokot S PO 2 tab BID JOE Administration Sodium Chloride 10 ml 07/28/19 19:58 08/06/19 08:32 Flush - Normal Saline IVF 10 ml Q12HR PRN Administration Saline Flush - Exam General Appearance: NAD Heart: RRR, no gallops Respiratory: no wheezes, no ronchi Gastrointestinal: non-tender, normal bowel sounds Extremities: no cyanosis Neurological: no new deficit Hosp A/P - Plan DVT proph w/SCDs Acute on chronic systolic exacerbation RACHEL on CKD 4 - prob due to ATN Hypokalemia DM 2 HTN HLD Dementia CAD s/p CABG Tobacco dep Plan: Renal function improving Cont IVF per Nephrology Cont ASA/BetaBlockers/Hydralazine/Nitrates Cont other meds as above BMP in AM No Lasix/ACEI/ARB/Alactone due to RACHEL
[2019-08-07 05:06] LABS: Anion Gap 10 mmol/L (10-20); BUN (Urea Nitrogen) 25 mg/dL (8.4-25.7); Calc. Creatinine Clearance 25 mL/min (70-130); Calcium 8.7 mg/dL (7.8-10.44); Carbon Dioxide 28 mmol/L (23-31); Chloride 105 mmol/L (98-107); Estimated GFR-MDRD 28; Glucose 119 mg/dL (83-110); Potassium 3.9 mmol/L (3.5-5.1); Sodium 139 mmol/L (136-145)
[2019-08-07] MEDS: Aspirin 81 mg Enteric Coated Tablet PO SCH (08:42)
[2019-08-07] MEDS: Metoprolol Tartrate 25 MG TAB PO SCH (08:42)
[2019-08-07] MEDS: Amlodipine 10 MG TAB PO SCH (08:42)
[2019-08-07] MEDS: Isosorbide Mononitrate (ER) 30 MG TAB PO SCH (08:43)
[2019-08-07] MEDS: hydrALAZINE 25 MG TAB PO SCH ×2 (08:43→15:32)
[2019-08-07] MEDS: Senokot S 8.6-50 MG TAB PO SCH (08:43)
[2019-08-07] MEDS: Polyethylene Glycol 3350 17 GM Packet PO SCH (08:44)
--- NOTE | 2019-08-07 09:45 | PRG ---
DATE OF SERVICE: 08/07/2019 SUBJECTIVE: Mr. Castillo is an 78-year-old black male, followed up by the Renal Service for his acute kidney injury on top of his chronic renal failure. As previously mentioned, he had a superimposed ATN. However, we noted the renal function was worsening, and he was on a diuretic regimen. Our plan at that time was to discontinue his Lasix, and we started him on gentle volume repletion. His renal function with this maneuver has now become much improved and is nearing baseline. Due to his much improved renal function, we will be discontinuing his lactated Ringer's. No other complaints. No chest pain or shortness of breath. OBJECTIVE: VITAL SIGNS: Blood pressure 166/80, heart rate 78. GENERAL: Awake, alert, comfortable, not in distress. SKIN: Adequate turgor. HEENT: Pinkish conjunctivae. Anicteric sclerae. NECK: No neck mass. No carotid bruits. No JVD. CHEST: No deformities. LUNGS: Clear breath sounds. HEART: Normal sinus rhythm. No murmurs, no gallops, no rubs. ABDOMEN: Globular, soft, nontender. No masses. EXTREMITIES: No edema, no deformities. MEDICATIONS: Medications of August 07, 2019, were reviewed. LABORATORY DATA: Laboratories of August 07, 2019, sodium , potassium 3.9, chloride 105, carbon dioxide 28, BUN , creatinine 2.67, GFR 28 mL/minute, and calcium 8.7. ASSESSMENT AND PLAN: Acute kidney injury-underlying acute tubular necrosis with a superimposed prerenal azotemia. Much improved with volume repletion. Creatinine of 2.67 is near baseline. He is currently at stage IV chronic renal failure. We will discontinue IV fluid. Due to the much improved renal function, I feel that we can afford to discontinue his IV fluids since the patient also has increased p.o. intake. Agree with current management. No indication for any dialytic intervention. Job ID: [id number]
--- NOTE | 2019-08-07 12:52 | DIS ---
DATE OF ADMISSION: 07/29/2019 DATE OF DISCHARGE: 08/07/2019 DISCHARGE DISPOSITION: Home. FOLLOWUP: 1. Follow up with primary care physician at [facility] next week as scheduled. 2. Follow up with Cardiology and Nephrology as scheduled. ALLERGIES: NO KNOWN DRUG ALLERGIES. DISCHARGE MEDICATIONS: 1. Lisinopril was discontinued. 2. Lasix 20 mg daily was added for fluid overload on an as-needed basis. All other home medications were left unchanged. INPATIENT ENROLLMENT MANAGEMENT MANAGER: 1. Cardiology, Dr. Wilson. 2. Nephrology, Dr. Mayes. DIAGNOSTIC TESTS: 1. Echocardiogram showed ejection fraction of 45% to 50% with grade 2 of 3 diastolic dysfunction, mild concentric left ventricular hypertrophy. 2. Chest x-ray on admission showed some pulmonary vascular congestion. BRIEF HOSPITAL COURSE: The patient is an 78-year-old male with coronary artery disease, congestive heart failure, diabetes mellitus type 2, and dementia, presented to the hospital on 29 July 2019 with shortness of breath. His workup was consistent with acute on chronic congestive heart failure exacerbation. He was started on diuretics. His echocardiogram showed ejection fraction of 45% to 50% with grade 2 of 3 diastolic dysfunction and left ventricular hypertrophy. He then developed acute kidney injury with creatinine maximum of 3.86. Dr. Mayes was consulted. His renal function gradually improved with IV hydration. His creatinine on the day of discharge was 2.67. He has been cleared by consultants for discharge. FINAL DIAGNOSES: 1. Acute on chronic systolic/diastolic heart failure exacerbation. 2. Acute kidney injury on chronic kidney disease stage 4, probably secondary to acute tubular necrosis improved. 3. Hypokalemia. 4. Diabetes mellitus type 2. 5. Hypertension. 6. Hyperlipidemia. 7. Dementia. 8. Coronary artery disease status post coronary artery bypass grafting. 9. Tobacco dependence. 10. Dementia. 11. The patient understands the above plan of care. Home health care will be arranged. Job ID: [id number]
[2019-08-07] MEDS: HumaLOG 300 UNITS/3 ML VIAL SC PRN ×2 (13:22→18:10)
[2019-08-07 15:31] VITALS: BP 148/77; TEMP 98
--- NOTE | 2019-08-11 08:38 | PQF ---
AGATHA STOUT MALIK MD [id number] CLINICAL DOCUMENTATION CLARIFICATION FORM: POST DISCHARGE Addendum to original discharge summary date: ____ Late entry note date: __ DATE: 08/11/2019 ATTN: FABIAN GARCIA MD Please exercise your independent, professional judgment in responding to the clarification form. Clinical indicators are provided on the bottom of this form for your review Please check appropriate box(s): AMI TYPE: [ ] Acute Coronary Syndrome (ACS) without Acute KS meaning Unstable Angina [ ] NSTEMI (KS type I) [ x ] Suspected NSTEMI due to Demand Ischemia (AMI Type II) [ ] Demand Ischemia without KS [ ] STEMI (please also specify site and arterysee below) If STEMI, SITE:[ ] Anterior [ ] Apical [ ] Lateral [ ] Inferior [ ] Posterior [ ] Q Wave [ ] Septal [ ] Unable to Determine SPECIFIC ARTERY (Based on site) [ ] Left Main Coronary[ ] Diagonal [ ] Left Anterior Descending[ ] Oblique Marginal [ ] Right Coronary Artery[ ] Unable to Determine [ ] Left Circumflex [ ] Other diagnosis [ ] Unable to determine In addition, please specify: Present on Admission (POA): [x] Yes [ ] No [ ] Unable to determine CLINICAL INDICATORS - SIGNS / SYMPTOMS / LABS Chest pain-Documented in ED on 07/29 by William Holman MD EKG interpretation:Possible left atrial enlargement, Left venticular hypertrophy with repolarization abnormality.Similar to EKG done on jun- Documented in ED on 07/29 by William Holman MD Troponin elevated likely secondary to cardiac strain.EKG without STEMI- Documented in ED on 07/29 by William Holman MD Troponin I-0.193-Documented in H&P on 07/29 by Rajendra Negro 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 TRAINING 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-C Elevated troponin-Documented in H&P on 07/29 by Rajendra Negro Acute on chronic systolic/diastolic heart failure exacerbation -Documented in discharge summary on 08/06 by Fabian Garcia MD RISKS: HTN-Documented in H&P on 07/29 by Rajendra Negro h/o CABG w/ 4 vessel disease-Documented in H&P on 07/29 by Rajendra Negro Acute on chronic systolic/diastolic heart failure exacerbation -Documented in discharge summary on 08/06 by Fabian Garica MD CAD-Documented in discharge summary on 08/06 by Fabian Garcia MD TREATMENTS: secured entrance monitor-Documented in H&P on 07/29 by Rajendra Negro Trend troponin-Documented in H&P on 07/29 by Rajendra Negro Consult cardiology-Documented in H&P on 07/29 by Rajendra Negro Consult cardiac rehab-Documented in H&P on 07/29 by Rajendra Negro Aspirin 81 mg PO daily -Medication snapshot SAP Web Press Operator Apprentice Crystal Reports Winform Viewer (This form is maintained as a part of the permanent medical record) 2014 [employer]. All Rights Reserved [email or web address]
== END 2019-08-07 19:32 | disposition home health service (06) | DRG 280 ==
LOC: ERS 16:16 → 2SW 20:44 → OBSVTOIN 07-29 15:54 → 2NO 07-29 19:58
PROVIDERS: ADMIT Internal Medicine; ATTEND Internal Medicine
DX: I13.0 Hypertensive heart and chronic kidney disease with heart failure and stage 1 through stage 4 chronic kidney disease, or unspecified chronic kidney disease (principal); N17.0 Acute kidney failure with tubular necrosis; I21.A1 Myocardial infarction type 2; I50.43 Acute on chronic combined systolic (congestive) and diastolic (congestive) heart failure; N18.4 Chronic kidney disease, stage 4 (severe); E87.6 Hypokalemia; E78.5 Hyperlipidemia, unspecified; I25.10 Atherosclerotic heart disease of native coronary artery without angina pectoris; F03.90 Unspecified dementia, unspecified severity, without behavioral disturbance, psychotic disturbance, mood disturbance, and anxiety; Z95.1 Presence of aortocoronary bypass graft; Z95.0 Presence of cardiac pacemaker; F17.220 Nicotine dependence, chewing tobacco, uncomplicated; Z86.73 Personal history of transient ischemic attack (TIA), and cerebral infarction without residual deficits; K59.00 Constipation, unspecified; Z87.19 Personal history of other diseases of the digestive system; Z79.4 Long term (current) use of insulin; J44.9 Chronic obstructive pulmonary disease, unspecified; I25.5 Ischemic cardiomyopathy; E11.22 Type 2 diabetes mellitus with diabetic chronic kidney disease; E11.21 Type 2 diabetes mellitus with diabetic nephropathy; E11.649 Type 2 diabetes mellitus with hypoglycemia without coma; E78.00 Pure hypercholesterolemia, unspecified
CPT/HCPCS: 36415; 36416; 71046; 74176; 80048; 80053; 80061; 81003; 81015; 82553; 83605; 83690; 83735; 83880; 84145; 84443; 84484; 85025; 87040; 87804; 93005; 93306; 94640; 96361; 96374; 99406; J1815; J1940; J3480; J7120; J7512; J7620; P9047

== ENCOUNTER 2019-09-07 19:59 | Observation (INO) | payer MEDICARE, MEDICAID ==
[2019-09-07 20:52] LABS: #Basophils 0.1 thou/uL (0.0-0.2); #Eosinphils 0.6 thou/uL (0.0-0.7); #Lymphocytes 2.1 thou/uL (1.20-3.40); #Monocytes 0.9 thou/uL (0.11-0.59); %Basophils 1.2 % (0.0-1.0); %Eosinophils 9.6 % (0.0-10.0); %Lymphocytes 32.1 % (21.0-51.0); %Monocytes 12.7 % (0.0-10.0); %Neutrophils 44.3 % (42.0-75.0); Hemoglobin 13.1 g/dL (14.0-18.0); Mean Corpuscular HGB CONC 32.6 g/dL (32.0-36.0); Mean Corpuscular Hemoglobin 26.8 pg (27.0-31.0); Mean Corpuscular Volume 82.1 fL (78.0-98.0); Mean Platelet Volume 8.4 fL (7.4-10.4); Platelet Count 180 thou/uL (130-400); RBC Distribution Width 14.2 % (11.5-14.5); Red Blood Cell (RBC) Count 4.88 mill/uL (4.70-6.10); White Blood Cell (WBC) Count 6.7 thou/uL (4.8-10.8)
[2019-09-07 20:59] LABS: Bacteria/HPF None Seen HPF (None Seen); Bilirubin Negative (Negative); Blood, Urine 1+ (Negative); Clarity Clear (Clear); Glucose, Urine (Dipstick) 50 mg/dL (Negative); Leukocyte Negative Leu/uL (Negative); Nitrite Negative (Negative); Protein, Urine (Dipstick) 300 mg/dL (Neg-Trace); RBC/HPF 0-3 HPF (0-3); Squamous Epithelial 0-3 HPF (0-3); Urobilinogen Normal mg/dL (Less than 2); WBC/HPF 0-3 HPF (0-3)
--- NOTE | 2019-09-07 21:05 | RAD ---
PORTABLE CHEST: Date: 09-07-2019 Provided Clinical History: Generalized weakness. FINDINGS: Comparison 06-27-2019. Cardiac and mediastinal silhouette is unchanged in appearance. Median sternotomy changes, CABG change s, and implanted cardiac device are redemonstrated. No focal consolidation, pleural fluid or pneumoth orax apparent. IMPRESSION: No evidence for an acute cardiopulmonary process. POS: BEE
[2019-09-07 21:14] LABS: ALT (SGPT) 9 U/L (8-55); AST (SGOT) 15 U/L (5-34); Albumin 3.6 g/dL (3.4-4.8); Alkaline Phosphatase 81 U/L (40-110); Anion Gap 14 mmol/L (10-20); BUN (Urea Nitrogen) 27 mg/dL (8.4-25.7); Bilirubin, Total 0.9 mg/dL (0.2-1.2); Calc. Creatinine Clearance 0 mL/min (70-130); Calcium 8.8 mg/dL (7.8-10.44); Carbon Dioxide 23 mmol/L (23-31); Chloride 103 mmol/L (98-107); Estimated GFR-MDRD 20; Globulin 2.9 g/dL (2.4-3.5); Glucose 83 mg/dL (83-110); Magnesium 1.8 mg/dL (1.6-2.6); Protein, Total 6.5 g/dL (5.8-8.1); Sodium 136 mmol/L (136-145)
[2019-09-07 21:35] LABS: CKMB 2.7 ng/mL (0-6.6)
--- NOTE | 2019-09-07 21:56 | PDOC.FPRHP ---
- History of Present Illness Chief Complaint: Weakness, Near Syncope History of Present Illness: Pt is an 78 yo male who presents for - Allergies/Adverse Reactions Allergies Allergy/AdvReac Type Severity Reaction Status Date / Time No Known Allergies Allergy Verified 08/23/19 14:51 - Home Medications Medication Instructions Recorded Confirmed Type amLODIPine Besylate [Amlodipine 10 mg PO DAILY 04/06/16 07/28/19 History Besylate] Cholecalciferol [Vitamin D3] 1,000 units PO DAILY #30 tab 08/22/16 07/28/19 Rx Atorvastatin Calcium [Lipitor] 40 mg PO HS 04/11/17 07/28/19 History Metoprolol Tartrate [Lopressor] 50 mg PO BID 04/11/17 07/28/19 History Doxazosin Mesylate 4 mg PO HS 10/23/17 07/28/19 History Aspirin [Ecotrin Low Strength] 81 mg PO DAILY 04/26/19 07/28/19 History Isosorbide Mononitrate [Isosorbide 30 mg PO DAILY 04/26/19 07/28/19 History Mononitrate ER] Insulin Glargine,Hum.Rec.Anlog 12 unit SQ BID #1 vial 06/27/19 07/28/19 Rx [Lantus] hydrALAZINE [Apresoline] 10 mg PO TID #90 tab 06/28/19 07/28/19 Rx Furosemide [Lasix] 20 mg PO DAILY PRN #20 tab 08/07/19 Rx - History PMHx: PSHx: FHx: Social: - Vital signs BP: [] HR: [] RR: [] Tmax: [] Pox: []% on [] Wt: [] FMR H&P: Results - Labs Result Diagrams: 09/07/19 20:42 09/07/19 20:42 Lab results: WBC 6.7 thou/uL (4.8-10.8) 09/07/19 20:42 Hgb 13.1 g/dL (14.0-18.0) L 09/07/19 20:42 Hct 40.1 % (42.0-52.0) L 09/07/19 20:42 MCV 82.1 fL (78.0-98.0) 09/07/19 20:42 Plt Count 180 thou/uL (130-400) 09/07/19 20:42 Neutrophils % 44.3 % (42.0-75.0) 09/07/19 20:42 Sodium 136 mmol/L (136-145) 09/07/19 20:42 Potassium 4.0 mmol/L (3.5-5.1) 09/07/19 20:42 Chloride 103 mmol/L (98-107) 09/07/19 20:42 Carbon Dioxide 23 mmol/L (23-31) 09/07/19 20:42 BUN 27 mg/dL (8.4-25.7) H 09/07/19 20:42 Creatinine 3.61 mg/dL (0.7-1.3) H 09/07/19 20:42 Glucose 83 mg/dL (83-110) 09/07/19 20:42 Calcium 8.8 mg/dL (7.8-10.44) 09/07/19 20:42 Total Bilirubin 0.9 mg/dL (0.2-1.2) 09/07/19 20:42 AST 15 U/L (5-34) 09/07/19 20:42 ALT 9 U/L (8-55) 09/07/19 20:42 Alkaline Phosphatase 81 U/L (40-110) 09/07/19 20:42 CK-MB (CK-2) 2.7 ng/mL (0-6.6) 09/07/19 20:42 Serum Total Protein 6.5 g/dL (5.8-8.1) 09/07/19 20:42 Albumin 3.6 g/dL (3.4-4.8) 09/07/19 20:42 Urine Ketones Negative mg/dL (Negative) 09/07/19 20:45 Urine Blood 1+ (Negative) A 09/07/19 20:45 Urine Nitrite Negative (Negative) 09/07/19 20:45 Ur Leukocyte Esterase Negative Gonzalo/uL (Negative) 09/07/19 20:45 Urine RBC 0-3 HPF (0-3) 09/07/19 20:45 Urine WBC 0-3 HPF (0-3) 09/07/19 20:45 Ur Squamous Epith Cells 0-3 HPF (0-3) 09/07/19 20:45 Urine Bacteria None Seen HPF (None Seen) 09/07/19 20:45 FMR H&P: Upper Level - Plan Date/Time: 09/07/19 0388 I, [], have evaluated this patient and agree with findings/plan as outlined by internet webmaster resident. Pertinent changes/additions are listed here.
[2019-09-07] MEDS ORDERED: Acetaminophen 325 MG TAB PO PRN (22:54)
[2019-09-07] MEDS ORDERED: Lactated Ringer's 1,000 ML IV SCH (23:00)
[2019-09-07] MEDS ORDERED: Dextrose 50% Abboject 50 ML SYRINGE SLOW IVP PRN (23:26)
[2019-09-07] MEDS ORDERED: HumaLOG 300 UNITS/3 ML VIAL SC PRN (23:26)
[2019-09-07] MEDS ORDERED: Dextrose 5% in Water 1,000 ML IV PRN (23:26)
--- NOTE | 2019-09-07 23:26 | PDOC.FPRHP ---
- Allergies/Adverse Reactions Allergies Allergy/AdvReac Type Severity Reaction Status Date / Time No Known Allergies Allergy Verified 08/23/19 14:51 - Home Medications Medication Instructions Recorded Confirmed Type amLODIPine Besylate [Amlodipine 10 mg PO DAILY 04/06/16 09/07/19 History Besylate] Cholecalciferol [Vitamin D3] 1,000 units PO DAILY #30 tab 08/22/16 09/07/19 Rx Atorvastatin Calcium [Lipitor] 40 mg PO HS 04/11/17 09/07/19 History Metoprolol Tartrate [Lopressor] 50 mg PO BID 04/11/17 09/07/19 History Doxazosin Mesylate 4 mg PO HS 10/23/17 09/07/19 History Aspirin [Ecotrin Low Strength] 81 mg PO DAILY 04/26/19 09/07/19 History Isosorbide Mononitrate [Isosorbide 30 mg PO DAILY 04/26/19 09/07/19 History Mononitrate ER] Insulin Glargine,Hum.Rec.Anlog 12 unit SQ BID #1 vial 06/27/19 09/07/19 Rx [Lantus] Furosemide [Lasix] 20 mg PO DAILY PRN #20 tab 08/07/19 09/07/19 Rx hydrALAZINE [Apresoline] 10 mg PO TID 09/07/19 09/07/19 History - History PMHx: PSHx: FHx: Social: - Vital signs BP: [] HR: [] RR: [] Tmax: [] Pox: []% on [] Wt: [] FMR H&P: Results - Labs Result Diagrams: 09/07/19 20:42 09/07/19 20:42 Lab results: WBC 6.7 thou/uL (4.8-10.8) 09/07/19 20:42 Hgb 13.1 g/dL (14.0-18.0) L 09/07/19 20:42 Hct 40.1 % (42.0-52.0) L 09/07/19 20:42 MCV 82.1 fL (78.0-98.0) 09/07/19 20:42 Plt Count 180 thou/uL (130-400) 09/07/19 20:42 Neutrophils % 44.3 % (42.0-75.0) 09/07/19 20:42 Sodium 136 mmol/L (136-145) 09/07/19 20:42 Potassium 4.0 mmol/L (3.5-5.1) 09/07/19 20:42 Chloride 103 mmol/L (98-107) 09/07/19 20:42 Carbon Dioxide 23 mmol/L (23-31) 09/07/19 20:42 BUN 27 mg/dL (8.4-25.7) H 09/07/19 20:42 Creatinine 3.61 mg/dL (0.7-1.3) H 09/07/19 20:42 Glucose 83 mg/dL (83-110) 09/07/19 20:42 Calcium 8.8 mg/dL (7.8-10.44) 09/07/19 20:42 Total Bilirubin 0.9 mg/dL (0.2-1.2) 09/07/19 20:42 AST 15 U/L (5-34) 09/07/19 20:42 ALT 9 U/L (8-55) 09/07/19 20:42 Alkaline Phosphatase 81 U/L (40-110) 09/07/19 20:42 CK-MB (CK-2) 2.7 ng/mL (0-6.6) 09/07/19 20:42 B-Natriuretic Peptide 86.9 pg/mL (0-100) 09/07/19 20:42 Serum Total Protein 6.5 g/dL (5.8-8.1) 09/07/19 20:42 Albumin 3.6 g/dL (3.4-4.8) 09/07/19 20:42 Urine Ketones Negative mg/dL (Negative) 09/07/19 20:45 Urine Blood 1+ (Negative) A 09/07/19 20:45 Urine Nitrite Negative (Negative) 09/07/19 20:45 Ur Leukocyte Esterase Negative Gonzalo/uL (Negative) 09/07/19 20:45 Urine RBC 0-3 HPF (0-3) 09/07/19 20:45 Urine WBC 0-3 HPF (0-3) 09/07/19 20:45 Ur Squamous Epith Cells 0-3 HPF (0-3) 09/07/19 20:45 Urine Bacteria None Seen HPF (None Seen) 09/07/19 20:45 FMR H&P: Upper Level - Plan Date/Time: 09/07/19 8202 PCP: None- I havent seen a doctor for a while HPI: This is an 78 yo M w/ PMH including CAD s/p CABG, CHF, DM2, Dementia, HLD, HTN, and CKD4. Patient states Im only here tisha my sent me. He denies fevers ,chills, sweats, N/V/D. Denies burning or blood with urination. He states he has had a mild dry cough since he was discharged 1 month ago. He denies SOB or shortness of breath with exertion, he denies issues with ambulating. Denies weakness on one side or the other. He was treated for RACHEL on CKD w/ ATN as well as Acute on chronic CHF exacerbation 1 mo ago. His states she called the ambulance because he told her Im not not feeling well. She states he was not steady on his fit and looked like he was going to fall although he did not. She states she broke her leg and has a cast on and is having a hard time caring for him. They are not at all interested in placement to Assisted living or snf. They would be interested in inpatient rehab. PMH: CAD s/p CABG, CHF, DM2, Dementia, HLD, HTN, and CKD4 PSH: CABG Meds: as above, states he takes meds every day. Allergies: NKDA Soc Hx: denies smoking, alcohol, drugs (notes from last admission mention tobacco abuse) Fm hx: non-contributory REVIEW OF SYSTEMS: Gen: no fever, chills, or sweats Neuro: denies headache or weakness Eyes: no visual changes ENT: no hearing changes, no sore throat, no congestion Resp: see hpi Card: denies murmurs, rubs, gallups GI: no N/V/D, no abdominal pain Heme: no easy bruising/bleeding, no blood thinners Skin: no rash, no erythema Vitals: BP 135/72 P64 R16 T 98.7 100 on RA 81kg 81kg PHYSICAL EXAMINATION: General: NAD, alert and oriented x3 HEENT: PERRLA, EOMI, normal sclera, oropharynx without erythema or exudate Neck: Supple. Full ROM. Heart/Cardiovascular System: RRR, Cap refill < 3 seconds, no rub, no murmur Lungs/Respiratory System: CTA-B, no resp distress Abdomen/Gastro-Intestinal System: no abdominal tenderness, normal bowel sounds Extremities: Warm extremities. No cyanosis or edema Neuro: No gross deficits appreciated. CN 2-12 grossly intact. NIHSS 0. AxOx2 ( I never know the year). Able to subtract 7 from 100. Knows how many grandkids, where he grew up, where he worked. Alert to situation Psychiatry: Awake, Alert and cooperative with exam Skin: No lesions, rashes, or ulcers Musculoskeletal: Full ROM A/P: # RACHEL on CKD4, recent ATN - Consult Dr. Mayes in AM - Renal function testing, FeNA ordered - LR at 75ml/hr # Elevated troponin - Asymptomatic, likely 2/2 Rachel - Trend trops - New T-inversions in lead I, v4-6 # Dementia, Deconditioning - Interested in inpt rehab, consulted CM - PT/OT/ST (MMSE)\ - NIHSS: 0 # dCHF, LVH, not in exacerbation - echo 1 mo ago, EF 45-50%, 2/3 diastolic dysfunction - gentle rehydration, BNP 82 # HTN, DM2, HLD - home meds - SSI Fluids: LR 75ml/hr Code: full PPx: scd, heparin Dispo: inpt rehab placement pending Dr. Mayes recs Addendum - Attending - Attending Attestation Date/Time: 09/08/19 0053 I personally evaluated the patient and discussed the management with Dr. Sage Alvarez I agree with the History, Examination, Assessment and Plan documented above with any addition or exceptions noted below. 78 yo AAM PMH CKD4 with recent ATN, HFpEF, IDDM. Presents with generalized weakness and unsteady gait. Reports decreased PO fluid intake because he does not feel very thirsty. Exam repeated agree with above. CXR negative. EKG reviewed and unremarkable. Labs show elevated creatinine with mild elevation in BUN and normal electrolytes. mildly eleveted troponin. Observation for RACHEL on CKD4. Likely prerenal. gentle IV fluids. will check FE Urea as patient unsure if he has been taking lasix. Will consult nephro in AM. Trend trop. Likely 2/2 CKD and do not suspect ACS. Patient considering rehab v SNF placement. Will follow up tomorrow.
[2019-09-08 01:16] LABS: Troponin I 0.053 ng/mL (< 0.028)
[2019-09-08 02:25] VITALS: BMI 26.2
[2019-09-08 04:19] LABS: #Basophils 0.1 thou/uL (0.0-0.2); #Eosinphils 0.6 thou/uL (0.0-0.7); #Lymphocytes 2.1 thou/uL (1.20-3.40); #Monocytes 0.7 thou/uL (0.11-0.59); #Neutrophils 2.8 thou/uL (1.40-6.50); %Basophils 0.9 % (0.0-1.0); %Eosinophils 9.1 % (0.0-10.0); %Monocytes 11.5 % (0.0-10.0); %Neutrophils 44.6 % (42.0-75.0); Hemoglobin 12.3 g/dL (14.0-18.0); Mean Corpuscular Hemoglobin 27.1 pg (27.0-31.0); Mean Corpuscular Volume 82.2 fL (78.0-98.0); Mean Platelet Volume 8.3 fL (7.4-10.4); Platelet Count 176 thou/uL (130-400); RBC Distribution Width 14.3 % (11.5-14.5); Red Blood Cell (RBC) Count 4.54 mill/uL (4.70-6.10); White Blood Cell (WBC) Count 6.2 thou/uL (4.8-10.8)
[2019-09-08 04:37] LABS: Anion Gap 11 mmol/L (10-20); BUN (Urea Nitrogen) 30 mg/dL (8.4-25.7); Calc. Creatinine Clearance 19 mL/min (70-130); Calcium 8.3 mg/dL (7.8-10.44); Carbon Dioxide 24 mmol/L (23-31); Chloride 103 mmol/L (98-107); Estimated GFR-MDRD 20; Glucose 308 mg/dL (83-110); Magnesium 1.8 mg/dL (1.6-2.6); Potassium 4.2 mmol/L (3.5-5.1); Sodium 134 mmol/L (136-145)
[2019-09-08 04:38] LABS: Albumin 3.2 g/dL (3.4-4.8); Phosphorus 3.2 mg/dL (2.3-4.7)
[2019-09-08 04:46] LABS: Troponin I 0.037 ng/mL (< 0.028)
[2019-09-08] MEDS ORDERED: Prevnar 13-Val Conj/PF 0.5 ML SYRINGE IM ONE (07:45)
[2019-09-08] MEDS: Heparin 5,000 UNITS/ML VIAL SC SCH ×2 (08:50→14:14)
--- NOTE | 2019-09-08 08:57 | PDOC.FM ---
- Subjective Subjective: NAEO. Patient has no complaints this AM. - Objective MAR Reviewed: Yes Vital Signs & Weight: Vital Signs (12 hours) Temp Pulse Resp BP Pulse Ox 09/08/19 07:50 98.6 F 68 16 161/87 H 98 09/08/19 04:11 98.4 F 70 14 158/86 H 97 09/07/19 23:19 98.2 F 69 18 157/83 H 97 Weight Weight 82.871 kg I&O: 09/07/19 09/08/19 09/09/19 06:59 06:59 06:59 Intake Total 752 Output Total 300 Balance 452 Result Diagrams: 09/08/19 04:05 09/08/19 04:05 Phys Exam - Physical Examination Constitutional: NAD HEENT: moist MMs Neck: supple, full ROM Respiratory: no wheezing, no rales, no rhonchi, clear to auscultation bilateral Cardiovascular: RRR, no significant murmur Gastrointestinal: soft, no distention Musculoskeletal: no edema, pulses present Neurological: non-focal, moves all 4 limbs Dx/Plan (1) Acute kidney injury superimposed on CKD Code(s): N17.9 - ACUTE KIDNEY FAILURE, UNSPECIFIED; N18.9 - CHRONIC KIDNEY DISEASE, UNSPECIFIED Status: Acute (2) Chronic kidney disease (CKD), stage IV (severe) Code(s): N18.4 - CHRONIC KIDNEY DISEASE, STAGE 4 (SEVERE) Status: Acute (3) Hyperglycemia Code(s): R73.9 - HYPERGLYCEMIA, UNSPECIFIED Status: Acute (4) Physical deconditioning Code(s): R53.81 - OTHER MALAISE Status: Acute (5) CAD (coronary artery disease) Code(s): I25.10 - ATHSCL HEART DISEASE OF [place] CORONARY ARTERY W/O ANG PCTRS Status: Chronic Qualifiers: Coronary Disease-Associated Artery/Lesion type: [place] artery [place] vs. transplanted heart: [place] heart Associated angina: without angina Qualified Code(s): I25.10 - Atherosclerotic heart disease of [place] coronary artery without angina pectoris (6) CHF (congestive heart failure) Code(s): I50.9 - HEART FAILURE, UNSPECIFIED Status: Chronic Qualifiers: Heart failure type: systolic Heart failure chronicity: acute on chronic Qualified Code(s): I50.23 - Acute on chronic systolic (congestive) heart failure (7) DM type 2 (diabetes mellitus, type 2) Status: Chronic Qualifiers: Diabetes mellitus intermediate project manager insulin use: with intermediate project manager use Diabetes mellitus complication status: with kidney complications Chronic kidney disease stage: stage 3 (moderate) (8) Dementia Code(s): F03.90 - UNSPECIFIED DEMENTIA WITHOUT BEHAVIORAL DISTURBANCE Status: Chronic Qualifiers: Dementia type: unspecified type Dementia behavioral disturbance: without behavioral disturbance Qualified Code(s): F03.90 - Unspecified dementia without behavioral disturbance (9) Hypertension Code(s): I10 - ESSENTIAL (PRIMARY) HYPERTENSION Status: Chronic Qualifiers: Hypertension type: essential hypertension Qualified Code(s): I10 - Essential (primary) hypertension - Plan Plan: # RACHEL on CKD4, recent ATN -Slight improvement s/p IVFs overnight w/ Cr down from 3.61 to 3.57 this AM. Calculated FeNa c/w prerenal RACHEL. -Continue gentle IVFs w/ LR at 75ml/hr w/ strict I&Os today. -Nephrology, Dr. Mayes consulted this AM for further recs. # Elevated troponin -Asymptomatic, likely 2/2 RACHEL as eventually downtrended. -New T-inversions in lead I, v4-6 # Dementia, Deconditioning -Interested in inpt rehab. Post acute screening order placed on admission. # HFrEF, not in exacerbation -echo 1 mo ago, EF 45-50%, 2/3 diastolic dysfunction -Continue gentle rehydration, home meds, QD weights, & strict I&Os # HTN - Resume home meds today #DM2 - home meds, mild SSI, ACHS accuchecks #HLD -home meds #CAD s/p 4V CABG -home meds Fluids: LR 75ml/hr Code: full PPx: scd, heparin Dispo: Anticipate likely placement pending nephro & PT/CM recs
[2019-09-08] MEDS ORDERED: Isosorbide Mononitrate (ER) 30 MG TAB PO SCH (09:00)
[2019-09-08] MEDS ORDERED: Metoprolol Tartrate 50 MG TAB PO SCH (09:00)
[2019-09-08] MEDS ORDERED: Aspirin 81 mg Enteric Coated Tablet PO SCH (09:00)
[2019-09-08] MEDS ORDERED: Insulin Glargine 12 UNITS in Pre-Filled Syringe 1 EACH SC SCH (09:00)
[2019-09-08] MEDS ORDERED: Amlodipine 10 MG TAB PO SCH (09:00)
[2019-09-08] MEDS ORDERED: Metoprolol Tartrate 25 MG TAB PO SCH (09:00)
[2019-09-08] MEDS: hydrALAZINE 10 MG TAB PO SCH ×2 (09:36→14:14)
--- NOTE | 2019-09-08 09:54 | CON ---
DATE OF CONSULTATION: HISTORY OF PRESENT ILLNESS: Mr. Castillo is an 78-year-old black male, who was admitted for generalized malaise. The patient of interest has an underlying history of dementia. According to the , he has been complaining of not feeling well. However, on close questioning, the patient denies any chest pain, shortness of breath, nausea, or vomiting. We are now being consulted for his acute kidney injury on top of his chronic renal failure. Please note that this patient was seen at the hospital recently and he had evidence of acute tubular necrosis at that time. However, renal function improved with adjustment of his diuretics as well as empiric volume repletion. REVIEW OF SYSTEMS: Currently, no chest pain, no shortness of breath. Decreased energy level. Appetite fair. No nausea. No vomiting. No diarrhea. No constipation. No productive cough. No headache. No diplopia. No fever or chills. No sore throat. No shortness of breath. Occasional joint pains. HOME MEDICATIONS: Include; 1. Amlodipine 10 mg daily. 2. Vitamin D3 1000 international units daily. 3. Atorvastatin 40 mg at bedtime. 4. Doxazosin 4 mg at bedtime. 5. Aspirin 81 mg tab daily. 6. Imdur ER 30 mg tablet once a day. 7. Lantus 12 units subcu b.i.d. 8. Furosemide 20 mg daily-p.r.n. basis. 9. Hydralazine 10 mg p.o. t.i.d. PAST MEDICAL HISTORY: 1. Chronic renal failure secondary to underlying diabetic nephropathy, status post acute kidney injury from ATN. 2. Hypertension. 3. BPH. 4. Hyperlipidemia. 5. Status post CVA. 6. Status post metabolic encephalopathy. PAST SURGICAL HISTORY: Status post cardiac cath with CABG. FAMILY HISTORY: No family history of ESRD. SOCIAL HISTORY: The patient lives in [place], lives with his . He is and has 8 children. 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 Education, 6th grade. No IV drug use. Did use smokeless tobacco. The is unable to care for him and is declining to bring him back to a custodial. ALLERGIES: NONE. TRAUMA: None. IMMUNIZATIONS: Up to date. HOSPITALIZATIONS: Please see past medical history. PHYSICAL EXAMINATION: VITAL SIGNS: Blood pressure is noted at 161/87, heart rate 68, respiratory rate 16, temperature 98.6, pulse ox 98%. GENERAL: The patient is awake, comfortable, not in overt distress. SKIN: Decreased turgor. HEENT: He has a pinkish conjunctivae. Anicteric sclerae. NECK: No neck mass. No carotid bruits. No JVD. CHEST: No deformities. LUNGS: Clear breath sounds. No wheezing. No crackles. HEART: Normal sinus rhythm. No murmurs. No gallops. No rubs. ABDOMEN: Globular, soft, nontender. No masses. EXTREMITIES: No edema. No deformities. NEUROLOGICAL: Awake, slightly confused. The patient is moving all extremities. LABORATORY DATA: Laboratories of September 08, 2019; white count 6.2, hemoglobin 12.3. Sodium is 134, potassium is 4.2, chloride 103, carbon dioxide 24, BUN 30, creatinine 3.57, GFR 20 mL/minute, glucose 243, calcium 8.3, magnesium is 1.8. September 07, 2019; BUN 27, creatinine 3.61. August 06, 2019; BUN 30, creatinine 2.76. September 07, 2019; urinalysis show protein of 300, specific gravity 1.017, hyaline casts 21 to 50, urine creatinine 219, urine sodium is 31. ASSESSMENT AND PLAN: Acute kidney injury on top of his chronic renal failure-consider superimposed prerenal azotemia. This patient has an underlying history of dementia? and may not be eating well. Agree with empiric volume repletion. I would suggest we increase the lactated Ringer's to 100 mL an hour. There is no indication for any dialytic intervention with this patient. We will also be rechecking PTH and serum phosphorus with this patient tomorrow. I agree with current management. Continue supportive care. Job ID: [id number]
[2019-09-08] MEDS ORDERED: Magnesium Oxide 400 MG TAB PO SCH ×2 (10:00→21:00)
[2019-09-08] MEDS: Lactated Ringer's 1,000 ML IV SCH ×2 (10:05→14:14)
[2019-09-08] MEDS ORDERED: hydrALAZINE 25 MG TAB PO SCH (15:00)
[2019-09-08 15:38] LABS: Anion Gap 11 mmol/L (10-20); BUN (Urea Nitrogen) 27 mg/dL (8.4-25.7); Calc. Creatinine Clearance 22 mL/min (70-130); Calcium 8.4 mg/dL (7.8-10.44); Carbon Dioxide 25 mmol/L (23-31); Chloride 104 mmol/L (98-107); Estimated GFR-MDRD 24; Glucose 178 mg/dL (83-110); Potassium 4.4 mmol/L (3.5-5.1); Sodium 136 mmol/L (136-145)
[2019-09-08 15:44] VITALS: TEMP 98.4
[2019-09-08] MEDS ORDERED: hydrALAZINE 10 MG TAB PO SCH (15:45)
[2019-09-08 17:11] VITALS: BP 143/83
--- NOTE | 2019-09-08 17:44 | DIS ---
DATE OF ADMISSION: 09/07/2019 DATE OF DISCHARGE: 09/08/2019 ADMITTING ATTENDING: John Patiño MD DISCHARGE ATTENDING: Vignesh Camarena MD RESIDENT: Nicki Shin MD CONSULT: Nephrology, Dr. Jaiden Dickens. PROCEDURES: Chest x-ray on 09/07/2019, which showed no evidence for acute cardiopulmonary disease. PRIMARY DIAGNOSES: 1. Acute kidney injury superimposed on chronic kidney disease stage 4. 2. Physical deconditioning secondary to multiple comorbidities listed below in secondary diagnoses. 3. Elevated troponin secondary to #1. SECONDARY DIAGNOSES: 1. Dementia. 2. Heart failure with reduced ejection fraction and diastolic dysfunction. 3. Hypertension. 4. Insulin-dependent diabetes mellitus type 2. 5. Hyperlipidemia. 6. Coronary artery disease, status post four-vessel CABG. DISCHARGE MEDICATIONS: 1. Norvasc 10 mg p.o. daily. 2. Vitamin D3 of 1000 units p.o. daily. 3. Metoprolol 50 mg p.o. b.i.d. 4. Atorvastatin 40 mg p.o. at bedtime. 5. Doxazosin 4 mg p.o. at bedtime. 6. Aspirin 81 mg p.o. daily. 7. Isosorbide mononitrate 30 mg p.o. daily. 8. Insulin Lantus 12 units subcu b.i.d. 9. Furosemide 20 mg p.o. daily as needed. 10. Hydralazine 25 mg p.o. t.i.d. 11. Heparin 5000 units subcu t.i.d. 12. Acetaminophen 650 mg p.o. q.4 hours p.r.n. DISCONTINUED MEDICATION: Hydralazine 10 mg p.o. t.i.d. HOSPITAL COURSE: The patient is an 78-year-old gentleman with a past medical history notable for chronic kidney disease stage 4, heart failure with reduced ejection fraction and diastolic dysfunction, hypertension, and insulin-dependent diabetes mellitus type 2, who presents to the emergency department per the urgings of his for reported weakness and "not feeling well" per the patient's . Of note, the patient was recently hospitalized approximately one month ago for acute on chronic CHF exacerbation as well as RACHEL on CKD with ATN and was seen by Nephrology at that time. On presentation to the emergency department, the patient's vitals were within normal limits other than a slightly elevated blood pressure of 149/80 and a workup including a chest x-ray and blood work including CBC, CMP, troponin, TSH, procalcitonin, BNP, and UA were all obtained and were notable for normocytic anemia with a hemoglobin of 13 and MCV of 82.1, and RACHEL on CKD stage 4 with a BUN and creatinine of 27 and 3.61. In addition, his troponin I was slightly elevated at 0.034, which ultimately trended up to 0.035, ended down to 0.037. Thus, due to his acute worsening kidney function with associated weakness, he was admitted for IV fluid resuscitation overnight with plans to consult Nephrology this morning. The following morning, a repeat BMP revealed that the patient's creatinine was down to 3.57 and urine studies revealed his fractional excretion of sodium level of 0.4 suggestive of prerenal etiology. Nephrology, Dr. Jaiden Mayes, evaluated the patient and increased his IV fluid rate from 75 to 100 mL an hour and a repeat BMP that afternoon at ~ 1500 showed his creatinine continued to downtrend to 3.07 with eGFR of 24. Case Management, Physical Therapy, and Occupational Therapy also came and evaluated the patient on the date of discharge and recommended inpatient rehab for placement. Later that day, the patient was accepted to [facility] for continued physical therapy and IV fluid resuscitation as needed for his kidney injury. DISPOSITION: Stable. DISCHARGE INSTRUCTIONS: 1. Location: [facility]. 2. Activity: As tolerated. No restrictions. 3. Diet: Heart healthy, low-sodium, renal, and diabetic diet. 4. Followup: The patient was instructed to follow up with his PCP at [facility] within 1 to 2 weeks of discharge from inpatient rehab and with Dr. Jaiden Mayes within 6 weeks of discharge from rehab for close monitoring of his renal function. Job ID: [id number] MTDD
[2019-09-08] MEDS ORDERED: Doxazosin 2 MG TAB PO SCH (21:00)
[2019-09-08] MEDS ORDERED: Atorvastatin Calcium 20 MG TAB PO SCH (21:00)
[2019-09-08] MEDS ORDERED: Doxazosin Mesylate 1 MG TAB PO SCH (21:00)
== END 2019-09-08 19:17 ==
LOC: ERS 19:59 → 2SE 21:44
PROVIDERS: ADMIT Family Medicine; ATTEND Family Medicine
DX: N17.9 Acute kidney failure, unspecified (principal); I13.0 Hypertensive heart and chronic kidney disease with heart failure and stage 1 through stage 4 chronic kidney disease, or unspecified chronic kidney disease; E11.22 Type 2 diabetes mellitus with diabetic chronic kidney disease; N18.4 Chronic kidney disease, stage 4 (severe); I50.43 Acute on chronic combined systolic (congestive) and diastolic (congestive) heart failure; E78.5 Hyperlipidemia, unspecified; F03.90 Unspecified dementia, unspecified severity, without behavioral disturbance, psychotic disturbance, mood disturbance, and anxiety; F17.220 Nicotine dependence, chewing tobacco, uncomplicated; I25.10 Atherosclerotic heart disease of native coronary artery without angina pectoris; D64.9 Anemia, unspecified; Z79.4 Long term (current) use of insulin; Z79.82 Long term (current) use of aspirin; Z79.899 Other long term (current) drug therapy; Z95.1 Presence of aortocoronary bypass graft
CPT/HCPCS: 71045; 82553; 82570; 82962 ×2; 83735 ×2; 83880; 84145; 84300; 84484 ×3; 84540; 85025; 90670; 93005; 96360; 96361 ×2; 96372; 97139 ×2; 97530; 99285; G0009; G0378 ×3; 36415; 36416; 80048; 80053; 81003; 81015; 82040; 84100; 84443; 90471; J1644; J1815

== ENCOUNTER 2019-10-02 19:50 | Emergency (ER) | payer MEDICARE, MEDICAID ==
[2019-10-02 20:28] LABS: #Basophils 0.1 thou/uL (0.0-0.2); #Eosinphils 0.5 thou/uL (0.0-0.7); #Lymphocytes 1.5 thou/uL (1.20-3.40); #Monocytes 0.9 thou/uL (0.11-0.59); #Neutrophils 3.5 thou/uL (1.40-6.50); %Basophils 0.9 % (0.0-1.0); %Eosinophils 7.8 % (0.0-10.0); %Lymphocytes 23.4 % (21.0-51.0); %Monocytes 14.6 % (0.0-10.0); %Neutrophils 53.3 % (42.0-75.0); Hemoglobin 11.2 g/dL (14.0-18.0); Mean Corpuscular HGB CONC 30.1 g/dL (32.0-36.0); Mean Corpuscular Hemoglobin 25.2 pg (27.0-31.0); Mean Corpuscular Volume 83.8 fL (78.0-98.0); Mean Platelet Volume 8.6 fL (7.4-10.4); Platelet Count 261 thou/uL (130-400); RBC Distribution Width 14.9 % (11.5-14.5); Red Blood Cell (RBC) Count 4.43 mill/uL (4.70-6.10); White Blood Cell (WBC) Count 6.5 thou/uL (4.8-10.8)
[2019-10-02 20:47] LABS: Base Excess-Venous -0.9 mmol/L (-2.0 to 3.0); Bicarbonate (HCO3v) 22.3 mmol/L (22.0-28.0); CO2 Tension (PvCO2) 31.9 mmHg (40.0-50.0); Calcium, Ionized 0.93 mmol/L (See Comments:); Chloride 107 mmol/L (98-107); Hemoglobin - Calc 12.2 g/dL (14.0-18.0); Potassium 4.1 mmol/L (3.5-5.1); Sodium 134 mmol/L (138-145); T. Carbon Dioxide 23.3 mmol/L (22.0-28.0)
[2019-10-02 20:50] LABS: ALT (SGPT) 15 U/L (8-55); AST (SGOT) 25 U/L (5-34); Albumin 3.3 g/dL (3.4-4.8); Alkaline Phosphatase 78 U/L (40-110); Anion Gap 16 mmol/L (10-20); BUN (Urea Nitrogen) 35 mg/dL (8.4-25.7); Bilirubin, Total 0.5 mg/dL (0.2-1.2); Calc. Creatinine Clearance 0 mL/min (70-130); Calcium 8.1 mg/dL (7.8-10.44); Carbon Dioxide 17 mmol/L (23-31); Chloride 104 mmol/L (98-107); Estimated GFR-MDRD 19; Globulin 2.8 g/dL (2.4-3.5); Glucose 488 mg/dL (83-110); Magnesium 1.8 mg/dL (1.6-2.6); Potassium 3.9 mmol/L (3.5-5.1); Protein, Total 6.1 g/dL (5.8-8.1); Sodium 133 mmol/L (136-145)
[2019-10-02] MEDS ORDERED: Insulin Regular 300 UNITS/3 ML VIAL ONE (20:55)
== END 2019-10-02 23:45 | disposition home or self-care (01) ==
LOC: ERS 19:50
DX: E10.65 Type 1 diabetes mellitus with hyperglycemia (principal); E78.5 Hyperlipidemia, unspecified; E78.00 Pure hypercholesterolemia, unspecified; I10 Essential (primary) hypertension; F03.90 Unspecified dementia, unspecified severity, without behavioral disturbance, psychotic disturbance, mood disturbance, and anxiety; F17.220 Nicotine dependence, chewing tobacco, uncomplicated
CPT/HCPCS: 36415; 36416; 80053; 82010; 82330; 82803; 83735; 85025; 96374; J1815

== ENCOUNTER 2019-10-16 22:41 | Emergency (ER) | payer MEDICARE, MEDICAID | END 2019-10-17 00:39 | disposition home or self-care (01) | LOC: ERS 22:41 | DX: E10.649 Type 1 diabetes mellitus with hypoglycemia without coma (principal); I10 Essential (primary) hypertension; E78.5 Hyperlipidemia, unspecified; E78.00 Pure hypercholesterolemia, unspecified; F03.90 Unspecified dementia, unspecified severity, without behavioral disturbance, psychotic disturbance, mood disturbance, and anxiety; F17.220 Nicotine dependence, chewing tobacco, uncomplicated; Z79.899 Other long term (current) drug therapy; Z79.82 Long term (current) use of aspirin | CPT/HCPCS: 36416; 99283 ==

== ENCOUNTER 2019-11-06 09:30 | Inpatient (IN) | payer MEDICARE, MEDICAID ==
[2019-11-06 10:54] LABS: Hemoglobin 12.8 g/dL (14.0-18.0); Mean Corpuscular HGB CONC 32.6 g/dL (32.0-36.0); Mean Corpuscular Hemoglobin 26.7 pg (27.0-31.0); Mean Platelet Volume 9.4 fL (7.4-10.4); Platelet Count 178 thou/uL (130-400); RBC Distribution Width 14.1 % (11.5-14.5); White Blood Cell (WBC) Count 9.3 thou/uL (4.8-10.8)
[2019-11-06 11:04] LABS: ALT (SGPT) Less than 7 U/L (8-55); AST (SGOT) 13 U/L (5-34); Albumin 3.7 g/dL (3.4-4.8); Alkaline Phosphatase 75 U/L (40-110); Anion Gap 15 mmol/L (10-20); BUN (Urea Nitrogen) 30 mg/dL (8.4-25.7); Bilirubin, Total 2.7 mg/dL (0.2-1.2); Calc. Creatinine Clearance 0 mL/min (70-130); Calcium 8.7 mg/dL (7.8-10.44); Carbon Dioxide 25 mmol/L (23-31); Chloride 103 mmol/L (98-107); Estimated GFR-MDRD 21; Globulin 2.8 g/dL (2.4-3.5); Glucose 205 mg/dL (83-110); Potassium 3.3 mmol/L (3.5-5.1); Protein, Total 6.5 g/dL (5.8-8.1); Sodium 140 mmol/L (136-145)
[2019-11-06 11:07] LABS: MDiff Complete? YES
[2019-11-06 11:08] LABS: Lymphocytes 11 % (21-51); Monocytes 15 % (0-10); Neutrophil 73 % (42-75); Platelet Morphology Comment Appears Adequate; RBC Morphology Normal
--- NOTE | 2019-11-06 11:10 | RAD ---
PORTABLE CHEST 1 VIEW: Date: 11/06/2019 Time: 0928 hours HISTORY: Weakness. COMPARISON: 09/14/2019. FINDINGS/IMPRESSION: There are changes of median sternotomy. The heart is enlarged. A small left pleural effusion is seen. No lobar consolidation, pneumothoraces, or mariano pulmonary edema identified. There are postop change s of right rotator cuff repair. POS: [facility]
[2019-11-06 11:26] LABS: CKMB 1.3 ng/mL (0-6.6)
[2019-11-06] MEDS ORDERED: Nitroglycerin 2% Ointment 1 INCH/1 GM Packet ONE (12:55)
[2019-11-06] MEDS ORDERED: Aspirin Chewable 81 MG TAB ONE (12:55)
[2019-11-06] MEDS ORDERED: Nitroglycerin 0.4 MG TAB 1 EACH ONE (12:55)
[2019-11-06 14:00] LABS: Troponin I 0.163 ng/mL (< 0.028)
[2019-11-06] MEDS ORDERED: Acetaminophen 325 MG TAB PO PRN (14:45)
[2019-11-06] MEDS ORDERED: Senokot S 8.6-50 MG TAB PO PRN (14:45)
[2019-11-06] MEDS ORDERED: Furosemide 20 MG TAB PO PRN (14:46)
[2019-11-06] MEDS ORDERED: hydrALAZINE 20 MG/ML VIAL SLOW IVP PRN (14:49)
[2019-11-06] MEDS ORDERED: hydrALAZINE 20 MG/ML VIAL ONE (14:50)
[2019-11-06] MEDS ORDERED: Dextrose 50% Abboject 50 ML SYRINGE IVP PRN (15:09)
[2019-11-06] MEDS ORDERED: Dextrose 5% in Water 1,000 ML IV PRN (15:09)
[2019-11-06] MEDS ORDERED: Potassium Chloride 20 MEQ TAB PO SCH (15:15)
--- NOTE | 2019-11-06 16:03 | HP ---
CHIEF COMPLAINT: Progressive worsening of weakness. HISTORY OF PRESENT ILLNESS: An 78-year-old male with history of dementia; coronary artery disease, status post CABG; chronic kidney disease; hypertension, presenting with worsening of his weakness. is not at bedside, but it seems that his functional status is declining. The patient does have history of underlying dementia. He was admitted in July 2019 for CHF exacerbation. Here, initial evaluation showed EKG with lateral ischemic changes in V4 to V5 along with elevated systolic blood pressure around 220. The patient received nitroglycerin sublingual as well as transdermal patch. The patient will be admitted for further workup. During my exam, the patient is not able to give me any history except stating that he is living at home. With dementia, it is difficult to get any meaningful information from him. I talked to the ER nurse. His blood pressure is still in the high end, 215/100 after transdermal patch. Since his pulse is in 60s, we will try hydralazine 20 IV stat, and if it is not improving, he needs a nicardipine drip and move him to the unit. If blood pressure improves in the ER, then he goes to the [facility]. REVIEW OF SYSTEMS: Not obtainable. PAST MEDICAL HISTORY: 1. Coronary artery disease, status post CABG. 2. Hypertension. 3. Hyperlipidemia. 4. History of CHF. 5. Ischemic cardiomyopathy. 6. Dementia. PAST SURGICAL HISTORY: 1. CABG in 2003. 2. Pacemaker placement. SOCIAL HISTORY: Lives, I believe, with his . Ambulates with a walker. Does not smoke, but chews tobacco. No alcohol use. FAMILY HISTORY: Noncontributory. PHYSICAL EXAMINATION: VITAL SIGNS: Temperature 97.6, pulse 59, blood pressure is 191/88, saturating 99% on room air. GENERAL: The patient is alert, oriented x1. He is not in any acute distress at the moment. CARDIOVASCULAR: Regular rate and rhythm without murmurs, rubs, or gallops. LUNGS: Clear to auscultation bilaterally without wheezing, rales, or rhonchi. ABDOMEN: Soft, nontender, nondistended. Good bowel sounds. EXTREMITIES: Without any pitting edema. LABORATORY DATA: His hemoglobin is 12.8. Rest of the CBC in the normal range. His potassium is 3.3, creatinine 3.46. Troponins 0.191 and 0.163. Rest of the CMP panel in the normal range. DIAGNOSTIC DATA: EKG showed lateral ischemic changes in V4 to V5. Chest x-ray showed changes of median sternotomy, enlarged heart, small left pleural effusion. No pneumothorax. No pulmonary edema. No lobar consolidation. IMPRESSION AND PLAN: An 78-year-old male with several past medical history, presenting with the followin. Progressive generalized weakness. 2. Abnormal troponin without mariano chest pain and EKG changes. 3. Hypertensive urgency. 4. History of coronary artery disease, status post coronary artery bypass grafting remotely. 5. Chronic kidney disease stage 4. 6. History of congestive heart failure and ischemic cardiomyopathy and echo of July 2019 showing Ejection fraction of 50%. Unfortunately, is not at bedside to gather further information, but it appears that the patient has worsening of his weakness from his baseline. With elevated blood pressure, he also has troponin leaks, and it is indeterminate. I will cycle the troponins. However, he may need further cardiac workup given the history of coronary artery disease and ischemic cardiomyopathy. We will request container packer operator's input. Chronic kidney disease, stage 4. Creatinine seems to be stable for the last few months. Avoid any nephrotoxic medications. The patient was seen by Dr. Mayes, photo checker, for acute tubular necrosis during his last admission in July 2019. We will place the physical therapy consult for strength training as well as possible rehab placement. His blood pressure seems to be challenging at this point despite him having a nitroglycerin patch. If hydralazine IV is not helping, then the patient will be on Cardene drip and transferred to unit. Renally dose heparin for deep vein thrombosis prophylaxis. The patient currently full code. Job ID: [id number] [facility]
[2019-11-06 16:06] LABS: CKMB 1.6 ng/mL (0-6.6)
[2019-11-06] MEDS ORDERED: niCARdipine 20MG In NaCl 20 MG/200 ML BAG ONE (16:29)
[2019-11-06 17:12] LABS: Bacteria/HPF None Seen HPF (None Seen); Bilirubin Negative (Negative); Blood, Urine 2+ (Negative); Clarity Clear (Clear); Glucose, Urine (Dipstick) 150 mg/dL (Negative); Leukocyte Negative Leu/uL (Negative); Nitrite Negative (Negative); Protein, Urine (Dipstick) 600 mg/dL (Neg-Trace); Squamous Epithelial 0-3 HPF (0-3); WBC/HPF 0-3 HPF (0-3)
[2019-11-06] MEDS ORDERED: niCARdipine 25 MG in Sodium Chloride 0.9% 250 ML 240 ML IVPB SCH (19:15)
[2019-11-06 20:00] VITALS: BMI 25.7
[2019-11-06] MEDS: hydrALAZINE 25 MG TAB PO SCH ×2 (20:05→21:31)
[2019-11-06] MEDS: Heparin 5,000 UNITS/ML VIAL SC SCH ×2 (20:05→21:30)
[2019-11-06] MEDS: Insulin Glargine 12 UNITS in Pre-Filled Syringe 1 EACH SC SCH (21:31)
[2019-11-06] MEDS: Metoprolol Tartrate 50 MG TAB PO SCH (21:31)
[2019-11-06] MEDS: Atorvastatin Calcium 40 MG TAB PO SCH (21:32)
[2019-11-06] MEDS: Doxazosin Mesylate 4 MG TAB PO SCH (21:32)
[2019-11-07 03:30] LABS: #Basophils 0.1 thou/uL (0.0-0.2); #Eosinphils 0.5 thou/uL (0.0-0.7); #Lymphocytes 1.2 thou/uL (1.20-3.40); #Monocytes 1.1 thou/uL (0.11-0.59); #Neutrophils 4.7 thou/uL (1.40-6.50); %Eosinophils 6.9 % (0.0-10.0); %Monocytes 14.6 % (0.0-10.0); %Neutrophils 61.5 % (42.0-75.0); Hemoglobin 11.7 g/dL (14.0-18.0); Mean Corpuscular HGB CONC 32.4 g/dL (32.0-36.0); Mean Corpuscular Hemoglobin 26.6 pg (27.0-31.0); Mean Corpuscular Volume 81.9 fL (78.0-98.0); Mean Platelet Volume 9.1 fL (7.4-10.4); Platelet Count 174 thou/uL (130-400); Red Blood Cell (RBC) Count 4.39 mill/uL (4.70-6.10); White Blood Cell (WBC) Count 7.7 thou/uL (4.8-10.8)
[2019-11-07] MEDS: Aspirin 81 mg Enteric Coated Tablet PO SCH (08:53)
[2019-11-07] MEDS: Heparin 5,000 UNITS/ML VIAL SC SCH ×3 (08:54→21:43)
[2019-11-07] MEDS: Isosorbide Mononitrate (ER) 30 MG TAB PO SCH (08:54)
[2019-11-07] MEDS: Metoprolol Tartrate 50 MG TAB PO SCH ×2 (08:54→21:44)
[2019-11-07] MEDS: hydrALAZINE 25 MG TAB PO SCH ×3 (08:54→21:44)
[2019-11-07] MEDS ORDERED: Prevnar 13-Val Conj/PF 0.5 ML SYRINGE IM ONE (09:00)
[2019-11-07] MEDS ORDERED: Furosemide 40 MG/4 ML VIAL SLOW IVP SCH (09:00)
[2019-11-07] MEDS: Insulin Glargine 12 UNITS in Pre-Filled Syringe 1 EACH SC SCH ×2 (09:04→21:44)
--- NOTE | 2019-11-07 11:11 | CON ---
DATE OF CONSULTATION: HISTORY OF PRESENT ILLNESS: Mr. Castillo is an 78-year-old black male with worsening generalized weakness. He was also to have labile hypertension as well as some degree of CHF. We are being consulted for his chronic renal failure. Please note, this patient has underlying dementia. REVIEW OF SYSTEMS: Positive for confusion and forgetfulness. Currently, denies any chest pain or shortness of breath. No nausea. No vomiting. No diarrhea. No productive cough. No fever or chills. MEDICATIONS: 1. Aspirin 81 mg daily. 2. Atorvastatin 40 mg at bedtime. 3. Vitamin D 1000 international units daily. 4. Doxazosin 4 mg at bedtime. 5. Furosemide 40 mg IV daily. 6. Insulin sliding scale. 7. Glargine insulin 12 units subcu b.i.d. 8. Imdur 30 mg tablet once a day. 9. Metoprolol 50 mg p.o. b.i.d. 10. KCl 40 mEq x1 dose. PAST MEDICAL HISTORY: Chronic renal failure secondary to diabetic nephropathy status post acute kidney injury from ATN, longstanding hypertension, BPH, hyperlipidemia, status post CVA ?, dementia, and status post metabolic encephalopathy. PAST SURGICAL HISTORY: Status post cardiac cath with CABG. FAMILY HISTORY: No family history of ESRD. SOCIAL HISTORY: The patient lives with his in [place]. He is . He has 8 children. 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 Education 6th grade. No IV drug abuse. He did use smokeless tobacco. ALLERGIES: NONE. TRAUMA: None. IMMUNIZATIONS: Up-to-date. HOSPITALIZATIONS: Please see past medical history. PHYSICAL EXAMINATION: VITAL SIGNS: Blood pressure is now currently at 145/70, heart rate 70, and O2 saturation 95%. GENERAL: Awake, alert, and comfortable, not in distress. SKIN: Adequate turgor. HEENT: He has pinkish conjunctivae. Anicteric sclerae. NECK: No neck mass. No carotid bruits. No JVD. CHEST: No deformities. LUNGS: Clear breath sounds. No wheezing. No crackles. HEART: Normal sinus rhythm. No murmurs. No gallops. No rubs. ABDOMEN: Globular, soft, and nontender. No masses. EXTREMITIES: No edema. No deformities. IMAGING: Chest x-ray of November 06, 2019, showed that heart is enlarged. There is no overt pulmonary edema. LABORATORY DATA: Laboratories of November 07, 2019, white count 7.7 and hemoglobin 11.7. On November 07, 2019; sodium 140, potassium 3.3, chloride 103, BUN 30, creatinine 3.46, AST 13, ALT less than 7, and albumin is 3.7. BNP is 2407 and troponin I 0.185. September 08, 2019, creatinine was 3.07. September 10, 2019, creatinine 3.3. September 14, 2019, creatinine 3.44. ASSESSMENT AND PLAN: 1. Chronic renal failure secondary to diabetic nephropathy. Creatinine is relatively stable. He is near baseline. He is currently at stage 4 chronic renal failure. There is no indication for any dialytic intervention. Judicious use of diuretics. If renal function will further worsen, I will probably hold off on the diuretics. 2. Labile hypertension, much improved. Continue current BP medications. 3. Dementia and forgetfulness. Supportive care. Overall, agree with current management. Recheck CBC and basic metabolic in a.m. Job ID: [id number]
[2019-11-07] MEDS ORDERED: HumaLOG 300 UNITS/3 ML VIAL SC PRN (13:05)
[2019-11-07] MEDS ORDERED: Dextrose 5% in Water 1,000 ML IV PRN (13:05)
[2019-11-07] MEDS ORDERED: cloNIDine 0.1 MG TAB PO PRN (13:06)
--- NOTE | 2019-11-07 13:08 | PDOC.HOSPP ---
- Subjective Encounter Date: 11/07/19 Encounter Time: 11:50 Subjective: no sob or palp is sitting and eating breakfast no chest pain - Objective Vital Signs & Weight: Vital Signs (12 hours) Temp Pulse Pulse Pulse BP BP BP 11/07/19 12:00 97.9 F 11/07/19 09:07 69 82 149/61 H 166/85 H 11/07/19 08:54 68 146/64 H 11/07/19 08:00 98.0 F 11/07/19 05:00 98.6 F Pulse Ox Pulse Ox 11/07/19 12:00 11/07/19 09:07 98 11/07/19 08:54 11/07/19 08:00 96 11/07/19 05:00 Weight Weight 179 lb 7.3 oz Most Recent Monitor Data Heart Rate from ECG 59 NIBP 156/76 NIBP BP-Mean 102 Respiration from ECG 15 SpO2 96 I&O: 11/06/19 11/07/19 11/08/19 06:59 06:59 06:59 Intake Total 587 300 Output Total 300 150 Balance 287 150 Result Diagrams: 11/07/19 03:16 11/06/19 10:23 Additional Labs: Accuchecks 11/07/19 11/06/19 12:15 21:21 POC Glucose 179 H 176 H Hospitalist ROS - Medication Medications: Active Medications Generic Name Dose Route Start Last Admin Trade Name Abdirizakq PRN Reason Stop Dose Admin Aspirin 81 mg 11/07/19 09:00 11/07/19 08:53 Ecotrin PO 81 mg DAILY JOE Administration Atorvastatin Calcium 40 mg 11/06/19 21:00 11/06/19 21:32 Lipitor PO 40 mg HS JOE Administration Cholecalciferol 1,000 units 11/07/19 09:00 11/07/19 08:54 Vitamin D3 PO 1,000 units DAILY JOE Administration Doxazosin Mesylate 4 mg 11/06/19 21:00 11/06/19 21:32 Cardura PO 4 mg HS JOE Administration Heparin Sodium (Porcine) 5,000 units 11/06/19 15:00 11/07/19 08:54 Heparin SC 5,000 units TID JOE Administration Hydralazine HCl 25 mg 11/06/19 15:00 11/07/19 08:54 Apresoline PO 25 mg TID JOE Administration Insulin Glargine 12 units/ 0.12 mls @ 0 mls/hr 11/06/19 21:00 11/07/19 09:04 Miscellaneous Medication SC 0.12 mls BID JOE Administration Isosorbide Mononitrate 30 mg 11/07/19 09:00 11/07/19 08:54 Imdur Er PO 30 mg DAILY JOE Administration Metoprolol Tartrate 50 mg 11/06/19 21:00 11/07/19 08:54 Lopressor PO 50 mg BID JOE Administration - Exam General Appearance: awake alert Eye: PERRL, anicteric sclera ENT: no oropharyngeal lesions, moist mucosa Neck: supple, no JVD Heart: RRR, no murmur Respiratory: no wheezes, no rales Gastrointestinal: soft, non-tender, non-distended, normal bowel sounds Extremities: no cyanosis, no edema Neurological: no new deficit Psychiatric: normal affect, A&O x 3 Hosp A/P (1) Hypertensive urgency Code(s): I16.0 - HYPERTENSIVE URGENCY Status: Resolved (2) Acute kidney injury superimposed on CKD Code(s): N17.9 - ACUTE KIDNEY FAILURE, UNSPECIFIED; N18.9 - CHRONIC KIDNEY DISEASE, UNSPECIFIED Status: Acute (3) Acute on chronic systolic ACC/AHA stage C congestive heart failure Code(s): I50.23 - ACUTE ON CHRONIC SYSTOLIC (CONGESTIVE) HEART FAILURE Status : Acute (4) CAD (coronary artery disease) Code(s): I25.10 - ATHSCL HEART DISEASE OF [place] CORONARY ARTERY W/O ANG PCTRS Status: Chronic Qualifiers: Coronary Disease-Associated Artery/Lesion type: [place] artery [place] vs. transplanted heart: [place] heart Associated angina: without angina Qualified Code(s): I25.10 - Atherosclerotic heart disease of [place] coronary artery without angina pectoris (5) DM type 2 (diabetes mellitus, type 2) Status: Chronic Qualifiers: Diabetes mellitus fdc insulin use: with fdc use Diabetes mellitus complication status: with kidney complications Chronic kidney disease stage: stage 3 (moderate) (6) Dementia Code(s): F03.90 - UNSPECIFIED DEMENTIA WITHOUT BEHAVIORAL DISTURBANCE Status: Chronic Qualifiers: Dementia type: unspecified type Dementia behavioral disturbance: without behavioral disturbance Qualified Code(s): F03.90 - Unspecified dementia without behavioral disturbance (7) Dyslipidemia Code(s): E78.5 - HYPERLIPIDEMIA, UNSPECIFIED Status: Chronic (8) History of Ross's esophagus Code(s): Z87.19 - PERSONAL HISTORY OF OTHER DISEASES OF THE DIGESTIVE SYSTEM Status: Chronic - Plan hemostable BP is stable, is off cardene drip from last night tx to telemetry continue asp, lipitor, cardura, lasix, hydralazine, imdur, lopressor and lantus prior ef of 45% with diastolic dysfunction and lvh on 07/2019. d/w over phone and gave an update
--- NOTE | 2019-11-07 14:16 | CON ---
DATE OF CONSULTATION: HISTORY OF PRESENT ILLNESS: Nikhil Castillo is an 78-year-old gentleman, demented, who was brought into the hospital because of weakness. He is unable to give much more information at this time. He was just discharged from the hospital on 09/07 with a diagnosis of renal failure, dementia, hypertension. He is denying any obvious shortness of breath, coughing, or wheezing. PAST MEDICAL HISTORY: Dementia, hypertension, BPH, previous CVA. MEDICATIONS: His list of medicine from home includes, 1. Hydralazine 25 three times a day. 2. Amlodipine 10. 3. Lopressor 50 twice a day. 4. Ismo 30. 5. Insulin 20 units twice a day. 6. Doxazosin 4 mg. 7. Lipitor 40. 8. Aspirin. SURGICAL HISTORY: He states that he has had previous bypass. ALLERGIES: NONE. SOCIAL HISTORY: At this time, difficult to get. Tobacco none. At this time, he is in some kind of an assisted living place. PHYSICAL EXAMINATION: GENERAL: He appears to be in no distress. He is still on a Cardene drip. VITAL SIGNS: Blood pressure 130/60, pulse , respiratory rate 18, saturations 95%. CHEST: No wheezing, crackles. CARDIAC: Normal S1, S2. . LABORATORY DATA: White count 7000, , platelet count is normal. His BNP is 247 . His chest x-ray was unremarkable. His creatinine is elevated, appears to be at his baseline at 3.46; at discharge the last time was 4.43. IMPRESSION: 1. Uncontrolled hypertension. 2. Dementia. 3. Renal failure. 4. Congestive heart failure. We can try and wean his Cardene drip off. Put him on home medication and transfer out of the ICU. Will follow while in the ICU. This is a consultation note, 70 minutes, 50% direct patient care. Job ID: [id number]
[2019-11-07] MEDS: Furosemide 20 MG TAB PO SCH (14:35)
--- NOTE | 2019-11-07 15:08 | EKG ---
Test Reason : Blood Pressure : / mmHG Vent. Rate : 066 BPM Atrial Rate : 066 BPM P-R Int : 158 ms QRS Dur : 104 ms QT Int : 454 ms P-R-T Axes : 000 200 -40 degrees QTc Int : 475 ms Normal sinus rhythm Right superior axis deviation Inferior infarct , age undetermined T wave abnormality, consider lateral ischemia Abnormal ECG Confirmed by HYACINTH MRÁQUEZ, TERRY ([id number]), non linear editor JAVIER HAINES ([id number]) on 11/07/2019 3:08:05 PM Referred By: Confirmed By:TERRY CLAROS MD
[2019-11-07] MEDS: HumaLOG 300 UNITS/3 ML VIAL SC PRN (17:07)
[2019-11-07] MEDS: Atorvastatin Calcium 40 MG TAB PO SCH (21:43)
[2019-11-07] MEDS: Doxazosin Mesylate 4 MG TAB PO SCH (21:43)
[2019-11-08 04:36] LABS: Anion Gap 11 mmol/L (10-20); BUN (Urea Nitrogen) 32 mg/dL (8.4-25.7); Calc. Creatinine Clearance 20 mL/min (70-130); Calcium 8.3 mg/dL (7.8-10.44); Carbon Dioxide 30 mmol/L (23-31); Chloride 104 mmol/L (98-107); Estimated GFR-MDRD 21; Glucose 86 mg/dL (83-110); Sodium 142 mmol/L (136-145)
[2019-11-08 04:41] LABS: Potassium 2.9 mmol/L (3.5-5.1)
[2019-11-08] MEDS ORDERED: Potassium Chloride 20 MEQ TAB PO SCH ×2 (05:15→13:00)
--- NOTE | 2019-11-08 08:34 | PRG ---
DATE OF SERVICE: 11/08/2019 SERVICE: Renal Medicine. SUBJECTIVE: Mr. Castillo is an 78-year-old black male, who was admitted for labile hypertension as well as shortness of breath. He was empirically diuresed. Diuretics are being adjusted. In addition, blood pressure is better controlled. We are following up this patient for his chronic renal failure. His renal function is about near baseline. This morning, he voices no new complaint. He is feeling better. He denies any chest pain or shortness of breath. OBJECTIVE: VITAL SIGNS: Blood pressure is noted to be at 140/65 with heart rate of 67, respiratory rate 20, temperature 98.6, and pulse ox 97%. GENERAL: The patient is awake, alert, comfortable, not in overt distress. SKIN: Adequate turgor. HEENT: He has pinkish conjunctivae. Anicteric sclerae. NECK: No neck mass. No carotid bruits. No JVD. CHEST: No deformities. LUNGS: Clear breath sounds. No wheezing. No crackles. HEART: Normal sinus rhythm. No murmur. No gallops. No rubs. ABDOMEN: Globular, soft, and nontender. No masses. EXTREMITIES: No edema. No deformities. MEDICATIONS: Medications of November 08, 2019, was reviewed. LABORATORY DATA: Laboratories of November 07, 2019; white count 7.7, hemoglobin 11.7. On November 08, 2019; sodium 142, potassium 2.9, chloride 104, carbon dioxide 30, BUN 32, creatinine 3.39, GFR 21 mL/minute, and calcium 8.3. ASSESSMENT AND PLAN: 1. Chronic renal failure secondary to diabetic/hypertensive nephropathy, stable renal function. No indication for any emergent dialysis. He is currently at stage 4 chronic renal failure. My bias is to decrease Lasix from 40 mg p.o. b.i.d. to once a day. 2. Shortness of breath, clinically much improved. Previous chest x-ray did not show overt pulmonary edema. 3. Labile hypertension, much improved. The patient will continue current antihypertensive regimen. We will recheck basic metabolic panel and CBC in a.m. Job ID: [id number]
[2019-11-08] MEDS: Aspirin 81 mg Enteric Coated Tablet PO SCH (08:46)
[2019-11-08] MEDS: Amlodipine 10 MG TAB PO SCH (08:46)
[2019-11-08] MEDS: Heparin 5,000 UNITS/ML VIAL SC SCH ×3 (08:47→21:11)
[2019-11-08] MEDS: Furosemide 20 MG TAB PO SCH ×2 (08:47→10:24)
[2019-11-08] MEDS: Isosorbide Mononitrate (ER) 30 MG TAB PO SCH (08:47)
[2019-11-08] MEDS: Metoprolol Tartrate 50 MG TAB PO SCH ×2 (08:47→21:10)
[2019-11-08] MEDS: Insulin Glargine 12 UNITS in Pre-Filled Syringe 1 EACH SC SCH ×2 (08:47→21:11)
[2019-11-08] MEDS: hydrALAZINE 25 MG TAB PO SCH ×3 (08:47→21:11)
--- NOTE | 2019-11-08 11:42 | PDOC.HOSPP ---
- Subjective Encounter Date: 11/08/19 Encounter Time: 10:45 Subjective: no sob, is sitting in chair ate his breakfast no abd pain or nausea - Objective Vital Signs & Weight: Vital Signs (12 hours) Temp Pulse Resp BP BP Pulse Ox 11/08/19 08:47 63 157/73 H 11/08/19 08:46 63 157/73 H 11/08/19 08:45 99.1 F 63 14 157/73 H 96 11/08/19 05:45 140/65 11/08/19 04:34 162/77 H 11/08/19 03:25 98.6 F 67 20 180/88 H 97 11/07/19 23:44 135/65 Weight Weight 179 lb 3.2 oz Most Recent Monitor Data Heart Rate from ECG 64 NIBP 164/76 NIBP BP-Mean 105 Respiration from ECG 20 SpO2 96 I&O: 11/07/19 11/08/19 11/09/19 06:59 06:59 06:59 Intake Total 587 550 Output Total 300 1575 Balance 287 -1025 Result Diagrams: 11/07/19 03:16 11/08/19 04:03 Additional Labs: Accuchecks 11/08/19 11/08/19 11/07/19 10:35 05:56 20:34 POC Glucose 137 H 89 155 H 11/07/19 11/07/19 17:06 12:15 POC Glucose 182 H 179 H Hospitalist ROS - Medication Medications: Active Medications Generic Name Dose Route Start Last Admin Trade Name Freq PRN Reason Stop Dose Admin Amlodipine Besylate 10 mg 11/08/19 09:00 11/08/19 08:46 Norvasc PO 10 mg DAILY JOE Administration Aspirin 81 mg 11/07/19 09:00 11/08/19 08:46 Ecotrin PO 81 mg DAILY JOE Administration Atorvastatin Calcium 40 mg 11/06/19 21:00 11/07/19 21:43 Lipitor PO 40 mg HS JOE Administration Cholecalciferol 1,000 units 11/07/19 09:00 11/08/19 08:47 Vitamin D3 PO 1,000 units DAILY JOE Administration Clonidine 0.1 mg 11/07/19 13:06 11/08/19 03:39 Catapres PO 0.1 mg Q4H PRN Administration for sbp >180 Doxazosin Mesylate 4 mg 11/06/19 21:00 11/07/19 21:43 Cardura PO 4 mg HS JOE Administration Furosemide 40 mg 11/08/19 09:00 11/08/19 10:24 Lasix PO Not Given DAILY JOE Heparin Sodium (Porcine) 5,000 units 11/06/19 15:00 11/08/19 08:47 Heparin SC 5,000 units TID JOE Administration Hydralazine HCl 25 mg 11/06/19 15:00 11/08/19 08:47 Apresoline PO 25 mg TID JOE Administration Hydralazine HCl 10 mg 11/06/19 14:49 11/08/19 04:37 Apresoline SLOW IVP 10 mg Q4H PRN Administration SBP >150 Insulin Glargine 12 units/ 0.12 mls @ 0 mls/hr 11/06/19 21:00 11/08/19 08:47 Miscellaneous Medication SC 0.12 mls BID JOE Administration Insulin Human Lispro 0 units 11/07/19 13:05 11/07/19 17:07 Humalog SC 2 unit .MODERATE SLIDING SC PRN Administration Moderate Correctional Scale Isosorbide Mononitrate 30 mg 11/07/19 09:00 11/08/19 08:47 Imdur Er PO 30 mg DAILY JOE Administration Metoprolol Tartrate 50 mg 11/06/19 21:00 11/08/19 08:47 Lopressor PO 50 mg BID JOE Administration - Exam General Appearance: awake alert Eye: PERRL, anicteric sclera ENT: no oropharyngeal lesions, moist mucosa Neck: supple, no JVD Heart: RRR, no gallops Respiratory: no wheezes, no ronchi Gastrointestinal: soft, non-tender, non-distended, normal bowel sounds Extremities: no cyanosis, 1+ LE edema Neurological: cranial nerve grossly intact, no focal deficits Psychiatric: normal affect, A&O x 3 Hosp A/P (1) Hypertensive urgency Code(s): I16.0 - HYPERTENSIVE URGENCY Status: Resolved (2) Acute kidney injury superimposed on CKD Code(s): N17.9 - ACUTE KIDNEY FAILURE, UNSPECIFIED; N18.9 - CHRONIC KIDNEY DISEASE, UNSPECIFIED Status: Acute (3) Acute on chronic systolic ACC/AHA stage C congestive heart failure Code(s): I50.23 - ACUTE ON CHRONIC SYSTOLIC (CONGESTIVE) HEART FAILURE Status : Acute (4) CAD (coronary artery disease) Code(s): I25.10 - ATHSCL HEART DISEASE OF [place] CORONARY ARTERY W/O ANG PCTRS Status: Chronic Qualifiers: Coronary Disease-Associated Artery/Lesion type: [place] vs. transplanted heart: [place] heart Associated angina: without angina Qualified Code(s): I25.10 - Atherosclerotic heart disease of [place] coronary artery without angina pectoris (5) DM type 2 (diabetes mellitus, type 2) Status: Chronic Qualifiers: Diabetes mellitus half-way insulin use: with half-way use Diabetes mellitus complication status: with kidney complications Chronic kidney disease stage: stage 3 (moderate) (6) Dementia Code(s): F03.90 - UNSPECIFIED DEMENTIA WITHOUT BEHAVIORAL DISTURBANCE Status: Chronic Qualifiers: Dementia type: unspecified type Dementia behavioral disturbance: without behavioral disturbance Qualified Code(s): F03.90 - Unspecified dementia without behavioral disturbance (7) Dyslipidemia Code(s): E78.5 - HYPERLIPIDEMIA, UNSPECIFIED Status: Chronic (8) History of Ross's esophagus Code(s): Z87.19 - PERSONAL HISTORY OF OTHER DISEASES OF THE DIGESTIVE SYSTEM Status: Chronic - Plan hemostable BP is stable on current meds continue asp, lipitor, cardura, lasix, hydralazine, imdur, lopressor and lantus prior ef of 45% with diastolic dysfunction and lvh on 07/2019. to ambulate as tolerated dc plan in am if stable replace potassium
--- NOTE | 2019-11-08 14:48 | PRG ---
DATE OF SERVICE: 11/08/2019 SUBJECTIVE: Nikhil Castillo is an 78-year-old gentleman, who was transferred out of the ICU yesterday weakness, he is doing much better. He is no longer short of breath. OBJECTIVE: VITAL SIGNS: on room air, respirations 16, and blood pressure 136/71. CHEST: No wheezing or crackles. CARDIAC: Normal S1 and S2. No gallops. ABDOMEN: Soft without any masses. ASSESSMENT: Chronic renal failure, uncontrolled hypertension, dementia, and congestive heart failure. He looks much improved. At this stage, nothing much to offer. We will follow at a distance. Job ID: [id number]
[2019-11-08] MEDS: HumaLOG 300 UNITS/3 ML VIAL SC PRN (17:49)
[2019-11-08] MEDS: Atorvastatin Calcium 40 MG TAB PO SCH (21:10)
[2019-11-08] MEDS: Doxazosin Mesylate 4 MG TAB PO SCH (21:10)
[2019-11-09 04:24] LABS: #Eosinphils 0.8 thou/uL (0.0-0.7); #Lymphocytes 1.6 thou/uL (1.20-3.40); #Monocytes 0.7 thou/uL (0.11-0.59); #Neutrophils 2.8 thou/uL (1.40-6.50); %Basophils 0.7 % (0.0-1.0); %Eosinophils 13.3 % (0.0-10.0); %Lymphocytes 26.8 % (21.0-51.0); %Monocytes 11.9 % (0.0-10.0); %Neutrophils 47.3 % (42.0-75.0); Hemoglobin 11.5 g/dL (14.0-18.0); Mean Corpuscular HGB CONC 31.6 g/dL (32.0-36.0); Mean Corpuscular Volume 82.3 fL (78.0-98.0); Platelet Count 179 thou/uL (130-400); RBC Distribution Width 13.9 % (11.5-14.5); Red Blood Cell (RBC) Count 4.41 mill/uL (4.70-6.10); White Blood Cell (WBC) Count 5.9 thou/uL (4.8-10.8)
[2019-11-09 04:55] LABS: Anion Gap 12 mmol/L (10-20); BUN (Urea Nitrogen) 32 mg/dL (8.4-25.7); Calc. Creatinine Clearance 19 mL/min (70-130); Calcium 8.4 mg/dL (7.8-10.44); Carbon Dioxide 28 mmol/L (23-31); Chloride 103 mmol/L (98-107); Estimated GFR-MDRD 20; Potassium 3.2 mmol/L (3.5-5.1); Sodium 140 mmol/L (136-145)
[2019-11-09 05:05] LABS: Glucose 57 mg/dL (83-110)
[2019-11-09] MEDS ORDERED: Potassium Chloride 20 MEQ TAB PO SCH (07:45)
[2019-11-09] MEDS: hydrALAZINE 25 MG TAB PO SCH ×3 (08:43→21:20)
[2019-11-09] MEDS: Isosorbide Mononitrate (ER) 30 MG TAB PO SCH (08:44)
[2019-11-09] MEDS: Aspirin 81 mg Enteric Coated Tablet PO SCH (08:44)
[2019-11-09] MEDS: Furosemide 20 MG TAB PO SCH (08:44)
[2019-11-09] MEDS: Metoprolol Tartrate 50 MG TAB PO SCH ×2 (08:44→21:20)
[2019-11-09] MEDS: Amlodipine 10 MG TAB PO SCH (08:44)
[2019-11-09] MEDS: Heparin 5,000 UNITS/ML VIAL SC SCH ×3 (08:45→21:20)
--- NOTE | 2019-11-09 08:54 | PRG ---
DATE OF SERVICE: 11/09/2019 SERVICE: Renal Medicine. SUBJECTIVE: Mr. Castillo is an 78-year-old black male, who was admitted for shortness of breath/labile hypertension and seen by the Renal Service for his chronic renal failure. He has been started on diuretics. Diuretic has been adjusted downwards. Renal function is holding steady. No new complaints today. The patient denies any chest pain or shortness of breath. OBJECTIVE: VITAL SIGNS: Blood pressure 155/72, heart rate 67, respiratory rate 20, temperature 99.1, O2 saturation 97%. GENERAL: The patient is awake, alert, and comfortable, not in overt distress. SKIN: Adequate turgor. HEENT: He has pinkish conjunctivae. Anicteric sclerae. NECK: No neck mass. No carotid bruits. No JVD. CHEST: No deformities. LUNGS: Clear breath sounds. No wheezing. No crackles. HEART: Normal sinus rhythm. No murmur. No gallops. No rubs. ABDOMEN: Globular, soft, nontender. No masses. EXTREMITIES: No edema. No deformities. MEDICATIONS: Medications of November 09, 2019, were reviewed. LABORATORY DATA: Laboratories of November 09, 2019; white count 5.9, hemoglobin 11.5. Sodium 140, potassium 3.2, chloride 103, carbon dioxide 28, BUN 32, creatinine 3.52, glucose 57, and calcium 8.4. ASSESSMENT/PLAN: 1. Mild hypokalemia, p.r.n. potassium replacement. 2. Chronic renal failure from hypertensive/diabetic nephropathy. Stable renal function. Continue current management. No indication for any dialytic regimen. Currently, on furosemide at 40 mg daily. 3. Hypertension, adequate control. Continue current BP medications. 4. Congestive heart failure, clinically asymptomatic, on diuretics. We will recheck basic metabolic profile, CBC in a.m. Job ID: [id number]
--- NOTE | 2019-11-09 11:15 | PDOC.HOSPP ---
- Subjective Encounter Date: 11/09/19 Encounter Time: 09:15 Subjective: no sob or chest pain feels better - Objective Vital Signs & Weight: Vital Signs (12 hours) Temp Pulse Resp BP BP Pulse Ox 11/09/19 08:44 67 11/09/19 08:43 67 173/84 H 11/09/19 08:00 98.6 F 67 20 173/84 H 98 11/09/19 03:37 99.1 F 67 20 155/72 H 97 11/08/19 23:41 61 127/62 Weight Weight 179 lb 3.2 oz Most Recent Monitor Data Heart Rate from ECG 64 NIBP 164/76 NIBP BP-Mean 105 Respiration from ECG 20 SpO2 96 I&O: 11/08/19 11/09/19 11/10/19 06:59 06:59 06:59 Intake Total 550 1200 Output Total 1575 1300 Balance -1025 -100 Result Diagrams: 11/09/19 04:01 11/09/19 04:01 Additional Labs: Accuchecks 11/09/19 11/08/19 11/08/19 06:03 20:52 16:38 POC Glucose 131 H 131 H 215 H Hospitalist ROS - Medication Medications: Active Medications Generic Name Dose Route Start Last Admin Trade Name Freq PRN Reason Stop Dose Admin Amlodipine Besylate 10 mg 11/08/19 09:00 11/09/19 08:44 Norvasc PO 10 mg DAILY JOE Administration Aspirin 81 mg 11/07/19 09:00 11/09/19 08:44 Ecotrin PO 81 mg DAILY JOE Administration Atorvastatin Calcium 40 mg 11/06/19 21:00 11/08/19 21:10 Lipitor PO 40 mg HS JOE Administration Cholecalciferol 1,000 units 11/07/19 09:00 11/09/19 08:44 Vitamin D3 PO 1,000 units DAILY JOE Administration Clonidine 0.1 mg 11/07/19 13:06 11/08/19 03:39 Catapres PO 0.1 mg Q4H PRN Administration for sbp >180 Doxazosin Mesylate 4 mg 11/06/19 21:00 11/08/19 21:10 Cardura PO 4 mg HS JOE Administration Furosemide 40 mg 11/08/19 09:00 11/09/19 08:44 Lasix PO 40 mg DAILY JOE Administration Heparin Sodium (Porcine) 5,000 units 11/06/19 15:00 11/09/19 08:45 Heparin SC 5,000 units TID JOE Administration Hydralazine HCl 25 mg 11/06/19 15:00 11/09/19 08:43 Apresoline PO 25 mg TID JOE Administration Hydralazine HCl 10 mg 11/06/19 14:49 11/08/19 04:37 Apresoline SLOW IVP 10 mg Q4H PRN Administration SBP >150 Insulin Human Lispro 0 units 11/07/19 13:05 11/08/19 17:49 Humalog SC 4 unit .MODERATE SLIDING SC PRN Administration Moderate Correctional Scale Isosorbide Mononitrate 30 mg 11/07/19 09:00 11/09/19 08:44 Imdur Er PO 30 mg DAILY JOE Administration Metoprolol Tartrate 50 mg 11/06/19 21:00 11/09/19 08:44 Lopressor PO 50 mg BID JOE Administration - Exam General Appearance: awake alert Eye: PERRL, anicteric sclera ENT: no oropharyngeal lesions, moist mucosa Neck: supple, no JVD Heart: RRR, no murmur Respiratory: no wheezes, no rales Gastrointestinal: soft, non-tender, non-distended, normal bowel sounds Extremities: no cyanosis, no edema Neurological: cranial nerve grossly intact, no focal deficits Psychiatric: A&O x 3 Hosp A/P (1) Hypertensive urgency Code(s): I16.0 - HYPERTENSIVE URGENCY Status: Resolved (2) Acute kidney injury superimposed on CKD Code(s): N17.9 - ACUTE KIDNEY FAILURE, UNSPECIFIED; N18.9 - CHRONIC KIDNEY DISEASE, UNSPECIFIED Status: Acute (3) Acute on chronic systolic ACC/AHA stage C congestive heart failure Code(s): I50.23 - ACUTE ON CHRONIC SYSTOLIC (CONGESTIVE) HEART FAILURE Status : Acute (4) CAD (coronary artery disease) Code(s): I25.10 - ATHSCL HEART DISEASE OF [place] CORONARY ARTERY W/O ANG PCTRS Status: Chronic Qualifiers: Coronary Disease-Associated Artery/Lesion type: [place] artery [place] vs. transplanted heart: [place] heart Associated angina: without angina Qualified Code(s): I25.10 - Atherosclerotic heart disease of [place] coronary artery without angina pectoris (5) DM type 2 (diabetes mellitus, type 2) Status: Chronic Qualifiers: Diabetes mellitus prison insulin use: with prison use Diabetes mellitus complication status: with kidney complications Chronic kidney disease stage: stage 3 (moderate) (6) Dementia Code(s): F03.90 - UNSPECIFIED DEMENTIA WITHOUT BEHAVIORAL DISTURBANCE Status: Chronic Qualifiers: Dementia type: unspecified type Dementia behavioral disturbance: without behavioral disturbance Qualified Code(s): F03.90 - Unspecified dementia without behavioral disturbance (7) Dyslipidemia Code(s): E78.5 - HYPERLIPIDEMIA, UNSPECIFIED Status: Chronic (8) History of Ross's esophagus Code(s): Z87.19 - PERSONAL HISTORY OF OTHER DISEASES OF THE DIGESTIVE SYSTEM Status: Chronic - Plan hemostable BP is stable on current meds continue asp, lipitor, cardura, lasix, hydralazine, imdur, lopressor and lantus at bedtime (dc am dose due to low glucose) prior ef of 45% with diastolic dysfunction and lvh on 07/2019. cardiology consultation to ambulate as tolerated, PT to mobilize more (walked only 18ft) dc plan in am if stable replace potassium
--- NOTE | 2019-11-09 16:34 | CON ---
DATE OF CONSULTATION: REASON FOR CONSULTATION: Congestive heart failure and hypertension. Dr. Jordan Wilson is primary community service director. HISTORY OF PRESENT ILLNESS: Mr. Castillo is an 78-year-old gentleman, who states he is unsure why he came into the hospital. He states his recommended he come. He denies chest pain, pressure, shortness of breath, or associated symptoms. Based on the H and P three days ago, he presented with weakness. PAST MEDICAL HISTORY: CAD, mild cardiomyopathy, diabetes mellitus, dementia, hyperlipidemia, CVA. SOCIAL HISTORY: No current tobacco or alcohol use. ALLERGIES: NONE. REVIEW OF SYSTEMS: A 10-point review of systems is reviewed and as above, otherwise negative. HOME MEDICATIONS: Include; 1. Hydralazine. 2. Amlodipine. 3. Metoprolol. 4. Isosorbide. 5. Insulin. 6. Lasix. 7. Vitamin D3. 8. Lipitor. 9. Aspirin. PHYSICAL EXAMINATION: GENERAL: He is slightly confused. VITAL SIGNS: Blood pressure 158/77, pulse 63, temperature afebrile. NEUROLOGIC: The patient is alert and oriented x3 with no focal neurologic deficits. HEENT: Sclerae without icterus. Mouth has moist mucous membranes with normal pallor. NECK: No JVD. Carotid upstroke brisk. No bruits bilaterally. LUNGS: Clear to auscultation with unlabored respirations. BACK: No scoliosis or kyphosis. CARDIAC: Regular rate and rhythm with normal S1 and S2. No S3 or S4 noted. No significant rubs, murmurs, thrills, or gallops noted throughout the precordium. PMI is not displaced. There is no parasternal heave. ABDOMEN: Soft, nontender, nondistended. No peritoneal signs present. No hepatosplenomegaly. No abnormal striae. EXTREMITIES: 2+ femoral and 2+ dorsalis pedis pulses. No cyanosis, clubbing, or edema. SKIN: No gross abnormalities. PERTINENT LABORATORY DATA: Hemoglobin 11.5, hematocrit 36.3. Creatinine 3.52 with a GFR of 20, glucose 57. IMPRESSION: 1. Hypertension. 2. Diastolic dysfunction. 3. Coronary artery disease. 4. Status post bypass surgery. RECOMMENDATIONS: At this point, I have no further recommendations. Blood pressure is currently being managed by Dr. Jaiden Mayes. The patient has advanced renal insufficiency. He appears stable from a CV standpoint. No chest pain, pressure, or other associated symptoms. Further recommendation per Dr. Jordan Wilson in a.m. Job ID: [id number]
[2019-11-09] MEDS: HumaLOG 300 UNITS/3 ML VIAL SC PRN (18:09)
[2019-11-09] MEDS ORDERED: Insulin Glargine 12 UNITS in Pre-Filled Syringe 1 EACH SC SCH (21:00)
[2019-11-09] MEDS: Atorvastatin Calcium 40 MG TAB PO SCH (21:20)
[2019-11-09] MEDS: Doxazosin Mesylate 4 MG TAB PO SCH (21:20)
[2019-11-10 04:47] LABS: #Basophils 0.1 thou/uL (0.0-0.2); #Lymphocytes 1.8 thou/uL (1.20-3.40); #Monocytes 0.8 thou/uL (0.11-0.59); #Neutrophils 2.9 thou/uL (1.40-6.50); %Basophils 0.9 % (0.0-1.0); %Eosinophils 15.3 % (0.0-10.0); %Lymphocytes 27.3 % (21.0-51.0); %Monocytes 11.8 % (0.0-10.0); %Neutrophils 44.6 % (42.0-75.0); Hemoglobin 11.1 g/dL (14.0-18.0); Mean Corpuscular HGB CONC 30.9 g/dL (32.0-36.0); Mean Corpuscular Hemoglobin 25.4 pg (27.0-31.0); Mean Corpuscular Volume 82.3 fL (78.0-98.0); Mean Platelet Volume 8.8 fL (7.4-10.4); Platelet Count 193 thou/uL (130-400); RBC Distribution Width 13.9 % (11.5-14.5); Red Blood Cell (RBC) Count 4.38 mill/uL (4.70-6.10); White Blood Cell (WBC) Count 6.6 thou/uL (4.8-10.8)
[2019-11-10 05:02] LABS: Anion Gap 11 mmol/L (10-20); BUN (Urea Nitrogen) 30 mg/dL (8.4-25.7); Calc. Creatinine Clearance 19 mL/min (70-130); Calcium 8.6 mg/dL (7.8-10.44); Carbon Dioxide 31 mmol/L (23-31); Chloride 100 mmol/L (98-107); Estimated GFR-MDRD 20; Glucose 137 mg/dL (83-110); Potassium 3.7 mmol/L (3.5-5.1); Sodium 138 mmol/L (136-145)
--- NOTE | 2019-11-10 09:37 | PRG ---
DATE OF SERVICE: 11/10/2019 SUBJECTIVE: Mr. 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 Renal function has been holding steady. We have adjusted his diuretics. Cardiology consult has been done with Dr. Serra, who recommended continue supportive care. The patient voices no new complaints today. OBJECTIVE: VITAL SIGNS: Blood pressure 171/85, heart rate 67, respiratory rate 18, temperature 98.9, and pulse ox 98% on room air. GENERAL: The patient is awake, alert, and comfortable, not in distress. SKIN: Adequate turgor. HEENT: Pinkish conjunctivae. Anicteric sclerae. NECK: No neck mass. No carotid bruits. No JVD. CHEST: No deformities. LUNGS: Clear breath sounds. No wheezing. No crackles. HEART: Normal sinus rhythm. No murmur. No gallops. No rubs. ABDOMEN: Globular, soft, and nontender. No masses. EXTREMITIES: No edema. No deformities. MEDICATIONS: Medications of November 10, 2019, were reviewed. LABORATORY DATA: Laboratories of November 10, 2019; white count 6.6, hemoglobin 11.1. Sodium 138, potassium 3.7, chloride 100, carbon dioxide 31, BUN 30, creatinine 3.54, glucose , and calcium 8.6. ASSESSMENT AND PLAN: 1. Chronic renal failure-secondary to hypertensive/diabetic nephropathy, stable renal function. Currently, on furosemide. No indication for dialytic intervention. Continue current management. 2. Congestive heart failure, clinically asymptomatic on maintenance furosemide 40 mg tablet once a day. Agree with current management. Job ID: [id number]
--- NOTE | 2019-11-10 10:06 | PQF ---
AGATHA STOUT, TASHIA SORIANO MD [id number] [facility]-284 [id number] CLINICAL DOCUMENTATION IMPROVEMENT CLARIFICATION FORM: ICD-10 Updated PLEASE DO AN ADDENDUM TO THE PROGRESS NOTE WITH ANY DOCUMENTATION UPDATES OR ADDITIONS AND CARRY THROUGH TO DC SUMMARY. THANK YOU. DATE: 11/10/2019 ATTN: Dr. Estes Please exercise your independent, professional judgment in responding to the clarification form. Clinical indicators are provided on the bottom of this form for your review Please check appropriate box(s): [x ] Type 2 TN (T2MI) secondary to: [ ] hypertension [ x] heart failure [ ] renal failure [ ] other [ ] Elevated Troponin without TN [ ] Other diagnosis [ ] Unable to determine In addition, please specify: Present on Admission (POA): [x ] Yes [ ] No [ ] Unable to determine CLINICAL INDICATORS - SIGNS / SYMPTOMS / LABS / RESULTS AND LOCATION IN EMR *LAB 11/05 ([facility]): Troponin 0.191 0.163 0.185 *LAB 11/05 ([facility]): BNP 2407.8 *ED 11/05: * HPI Weak-Dizzy * VS: BP 166/72 - 225/102 * Patient does not have chest pain reported this is concerning because of his hx of dementia he may not be able to recall having some chest pain. * Diagnosis ... HTN, troponin elevation *H&P 11/05 ([facility]): * EKG with lateral ischemic changes in V4 and V5 along with elevated systolic BP around 220. * Abnormal troponin without mariano chest pain and EKG changes. * Hypertensive urgency *PN 11/06 ([facility]): * Acute kidney injury superimposed on CKD * Acute on chronic systolic ACC/AHA stage C congestive heart failure *PN 11/08 ([facility]): ... Admitted for labile hypertension as well as shortness of breath. RISKS / RESULTS AND LOCATION IN EMR *H&P 11/05 ([facility]): Past Medical History: CAD, status post CABG, HTN ... History of CHF, Ischemic cardiomyopathy *Consultation 11/06 ([facility]): Chronic Renal Failure TREATMENTS / RESULTS AND LOCATION IN EMR *ED 11/05: Hydralazine IV, Nicardipine IV, Nitroglycerin SL, Nitroglycerin transdermal *H&P 11/05 ([facility]): Cycle the troponins ... avoid any nephrotoxic medication. *MAR ([facility]): Lasix IVP 11/06, Lasix PO 11/06-11/08 *Nephrology Consult 11/06 *Cardiology Consult 11/08 Thank you! Moraima (This form is maintained as a part of the permanent medical record) 2015 [email or web address], [employer]. All Rights Reserved Moraima Hilario RN, CDS [email or web address] cell phone: [facility]
[2019-11-10] MEDS: Amlodipine 10 MG TAB PO SCH (10:32)
[2019-11-10] MEDS: hydrALAZINE 25 MG TAB PO SCH ×2 (10:32→16:44)
[2019-11-10] MEDS: Metoprolol Tartrate 50 MG TAB PO SCH (10:33)
[2019-11-10] MEDS: Aspirin 81 mg Enteric Coated Tablet PO SCH (10:33)
[2019-11-10] MEDS: Isosorbide Mononitrate (ER) 30 MG TAB PO SCH (10:33)
[2019-11-10] MEDS: Furosemide 20 MG TAB PO SCH (10:33)
[2019-11-10] MEDS: Heparin 5,000 UNITS/ML VIAL SC SCH ×2 (10:41→16:44)
--- NOTE | 2019-11-10 12:24 | PDOC.HOSPP ---
- Subjective Encounter Date: 11/10/19 Encounter Time: 10:45 Subjective: feels better, no sob is eating well - Objective Vital Signs & Weight: Vital Signs (12 hours) Temp Pulse Resp BP BP Pulse Ox 11/10/19 11:14 98.3 F 63 19 181/86 H 98 11/10/19 08:00 98.9 F 67 18 171/85 H 98 11/10/19 03:15 98.6 F 67 17 162/79 H 98 Weight Weight 178 lb 4.8 oz Most Recent Monitor Data Heart Rate from ECG 64 NIBP 164/76 NIBP BP-Mean 105 Respiration from ECG 20 SpO2 96 I&O: 11/09/19 11/10/19 11/11/19 06:59 06:59 06:59 Intake Total 1200 1760 Output Total 1300 1295 325 Balance -100 465 -325 Result Diagrams: 11/10/19 04:22 11/10/19 04:22 Additional Labs: Accuchecks 11/10/19 11/10/19 11/09/19 11:06 05:45 20:41 POC Glucose 162 H 121 H 167 H 11/09/19 17:03 POC Glucose 181 H Hospitalist ROS - Medication Medications: Active Medications Generic Name Dose Route Start Last Admin Trade Name Freq PRN Reason Stop Dose Admin Amlodipine Besylate 10 mg 11/08/19 09:00 11/10/19 10:32 Norvasc PO 10 mg DAILY JOE Administration Aspirin 81 mg 11/07/19 09:00 11/10/19 10:33 Ecotrin PO 81 mg DAILY JOE Administration Atorvastatin Calcium 40 mg 11/06/19 21:00 11/09/19 21:20 Lipitor PO 40 mg HS JOE Administration Cholecalciferol 1,000 units 11/07/19 09:00 11/10/19 10:33 Vitamin D3 PO 1,000 units DAILY JOE Administration Clonidine 0.1 mg 11/07/19 13:06 11/08/19 03:39 Catapres PO 0.1 mg Q4H PRN Administration for sbp >180 Doxazosin Mesylate 4 mg 11/06/19 21:00 11/09/19 21:20 Cardura PO 4 mg HS JOE Administration Furosemide 40 mg 11/08/19 09:00 11/10/19 10:33 Lasix PO 40 mg DAILY JOE Administration Heparin Sodium (Porcine) 5,000 units 11/06/19 15:00 11/10/19 10:41 Heparin SC 5,000 units TID JOE Administration Hydralazine HCl 25 mg 11/06/19 15:00 11/10/19 10:32 Apresoline PO 25 mg TID JOE Administration Hydralazine HCl 10 mg 11/06/19 14:49 11/08/19 04:37 Apresoline SLOW IVP 10 mg Q4H PRN Administration SBP >150 Insulin Glargine 12 units/ 0.12 mls @ 0 mls/hr 11/09/19 21:00 11/09/19 21:21 Miscellaneous Medication SC 0.12 mls HS JOE Administration Insulin Human Lispro 0 units 11/07/19 13:05 11/09/19 18:09 Humalog SC 2 unit .MODERATE SLIDING SC PRN Administration Moderate Correctional Scale Isosorbide Mononitrate 30 mg 11/07/19 09:00 11/10/19 10:33 Imdur Er PO 30 mg DAILY JOE Administration Metoprolol Tartrate 50 mg 11/06/19 21:00 11/10/19 10:33 Lopressor PO 50 mg BID JOE Administration - Exam General Appearance: awake alert Eye: PERRL, anicteric sclera ENT: no oropharyngeal lesions, moist mucosa Neck: supple, no JVD Heart: RRR, no murmur Respiratory: no wheezes, no rales Gastrointestinal: soft, non-tender, non-distended, normal bowel sounds Extremities: no cyanosis, no edema Neurological: cranial nerve grossly intact, no focal deficits Psychiatric: normal affect, A&O x 3 Hosp A/P (1) Hypertensive urgency Code(s): I16.0 - HYPERTENSIVE URGENCY Status: Resolved (2) Acute kidney injury superimposed on CKD Code(s): N17.9 - ACUTE KIDNEY FAILURE, UNSPECIFIED; N18.9 - CHRONIC KIDNEY DISEASE, UNSPECIFIED Status: Acute (3) Acute on chronic systolic ACC/AHA stage C congestive heart failure Code(s): I50.23 - ACUTE ON CHRONIC SYSTOLIC (CONGESTIVE) HEART FAILURE Status : Acute (4) CAD (coronary artery disease) Code(s): I25.10 - ATHSCL HEART DISEASE OF [place] CORONARY ARTERY W/O ANG PCTRS Status: Chronic Qualifiers: Coronary Disease-Associated Artery/Lesion type: [place] artery [place] vs. 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: with exterminator helper termite use Diabetes mellitus complication status: with kidney complications Chronic kidney disease stage: stage 3 (moderate) (6) Dementia Code(s): F03.90 - UNSPECIFIED DEMENTIA WITHOUT BEHAVIORAL DISTURBANCE Status: Chronic Qualifiers: Dementia type: unspecified type Dementia behavioral disturbance: without behavioral disturbance Qualified Code(s): F03.90 - Unspecified dementia without behavioral disturbance (7) Dyslipidemia Code(s): E78.5 - HYPERLIPIDEMIA, UNSPECIFIED Status: Chronic (8) History of Ross's esophagus Code(s): Z87.19 - PERSONAL HISTORY OF OTHER DISEASES OF THE DIGESTIVE SYSTEM Status: Chronic - Plan hemostable BP is stable on current meds continue asp, lipitor, cardura, lasix, hydralazine, imdur, lopressor and lantus at bedtime (dc am dose due to low glucose) ef of 45% with diastolic dysfunction and lvh. to ambulate as tolerated, PT to mobilize more (walked only 18ft on 7th) dc plan home with homehealth if he ambulates and can do ADL's
--- NOTE | 2019-11-10 13:02 | PDOC.CPN ---
- Subjective Date: 11/10/19 Time: 13:02 Interval history: No angina, no SOB. - Review of Systems General: denies: fever/chills, weight/appetite/sleep changes, night sweats, fatigue Respiratory: denies: cough, congestion, shortness of breath, exercise intolerance Cardiovascular: denies: chest pain, palpitation, edema, paroxysmal nocturnal dyspnea, orthopnea Gastrointestinal: denies: nausea, vomiting, diarrhea, constipation, abd pain, GI bleeding Musculoskeletal: denies: pain, tenderness, stiffness, swelling, arthritis/ arthralgias Neurological: denies: numbness, syncope, seizure, weakness - Objective Allergies/Adverse Reactions: Allergies Allergy/AdvReac Type Severity Reaction Status Date / Time No Known Allergies Allergy Verified 11/06/19 19:57 Visit Medications: Current Medications Acetaminophen (Tylenol) 650 mg PO Q4H PRN PRN Reason: Headache/Fever/Mild Pain (1-3) Amlodipine Besylate (Norvasc) 10 mg PO DAILY [facility] Last Admin: 11/10/19 10:32 Dose: 10 mg Aspirin (Ecotrin) 81 mg PO DAILY [facility] Last Admin: 11/10/19 10:33 Dose: 81 mg Atorvastatin Calcium (Lipitor) 40 mg PO HS [facility] Last Admin: 11/09/19 21:20 Dose: 40 mg Cholecalciferol (Vitamin D3) 1,000 units PO DAILY [facility] Last Admin: 11/10/19 10:33 Dose: 1,000 units Clonidine (Catapres) 0.1 mg PO Q4H PRN PRN Reason: for sbp >180 Last Admin: 11/08/19 03:39 Dose: 0.1 mg Dextrose/Water (Dextrose 50%) 25 gm IVP PRN PRN PRN Reason: HYPOGLYCEMIA PROTOCOL Doxazosin Mesylate (Cardura) 4 mg PO HS [facility] Last Admin: 11/09/19 21:20 Dose: 4 mg Furosemide (Lasix) 40 mg PO DAILY [facility] Last Admin: 11/10/19 10:33 Dose: 40 mg Glucagon (Glucagon) 1 mg IM PRN PRN PRN Reason: HYPOGLYCEMIA PROTOCOL Heparin Sodium (Porcine) (Heparin) 5,000 units SC TID [facility] Last Admin: 11/10/19 10:41 Dose: 5,000 units Hydralazine HCl (Apresoline) 25 mg PO TID [facility] Last Admin: 11/10/19 10:32 Dose: 25 mg Hydralazine HCl (Apresoline) 10 mg SLOW IVP Q4H PRN PRN Reason: SBP >150 Last Admin: 11/08/19 04:37 Dose: 10 mg Dextrose/Water (D5w) 1,000 mls @ 0 mls/hr IV INF PRN PRN Reason: HYPOGLYCEMIA PROTOCOL Dextrose/Water (D5w) 1,000 mls @ 0 mls/hr IV .Q0M PRN PRN Reason: Hypoglycemia Insulin Glargine 12 units/ (Miscellaneous Medication) 0.12 mls @ 0 mls/hr SC [facility] Last Admin: 11/09/19 21:21 Dose: 0.12 mls Insulin Human Lispro (Humalog) 0 units SC .MODERATE SLIDING SC PRN PRN Reason: Moderate Correctional Scale Last Admin: 11/09/19 18:09 Dose: 2 unit Insulin Human Lispro (Humalog) 0 units SC .BEDTIME SLIDING SC PRN PRN Reason: Bedtime Correctional Scale Isosorbide Mononitrate (Imdur Er) 30 mg PO DAILY [facility] Last Admin: 11/10/19 10:33 Dose: 30 mg Metoprolol Tartrate (Lopressor) 50 mg PO BID [facility] Last Admin: 11/10/19 10:33 Dose: 50 mg Senna/Docusate Sodium (Senokot S) 2 tab PO BIDPRN PRN PRN Reason: Constipation Vital Signs & Weight: Vital Signs Temp Pulse Resp BP BP Pulse Ox 11/10/19 11:14 98.3 F 63 19 181/86 H 98 11/10/19 08:00 98.9 F 67 18 171/85 H 98 11/10/19 03:15 98.6 F 67 17 162/79 H 98 Weight 178 lb 4.8 oz - Physical Exam General: alert & oriented x3 HEENT: mucus membranes moist Neck: supple neck Cardiac: regular rate and rhythm Lungs: clear to auscultation Neuro: grossly intact Abdomen: active bowel sounds Extremities: no edema Skin: clear Musculoskeletal: no pain - Labs Result Diagrams: 11/10/19 04:22 11/10/19 04:22 Troponin/CKMB CK-MB (CK-2) 1.6 ng/mL (0-6.6) 11/06/19 15:12 Troponin I 0.185 ng/mL (< 0.028) H 11/06/19 15:12 - Telemetry Sinus rhythms and dysrhythmias: sinus rhythm - Assessment/Plan Assessment/Plan: 1. HTN 2. Chronic diastgolic dysfunction. 3. CAD, stable 4. Hx of CABG PLAN: - BP not well controlled. Will increase home dose of Imdur to 60 mg daily. - CV stable. - May d/c any time from cardiac perspective. - Will sign off. Please call with any questions. - Follow up in the office in 4 weeks.
[2019-11-10] MEDS: HumaLOG 300 UNITS/3 ML VIAL SC PRN (13:08)
[2019-11-10 15:37] VITALS: BP 159/74; TEMP 98.8
--- NOTE | 2019-11-11 12:14 | DIS ---
DATE OF ADMISSION: 11/06/2019 DATE OF DISCHARGE: 11/10/2019 DISCHARGE DISPOSITION: Inpatient rehab. PRIMARY DISCHARGE DIAGNOSES: Hypertensive urgency; acute kidney injury on top of chronic kidney disease, stage 3; [id number] congestive heart failure exacerbation with systolic dysfunction, stage C; coronary artery disease; diabetes mellitus, type 2; dementia; dyslipidemia; and history of Ross's esophagus. PROCEDURES DONE DURING HOSPITALIZATION: Chest x-ray done on the day of admission showed no acute infiltrate. H and H 11 and 36, platelet count 193, MCV is 83. BUN 30, creatinine 3.5, serum bicarb 31. BNP 2407. Troponin I of 0.16. Albumin is 3.7. DISCHARGE MEDICATIONS: 1. Norvasc 10 mg daily. 2. Aspirin 81 mg daily. 3. Atorvastatin 40 mg p.o. at bedtime. 4. Doxazosin 4 mg p.o. at bedtime. 5. Hydralazine 25 mg 3 times daily. 6. Isosorbide extended-release 30 mg daily. 7. Metoprolol tartrate 50 mg twice daily. 8. . 9. Lasix 40 mg daily. 10. Lantus 12 units subcutaneously at bedtime. ALLERGIES: NO KNOWN DRUG ALLERGIES. INPATIENT CONSULTS: 1. Dr. Mayes for Nephrology. 2. Dr. Wilson for Cardiology. DISCHARGE PLAN: The patient to follow up with his primary care physician, in 1 week. BRIEF COURSE DURING HOSPITALIZATION: The patient initially got admitted on the , with complaints of progressive worsening of weakness. He was found to have had systolic blood pressures of more than 220. Initially, he was admitted to ICU and was placed on Cardene drip. He has had slow weaning of his drip and later transferred to telemetry. Mr. Castillo also had a flare-up of his CHF and had some gentle diuresis done. He has remained hemodynamically stable. The patient has a known ejection fraction of around 45%. Due to deconditioning, he is being discharged to inpatient rehab prior to going home. Please note, I have seen and examined the patient on the day of discharge. A total of 35 minutes was spent on discharge plan. Mr. Nikhil Castillo' medications have been optimized prior to discharge. Job ID: [id number]
== END 2019-11-10 19:50 | DRG 280 ==
LOC: ERS 09:30 → ERHOLD 13:01 → OBSVTOIN 16:32 → CCU 19:03 → 2NO 11-07 17:52
PROVIDERS: ADMIT Internal Medicine; ATTEND Internal Medicine
DX: I16.0 Hypertensive urgency (principal); I50.23 Acute on chronic systolic (congestive) heart failure; I21.A1 Myocardial infarction type 2; N18.4 Chronic kidney disease, stage 4 (severe); N17.9 Acute kidney failure, unspecified; I13.0 Hypertensive heart and chronic kidney disease with heart failure and stage 1 through stage 4 chronic kidney disease, or unspecified chronic kidney disease; I25.10 Atherosclerotic heart disease of native coronary artery without angina pectoris; I25.5 Ischemic cardiomyopathy; N40.0 Benign prostatic hyperplasia without lower urinary tract symptoms; E11.22 Type 2 diabetes mellitus with diabetic chronic kidney disease; E78.5 Hyperlipidemia, unspecified; E87.6 Hypokalemia; F03.90 Unspecified dementia, unspecified severity, without behavioral disturbance, psychotic disturbance, mood disturbance, and anxiety; Z95.1 Presence of aortocoronary bypass graft; Z95.0 Presence of cardiac pacemaker; Z79.899 Other long term (current) drug therapy; Z86.73 Personal history of transient ischemic attack (TIA), and cerebral infarction without residual deficits; Z79.4 Long term (current) use of insulin; Z87.19 Personal history of other diseases of the digestive system
CPT/HCPCS: 36415; 36416; 71045; 80048; 80053; 81003; 81015; 82553; 83880; 84443; 84484; 85025; 93005; 93798; J0360; J1644; J1815; J1940

== ENCOUNTER 2020-07-18 17:18 | Inpatient (IN) | payer MEDICARE, MEDICAID ==
[2020-07-18 17:59] LABS: Mean Corpuscular HGB CONC 31.2 g/dL (32.0-36.0); Mean Corpuscular Hemoglobin 26.4 pg (27.0-31.0); Mean Corpuscular Volume 84.7 fL (78.0-98.0); Mean Platelet Volume 8.5 fL (7.4-10.4); Platelet Count 194 thou/uL (130-400); RBC Distribution Width 13.2 % (11.5-14.5); Red Blood Cell (RBC) Count 4.15 mill/uL (4.70-6.10); White Blood Cell (WBC) Count 7.3 thou/uL (4.8-10.8)
[2020-07-18 18:00] LABS: Acetaminophen Less than 6.0 mcg/mL (10.0-30.0); Alcohol Less than 10 mg/dL (Less than 10); CK (CPK) 32 U/L (30-200); Magnesium 1.7 mg/dL (1.6-2.6); Salicylate Less than 8.0 mg/dL (15.0-30.0)
[2020-07-18 18:01] LABS: ALT (SGPT) Less than 7 U/L (8-55); AST (SGOT) 10 U/L (5-34); Albumin 2.6 g/dL (3.4-4.8); Alkaline Phosphatase 73 U/L (40-110); Anion Gap 17 mmol/L (10-20); BUN (Urea Nitrogen) 42 mg/dL (8.4-25.7); Bilirubin, Total 0.7 mg/dL (0.2-1.2); Calc. Creatinine Clearance 0 mL/min (70-130); Carbon Dioxide 29 mmol/L (23-31); Chloride 101 mmol/L (98-107); Globulin 2.9 g/dL (2.4-3.5); Glucose 418 mg/dL (83-110); Lipase 234 U/L (8-78); Potassium 3.3 mmol/L (3.5-5.1); Protein, Total 5.5 g/dL (5.8-8.1); Sodium 144 mmol/L (136-145)
[2020-07-18] MEDS ORDERED: Cefepime 2 GM VIAL ONE (18:10)
[2020-07-18] MEDS ORDERED: Dexamethasone 10 MG/ML VIAL ONE (18:10)
[2020-07-18] MEDS ORDERED: Vancomycin 1 GM/200 ML BAG ONE (18:10)
[2020-07-18 18:16] LABS: Actual Bicarbonate (HCO3a) 25.7 mEq/L (22-28); Analyzer IN Cardio ER; Base Excess (BEa) 4.4 mEq/L (-2.0 to +3.0); CO2 Tension 27.9 mmHg (35.0-45.0); Carboxyhemoglobin (COHb) 0.1 gm% (0.0-3.0); Hemoglobin (Hb) 11.1 g/dL (14.0-18.0); O2 Tension (PaO2), arterial 211.3 mmHg (> 60.0); Potassium - ABG Lab 3.32 mmol/L (3.70-5.30); Puncture Site RRA; pH, Arterial 7.58 (7.35-7.45)
[2020-07-18 18:17] LABS: ALV-art Gradient 3.375 mmHg (0-20)
--- NOTE | 2020-07-18 18:17 | CT ---
CT cervical spine noncontrast HISTORY: Fall. Neck injury. FINDINGS: Vertebral body heights and alignment are maintained. Prominent osteophytosis throughout the vertebral bodies and facets. Disc space narrowing and endplate irregularity at each level. Cervicothoracic junction is intact. No acute fracture or dislocation. Multilevel central canal and foraminal stenoses throughout the cervical spine. Incomplete posterior fusion at the C1 level noted. Gas is associated with degenerative changes of the left sternoclavicular joint. Small amount of venous gas likely related to recent IV in initiation. The upper portion of the partially visualized endotracheal catheter is displaced leftward, favored to be related to the tongue. IMPRESSION : No acute abnormalities of the cervical spine are demonstrated. Prominent degenerative changes are not ed. The tongue is likely the cause of the leftward displacement of the upper endotracheal catheter. At th e appropriate opportunity, please correlate with direct visualization regarding the possibility of a posterior pharyngeal mass.
[2020-07-18 18:18] LABS: Thyroid Stimulating Hormone 0.481 uIU/mL (0.35-4.94)
[2020-07-18 18:20] LABS: Bacteria/HPF 3+ HPF (None Seen); Bilirubin Negative (Negative); Blood, Urine Trace (Negative); Clarity Turbid (Clear); Glucose, Urine (Dipstick) >=1000 mg/dL (Negative); Ketone, Urine Negative (Negative); Leukocyte 500 Leu/uL (Negative); Nitrite Negative (Negative); Protein, Urine (Dipstick) 20 mg/dL (Neg-Trace); RBC/HPF 0-3 HPF (0-3); Specific Gravity, Urine 1.004 (1.002-1.036); Squamous Epithelial 0-3 HPF (0-3); Urobilinogen Normal mg/dL (Less than 2); pH, Urine 5.5 (5.0-9.0)
[2020-07-18] MEDS ORDERED: Thrombin 5000 UNITS/5 ML VIAL ONE (18:26)
[2020-07-18] MEDS ORDERED: Lidocaine 0.5%/Epinephrine 1:200,000 50 ml Vial ONE (18:26)
[2020-07-18 18:27] LABS: WBC/HPF 21-50 HPF (0-3); Yeast-Budding None Seen HPF (None Seen)
[2020-07-18 18:28] LABS: Band 1 % (5-11); Hypochromia SLIGHT = 6-15 cells (100X) (0-5/hpf); Lymphocytes 6 % (21-51); MDiff Complete? YES; Monocytes 11 % (0-10); Neutrophil 76 % (42-75); Platelet Morphology Comment Appears Adequate; Polychromasia SLIGHT = 2-3 cells (100X) (0-2/hpf); Reactive Lymphocytes 6 % (0-10); Target Cells SLIGHT = 2-5 cells (100X) (0-1/hpf)
[2020-07-18] MEDS ORDERED: Fentanyl 100 MCG/2 ML VIAL ONE (18:28)
[2020-07-18] MEDS ORDERED: Phenylephrine 10 MG/ML VIAL ONE (18:28)
[2020-07-18 18:40] LABS: CKMB 2.2 ng/mL (0-6.6)
[2020-07-18 19:42] LABS: SARS-CoV-2 NAA Rapid Test Not Detected (NotDetected)
--- NOTE | 2020-07-18 19:45 | RAD ---
AP CHEST: Date: 07/18/2020 HISTORY: Post intubation. COMPARISON: 11/06/2019. FINDINGS: ET tube has tip above emanuel. The lung villarreal are clear. Postop sternotomy changes are noted. IMPRESSION: No acute lung process. POS: AGW
--- NOTE | 2020-07-18 20:02 | CT ---
CT HEAD WITHOUT CONTRAST: Date: 07/18/2020 INDICATION: Found unresponsive. Comparison made to head CT dated 04/10/2019. FINDINGS: There is a large left subdural hematoma with acute hemorrhage present. There is low density fluid wit hin this subdural which could represent acute on chronic subdural, although it may represent hyperacu te subdural. The subdural hematoma measures up to 2.0 cm. This is producing severe mass effect and mi dline shift. The midline shift measured at the septum pellucidum measures 2.4 cm. There is no evidence of skull fracture identified. The paranasal sinuses and mastoids are clear. Subdural extends along the tentorium on the left and along the posterior falx. Also noted are focal areas of hemorrhage within the brain parenchyma in the region of the left basal ganglia. There are at least three foci of hemorrhagic densities seen in this region which could repre sent focal intraparenchymal hemorrhagic contusions. There appears to also be some subarachnoid blood within the sylvian fissure which is severely compressed and displaced. IMPRESSION: 1. Large left subdural hematoma with areas of low attenuation within this hematoma suggesting hypera cute hematoma. Other consideration is acute on chronic subdural; however, there was no subdural on th e prior study. 2. This is producing significant mass effect and midline shift as detailed above. 3. Some subarachnoid blood in the left sylvian fissure which is displaced. There are focal areas of hemorrhage contusion in the region of the left basal ganglia which are also displaced due to the mass effect. 4. There is evidence of uncal herniation with contralateral dilatation of the right temporal horn. Findings discussed with Dr. Ni. CODE CR. POS: CAROL
[2020-07-18 20:21] LABS: Free T4 (Free Thyroxine) 1.27 ng/dL (0.70-1.48)
--- NOTE | 2020-07-18 20:30 | PDOC.HHP ---
Hospitalist HPI History of Present Illness: This is a 79-year-old patient with a history of dementia, type 1 diabetes mellitus, hypercholesterolemia and hypertension who was said to have previously been on hospice was found unresponsive in bed by his family. EMS was activated also found him unconscious and unresponsive however was breathing and hypoglycemic. His pupils were noted to be fixed if blood pressure was 146/80, saturation 100% on room air. Temperature was 95.8. On arrival his vitals showed BP of 145/87, pulse 84, respiratory rate 11, temperature 90.1 and saturating 100% on room air. Given his unresponsiveness he was intubated for airway protection His labs showed anemia of 11.0, platelets are 194 chemistry potassium 3.3 cre atinine 2.8 glucose 418 and troponin 0 0.378. Blood gas showed pH 7.58 PCO2 27.9 UA showed hyperglycemia and slightly elevated white cells with 500 leukocyte esterase's. Toxicology showed normal alcohol salicylate and acetaminophen. His Covid test was negative. CT scan of his brain noted large l eft subdural hematoma with areas of low-attenuation within this hematoma. Neurosurgery was consulted and the plan is to take him to the OR for bur hole drilling. However on further discussion with family it was noted that patient was on hospice and family would want to continue with hospice management. Neurosurgery was called of and hospitalist team was asked to admit. Allergies/Adverse Reactions: Allergy/AdvReac Type Severity Reaction Status Date / Time No Known Allergies Allergy Verified 11/06/19 19:57 Home Medications: Medication Instructions Recorded Confirmed Type amLODIPine Besylate [Amlodipine 10 mg PO DAILY 04/06/16 11/10/19 History Besylate] Cholecalciferol [Vitamin D3] 1,000 units PO DAILY #30 tab 08/22/16 11/10/19 Rx Atorvastatin Calcium [Lipitor] 40 mg PO HS 04/11/17 11/10/19 History Metoprolol Tartrate [Lopressor] 50 mg PO BID 04/11/17 11/10/19 History Doxazosin Mesylate 4 mg PO HS 10/23/17 11/10/19 History Aspirin [Ecotrin Low Strength] 81 mg PO DAILY 04/26/19 11/10/19 History Isosorbide Mononitrate [Isosorbide 30 mg PO DAILY 04/26/19 11/10/19 History Mononitrate ER] Acetaminophen [Tylenol Regular 650 mg PO Q4H PRN tab 09/08/19 11/10/19 Rx Strength] Furosemide [Lasix] 40 mg PO DAILY #30 tab 11/10/19 Rx Insulin Glargine [Lantus Vial] 12 units SC HS #1 vial 11/10/19 Rx hydrALAZINE [Apresoline] 10 mg PO TID 11/10/19 11/10/19 History hydrALAZINE [Apresoline] 25 mg PO TID #90 tab 11/10/19 Rx Past History: PMHx: Dementia, hyper lipidemia, hypertension, type 1 diabetes, coronary artery disease PSHx: CABG, pacemaker placement FHx: None of significance Social: No drug or alcohol use. Chews tobacco. Lives at home with family Hospitalist HPI ROS ROS unobtainable: due to mental status Hospitalist Exam General Appearance: ill appearing General - other findings: On ventilator support. Unresponsive. ENT: normocephalic atraumatic Heart: RRR, no murmur, no gallops, no rubs Respiratory: CTAB, no wheezes, no rales, no ronchi Respiratory - other findings: Mechanical bursa Gastrointestinal: soft, non-distended, normal bowel sounds Extremities: no cyanosis, no clubbing, no edema Neurological - other findings: Pupils poorly reactive. Nonresponsive to noxious stimulus Psychiatric - other findings: Unable to assess Hospitalist Results Result Diagrams: 07/18/20 17:07/18/20 17: Lab results: Laboratory Last Values WBC 7.3 thou/uL (4.8-10.8) 07/18/20: RBC 4.15 mill/uL (4.70-6.10) L 07/18/20 17: Hgb 11.0 g/dL (14.0-18.0) L 07/18/20 17: Hct 35.1 % (42.0-52.0) L 07/18/20: MCV 84.7 fL (78.0-98.0) 07/18/20 17: MCH 26.4 pg (27.0-31.0) L 07/18/20 17: MCHC 31.2 g/dL (32.0-36.0) L 07/18/20: RDW 13.2 % (11.5-14.5) 07/18/20 17: Plt Count 194 thou/uL (130-400) 07/18/20 17: MPV 8.5 fL (7.4-10.4) 07/18/20 17:28 Neutrophils % (Manual) 76 % (42-75) H 07/18/20 17:28 Band Neuts % (Manual) 1 % (5-11) L 07/18/20 17: Lymphocytes % (Manual) 6 % (21-51) L 07/18/20 17: Reactive Lymphs % 6 % (0-10) 07/18/20 17: Monocytes % (Manual) 11 % (0-10) H 07/18/20 17: Lymphocytes # Not Reportable 07/18/20 17: Hypochromia SLIGHT = 6-15 cells (100X) (0-5/hpf) 07/18/20 17: Plt Morphology Comment Appears Adequate 07/18/20 17: Polychromasia SLIGHT = 2-3 cells (100X) (0-2/hpf) 07/18/20 17: Target Cells SLIGHT = 2-5 cells (100X) (0-1/hpf) 07/18/20 17:28 Specimen Type ARTERIAL 07/18/20 17:46 Puncture Site RRA 07/18/20 17:46 Bicarbonate Actual 25.7 mEq/L (22-28) 07/18/20 17:46 ABG pH 7.58 (7.35-7.45) H* 07/18/20 17:46 ABG pCO2 27.9 mmHg (35.0-45.0) L 07/18/20 17:46 ABG pO2 211.3 mmHg (> 60.0) H 07/18/20 17:46 ABG O2 Sat (Measured) 99.2 % (94.0-98.0) H 07/18/20 17:46 ABG O2 Content 15.9 vol% (18.0-21.0) L 07/18/20 17:46 ABG Base Excess 4.4 mEq/L (-2.0 to +3.0) H 07/18/20 17:46 ABG Hematocrit 33.0 % (42.0-52.0) L 07/18/20 17:46 ABG Hemoglobin 11.1 g/dL (14.0-18.0) L 07/18/20 17:46 ABG Oxyhemoglobin 98.5 % (94.0-98.0) H 07/18/20 17:46 ABG Carboxyhemoglobin 0.1 gm% (0.0-3.0) 07/18/20 17:46 ABG Methemoglobin 0.60 gm% (0.04-1.52) 07/18/20 17:46 ABG Deoxyhemoglobin 0.8 % (0.0-2.9) 07/18/20 17:46 Jack Test NOT DONE 07/18/20 17:46 A-a O2 Gradient 3.375 mmHg (0-20) 07/18/20 17:46 Sodium 144 mmol/L (135-148) 07/18/20 17:46 Potassium 3.32 mmol/L (3.70-5.30) L 07/18/20 17:46 Chloride 103 mmol/L (98-106) 07/18/20 17:46 Ionized Calcium 1.10 mmol/L (1.12-1.30) L 07/18/20 17:46 Mode of Support SIMV/PS 07/18/20 17:46 % Minute Volume 10.3 L 07/18/20 17:46 Mechanical Rate 20 min 07/18/20 17:46 Inspired O2 35 % 07/18/20 17:46 Tidal Volume 500 ml 07/18/20 17:46 Spontaneous Tidal Vol 534 ml 07/18/20 17:46 Peak Inspir Pressure 22 cmH2O 07/18/20 17:46 Pressure Support 10 cmH2O 07/18/20 17:46 PEEP or CPAP 5.0 cmH2O 07/18/20 17:46 Sodium 144 mmol/L (136-145) 07/18/20 17:28 Potassium 3.3 mmol/L (3.5-5.1) L 07/18/20 17:28 Chloride 101 mmol/L (98-107) 07/18/20 17:28 Carbon Dioxide 29 mmol/L (23-31) 07/18/20 17:28 Anion Gap 17 mmol/L (10-20) 07/18/20 17:28 BUN 42 mg/dL (8.4-25.7) H 07/18/20 17:28 Creatinine 2.88 mg/dL (0.7-1.3) H 07/18/20 17:28 Estimated GFR (MDRD) 26 07/18/20 17:28 Glucose 418 mg/dL (83-110) H 07/18/20 17:28 Lactic Acid 2.2 mmol/L (0.5-2.2) 07/18/20 17: Calcium 8.0 mg/dL (7.8-10.44) 07/18/20 17: Magnesium 1.7 mg/dL (1.6-2.6) 07/18/20 17: Total Bilirubin 0.7 mg/dL (0.2-1.2) 07/18/20 17:28 AST 10 U/L (5-34) 07/18/20 17: ALT Less than 7 U/L (8-55) L 07/18/20 17:28 Alkaline Phosphatase 73 U/L (40-110) 07/18/20 17: Ammonia 21 umol/L (18-72) 07/18/20 19:17 Creatine Kinase 32 U/L (30-200) 07/18/20 17:28 CK-MB (CK-2) 2.2 ng/mL (0-6.6) 07/18/20 17:34 Troponin I 0.376 ng/mL (< 0.028) H* 07/18/20 17:34 Serum Total Protein 5.5 g/dL (5.8-8.1) L 07/18/20 17:28 Albumin 2.6 g/dL (3.4-4.8) L 07/18/20 17:28 Globulin 2.9 g/dL (2.4-3.5) 07/18/20 17:28 Albumin/Globulin Ratio 0.9 g/dL (1.2-2.2) L 07/18/20 17:28 Lipase 234 U/L (8-78) H 07/18/20 17:28 Free T4 1.27 ng/dL (0.70-1.48) 07/18/20 17:28 TSH 3rd Generation 0.4810 uIU/mL (0.35-4.94) 07/18/20 17:28 Urine Color Yellow (Yellow) 07/18/20 17:46 Urine Clarity Turbid (Clear) A 07/18/20 17:46 Urine pH 5.5 (5.0-9.0) 07/18/20 17:46 Ur Specific Burton 1.004 (1.002-1.036) 07/18/20 17:46 Urine Protein 20 mg/dL (Neg-Trace) 07/18/20 17:46 Urine Glucose (UA) >=1000 mg/dL (Negative) A 07/18/20 17:46 Urine Ketones Negative mg/dL (Negative) 07/18/20 17:46 Urine Blood Trace (Negative) A 07/18/20 17:46 Urine Nitrite Negative (Negative) 07/18/20 17:46 Urine Bilirubin Negative (Negative) 07/18/20 17:46 Urine Urobilinogen Normal mg/dL (Less than 2) 07/18/20 17:46 Ur Leukocyte Esterase 500 Gonzalo/uL (Negative) A 07/18/20 17:46 Urine RBC 0-3 HPF (0-3) 07/18/20 17:46 Urine WBC 21-50 HPF (0-3) A 07/18/20 17:46 Ur Squamous Epith Cells 0-3 HPF (0-3) 07/18/20 17:46 Amorphous Crystals 2+ HPF (None Seen) A 07/18/20 17:46 Urine Bacteria 3+ HPF (None Seen) A 07/18/20 17:46 Hyaline Casts 0-3 LPF (0-3) 07/18/20 17:46 Urine Yeast (Budding) None Seen HPF (None Seen) 07/18/20 17:46 Salicylates Less than 8.0 mg/dL (15.0-30.0) L 07/18/20 17:28 Acetaminophen Less than 6.0 mcg/mL (10.0-30.0) L 07/18/20 17:28 Plasma Alcohol Less than 10 mg/dL (Less than 10) 07/18/20 17:28 Influenza A RNA INAAT Not Detected (NotDetected) 07/18/20 18:23 Influenza B RNA INAAT Not Detected (NotDetected) 07/18/20 18:23 SARS-CoV-2 Rap RNA(RT-PCR) Not Detected (NotDetected) 07/18/20 18:23 Hospitalist H&P A/P Plan: This is an 79-year-old male patient for history of coronary artery disease, hypertension, hyperlipidemia dementia previously on hospice was brought in on account of altered mental status. CT scan revealed subdural hematoma for which he would have had evacuation however family decided to go the route of hospice. Subdural hematoma Neurosurgery was consulted No further management of this patient Acute encephalopathy Likely secondary to subdural hematoma We will monitor. Dementia General poor prognosis Continue hospice management Palliative care/case management in a.m.
[2020-07-18 21:24] LABS: Lactic Acid 3.4 mmol/L (0.5-2.2)
--- NOTE | 2020-07-18 23:24 | CON ---
DATE OF CONSULTATION: Mr. Castillo is an 79-year-old man who reportedly was lost to contact by neighbors and family for three days, and they ultimately were checking on and found down at home. EMS was called and patient was transferred to the emergency department at [facility] in [place]. CT scan of the head there reveals thick acute on mostly chronic to subacute subdural hematoma in the entire left cerebral convexity with profound midline shift. All ventricles, both right lateral and left lateral and third, are all within what would be typically the right hemisphere of the brain. There is notable mass effect upon all cerebral structures. Access to patient's records at this time are not available, so we are unaware if he is on any anticoagulation, although labs at this point appear normal. Examination upon presentation according to ER physician GCS was 4. For this reason, patient was intubated upon my arrival. The patient is a . On exam, he has no purposeful reaction whatsoever, but again, this may be confounded by presence of paralytics. Initially, plan was to discuss surgical intervention. However, the patient is on hospice for multiple medical comorbidities, appears quite cachectic at bedside, and given his advanced age and his DNR and hospice status, I had a discussion with over the phone for comfort care only measures as the likelihood of meaningful functional recovery after surgery would likely be limited at best. expressed understanding, and we will recommend an admission to the hospitalist service for comfort care measures only. No intervention planned at this time from Neurosurgery. Job ID: [id number]
[2020-07-19] MEDS ORDERED: Ventilator Sedation Protocol 1 EACH FS SCH (01:30)
[2020-07-19 01:37] VITALS: BMI 19.8
[2020-07-19] MEDS ORDERED: Fentanyl CADD 100 ML IV SCH (01:45)
[2020-07-19] MEDS ORDERED: Fentanyl BOLUS 250 ML IVPB PRN (01:45)
[2020-07-19] MEDS ORDERED: Morphine 2 MG/ML VIAL SLOW IVP PRN (01:45)
[2020-07-19] MEDS ORDERED: Lorazepam 2 MG/ML VIAL SLOW IVP PRN (01:45)
[2020-07-19] MEDS ORDERED: Propofol BOLUS 1,000 MG/100 ML VIAL IV PRN (01:45)
[2020-07-19] MEDS ORDERED: DISCONTINUE PREVIOUS NARCOTIC PAIN MEDICATIONS AND BENZODIAZEPINES FS SCH (01:45)
[2020-07-19] MEDS ORDERED: Propofol 1,000 MG/100 ML VIAL IV PRN (01:45)
[2020-07-19] MEDS ORDERED: Vancomycin 1 GM in Premix Bag 1 BAG IVPB SCH (02:00)
[2020-07-19] MEDS: Lactated Ringer's 1,000 ML IV SCH ×2 (02:03→05:21)
[2020-07-19] MEDS ORDERED: Dextrose 50% Abboject 50 ML SYRINGE IVP PRN (03:45)
[2020-07-19] MEDS ORDERED: Dextrose 5% in Water 1,000 ML IV PRN (03:45)
[2020-07-19] MEDS ORDERED: Cefepime 2 GM in Sodium Chloride 0.9% 100 ML IVPB SCH (06:00)
[2020-07-19] MEDS: HumaLOG 300 UNITS/3 ML VIAL SC PRN ×2 (06:11→09:44)
[2020-07-19] MEDS ORDERED: Enoxaparin Sodium 30 MG/0.3 ML SYRINGE SC SCH (09:00)
[2020-07-19] MEDS: Dextrose 5 % And 0.9 % NaCl 1,000 ML IV SCH (12:17)
--- NOTE | 2020-07-19 13:26 | CON ---
DATE OF CONSULTATION: HISTORY OF PRESENT ILLNESS: Nikhil Castillo is an 79-year-old male, who apparently was on hospice. He is now intubated, mechanically ventilated. Apparently, he took a turn for the worse and has been admitted to the ICU after his called EMS. PAST MEDICAL HISTORY: Remarkable for: 1. Dementia. 2. Diabetes. 3. Lipid disorder. 4. Hypertension. 5. Large subdural hematoma discovered this admission. 6. History of diabetes. FAMILY HISTORY: Noncontributory. SOCIAL HISTORY: Nonsmoker, nondrinker. REVIEW OF SYSTEMS: Cannot be obtained. PHYSICAL EXAMINATION: VITAL SIGNS: Heart rate is 103, blood pressure 113/66, respiratory rate 16, oximetry is 100%. HEENT: He has asymmetric/nonreactive pupils. NECK: He has no cervical lymphadenopathy. LUNGS: Clear. HEART: Regular rhythm. ABDOMEN: Soft. EXTREMITIES: Without asymmetry. LABORATORY DATA: Glucoses have been between 295 and 407 today. Creatinine was 2.8 yesterday. White count 7.3, hemoglobin 11, platelets 194. IMPRESSION: Very large subdural hematoma with asymmetric/nonreactive pupils. He does over breathe mechanical ventilation, so he is not clinically brain . His prognosis for survival is extremely poor. Apparently, the has a poor time understanding that he will not be coming home. Another family member was contacted by the staff and they will try to talk to her. Withdrawal of support would be appropriate in my opinion. Job ID: [id number]
--- NOTE | 2020-07-19 18:23 | PDOC.HOSPP ---
- Subjective Encounter Date: 07/19/20 Encounter Time: 12:00 non-verbal Subjective: Patient seen and examined for encephalopathy with respiratory failure. On mechanical ventilation. On no sedation. - Objective Vital Signs & Weight: Vital Signs (12 hours) Temp Pulse Resp Pulse Ox 07/19/20 15:05 96 07/19/20 12:00 97.1 F L 17 07/19/20 11:45 98 07/19/20 08:00 96.3 F L 98 100 Weight Admit Weight 139 lb 5.314 oz Weight 138 lb 7.205 oz Most Recent Monitor Data Heart Rate from ECG 102 NIBP 109/75 NIBP BP-Mean 86 Respiration from ECG 20 SpO2 100 I&O: 07/18/20 07/19/20 07/20/20 06:59 06:59 06:59 Intake Total 1099.3 Output Total 315 30 Balance 784.3 -30 Result Diagrams: 07/18/20 17:28 07/18/20 17:28 Additional Labs: Accuchecks 07/19/20 07/19/20 07/19/20 17:17 11:57 07:24 POC Glucose 110 H 108 H 295 H 07/19/20 07/19/20 06:01 02:28 POC Glucose 331 H 407 H 07/18/20 17:28 07/18/20 17:28 Abnormal Lab Results - Last 48 hrs 07/18/20 17:28: Potassium 3.3 L, BUN 42 H, Creatinine 2.88 H, ALT Less than 7 L, Serum Total Protein 5.5 L, Albumin 2.6 L, Albumin/Globulin Ratio 0.9 L, Lipase 234 H 07/18/20 17:28: Salicylates Less than 8.0 L, Acetaminophen Less than 6.0 L 07/18/20 17:28: B-Natriuretic Peptide 573.9 H 07/18/20 17:28: RBC 4.15 L, Hgb 11.0 L, Hct 35.1 L, MCH 26.4 L, MCHC 31.2 L, Neutrophils % (Manual) 76 H, Band Neuts % (Manual) 1 L, Lymphocytes % (Manual) 6 L, Monocytes % (Manual) 11 H 07/18/20 17:34: Troponin I 0.376 H* 07/18/20 17:46: Urine Clarity Turbid A, Urine Glucose (UA) >=1000 A, Urine Blood Trace A, Ur Leukocyte Esterase 500 A, Urine WBC 21-50 A, Amorphous Crystals 2+ A, Urine Bacteria 3+ A 07/18/20 17:46: ABG pH 7.58 H*, ABG pCO2 27.9 L, ABG pO2 211.3 H, ABG O2 Sat (Measured) 99.2 H, ABG O2 Content 15.9 L, ABG Base Excess 4.4 H, ABG Hematocrit 33.0 L, ABG Hemoglobin 11.1 L, ABG Oxyhemoglobin 98.5 H, Ionized Calcium 1.10 L, Potassium 3.32 L 07/18/20 20:56: Lactic Acid 3.4 H Microbiology - Entire Visit 07/18/20 17:28 Venous blood - Left Hand Blood Culture - Preliminary Specimen has been received and culture in progress. No Growth to date. Vent - Assess Status Start: 07/19/20 00:47 Freq: 12,16,00,04 Status: Active Protocol: Document 07/19/20 12:00 UT (Rec: 07/19/20 12:57 KS [id number]) Ventilator Status/Info Patient/Vent Settings Endotracheal Tube Insertion Site Oral Endotracheal ETT Position (cm) 26 Trach Cuff Inflated Yes Ventilator Mode SIMV FIO2 35 Vent TV Set 500 Delivered TV Patient TV (Spontaneous) 511 Vent RR Patient RR (12-20) 17 Peak Pressure (cmH2O) 19 PEEP (cm H2O) 5 PSV Sedation (RASS) [place] Agitation-Sedation Scale (RASS): +4 = Combative: Combative, violent, immediate danger to staff +3 = Very agitated: Pulls to remove tubes or catheter; aggressive +2 = Agitated: Frequent non-purposeful movement, fights ventilator +1 = Restless: Anxious, apprehensive, movements not aggressive 0 = Alert and Calm: Spontaneously pays attention to caregiver -1 = Drowsy: Not fully alert, but has sustained awakening to voice -2 = Light sedation: Briefly awakens to voice (eyes contact < 10 secs) -3 = Moderate sedation: Movement or eye opening to voice (no eye contact) -4 = Deep sedation: No response to voice, but movement or eye opening to physical stimulation -5 = Unarousable: No response to voice or physical stimulation Sedation No Sedation Type RASS Goal Score RASS Actual Score [-5] Unarousable Intervention to attain goal Comfort Care Call Arellano Within Reach Yes Oral Care Antiseptic Oral Rinse,Oral Cavity Moisturizer HOB Angle (degrees) 30 Patient Turned Right *If no, document why not Radiology Reviewed by me: Yes (CT brainsubdural hematoma) EKG Reviewed by me: Yes (Sinus rhythm on telemetry) Hospitalist ROS - Review of Systems ROS unobtainable: due to mental status - Medication Medications: Active Medications Generic Name Dose Route Start Last Admin Trade Name Freq PRN Reason Stop Dose Admin Dextrose/Sodium Chloride 1,000 mls @ 75 mls/hr 07/19/20 12:15 07/19/20 12:17 D5 0.9% Ns IV 1,000 mls .[id number] JOE Administration Insulin Human Lispro 0 units 07/19/20 03:45 07/19/20 09:44 Humalog 300 Units/3 Ml Vial SC 4 unit .MILD SLIDING SCALE PRN Administration MILD SLIDING SCALE Protocol Hospitalist Exam Vitals: Vital Signs (12 hours) Temp Pulse Resp Pulse Ox 07/19/20 15:05 96 07/19/20 12:00 97.1 F L 17 07/19/20 11:45 98 07/19/20 08:00 96.3 F L 98 100 Weight Admit Weight 139 lb 5.314 oz Weight 138 lb 7.205 oz Most Recent Monitor Data Heart Rate from ECG 102 NIBP 109/75 NIBP BP-Mean 86 Respiration from ECG 20 SpO2 100 General Appearance: ill appearing General - other findings: On mechanical ventilation Neck: supple, no JVD Neck - other findings: Endotracheal tube Heart: RRR, no gallops, no rubs, normal peripheral pulses Respiratory: no wheezes, no rales, no ronchi Respiratory - other findings: Intubated Gastrointestinal: soft, normal bowel sounds, no guarding, no rigidity Extremities: no cyanosis, no clubbing, no edema Neurological - other findings: Neuro/psychexam limited due to current mentation Hosp A/P (1) Encephalopathy Code(s): G93.40 - ENCEPHALOPATHY, UNSPECIFIED Status: Acute (2) Subdural hematoma, acute Code(s): S06.5X9A - TRAUM SUBDR HEM W LOC OF UNSP DURATION, INIT Status: Acute (3) Acute respiratory failure Code(s): J96.00 - ACUTE RESPIRATORY FAILURE, UNSP W HYPOXIA OR HYPERCAPNIA Status: Acute (4) CAD (coronary artery disease) Code(s): I25.10 - ATHSCL HEART DISEASE OF [place] CORONARY ARTERY W/O ANG PCTRS Status: Chronic Qualifiers: Coronary Disease-Associated Artery/Lesion type: [place] artery [place] vs. transplanted heart: [place] heart Associated angina: without angina Qualified Code(s): I25.10 - Atherosclerotic heart disease of [place] coronary artery without angina pectoris (5) DM type 2 (diabetes mellitus, type 2) Status: Chronic Qualifiers: Diabetes mellitus long term acute care registered nurse insulin use: with long term acute care registered nurse use Diabetes julio litus complication status: with kidney complications Chronic kidney disease stage: stage 3 (moderate) (6) Dementia Code(s): F03.90 - UNSPECIFIED DEMENTIA WITHOUT BEHAVIORAL DISTURBANCE Status: Chronic Qualifiers: Dementia type: unspecified type Dementia behavioral disturbance: without behavioral disturbance Qualified Code(s): F03.90 - Unspecified dementia without behavioral disturbance (7) Ischemic cardiomyopathy Code(s): I25.5 - ISCHEMIC CARDIOMYOPATHY Status: Acute (8) Chronic diastolic heart failure Code(s): I50.32 - CHRONIC DIASTOLIC (CONGESTIVE) HEART FAILURE Status: Acute - Plan DVT proph w/SCDs Neurosurgery input appreciated. CT brain showed large left subdural hematomamost likely hyper acute hematoma or possible acute on chronic subdural hematoma. There is significant mass-effect and midline shift. Patient is currently DNR. I discussed with patient's spouse who is unable to come today due to weather conditions. Patient is currently not on any sedation. Continue supportive care. Discontinue Ringer's lactate. Start D5 NS at 75 mils an hour. Will discontinue antibiotics. DC ventilation sedation protocol. Await family input on hospice.
[2020-07-20] MEDS: HumaLOG 300 UNITS/3 ML VIAL SC PRN ×3 (01:33→12:03)
[2020-07-20] MEDS: Dextrose 5 % And 0.9 % NaCl 1,000 ML IV SCH (01:38)
--- NOTE | 2020-07-20 09:31 | PRG ---
DATE OF SERVICE: 07/20/2020 SUBJECTIVE: Nikhil Castillo is clinically unchanged. He is neurologically no better. OBJECTIVE: VITAL SIGNS: He is afebrile. Heart rate is 115, blood pressure 125/68, respiratory rate is 18, and oximetry is 94. LUNGS: Clear. HEART: Regular rhythm. ABDOMEN: Soft. LABORATORY DATA: There is no new lab. IMPRESSION: Respiratory failure with subdural hematoma that is still large. He still over breathes mechanical ventilation. It would be appropriate for family to withdraw support at this point in my opinion. Job ID: [id number]
[2020-07-20] MEDS ORDERED: Dextrose 5 % And 0.9 % NaCl 1,000 ML IV SCH (15:02)
[2020-07-20] MEDS ORDERED: Morphine 2 MG/ML VIAL SLOW IVP PRN (15:02)
[2020-07-20 17:11] VITALS: TEMP 99
--- NOTE | 2020-07-20 18:37 | PDOC.DS.DS ---
Provider Date of Admission: 07/18/20 19:57 Date of Discharge: 07/20/20 Admitting Provider: Alexis Leija MD Consultations: Pulmonary, Neurosurgery Primary Care Physician: Unknown Course Resuscitation Status: 07/18/20 20:37 Resuscitation Status Routine Resuscitation Status: DNAR: NO Resuscitation Discussed with: Family Lab Results: 07/18/20 17:28 07/18/20 17:28 Abnormal Lab Results - Last 48 hrs 07/18/20 17:28: B-Natriuretic Peptide 573.9 H 07/18/20 20:56: Lactic Acid 3.4 H Microbiology - Entire Visit 07/18/20 17:28 Venous blood - Left Hand Blood Culture - Preliminary NO GROWTH AT 48 HOURS Vitals: Vital Signs (12 hours) Temp Pulse Resp Pulse Ox 07/20/20 16:00 19 07/20/20 15:00 99.0 F 07/20/20 14:58 113 H 07/20/20 14:00 18 07/20/20 12:00 19 96 07/20/20 11:00 99.2 F 07/20/20 10:30 112 H 07/20/20 10:00 18 07/20/20 08:00 98.3 F 20 92 L 07/20/20 06:55 114 H Weight Admit Weight 139 lb 5.314 oz Weight 143 lb 4.807 oz Most Recent Monitor Data Heart Rate from ECG 117 NIBP 117/79 NIBP BP-Mean 91 Respiration from ECG 21 SpO2 97 Physical Exam: The patient was seen and examined on the day of discharge. Problem (1) Encephalopathy Code(s): G93.40 - ENCEPHALOPATHY, UNSPECIFIED Status: Acute (2) Subdural hematoma, acute Code(s): S06.5X9A - TRAUM SUBDR HEM W LOC OF UNSP DURATION, INIT Status: Acute (3) Acute respiratory failure Code(s): J96.00 - ACUTE RESPIRATORY FAILURE, UNSP W HYPOXIA OR HYPERCAPNIA Status: Acute (4) CAD (coronary artery disease) Code(s): I25.10 - ATHSCL HEART DISEASE OF [place] CORONARY ARTERY W/O ANG PCTRS Status: Chronic Qualifiers: Coronary Disease-Associated Artery/Lesion type: [place] artery [place] vs. transplanted heart: [place] heart Associated angina: without angina Qualified Code(s): I25.10 - Atherosclerotic heart disease of [place] coronary artery without angina pectoris (5) DM type 2 (diabetes mellitus, type 2) Status: Chronic Qualifiers: Diabetes mellitus intermediate insulin use: with intermediate use Diabetes mellitus complication status: with kidney complications Chronic kidney disease stage: stage 3 (moderate) (6) Dementia Code(s): F03.90 - UNSPECIFIED DEMENTIA WITHOUT BEHAVIORAL DISTURBANCE Status: Chronic Qualifiers: Dementia type: unspecified type Dementia behavioral disturbance: without behavioral disturbance Qualified Code(s): F03.90 - Unspecified dementia without behavioral disturbance (7) Ischemic cardiomyopathy Code(s): I25.5 - ISCHEMIC CARDIOMYOPATHY Status: Acute (8) Chronic diastolic heart failure Code(s): I50.32 - CHRONIC DIASTOLIC (CONGESTIVE) HEART FAILURE Status: Acute Plan Home Medications: Medication Instructions Recorded Confirmed Type amLODIPine Besylate [Amlodipine 10 mg PO DAILY 04/06/16 11/10/19 History Besylate] Cholecalciferol [Vitamin D3] 1,000 units PO DAILY #30 tab 08/22/16 11/10/19 Rx Atorvastatin Calcium [Lipitor] 40 mg PO HS 04/11/17 11/10/19 History Metoprolol Tartrate [Lopressor] 50 mg PO BID 04/11/17 11/10/19 History Doxazosin Mesylate 4 mg PO HS 10/23/17 11/10/19 History Aspirin [Ecotrin Low Strength] 81 mg PO DAILY 04/26/19 11/10/19 History Isosorbide Mononitrate [Isosorbide 30 mg PO DAILY 04/26/19 11/10/19 History Mononitrate ER] Acetaminophen [Tylenol Regular 650 mg PO Q4H PRN tab 09/08/19 11/10/19 Rx Strength] Furosemide [Lasix] 40 mg PO DAILY #30 tab 11/10/19 Rx Insulin Glargine [Lantus Vial] 12 units SC HS #1 vial 11/10/19 Rx hydrALAZINE [Apresoline] 10 mg PO TID 11/10/19 11/10/19 History hydrALAZINE [Apresoline] 25 mg PO TID #90 tab 11/10/19 Rx Allergies: No Known Allergies Allergy (Verified 11/06/19 19:57) Referrals: Unknown,Unknown [Primary Care Provider] - Disposition: [facility] Quality CORE MEASURES:: N/A
--- NOTE | 2020-07-21 09:51 | PQF ---
CLINICAL DOCUMENTATION CLARIFICATION FORM: Dear : Evan Garcia Date / Time: 07/21/2020 Please exercise your independent, professional judgment in responding to the clarification form. Clinical indicators are provided on the bottom of this form for your review Please check appropriate box(es): [ ] Traumatic subdural hematoma [ x ] Non-traumatic subdural hematoma [ ] Other diagnosis [ ] Unable to determine In addition, please specify: Present on Admission (POA): [ x ] Yes [ ] No [ ] Unable to determine To be completed by CDI/Coding staff for physician review: Present Clinical Indicators - Signs / Symptoms / Labs Results and Location in Medical Record [ x ] Patient was found to be unresponsive in bed by his family. EMS was activated, also found him unconscious and unresponsive however was breathing and hypoglycemic H and P [ x ] Altered mental status due to large subdural that is likely acute on chronic. Patient completely obtunded GCS 3. Patient intubated for airway protection, completely unresponsive to pain prior to admission ED provider notes [ x ] We do not know much about the patient but I do not see any signs of trauma suggesting a traumatic subdural ED provider notes [ x ] CT brain showed large left subdural hematoma-most likely hyper acute hematoma or possible acute on chronic subdural hematoma Progress note 07/19 by Evan Ramirez Present Risk Factors Results and Location in Medical Record [ x ] Hospice patient, advanced age of 79 years, history of dementia, hypertension and diabetes mellitus type 1 H and P Present Treatments Results and Location in Medical Record [ x ] CT brain 07/18 Reports [ x ] Neurology consult Reports CDS/Supervisor Record Press Signature: [email or web address] Phone #: Date/Time: 07/21/2020 This is a permanent part of the Medical Record [facility]
--- NOTE | 2020-07-21 21:19 | EKG ---
Test Reason : CP Blood Pressure : / mmHG Vent. Rate : 120 BPM Atrial Rate : 120 BPM P-R Int : 152 ms QRS Dur : 092 ms QT Int : 370 ms P-R-T Axes : 056 041 225 degrees QTc Int : 522 ms Sinus tachycardia with Premature atrial complexes Low voltage QRS Prolonged QT Abnormal ECG Confirmed by DR. Lilian KONG MD ([id number]) on 07/21/2020 9:19:12 PM Referred By: TIFFANIE Confirmed By:DR. Lilian KONG MD
--- NOTE | 2020-07-23 15:53 | EKG ---
Test Reason : AMS Blood Pressure : / mmHG Vent. Rate : 089 BPM Atrial Rate : 089 BPM P-R Int : 170 ms QRS Dur : 102 ms QT Int : 448 ms P-R-T Axes : 076 039 -84 degrees QTc Int : 545 ms Sinus rhythm with Premature atrial complexes Prolonged QT Abnormal ECG Confirmed by GIGI MOSS ([id number]), manuscript editor JAVIER HAINES ([id number]) on 07/23/2020 3:53:04 PM Referred By: Confirmed By:GIGI MOSS
== END 2020-07-20 17:15 | disposition hospice, inpatient (51) | DRG 64 ==
LOC: ERS 17:18 → CCU 19:57
PROVIDERS: ADMIT Internal Medicine; ATTEND Internal Medicine
PROC: 0BH17EZ Insertion of Endotracheal Airway into Trachea, Via Natural or Artificial Opening (ICD-10-PCS; principal; 2020-07-18)
PROC: 5A1945Z Respiratory Ventilation, 24-96 Consecutive Hours (ICD-10-PCS; 2020-07-18)
DX: I62.01 Nontraumatic acute subdural hemorrhage (principal); J96.00 Acute respiratory failure, unspecified whether with hypoxia or hypercapnia; G93.5 Compression of brain; G93.49 Other encephalopathy; N39.0 Urinary tract infection, site not specified; I13.0 Hypertensive heart and chronic kidney disease with heart failure and stage 1 through stage 4 chronic kidney disease, or unspecified chronic kidney disease; Z66 Do not resuscitate; F03.90 Unspecified dementia, unspecified severity, without behavioral disturbance, psychotic disturbance, mood disturbance, and anxiety; E78.00 Pure hypercholesterolemia, unspecified; I62.03 Nontraumatic chronic subdural hemorrhage; E86.0 Dehydration; I25.5 Ischemic cardiomyopathy; Z20.822 Contact with and (suspected) exposure to COVID-19; N18.30 Chronic kidney disease, stage 3 unspecified; E10.22 Type 1 diabetes mellitus with diabetic chronic kidney disease; I25.10 Atherosclerotic heart disease of native coronary artery without angina pectoris; Z95.1 Presence of aortocoronary bypass graft
CPT/HCPCS: 0240U; 31500; 36415; 36416; 36600; 51702; 70450; 71045; 72125; 80053; 80307; 81003; 81015; 82140; 82550; 82553; 82805; 83605; 83690; 83735; 83880; 84439; 84443; 84484; 85025; 85610; 85730; 87040; 93005; 93010; 94002; 94003; 96365; 96368; 96375; 99292; J0692; J1100; J1650; J2001; J2370; J3010; J3370; J3490

== ENCOUNTER 2020-07-20 17:22 | Inpatient (IN) | payer OTHER ==
[2020-07-20] MEDS ORDERED: Morphine 4 MG/ML VIAL ONE (17:37)
[2020-07-20] MEDS ORDERED: Lorazepam 2 MG/ML VIAL ONE (17:37)
[2020-07-20 20:18] VITALS: BP 100/60
[2020-07-20] MEDS ORDERED: Morphine 4 MG/ML VIAL SLOW IVP SCH (21:00)
[2020-07-20] MEDS ORDERED: Lorazepam 2 MG/ML VIAL SLOW IVP SCH (21:00)
== END 2020-07-20 21:10 | disposition expired | DRG 951 ==
LOC: CCU 17:22 → T4-A 19:02
PROVIDERS: ADMIT Internal Medicine; ATTEND Internal Medicine
DX: Z51.5 Encounter for palliative care (principal); S06.5X9A Traumatic subdural hemorrhage with loss of consciousness of unspecified duration, initial encounter; G93.49 Other encephalopathy; Z66 Do not resuscitate; F03.90 Unspecified dementia, unspecified severity, without behavioral disturbance, psychotic disturbance, mood disturbance, and anxiety; E78.5 Hyperlipidemia, unspecified; I10 Essential (primary) hypertension; I25.10 Atherosclerotic heart disease of native coronary artery without angina pectoris; F17.220 Nicotine dependence, chewing tobacco, uncomplicated; E10.649 Type 1 diabetes mellitus with hypoglycemia without coma; X58.XXXA Exposure to other specified factors, initial encounter; Z79.899 Other long term (current) drug therapy; Z79.82 Long term (current) use of aspirin; Z79.4 Long term (current) use of insulin; Z95.1 Presence of aortocoronary bypass graft; Z95.0 Presence of cardiac pacemaker
CPT/HCPCS: J2060; J2270